=== PATIENT | male | born 1955 | race Caucasian/White ===

== ENCOUNTER 2017-06-13 12:33 | Inpatient (IN) ==
--- NOTE | 2017-06-13 14:36 | PROVIDER DOCUMENTATION ---
HPI-Rash/Wound/ReCheck - General Chief Complaint: Extremity Pain Stated Complaint: RT LEG PAIN Time Seen by Provider: 06/13/17 13:54 Source: patient Allergies/Adverse Reactions: Allergies Allergy/AdvReac Type Severity Reaction Status Date / Time No Known Allergies Allergy Verified 06/13/17 17:46 Home Medications: Home Medication List Medication Instructions Recorded Confirmed Last Taken Type Pregabalin [Lyrica] 75 mg PO DAILY 12/14/13 06/13/17 12/13/13 20:00 History RX: Atorvastatin Calcium 80 mg PO DAILY 12/14/13 06/13/17 12/13/13 20:00 History Carvedilol [Coreg] 6.25 mg PO BID 06/13/17 06/13/17 Unknown History Clindamycin [Cleocin] 300 mg PO 4XDAY 06/13/17 06/13/17 06/12/17 History Glipizide E.r. [Glucotrol Xl] 10 mg PO DAILY 06/13/17 06/13/17 Unknown History Insulin Detemir [Levemir Flextouch] 52 unit SQ QHS 06/13/17 06/13/17 06/12/17 History Insulin Lispro [Humalog Kwikpen] 17 unit SQ TID 06/13/17 06/13/17 06/13/17 History Metformin [Glucophage] 500 mg PO BID CC 06/13/17 06/13/17 Unknown History RX: Aspirin 325 mg PO DAILY 06/13/17 06/13/17 Unknown History Ropinirole [Requip] 1 mg PO DAILY 06/13/17 06/13/17 Unknown History Tiotropium [place] Inhaler 1 puff INH RTDAILY 06/13/17 06/13/17 Unknown History [Spiriva] - History of Present Illness-Dermatology Nature of Presenting Problem: 62 y.o male with PMh of CAD/stents, IDDM, PAD, COPD,current smoker who presents with complaints of right leg pain and redness. His symptoms have been presents for at least 2 days, but pt admits not checking his leg routinely. He was seen at a clinic yesterday for complains similar to today and given 2 shots + Po meds, then discharged with clindamycin. Pt was also told to go to ED if pain worsen. Pt also reports loosing toenail on left great toe a week ago. Pt denies fever, chills, Location: reports: lower extremity Quality: reports: painful Severity: reports: moderate Onset/Duration: reports: 2 days ago, 3 days ago Timing: reports: getting worse Context/Associated Symptoms: reports: other (may have been scratched by his dog. ) Locality of [place]: Home Similar Symptoms Previously?: No Recently seen or treated by another doctor?: No Review of Systems - Adult - REVIEW OF SYSTEMS - ADULT Constitutional: reports: no symptoms reported Eyes: reports: no symptoms reported Ears, Nose, Mouth & Throat: reports: no symptoms reported Cardiovascular: reports: no symptoms reported Respiratory: reports: no symptoms reported Gastrointestinal: reports: no symptoms reported Genitourinary: reports: no symptoms reported Musculoskeletal: reports: see HPI Integumentary: reports: see HPI Neurological: reports: no symptoms reported Psychiatric: reports: no symptoms reported Endocrine: reports: no symptoms reported Hematologic/Lymphatic: reports: no symptoms reported Allergic/Immunologic: reports: no symptoms reported All Other Systems: Reviewed and Negative Past History - Adult - PAST MEDICAL HISTORY-ADULT Review of Records: reports: Nursing Assessment Review, Medications Reviewed Cardiovascular: reports: cardiac disease, DE, PAD, PVD Respiratory: reports: COPD - FAMILY HISTORY Family History: diabetes, CAD over 55 yo, lung disease - SOCIAL HISTORY Smoking: less than 1 pack/day Substance Use: none/never Alcohol Use Frequency: never Physical Exam-General - PHYSICAL EXAM-ADULT Initial Vital Signs Reviewed: Yes - CONSTITUTIONAL General Appearance: appears well, other (antalgic gait) - EYES Eyes: PERRL/EOMI - HEAD, EARS, NOSE, MOUTH & THROAT HENMT: normocephalic/atraumatic - NECK Neck: non-tender, supple - RESPIRATORY Respiratory: chest non-tender, lungs clear, normal breath sounds - CARDIOVASCULAR Cardiovascular: regular rate, rhythm - GASTROINTESTINAL (ABDOMEN) Abdominal Exam: normal bowel sounds Progress - PLAN OF CARE/RESULTS Progress/Plan/Lab Results: Laboratory Results - last 24 hr 06/13/17 06/13/17 06/13/17 14:54 14:54 14:54 WBC 15.34 H RBC 5.09 Hgb 12.8 L Hct 39.0 L MCV 76.6 L MCH 25.1 L MCHC 32.8 L RDW Std Deviation 14.5 Plt Count 331 MPV 10.4 Immature Gran % (Auto) 0.3 Neut % (Auto) 79.3 H Lymph % (Auto) 10.2 L [place] % (Auto) 9.5 H Eos % (Auto) 0.4 Baso % (Auto) 0.3 Immature Gran # (Auto) 0.04 Neut # (Auto) 12.17 H Lymph # (Auto) 1.57 [place] # (Auto) 1.46 H Eos # (Auto) 0.06 Baso # (Auto) 0.04 Sodium 123 L Potassium 4.0 Chloride 86 L Carbon Dioxide 23 L Anion Gap 14 BUN 18 Creatinine 0.9 Estimated GFR/1.73 m2 > 60 BUN/Creatinine Ratio 20 Glucose 390 H Estimat Average Glucose 192 Hemoglobin A1c 8.3 H Calculated Osmolality 266 Calcium 8.3 L Total Bilirubin 0.70 AST 24 ALT 31 Alkaline Phosphatase 185 H Total Protein 7.4 Albumin 3.5 Globulin 3.9 Albumin/Globulin Ratio 0.9 Orders Category Date Time Status Admit - [facility] Routine AdmDCTranf 06/13/17 18:23 Ordered Activity - Bed Rest with BRP ORDERED Care 06/13/17 18:23 Active FSBS/Accucheck Result AC + HS Care 06/13/17 18:23 Active Neurological Check PRN Care 06/13/17 18:23 Active Vital Signs Order Q 8-HR .ASSESS Care 06/13/17 18:23 Active Z-Document. for Tele Applied ORDERED Care 06/13/17 18:23 Active Diabetic Diet Diet 06/13/17 16:31 Active A1C HGB W EST AVG GLUCOSE [CHEM] Stat Lab 06/13/17 14:54 Completed BLOOD CULTURE [BLDCUL] Stat Lab 06/13/17 18:00 Results CBC WITH ELECTRONIC DIFF [HEME] Stat Lab 06/13/17 14:54 Completed COMPREHENSIVE METABOLIC PANEL [CHEM] Stat Lab 06/13/17 14:54 Completed LACTATE, PLASMA [CHEM] Stat Lab 06/13/17 18:00 Completed Acetaminophen [Tylenol] Med 06/13/17 18:23 Active 650 mg PO Q6H PRN PRN Insulin Lispro [Humalog] Med 06/13/17 21:00 Active See Protocol SUBQ 0700,1100,1600,2100 Morphine Med 06/13/17 18:23 Active 2 mg IV Q2H PRN PRN Ondansetron [Zofran] Med 06/13/17 18:23 Active 4 mg IV Q4H PRN PRN Pharmacy Order [Vancomycin IV Per Pharmacy] Med 06/13/17 18:23 Active 1 each MISC DIRECTED Piperacillin/Tazobactam [Zosyn] 3.375 gm Med 06/13/17 15:43 Discontinued 0.9% Sodium Chloride Inj [Ns] 50 ml IV NOW Piperacillin/Tazobactam [Zosyn] 3.375 gm Med 06/13/17 18:23 Active 0.9% Sodium Chloride Inj [Ns] 50 ml IV Q6H Vancomycin 1 gm/Ns Med 06/13/17 15:44 Discontinued 1 gm in 250 ml IV NOW Telemetry [OM.EQ] Routine Oth 06/13/17 18:23 Active Venous U/S Right Leg Stat Ther 06/13/17 14:32 Completed Transfer/Admit Order [TRANSFER] Routine Transfer 06/13/17 16:29 Completed Result Diagrams: 06/13/17 14:54 06/13/17 14:54 - REASSESSMENT Reassessment #1 Status: unchanged (labs obtained, abx ordered. Spoke to OUTPATIENT CLERK, pt will be admitted to Dr Azul.) Departure - Departure Date of Disposition Decision: 06/13/17 Time of Disposition Decision: 15:54 (spoke to Brenda MALDONADO) DIAGNOSIS: Diabetic foot infection Cellulitis Qualifiers: Site of cellulitis: extremity Laterality: right Disposition: ADMITTED INPATIENT 09 Certified Medical Emergency: Emergent Condition: Stable - Critical Care Note This patient required my direct & personal management of CC.: No Attestation - Physician/ BRIAN Attestation Patient care was provided by Advanced Practice Provider:: No The physician spent face to face time with patient:: Yes Advanced Practice Provider documentation review:: Supervising physician onsite and consulted in the evaluation and care of this patient. The physician did have a face to face encounter with the patient.
[2017-06-13 15:08] LABS: MANUAL DIFF NEEDED? NO
[2017-06-13 15:12] LABS: BASO% 0.3 % (0.0-0.8); EOS# 0.06 X1000 (0.0-0.7); EOS% 0.4 % (0.0-10.0); HEMOGLOBIN 12.8 g/dL (14.0-18.0); IMM GRAN# 0.04 X1000 (0.0-0.04); IMM GRAN% 0.3 % (0.0-0.5); LYMPH# 1.57 X1000 (1.2-3.4); LYMPH% 10.2 % (20.5-51.1); MCH 25.1 PG (27-31); MCHC 32.8 g/dL (33-37); MCV 76.6 FL (81-99); MONO# 1.46 X1000 (0.11-0.59); MONO% 9.5 % (1.7-9.3); MPV 10.4 FL (7.4-10.4); NEUT% 79.3 % (42.2-75.2); PLT 331 X1000 (130-400); RBC 5.09 XMIL (4.7-6.1)
[2017-06-13 15:26] LABS: HEMOGLOBIN A1C 8.3 % (4.8-6.0)
[2017-06-13 15:33] LABS: AGAP 14; ALBUMIN 3.5 g/dL (3.5-5.0); ALKALINE PHOSPHATASE 185 U/L (32-122); BUN 18 mg/dL (8-22); CALCIUM 8.3 mg/dL (8.8-10.2); CHLORIDE 86 mmol/L (98-107); COSMO 266; GOT 24 U/L (10-34); GPT 31 U/L (10-44); SODIUM 123 mmol/L (136-145); TCO2 23 mmol/L (25-35); TOTAL PROTEIN 7.4 g/dL (6.3-8.3)
[2017-06-13] MEDS ORDERED: ZOSYN 3.375 GM in NS 50 ML IV ONE (15:43)
[2017-06-13] MEDS ORDERED: VANCOMYCIN 1 GM/NS 1 GM/250 ML IVPB IV ONE (15:44)
[2017-06-13] MEDS ORDERED: MORPHINE IV ONE (18:02)
[2017-06-13] MEDS ORDERED: VANCOMYCIN IV PER PHARMACY MISC SCH (18:23)
--- NOTE | 2017-06-13 19:02 | Diag Imaging Result Doc PS360 ---
EXAM: FOOT COMPLETE RIGHT HISTORY: diabetic foot ulcer TECHNIQUE: Right foot three views COMMENT: There is no evidence of acute fracture or dislocation. There is some plantar spurring of the calcaneus. There is some apparent soft tissue swelling around the proximal phalanx of the great toe. No definite erosion, periosteal reaction or soft tissue calcification is present. IMPRESSION: No evidence of acute bony disease. Electronically signed by Everette Dietz 06/13/2017 6:59 PM
[2017-06-13] MEDS: HUMALOG SUBQ SCH (20:33)
[2017-06-13] MEDS: COREG PO SCH (20:33)
[2017-06-13] MEDS: ZOSYN 3.375 GM in NS 50 ML IV SCH (20:35)
[2017-06-13] MEDS: LOVENOX SUBQ SCH (20:35)
[2017-06-13] MEDS ORDERED: VANCOMYCIN 1,500 MG in NS 250 ML IV ONE (21:00)
[2017-06-13] MEDS: MORPHINE IV PRN (23:00)
[2017-06-14] MEDS: ZOSYN 3.375 GM in NS 50 ML IV SCH ×5 (00:35→21:10)
--- NOTE | 2017-06-14 00:55 | HISTORY AND PHYSICAL ---
CHIEF COMPLAINT: Pain and swelling in his right leg. HISTORY OF PRESENT ILLNESS: This is a 62-year-old, insulin-dependent diabetic who came in from home with about a week's worth of swelling and pain in his right lower extremity for the last 7 days. The patient has had pain and swelling in his right toe and left toe actually. He states that it is possible a puppy dog injured his right foot and he has had pain and swelling since that time. He lost the nail on his left foot, it kind of spontaneously came off and has not been healing very well. He saw urgent care I think a couple days ago and has been started on clindamycin but obviously has not improved. There is more pain, erythema, warmth and he also has a large bolus lesion between his 1st and 2nd toe. He was evaluated in the ER, felt to have a diabetic foot wound and cellulitis and was admitted for treatment. Also consideration for failed inpatient treatment. PAST MEDICAL HISTORY: 1. Type 2 diabetes but insulin dependent. 2. History of CAD status post PCI. 3. Chronic neuropathy of his lower extremities. 4. COPD. PAST SURGICAL HISTORY: I do not think he has had major surgery although it looks like he has had surgery on his right foot previously. SOCIAL HISTORY: He is a pack-a-day smoker. He has done that for probably 40 years. No alcohol. No recreational drugs. REVIEW OF SYSTEMS: Ten systems reviewed. Otherwise negative. MEDICATION LIST: Being compiled. He is on Levemir and lispro, metformin, Lyrica, Requip, Spiriva, Atorvastatin and aspirin and he has been on clindamycin for about 2 days. FAMILY HISTORY: Positive for CAD in his mother, diabetes as well. PHYSICAL EXAMINATION: VITAL SIGNS: Blood pressure 141/75, heart rate 96, respiratory rate 18, temperature 98.3 degrees. GENERAL: Well-developed male in mild distress. HEENT: Pupils equal, round, reactive to light. Extraocular movements were intact. EAR/NOSE/THROAT: He had moist mucous membranes. NECK: Supple. GI: Soft, nontender, nondistended. Bowel sounds are positive. EXTREMITIES: No clubbing or cyanosis. LYMPHATIC EXAM: No peripheral edema. He did have trace peripheral edema. NEUROLOGICAL EXAM: Was nonfocal. CARDIAC EXAM: He was tachycardic. PULMONARY EXAM: He had occasional wheeze. SKIN EXAM: He had erythema from his dorsum of his right foot extending up to about 2/3 up his cao. It kind of was splotchy in place, definitely warm to the touch and painful. Skin had a bright sheen to it hairless and pulses were very difficult to palpate dorsalis pedis and posterior tibialis pulses. His toe on the right foot had a bolus lesion about 2 cm. This was spontaneously ruptured and fluid was collected for wound culture. He had a deeper wound underneath his 4th phalanx on the right foot at the MTP joint which was draining. On his left foot at the left 1st toe phalanx had nail had been denuded and there was just lacerated, abraded kind of flesh associated with that but it was not erythematous but it was draining. LABORATORY DATA: White count 15, hemoglobin and hematocrit 12 and 39, platelets of 331,000. Sodium 123, sugar 390, A1c is 8.3 and plain films are negative. I think an ultrasound was done in the ER venous ultrasound and I think it was negative for DVT. I do not have the final report. ASSESSMENT: This is a 62-year-old male with cellulitis of his right leg with possible diabetic foot ulcer or wound with failing outpatient therapy. 1. Cellulitis and diabetic foot ulcers. We will continue vancomycin and Zosyn. I think that is appropriate and we will get a surgical consult to evaluate if debridement is necessary. I am going to get plain films of his right foot just to ensure there is not a deeper infection or osteo. He may need further treatment. We will follow up on wound culture, blood cultures and follow. 2. Diabetes not well controlled. Continue insulin. Follow blood sugars aggressively. Continue sliding scale insulin. 3. Hyponatremia likely related to his hyperglycemia. We will continue gentle hydration and follow. 4. Coronary artery disease appears to be compensated. We will continue his regular medications. I am going to hold aspirin right now just because of his putative need for possible debridement or further surgical intervention. DISPOSITION: Pending his clinical status. cc: Jose Irby MD
[2017-06-14] MEDS: HUMALOG SUBQ SCH ×6 (06:21→21:13)
[2017-06-14] MEDS: TYLENOL PO PRN (06:27)
[2017-06-14] MEDS: PRILOSEC PO SCH (06:27)
[2017-06-14 06:39] LABS: HEMATOCRIT 38.1 % (42.0-52.0); HEMOGLOBIN 12.4 g/dL (14.0-18.0); MCH 25.4 PG (27-31); MCHC 32.5 g/dL (33-37); MCV 77.9 FL (81-99); MPV 10.4 FL (7.4-10.4); RBC 4.89 XMIL (4.7-6.1)
[2017-06-14 07:01] LABS: AGAP 15; BUN 15 mg/dL (8-22); CHLORIDE 93 mmol/L (98-107); COSMO 273; MAGNESIUM 2.1 mg/dL (1.5-2.7); POTASSIUM 4.1 mmol/L (3.5-5.1); SODIUM 133 mmol/L (136-145); TCO2 25 mmol/L (25-35)
[2017-06-14] MEDS: SPIRIVA INH SCH (08:15)
[2017-06-14] MEDS: GLUCOTROL XL PO SCH (09:00)
[2017-06-14] MEDS: LYRICA PO SCH (09:00)
[2017-06-14] MEDS: REQUIP PO SCH (09:01)
[2017-06-14] MEDS: COREG PO SCH ×2 (09:01→21:10)
[2017-06-14] MEDS: GLUCOPHAGE PO SCH ×2 (09:03→18:51)
[2017-06-14] MEDS ORDERED: NS 500 ML ONE (12:19)
[2017-06-14] MEDS: MORPHINE IV PRN ×4 (12:22→18:56)
[2017-06-14] MEDS: VANCOMYCIN 2 GM in NS 500 ML IV SCH (15:50)
--- NOTE | 2017-06-14 17:21 | CONSULTATION ---
DATE OF CONSULTATION: 06/14/2017 REASON FOR CONSULTATION: Diabetic foot infection. HISTORY OF PRESENT ILLNESS: This is a 62-year-old male with uncontrolled insulin-dependent diabetes, who presented with swelling, pain and redness of his right leg and foot for about a week. He has had a blister and some drainage on the great toe. He has really not been treated other than starting some clindamycin a day or two ago at an urgent care clinic. He does report pain in his thighs and calves with walking and what sounds like rest pain as well. The pain is sometimes lessened by dropping his foot off the side of the bed or by stopping walking. He describes some subjective fever as well as nausea and vomiting recently. PAST MEDICAL HISTORY: Insulin-dependent type 2 diabetes, history of coronary artery disease, status post stent placement, peripheral neuropathy, COPD, tobacco abuse. PAST SURGICAL HISTORY: None. HOME MEDICATIONS: Levemir, lispro, metformin, Lyrica, Requip, Spiriva, atorvastatin, aspirin. SOCIAL HISTORY: He smokes a pack of cigarettes per day. He has done that for several decades. No alcohol or illicit drug use. FAMILY HISTORY: Positive for coronary artery disease and diabetes. REVIEW OF SYSTEMS: Ten systems reviewed and negative except as noted above. PHYSICAL EXAMINATION: Vital Signs: Temperature 98.3 degrees, pulse 84, respirations 20, blood pressure 139/76, O2 saturation 94%. General: He is a well-developed male in no acute distress. He looks his stated age. HEENT: Normocephalic, atraumatic. Extraocular muscles intact. Pupils equal, round, reactive to light. Sclerae anicteric. Moist mucous membranes. Hearing grossly normal. Neck: Supple. No thyromegaly. CV: Regular rate and rhythm. GI: Soft, nontender, nondistended. No organomegaly or mass. No hernias. Skin: There is erythema of the distal right leg and foot with some skin breakdown in between the 1st and 2nd toe, and what looks like a blister on the lateral aspect of the proximal right great toe. Extremities: His upper extremities were well perfused; however, I do not palpate pedal pulses in either foot. His right foot and leg are warm, red and swollen. There is some discoloration under the skin of the proximal right great toe. There is no foul odor. The left great toe has a missing nail with some chronic skin changes, but no active infection. LABORATORY: White blood cell count 52310, hemoglobin 12, hematocrit 38, platelet count 339. Sodium 133, potassium 4.1, chloride 93, CO2 25, BUN 15, creatinine 0.9, glucose 208, hemoglobin A1c 8.3. IMAGING: A foot x-ray done last night shows no acute bony abnormality. There is soft tissue swelling around the proximal phalanx of the great toe. ASSESSMENT AND PLAN: A 62-year-old male with a diabetic foot infection now with a foot ulcer involving the great toe. There is cellulitis of his leg. He has peripheral arterial disease, which appears to be quite severe. He has had prior imaging documenting bilateral superficial femoral stenoses. He has I think seen Dr. Garcia in the past for vascular workup. We will reconsult him tomorrow as he may need revascularization in the near future. Will paint his toe wounds with Betadine for now and agree with the vancomycin and Zosyn which has been started. We will check an MRI tomorrow to look for any osteo in his foot. cc: Julio Ramsay MD
--- NOTE | 2017-06-14 17:27 | PROGRESS NOTE ---
DATE: 06/14/2017 SUBJECTIVE: Patient still feels ill. Still a lot of pain, swelling in his leg. OBJECTIVE: Vital signs: Blood pressure 134/65, heart rate of 89, respiratory rate 18, temperature 98.3 degrees, 95% on room air. Cardiovascular: Regular rate and rhythm. Pulmonary: Bilateral breath sounds. Clear to auscultation. GI: Soft, nontender, nondistended. Bowel sounds are positive. Extremities: No clubbing or cyanosis. Right foot is still erythematous with streaking lymphangitic, his right toe has some dry blood kind of crusting in between and it looks like he has got some subcutaneous free fluid with the tissue inside and there is dark patches that are concerning for possibly some necrosis deep to that. Lymphatics: No peripheral edema. Neurological: Nonfocal. LABORATORY DATA: White count was 15 still, hemoglobin and hematocrit 12 and 38, platelets 339,000. Sugars 212. His plain films are negative. ASSESSMENT: 1. This is a 62-year-old male with a right diabetic foot ulcer possibly some gangrenous changes beneath and cellulitis. He is on vancomycin and Zosyn. Surgery has evaluated the patient. I do not have the note yet but they have ordered an MRI and consult with Dr. Garcia. I think he will need arterial studies to evaluate for blood flow. Apparently he has had peripheral vascular disease issues in the past. He had extremity studies done in September with common femoral stenosis. He was supposed to have an arteriogram but I guess I do not think he ended up getting it, he had an aorta study in 2013 which showed severe superficial femoral disease occlusion bilaterally and that was 3 years ago so he may need revascularization type of procedure, I think Dr. Garcia has been consulted as well per Dr. Ramsay. 2. Diabetes poorly controlled. Will continue to adjust his medications. He is on Levemir, lispro and metformin. 3. Neuropathy. Continue regular medications and follow. DISPOSITION: Pending rest of his workup. cc: Jose Azul MD
[2017-06-14] MEDS: LEVEMIR SUBQ SCH (21:00)
[2017-06-14] MEDS: LOVENOX SUBQ SCH (21:10)
[2017-06-15] MEDS: ZOFRAN IV PRN (04:23)
[2017-06-15] MEDS: ZOSYN 3.375 GM in NS 50 ML IV SCH ×4 (04:23→21:20)
[2017-06-15 06:51] LABS: HEMATOCRIT 33.7 % (42.0-52.0); HEMOGLOBIN 10.8 g/dL (14.0-18.0); MCH 25.3 PG (27-31); MCV 78.9 FL (81-99); MPV 10.4 FL (7.4-10.4); RBC 4.27 XMIL (4.7-6.1)
[2017-06-15 06:57] LABS: AGAP 13; BUN 14 mg/dL (8-22); CALCIUM 8.8 mg/dL (8.8-10.2); CHLORIDE 95 mmol/L (98-107); COSMO 274; POTASSIUM 4.7 mmol/L (3.5-5.1); SODIUM 134 mmol/L (136-145); TCO2 26 mmol/L (25-35)
[2017-06-15] MEDS: HUMALOG SUBQ SCH ×7 (07:04→21:19)
[2017-06-15] MEDS: PRILOSEC PO SCH (07:04)
[2017-06-15] MEDS: SPIRIVA INH SCH (07:50)
[2017-06-15] MEDS: LIPITOR PO SCH (09:00)
[2017-06-15] MEDS: GLUCOTROL XL PO SCH (09:00)
[2017-06-15] MEDS: GLUCOPHAGE PO SCH ×2 (09:00→17:15)
[2017-06-15] MEDS: REQUIP PO SCH (09:00)
[2017-06-15] MEDS: COREG PO SCH ×2 (09:01→21:18)
[2017-06-15] MEDS: LYRICA PO SCH (09:02)
[2017-06-15] MEDS: MORPHINE IV PRN ×3 (10:38→21:19)
[2017-06-15] MEDS: VANCOMYCIN 2 GM in NS 500 ML IV SCH (12:03)
--- NOTE | 2017-06-15 13:27 | Diag Imaging Result Doc PS360 ---
EXAM: CT ANGIOGRAM/AORTA W/RUNOFF INDICATION: diabetic foot ulcer;PVD TECHNIQUE: In addition to standard thin section CTA images, radial MIPS were obtained. COMPARISON: 07/05/2014 FINDINGS: There is aortic atherosclerotic disease that is fairly extensive distally where there are irregular plaques and calcifications. There is moderate narrowing of the aorta distally. There is no evidence of aortic aneurysm. There is extensive iliac artery atherosclerotic disease with moderate stenosis of the common iliac arteries. There is extensive atherosclerotic disease involving the internal iliac arteries. There is milder atherosclerotic disease involving the external iliac artery on the right causing only mild narrowing. There is mild patchy atherosclerotic calcification involving the celiac trunk and SMA proximally but they both remain widely patent. There are two left renal arteries and one right renal artery. There is mild calcification at the origins of the renal arteries. They remain patent. The ARTHUR is patent. There is no evidence of acute pathology involving the abdomen and pelvis except for possibly constipation. Right lower extremity: There is atherosclerotic disease involving the common femoral artery with moderate stenosis distally. The deep femoral artery is patent. There is severe atherosclerotic disease involving the superficial femoral artery, which becomes totally occluded at the proximal thigh. There is reconstitution at the popliteal artery via collateralization. There is fairly mild atherosclerotic disease involving the proximal popliteal artery. It remains patent. The anterior tibial artery remains patent throughout its course providing runoff to the foot. There is atherosclerotic disease with at least moderate narrowing involving the tibioperoneal trunk. The posterior tibial artery appears become occluded at the mid calf. The peroneal artery remains patent and provide runoff to the foot. Left lower extremity: There is moderate atherosclerotic disease involving the common femoral artery that is less severe than on the right. The deep femoral artery is patent. The superficial femoral artery becomes completely occluded just distal to its origin. It is reconstituted distally via collateralization. There is fairly mild atherosclerotic disease involving the popliteal artery, which remains patent. The anterior tibial artery is patent throughout its course. There is focal atherosclerotic calcification involving the tibioperoneal trunk, which remains patent. The posterior tibial artery and peroneal artery appear to remain patent throughout the courses. IMPRESSION: Aortoiliac atherosclerotic disease and lower extremity atherosclerotic disease as detailed above with two-vessel runoff on the right and three-vessel runoff on the left. Electronically signed by John Tao 06/15/2017 1:25 PM
--- NOTE | 2017-06-15 13:56 | Diag Imaging Result Doc PS360 ---
EXAM: MRI LOWER EXT W/WO CON-RIGHT INDICATION: non-healing diabetic foot wound and infection TECHNIQUE: COMPARISON: None. FINDINGS: At the plantar aspect of the forefoot underlying the first and second toes and first and second MTP joints, there is soft tissue edema suggesting cellulitis. I can identify no well defined abscess in the region. The bony structures underlying this region and the remaining bony structures of the foot exhibit normal marrow signal with nothing to indicate osteomyelitis at this time. The joint spaces appear to be preserved. Ligamentous and tendinous structures of the foot are grossly intact. IMPRESSION: Edema at the plantar aspect of the forefoot medially as described suggesting cellulitis. However, there is no sign of osteomyelitis on this study. Electronically signed by John Tao 06/15/2017 1:53 PM
--- NOTE | 2017-06-15 17:36 | PROGRESS NOTE ---
DATE: 06/15/2017 SUBJECTIVE: The patient has no new complaints today. OBJECTIVE: Vital signs: He is afebrile. Vital signs are stable. General: He is somnolent, but arousable. No acute distress. He is oriented x3. Extremities: The right foot and lower leg remain warm and swollen. The right great toe shows some fluid under the skin medially and laterally. There is a small puncture wound with some cloudy drainage. It is not tender to palpation. LABORATORY: White blood cell count 13,000. IMAGING: A lower extremity MRI of the right foot did not reveal any osteomyelitis. There is edema in the soft tissues around the 1st and 2nd metatarsophalangeal joints consistent with a known infection of his foot. A CT angiogram of his lower extremities revealed bilateral superficial femoral occlusion with 2 vessel runoff on the right and 3 vessel runoff on the left. ASSESSMENT/PLAN: A 62-year-old male with a diabetic foot infection and peripheral arterial disease. He is on antibiotics. I am planning drainage and debridement of the foot wound tomorrow. Dr. Garcia is seeing for revascularization. cc: Julio Ramsay MD
[2017-06-15] MEDS: LOVENOX SUBQ SCH (18:03)
--- NOTE | 2017-06-15 18:13 | Extremity Venous Study ---
PROCEDURE NAME: Venous U/S Right Leg - 06/13/2017 RIGHT LOWER EXTREMITY VENOUS DUPLEX ULTRASOUND: REFERRING PHYSICIAN: Dr. Humphrey. READING PHYSICIAN: Julio Ramsay MD. DENTAL DETAIL REPRESENTATIVE: [place]. INDICATION: Right leg pain and redness. FINDINGS: The deep and superficial veins of the right lower extremity were imaged throughout their course. They are compressible, patent and without thrombus. INTERPRETATION: No evidence of deep or superficial venous thrombosis of the right lower extremity. cc: Julio Ramsay MD
--- NOTE | 2017-06-15 19:50 | CONSULTATION ---
DATE OF CONSULTATION: 06/15/2017 CONCLUSION: Patient is admitted to the hospital with a right foot cellulitis. Unfortunately his aortogram showed diffuse atherosclerotic disease. A culture taken from the patient's foot is pending. RECOMMENDATIONS: I agree with treating the patient with vancomycin and Zosyn pending culture results. DISCUSSION: The patient tells me that for the past week he has had erythema and swelling of the right foot associated with pain, but no fever. He has had a small amount of seropurulent drainage. His laboratory studies [place] [address], hemoglobin 10.8, and platelet count 306,000, creatinine 0.9. GFR is greater than 60. Liver function studies are normal except for an alkaline phosphatase of 185. Patient had an MRI of the right foot that showed evidence of cellulitis, but no osteomyelitis. An aortogram is as mentioned above. Blood cultures are sterile. A culture from the left foot is pending. PAST MEDICAL HISTORY AND HISTORY REVIEW: Eyes and ears: He denies difficulty hearing or seeing. Neck no stiffness. Respiratory: No cough or shortness of breath. Cardiac: No chest pain or palpitations. GI: No nausea, vomiting, or diarrhea. Genitourinary: No dysuria or frequency. Endocrine: Patient has diabetes mellitus and hyperlipidemia, but no thyroid disease. Neurologic: The patient does not have seizures. He has not had any unilateral loss of muscle strength or loss of sensation. PREVIOUS HOSPITALIZATIONS AND OPERATIONS: Has had placement of a stent in his coronary artery. He denies any other admission to the hospital or any other surgery. MEDICAL DISEASES: Infectious Disease history negative for pneumonia and UTI. Positive for diabetes mellitus, coronary artery disease, chronic neuropathy of the lower extremities, COPD and hyperlipidemia. FAMILY HISTORY: Positive for diabetes mellitus, hypertension, myocardial infarction, stroke, and cancer. SOCIAL HISTORY: Patient is . He smokes cigarettes. He does not drink alcoholic beverages or abuse drugs. He has a dog as a pet. He is disabled. ALLERGIES: He has no known drug allergies. HOME MEDICATIONS: His current home medications include atorvastatin, insulin, Lyrica, Spiriva, Glucophage, Requip, Coreg and aspirin. PHYSICAL EXAMINATION: Vital Signs: Temperature is 98.1 degrees, pulse is 72, respirations are 18, blood pressure 137/67. Patient's weight is listed as 181 pounds. General: This is an obese, middle-aged male. He is in no acute distress. Head, eyes, ears, nose, and throat: He can hear my spoken words and see near objects. He is edentulous. No drainage is noted from the nose or ears. Neck: No meningismus. Thorax: Patient has an increased AP diameter of the chest. Lungs clear to auscultation. Cardiovascular: Heart rate is regular. There was edema of the legs in the right leg more so than the left. There were diminished peripheral pulses in the legs. Abdomen was slightly protuberant, but soft and nontender. Extremities: The patient's left foot had a wound where the toenail somehow removed from the toe. There is no erythema or drainage. The patient's right foot is swollen and erythematous. There is seropurulent drainage. Neurologic: The patient is awake. He can move his extremities. There is no tremor. He has decreased sensation in his legs. The patient's memory as regarding his medical history was decreased. Thank you for the consult. cc: Franklin Toledo MD
--- NOTE | 2017-06-15 20:20 | PROGRESS NOTE ---
DATE: 06/15/2017 SUBJECTIVE: The patient is resting comfortably in bed. He has no complaints at this time. No acute events noted overnight. OBJECTIVE: Vital Signs: Temperature is 98 degrees, blood pressure 127/52, heart rate 66, respirations 18, O2 saturations 95% on room air. General: This is a chronically ill-appearing, elderly male, lying in bed, in no acute distress. Heart: S1, S2. Normal. Regular rate and rhythm. Lungs: Clear to auscultation bilaterally. No crackles. No rales. Abdomen: Positive bowel sounds. Soft, nontender, nondistended. Extremities: The patient's right lower extremity is erythematous and swollen. Also the patient's left great toe appears to be ulcerated. Neurologic: The patient is alert and oriented x3. LABORATORIES: White blood cell count 13, hemoglobin 10, hematocrit 33, platelets 306,000. Sodium 134, potassium 4.7, chloride 95, CO2 26, BUN 14, creatinine 0.9, glucose 192. IMAGING: MRI of the lower extremity reveals edema at the plantar aspect of the forefoot medially suggestive of cellulitis. ASSESSMENT AND PLAN: 1. Diabetic foot infection with right foot cellulitis. The patient is being followed by the general surgeon who is planning to do debridement. Dr. Toledo has also been consulted for assistance with IV antibiotic therapy. We will continue with the current course of treatment. 2. Uncontrolled insulin-dependent diabetes mellitus. Continue on Humalog before meals plus sliding scale insulin. 3. Hypertension, controlled. 4. Suspected peripheral vascular disease. Management as per the general surgeon. 5. Leukocytosis. Slowly improving. Continue with antibiotic therapy. 6. Hyponatremia. Improving. We will continue to monitor the patient's sodium closely. 7. Deep vein thrombosis prophylaxis. Continue on Lovenox. cc: Nisha Meyers MD
[2017-06-15] MEDS: LEVEMIR SUBQ SCH (23:39)
[2017-06-16] MEDS: ZOSYN 3.375 GM in NS 50 ML IV SCH ×4 (03:19→22:11)
[2017-06-16] MEDS: ZOFRAN IV PRN (03:24)
[2017-06-16] MEDS: VANCOMYCIN 2 GM in NS 500 ML IV SCH (05:36)
[2017-06-16] MEDS: HUMALOG SUBQ SCH ×6 (06:13→22:13)
[2017-06-16] MEDS: PRILOSEC PO SCH (06:13)
[2017-06-16 06:39] LABS: BASO% 0.5 % (0.0-0.8); EOS# 0.24 X1000 (0.0-0.7); EOS% 2.1 % (0.0-10.0); HEMATOCRIT 34.9 % (42.0-52.0); IMM GRAN# 0.07 X1000 (0.0-0.04); IMM GRAN% 0.6 % (0.0-0.5); LYMPH# 1.56 X1000 (1.2-3.4); LYMPH% 13.5 % (20.5-51.1); MANUAL DIFF NEEDED? YES; MCH 24.8 PG (27-31); MCHC 31.5 g/dL (33-37); MCV 78.8 FL (81-99); MONO# 1.22 X1000 (0.11-0.59); MONO% 10.5 % (1.7-9.3); NEUT% 72.8 % (42.2-75.2); PLT 349 X1000 (130-400); RBC 4.43 XMIL (4.7-6.1)
[2017-06-16 06:47] LABS: AGAP 13; BUN 10 mg/dL (8-22); CALCIUM 8.6 mg/dL (8.8-10.2); CHLORIDE 96 mmol/L (98-107); COSMO 273; POTASSIUM 4.7 mmol/L (3.5-5.1); SODIUM 135 mmol/L (136-145); TCO2 26 mmol/L (25-35)
[2017-06-16 07:43] LABS: BANDS 2 % (0-1); LYMPHS 10 % (21-51); MONO 6 % (1-9)
[2017-06-16] MEDS: SPIRIVA INH SCH (08:28)
[2017-06-16] MEDS ORDERED: ASPIRIN PO SCH (09:00)
[2017-06-16] MEDS ORDERED: CLEOCIN PO SCH (09:00)
[2017-06-16] MEDS: REQUIP PO SCH (11:43)
[2017-06-16] MEDS: GLUCOPHAGE PO SCH ×2 (11:43→18:48)
[2017-06-16] MEDS: LIPITOR PO SCH (11:44)
[2017-06-16] MEDS: GLUCOTROL XL PO SCH (11:44)
[2017-06-16] MEDS: LYRICA PO SCH ×2 (11:44→22:12)
[2017-06-16] MEDS: MORPHINE IV PRN ×5 (12:00→22:12)
[2017-06-16] MEDS: COREG PO SCH ×2 (12:13→22:12)
--- NOTE | 2017-06-16 12:29 | EKG Report ---
Test Performed on : 06/16/2017 11:31:28 AM Test Reason : chest pain Blood Pressure : / mmHG Vent. Rate : 072 BPM Atrial Rate : 072 BPM P-R Int : 156 ms QRS Dur : 092 ms QT Int : 416 ms P-R-T Axes : 073 059 052 degrees QTc Int : 455 ms Normal sinus rhythm. ST \T\ T wave abnormality, consider lateral ischemia Abnormal ECG When compared with ECG of 14-DEC-2013 07:32, Nonspecific T wave abnormality no longer evident in Inferior leads Confirmed by Ruddy Powell MD ([id number]) on 06/17/2017 6:43:51 PM
--- NOTE | 2017-06-16 15:15 | OPERATIVE NOTE ---
PROCEDURE DATE: 06/16/2017 PREOPERATIVE DIAGNOSES: 1. Right diabetic foot infection and nonhealing wound. 2. Peripheral arterial disease. POSTOPERATIVE DIAGNOSES: 1. Right diabetic foot infection and nonhealing wound. 2. Peripheral arterial disease. PROCEDURE: Debridement of skin and subcutaneous tissue less than 20 square cm of right foot. SURGEON: Dr. Julio Ramsay. ESTIMATED BLOOD LOSS: Scant. COMPLICATIONS: None apparent. FINDINGS: He had necrotic skin and soft tissue, full thickness of the right foot near the 1st metatarsophalangeal joint medially and on the plantar aspect as well as in between the 1st and 2nd toe. There was some cloudy serous drainage. No lynda pus. No exposed bone. TECHNIQUE: He was kept in his hospital bed. The wound was prepped with Betadine. A knife was used to sharply debride the necrotic skin and soft tissue. I debrided a fair amount down to the subcutaneous fat and nearly the joint capsule of the 1st metatarsophalangeal joint medially. Proximally, there appeared to be some healthier bleeding edges but more medially there was still ischemic nonbleeding skin. I stopped at one point because I did not want to create a huge open wound prior to revascularization by Dr. Garcia. Between the 1st and 2nd toe, I debrided this necrotic skin and subcutaneous tissue sharply in the same fashion back to healthier bleeding edges. The total wound measurements were 5 x 3 cm medially and 1 x 3 cm in between the 1st and 2nd toe for a total area of less than 20 square cm. He tolerated this well. A sterile dressing was applied. cc: Julio Ramsay MD
--- NOTE | 2017-06-16 18:16 | PROGRESS NOTE ---
DATE: 06/16/2017 PRESENT ILLNESS: The patient has an infected right foot. Today he underwent debridement of the foot performed by Dr. Ramsay. Tomorrow Dr. wells will revascularize the patient's leg. MEDICATIONS: The patient currently is on a combination of vancomycin and Zosyn. PHYSICAL EXAMINATION: Vital Signs: Temperature is 98.9 degrees, pulse 74, respirations 18, blood pressure 155/53. General: This is a fairly healthy-appearing, middle-aged male. He is in no acute distress. Lungs: Clear to auscultation. Cardiovascular: Regular heart rate. Abdomen: Soft and nontender. Extremities: The right foot has a dressing on it. The dressing is intact. LABORATORY AND X-RAY: The patient's CBC shows a white count of 11,580, hemoglobin 11, platelet count 349,000. Creatinine 0.8, GFR is greater than 60. Blood cultures are negative. Patient's foot is growing a gram-positive coccus which has not yet been identified. ASSESSMENT AND PLAN: 1. Patient has a diabetic foot infection. I plan to continue with the current antibiotics pending the culture results. 2. Comorbidities: He has diabetes mellitus, peripheral vascular disease and he smokes cigarettes. cc: Franklin Toledo MD
[2017-06-16] MEDS: LOVENOX SUBQ SCH (18:48)
--- NOTE | 2017-06-16 20:24 | PROGRESS NOTE ---
DATE: 06/16/2017 SUBJECTIVE: The patient is resting comfortably in bed. He had debridement of his right foot today. He does report intermittent chest pain. OBJECTIVE: Vital Signs: Temperature 97.9 degrees, blood pressure 142/62, heart rate 78, respirations 20, O2 saturations 96% on room air. Input 943, output 480. General: This is a chronically ill-appearing, elderly male, lying in bed, in no acute distress. Head: Normocephalic, atraumatic. Heart: S1, S2. Normal. Regular rate and rhythm. Lungs: Clear to auscultation bilaterally. No wheezing. No rales. No rhonchi. Abdomen: Positive bowel sounds. Soft, nontender, nondistended. Extremities: There is a dressing applied to the right foot. No edema noted. Neurologic: The patient is alert and oriented x4. LABORATORIES: White blood cell count 11, hemoglobin 11, hematocrit 34.9, platelets 349,000. Sodium 135, potassium 4.7, chloride 96, CO2 26, BUN 10, creatinine 0.9, glucose 167. ASSESSMENT AND PLAN: 1. Right diabetic foot infection with cellulitis status post debridement. Continue with antibiotic therapy as directed by Dr. Franklin Toledo. The cultures are currently pending. 2. Peripheral arterial disease. The patient is scheduled to undergo revascularization tomorrow 3. Uncontrolled diabetes mellitus type 2. Continue on the current insulin regimen. 4. Tobacco dependence. The patient has been counseled extensively about smoking cessation. 5. Coronary artery disease. The patient had a stress test done last month; however, the patient did not complete the stress test because he did not return for the stress portion of the study. He also reports having intermittent chest pain since the study. We will consult Cardiology for further recommendations. 6. Hypertension. Continue on the current antihypertensive regimen. 7. Dyslipidemia. Continue on Lipitor. 8. Gastroesophageal reflux disease. Continue on Prilosec. 9. Restless legs syndrome. Continue on Requip. 10. Diabetic neuropathy. Continue on Lyrica. cc: Nisha Meyers MD MTDD
[2017-06-16] MEDS ORDERED: VANCOMYCIN 1.8 GM in NS 250 ML IV SCH (21:00)
[2017-06-16] MEDS: LEVEMIR SUBQ SCH (22:12)
--- NOTE | 2017-06-16 22:48 | CONSULTATION ---
DATE OF CONSULTATION: 06/16/2017 IMPRESSION: 1. Atherosclerotic coronary disease. Patient is status post previous angioplasty/stenting of severe stenosis in mid right coronary artery with bare-metal stent in 2013. The patient continues without angina. 2. Distal right lower extremity ischemia with associated nonhealing ulcer. Patient is status post debridement. Percutaneous revascularization planned. 3. Diabetes mellitus requiring insulin for control. 4. Hypertension. 5. Hyperlipidemia. 6. Chronic ongoing cigarette use. RECOMMENDATIONS: 1. Continue medical management of patient's coronary atherosclerosis at this time. 2. Percutaneous revascularization right lower extremity reasonable to pursue in effort to permit distal right lower extremity wound healing and preserve foot. 3. The patient ultimately would benefit from reevaluation of his coronary disease. He did not tolerate Lexiscan study very well and as a result did not complete the test. Consider alternative strategies for evaluation, even possibly going ahead and pursuing coronary angiography in light of his multiple coronary risk factors. 4. Smoking cessation strongly advised. HISTORY: This 62-year-old white male with past history of atherosclerotic coronary disease, previous angioplasty/stenting of mid right coronary artery with bare-metal stent 2013, diabetes mellitus requiring insulin for control, hypertension, hyperlipidemia and chronic ongoing cigarette use was admitted for further management of nonhealing wound on his right foot. He has undergone debridement and vascular studies have demonstrated severe peripheral artery disease in the right leg. Percutaneous intervention is being considered. He recently was seen for followup of his coronary disease by Dr. Hui and a Lexiscan sestamibi study was arranged. The patient felt quite ill with Lexiscan and left the nuclear department without having nuclear images obtained. He continues without angina symptoms. However it sounds like he never really had angina even prior to his angioplasty/stent procedure and describes having little twinges of atypical chest pain. He has continued with occasional little twinges of atypical chest pain but no exertional chest discomfort. His exertion however is limited by his right foot pain. PAST MEDICAL HISTORY: 1. Atherosclerotic coronary disease as outlined above. 2. Hyperlipidemia. 3. Hypertension. 4. Diabetes mellitus requiring insulin for control. 5. Atherosclerotic carotid disease. 6. Peripheral artery disease and right leg claudication. ALLERGIES: No known drug allergies. MEDICATIONS: As listed. SOCIAL HISTORY: He smokes a pack of cigarettes per day. He does not use alcohol. FAMILY HISTORY: Positive for coronary disease. REVIEW OF SYSTEMS: Pulmonary: Negative. Gastrointestinal: Negative. Constitutional: Negative. Remainder of review of systems negative/noncontributory with 14 total systems reviewed. PHYSICAL EXAMINATION: General: This is a older middle-aged white male in no distress. Vital signs: Blood pressure 142/62, heart rate 78 and regular, oxygen saturation 96% on room air. HEENT: Extraocular muscles appear intact. Mucous membranes moist. Neck: Supple without jugular venous distention. There are no carotid bruits. Chest: Clear to auscultation. Cardiac Exam: Reveals a regular rate and rhythm without appreciable murmur or gallop. Abdomen: Soft, nontender. Bowel sounds are normal. Extremities: Without edema. Right foot has dressing in place following wound debridement performed earlier today. Pedal pulses in the left lower extremity are palpable. Neurologic Exam: Reveals him to be alert, fully oriented. Speech is fluent. Moves all 4 extremities equally well. Skin: Warm and dry. Psychiatric: Reveals mood to be appropriate. DIAGNOSTIC DATA: EKG demonstrates sinus rhythm and ST and T-wave abnormality, consider lateral ischemia. cc: Enmanuel Spears MD
[2017-06-17] MEDS: ZOSYN 3.375 GM in NS 50 ML IV SCH ×5 (04:11→23:47)
[2017-06-17] MEDS: MORPHINE IV PRN ×5 (04:11→23:56)
[2017-06-17 06:33] LABS: AGAP 17; BUN 10 mg/dL (8-22); CALCIUM 9.4 mg/dL (8.8-10.2); CHLORIDE 92 mmol/L (98-107); COSMO 275; POTASSIUM 4.4 mmol/L (3.5-5.1); SODIUM 137 mmol/L (136-145); TCO2 28 mmol/L (25-35)
[2017-06-17] MEDS: PRILOSEC PO SCH (06:49)
[2017-06-17] MEDS: HUMALOG SUBQ SCH ×5 (06:49→23:47)
[2017-06-17 06:55] LABS: BASO% 0.6 % (0.0-0.8); EOS# 0.34 X1000 (0.0-0.7); EOS% 2.6 % (0.0-10.0); HEMATOCRIT 37.8 % (42.0-52.0); HEMOGLOBIN 11.9 g/dL (14.0-18.0); IMM GRAN# 0.16 X1000 (0.0-0.04); IMM GRAN% 1.2 % (0.0-0.5); LYMPH# 2.23 X1000 (1.2-3.4); LYMPH% 17.2 % (20.5-51.1); MANUAL DIFF NEEDED? YES; MCH 24.8 PG (27-31); MCHC 31.5 g/dL (33-37); MCV 78.9 FL (81-99); MONO# 1.22 X1000 (0.11-0.59); MONO% 9.4 % (1.7-9.3); PLT 430 X1000 (130-400); RBC 4.79 XMIL (4.7-6.1)
[2017-06-17 07:17] LABS: EOS 3 % (1-10); LARGE PLATELETS 1+; LYMPHS 16 % (21-51); MONO 6 % (1-9)
[2017-06-17] MEDS: SPIRIVA INH SCH (09:30)
--- NOTE | 2017-06-17 09:33 | PROGRESS NOTE ---
DATE: 06/17/2017 SUBJECTIVE: Patient continues without chest discomfort or dyspnea. Staff indicates that he slips out to smoke cigarettes. OBJECTIVE: Vital Signs: Blood pressure 159/61, heart rate 61 and regular, oxygen saturation 95% on room air. Chest: Clear to auscultation. Cardiac: Reveals a regular rate and rhythm without appreciable murmur or gallop. There is no evidence of peripheral edema. IMPRESSION: 1. Atherosclerotic coronary disease with history of previous angioplasty/stenting of severe stenosis in mid right coronary artery with bare-metal stent in 2013. Patient continues with some atypical chest pain, but no angina. He did not tolerate recent Lexiscan sestamibi study, and did not complete the test. 2. Severe peripheral vascular disease. The patient has nonhealing wound right foot that has been debrided and has significant ischemia impeding healing. Plan of care actually is for right [id number] bypass rather than percutaneous revascularization. 3. Diabetes mellitus, which is requiring insulin for control. 4. Hypertension. 5. Hyperlipidemia. 6. Chronic ongoing cigarette use. RECOMMENDATIONS: Given that surgical management of patient's severe vascular disease is planned and significant coronary risk profile, including diabetes mellitus, recommendations: Given that surgical revascularization with [id number] bypass of right lower extremity is planned rather than percutaneous intervention, definitive evaluation with coronary angiography would appear to be most appropriate since he did not tolerate Lexiscan. He has known coronary disease and significant risk factors for progression of his coronary disease. As it stands now, his perioperative risk for cardiac complications is no better than intermediate risk and definitive evaluation of his coronary disease is a prerequisite for vascular surgery. This was discussed with the patient and his family. Arrangements have been made to have coronary angiography today. cc: Enmanuel Spears MD
--- NOTE | 2017-06-17 10:04 | Diag Imaging Result Doc PS360 ---
EXAM: CHEST-PORTABLE INDICATION: pre-op heart cath TECHNIQUE: One view COMPARISON: 12/14/2013 FINDINGS: The lungs are grossly clear. There is no discrete pleural fluid collection or pneumothorax. Cardiac silhouette is borderline to mildly prominent, probably due to magnification from AP technique. Central vasculature is unremarkable. IMPRESSION: Borderline to mildly prominent cardiac silhouette. No definite acute pathology. Electronically signed by John Tao 06/17/2017 10:02 AM
[2017-06-17 10:14] LABS: PROTIME 10.5 Seconds (9.2-11.7); PTT 33.8 Seconds (22.0-36.0)
[2017-06-17] MEDS ORDERED: HEPARIN 1000 UNITS/NS 2,000 UNIT/1,000 ML IV.SOLN ONE (10:19)
[2017-06-17] MEDS ORDERED: VERSED ONE (10:52)
[2017-06-17] MEDS ORDERED: DILAUDID ONE (10:52)
[2017-06-17] MEDS ORDERED: CLAVE TWINSITE 32 IN 11959 ONE (10:52)
--- NOTE | 2017-06-17 14:32 | PROGRESS NOTE ---
DATE: 06/17/2017 CARDIOLOGY FOLLOW-UP NOTE: Cardiac catheterization/coronary angiography reviewed with Dr. Hui. He has significant diffuse atherosclerosis in all vessels including chronically occluded left circumflex coronary artery. Moderate to severe diffuse atherosclerosis demonstrated in right coronary artery and moderate diffuse atherosclerosis evident in left anterior descending coronary artery with no significant proximal disease. Medical management appears to be most appropriate. Given coronary angiography findings, he should be acceptable risk from a cardiac standpoint for femoral to popliteal bypass procedure. Findings were discussed with the patient and his family. cc: Enmanuel Spears MD
--- NOTE | 2017-06-17 15:27 | CARDIAC CATH REPORT ---
PROCEDURE NAME: 06/17/2017 INDICATION: Patient had previously refused myocardial perfusion imaging as a preoperative evaluation for a high-risk vascular surgery. Undergoing cardiac catheterization as preoperative evaluation a patient with previous coronary disease with a previous PCI. PROCEDURES PERFORMED: 1. Left heart catheterization. 2. Selective coronary angiography. 3. Left ventriculogram. PROCEDURE IN DETAIL: Mr. Crum was brought to the cardiac catheterization laboratory in fasting state. Informed consent was obtained. Prepped in usual fashion. He was anesthetized over the right radial artery after Simone's test was proved adequate. A 5-Lebanese sheath was placed via true Seldinger technique. Radial cocktail was administered. Catheters were introduced. Hemodynamic measurements made in the ascending thoracic aorta. Coronary angiography was performed in multiple views using JL4 and JR4 diagnostic catheters. A left heart catheterization and left ventriculogram was performed using the JR4. At the conclusion of the procedure, all sheaths and catheters were removed. TR band was left inflated at 12 mL of air. Good capillary refill. Good hemostasis. CONTRAST: 80 mL of IV contrast. ESTIMATED BLOOD LOSS: 5 mL of blood loss. COMPLICATIONS: No apparent complications. FINDINGS: 1. Left main has an ostial 10% and distal 20% lesion. 2. Left anterior descending originates from the left main. It appears to have late proximal to early mid smooth calcified 40% to 50% lesion that is fairly long. The remainder of the vessel in the mid distal appears to have mild luminal irregularities. 3. Circumflex originates from the left main. The proximal vessel has a subtotal occlusion that appears stable from his previous catheterization in 2013. He has distal collateralization over to the circumflex mainly from the distal left anterior descending. There are four obtuse marginals visualized. Three of them seemed to come off very high prior to the proximal subtotal occlusion, the fourth just after. The highest obtuse marginal may actually be a ramus, and it does appear to have some severe calcified disease. It is a moderate size vessel. The remainder of the appeared to be patent with moderate disease. 4. The right coronary originates from the right coronary cusp. It is a heavily calcified vessel throughout its course with diffuse moderate disease. Prior to the mid RCA stent, there does appear to be a complex heavily calcified lesion that appears to be severe in nature with a possible associated chronic dissection. The mid right coronary stent appears to have a 50% to 60% in-stent stenosis with diffuse moderate disease elsewhere. There is a small RV branch that has a severe ostial lesion. 5. The left ventriculogram demonstrated what appeared to be an EF of 60%. There was some difficult opacification near the base. The aortic blood pressure is 176/59 with a mean of 107. The left ventricle pressure is 178/7 with an LVEDP of 26. ASSESSMENT: Mr. Crum is a 62-year-old male with diabetes and severe peripheral vascular disease, who is pending possible operative intervention to these lesions in his legs. He underwent cardiac catheterization, as a preoperative evaluation. PLAN: Patient's cardiac catheterization appears relatively stable from his previous one in 2013 with the exception of the disease in the right. I will have a discussion with his slitter scorer cut off operator in the hospital, Dr. Spears regarding further management. The patient is not having any symptoms of acute coronary syndrome, but leads a fairly sedentary lifestyle secondary to his severe peripheral arterial disease. He certainly needs continued aggressive secondary risk factor modification. He will go to the floor for usual postprocedure convalescence. cc: Ishan uHi MD
[2017-06-17] MEDS ORDERED: NS 500 ML ONE (16:31)
[2017-06-17] MEDS: COREG PO SCH ×2 (18:13→20:38)
[2017-06-17] MEDS: LYRICA PO SCH ×2 (18:13→20:38)
[2017-06-17] MEDS: GLUCOTROL XL PO SCH (18:13)
[2017-06-17] MEDS: REQUIP PO SCH (18:13)
[2017-06-17] MEDS: LIPITOR PO SCH (18:13)
[2017-06-17] MEDS: GLUCOPHAGE PO SCH (18:14)
[2017-06-17] MEDS: KEFZOL 2 GM/D5W 2 GM/50 ML IVPB IV SCH (18:38)
--- NOTE | 2017-06-17 18:45 | PROGRESS NOTE ---
DATE: 06/17/2017 SUBJECTIVE: The patient is resting comfortably in bed. No acute events noted overnight. The patient had a left heart catheterization done today. OBJECTIVE: Vital Signs: Temperature 98.7, blood pressure 140/44, heart rate 73, respirations 18, O2 saturations 95% on room air. General: This is an elderly male, lying in bed, in no acute distress. Heart: S1, S2. Normal. Regular rate and rhythm. Lungs: Equal air entry bilaterally. No crackles, no rales. Abdomen: Positive bowel sounds. Soft, nontender, nondistended. Extremities: The right foot is wrapped in a clean, dry dressing. Neurologic: The patient is alert and oriented x4. LABS: White blood cell count 12.9, hemoglobin 11.9, hematocrit 37.8, platelets 430. Sodium 137, potassium 4.4, chloride 92, CO2 of 28, BUN 10, creatinine 0.8, glucose 135, calcium 9.4. ASSESSMENT AND PLAN: 1. Severe peripheral vascular disease. The patient is scheduled to undergo a right femoral popliteal vein bypass tomorrow. 2. Right diabetic foot infection secondary to Staphylococcus. Continue with IV antibiotic therapy as directed by Dr. Franklin Toledo. 3. Uncontrolled diabetes mellitus type 2. Continue on the current insulin regimen. 4. Tobacco dependence. The patient has been counseled extensively about smoking cessation. 5. Coronary artery disease. The patient had a left heart catheterization today and it was recommended to continue with medical management at this time. 6. Diabetic neuropathy. Continue on Lyrica. 7. Restless legs syndrome. Continue on Requip. 8. Gastroesophageal reflux disease. Continue on Prilosec. 9. Hypertension. Continue on Coreg. cc: Nisha Meyers MD
--- NOTE | 2017-06-17 18:49 | PROGRESS NOTE ---
DATE: 06/17/2017 PRESENT ILLNESS: The patient is status post surgery on his infected right foot. Also the left great toe is infected. The patient yesterday had debridement of the foot and the patient is scheduled tomorrow to have revascularization performed by Dr. Garcia. MEDICATIONS: Patient is receiving vancomycin as a single agent. PHYSICAL EXAMINATION: Vital Signs: Temperature is 98, pulse 76, respirations 16, blood pressure 152/51. General: This is a fairly healthy-appearing, middle-aged male. He is in no acute distress. Lungs: Clear to auscultation. Cardiovascular: Regular heart rate. Abdomen: Soft and nontender. Extremities: There is a large dressing around the patient's right foot. There is also a dressing on the left great toe. Both dressings are intact. LAB AND X-RAY: CBC today showed a white count 12,930, hemoglobin 11.9, platelet count 430,000. Creatinine 0.8. Vancomycin random level was 26. Chest x-ray showed clear lung renteria. The culture from the patient's foot grew Staph saprophyticus. ASSESSMENT AND PLAN: Patient has foot infection. I have discontinued vancomycin and placed the patient on cefazolin. COMORBIDITIES: Include diabetes mellitus, peripheral vascular disease and cigarette smoking. cc: Franklin Toledo MD
[2017-06-17] MEDS: LOVENOX SUBQ SCH (20:52)
[2017-06-17] MEDS: LEVEMIR SUBQ SCH (20:55)
[2017-06-17] MEDS: TYLENOL PO PRN (23:55)
[2017-06-18] MEDS: KEFZOL 2 GM/D5W 2 GM/50 ML IVPB IV SCH ×4 (03:30→23:22)
[2017-06-18] MEDS: ZOSYN 3.375 GM in NS 50 ML IV SCH ×4 (04:56→21:00)
[2017-06-18] MEDS: PRILOSEC PO SCH (06:05)
[2017-06-18] MEDS: HUMALOG SUBQ SCH ×9 (06:42→20:11)
[2017-06-18 06:51] LABS: AGAP 12; BUN 9 mg/dL (8-22); CALCIUM 8.4 mg/dL (8.8-10.2); CHLORIDE 95 mmol/L (98-107); COSMO 276; POTASSIUM 3.9 mmol/L (3.5-5.1); SODIUM 135 mmol/L (136-145); TCO2 28 mmol/L (25-35)
[2017-06-18] MEDS: SPIRIVA INH SCH (07:46)
[2017-06-18] MEDS: LIPITOR PO SCH (10:24)
[2017-06-18] MEDS: LYRICA PO SCH ×2 (10:24→21:00)
[2017-06-18] MEDS: COREG PO SCH ×2 (10:25→21:00)
[2017-06-18] MEDS: GLUCOTROL XL PO SCH (10:25)
[2017-06-18] MEDS: REQUIP PO SCH (13:21)
[2017-06-18] MEDS: MORPHINE IV PRN ×4 (13:22→22:03)
--- NOTE | 2017-06-18 13:52 | PROGRESS NOTE ---
DATE: 06/18/2017 SUBJECTIVE: The patient has no new complaints. He underwent cardiac catheterization yesterday. OBJECTIVE: Vital Signs: He is afebrile. Vital signs are stable. General: He is alert and oriented x4. No acute distress. Extremities: His right foot remains somewhat red. The great toe continues to have some necrotic soft tissue. LABORATORY: Electrolytes reviewed and unremarkable. His blood sugar is in the mid 200s. ASSESSMENT/PLAN: A 62-year-old male with diabetic foot infection, peripheral arterial disease and nonhealing diabetic foot ulcer. There continues to be skin and soft tissue necrosis. There is not going to be any significant healing short of improved revascularization. Dr. Garcia is planning a femoral popliteal bypass tomorrow; hopefully this will improve some blood flow to his distal foot, although it may not. We will continue wound care with Vashe wet-to-dry gauze. cc: Julio Ramsay MD
--- NOTE | 2017-06-18 18:51 | PROGRESS NOTE ---
DATE: 06/18/2017 SUBJECTIVE: The patient is resting comfortably in bed. No acute events noted overnight. OBJECTIVE: Vital Signs: Temperature 97.9 degrees, blood pressure 138/45, heart rate 52, respirations 16, O2 saturations 96% on room air. General: This is an elderly male, lying in bed, in no acute distress. Heart: S1, S2. Normal. Regular rate and rhythm. Lungs: Equal air entry bilaterally. No crackles. No rales. Abdomen: Positive bowel sounds. Soft, nontender, nondistended. Extremities: The right lower extremity is erythematous with an ulceration on the right great toe. Neurologic: The patient is alert and oriented x4. LABS: Sodium 135, potassium 3.9, chloride 95, CO2 28, BUN 9, creatinine 1, glucose 229, calcium 8.4. ASSESSMENT AND PLAN: 1. Severe peripheral vascular disease. The patient is scheduled for revascularization on Thursday. 2. Right diabetic foot infection secondary to Staphylococcus. Continue with the IV antibiotic therapy as directed by Dr. Franklin Toledo. 3. Uncontrolled diabetes mellitus type 2. Continue on the current insulin regimen. 4. Diabetic neuropathy. Continue on Lyrica. 5. Coronary artery disease. Continue with the current cardiac medications. 6. Restless legs syndrome. Continue on Requip. 7. Gastroesophageal reflux disease. Continue on prilosec cc: Nisha Meyers MD MTDD
[2017-06-18] MEDS: LEVEMIR SUBQ SCH (21:01)
--- NOTE | 2017-06-18 21:26 | VASCULAR LAB ---
DATE: 06/16/2017 STUDY: Venous mapping study REQUESTING PHYSICIAN: Dr. Garcia BROOM MAN: [place] INDICATION: Evaluate for lower extremity bypass. FINDINGS: There was a bifid greater saphenous system noted on the right. The formal greater saphenous vein started in zone 1 and was 6.4 mm, zone 2 was 3.4 mm, zone 3 was 3.5 mm, zone 4 was 3.5 mm, zone 5 was 3.6 mm, zone 6 was 3.5 mm, zone 7 was 2.5, zone 8 was 2.9. The anterior accessory that came off of the greater saphenous starting at zone 2 was 4.3 mm, zone 3 was 3.3 mm, zone 4 was 3.5 mm, zone 5 was 3.6 mm. SUMMARY: The anterior accessory and greater saphenous vein are compressible. The main greater saphenous vein did have thickened maxwell but appeared patent. IMPRESSION: Overall marginally adequate conduit for lower extremity bypass. cc: MD Con Harden MD
[2017-06-19] MEDS: ZOSYN 3.375 GM in NS 50 ML IV SCH ×4 (01:45→20:32)
[2017-06-19 05:56] LABS: BASO% 0.4 % (0.0-0.8); EOS# 0.27 X1000 (0.0-0.7); EOS% 2.1 % (0.0-10.0); HEMATOCRIT 37.5 % (42.0-52.0); HEMOGLOBIN 12.1 g/dL (14.0-18.0); IMM GRAN# 0.29 X1000 (0.0-0.04); IMM GRAN% 2.3 % (0.0-0.5); LYMPH# 2.08 X1000 (1.2-3.4); LYMPH% 16.1 % (20.5-51.1); MANUAL DIFF NEEDED? YES; MCH 25.3 PG (27-31); MCHC 32.3 g/dL (33-37); MCV 78.3 FL (81-99); MONO# 1.23 X1000 (0.11-0.59); MONO% 9.5 % (1.7-9.3); MPV 9.9 FL (7.4-10.4); NEUT% 69.6 % (42.2-75.2); PLT 483 X1000 (130-400); RBC 4.79 XMIL (4.7-6.1)
[2017-06-19] MEDS: PRILOSEC PO SCH (06:02)
[2017-06-19 06:13] LABS: EOS 6 % (1-10); LYMPHS 20 % (21-51); MONO 4 % (1-9)
[2017-06-19] MEDS: HUMALOG SUBQ SCH ×9 (06:13→23:20)
[2017-06-19] MEDS: KEFZOL 2 GM/D5W 2 GM/50 ML IVPB IV SCH ×3 (06:19→16:32)
[2017-06-19 06:23] LABS: AGAP 11; BUN 12 mg/dL (8-22); CALCIUM 9.4 mg/dL (8.8-10.2); CHLORIDE 94 mmol/L (98-107); COSMO 275; POTASSIUM 4.8 mmol/L (3.5-5.1); SODIUM 133 mmol/L (136-145); TCO2 28 mmol/L (25-35)
[2017-06-19] MEDS ORDERED: DIPRIVAN 1% ONE (06:25)
[2017-06-19] MEDS ORDERED: XYLOCAINE-MPF 2% ONE (06:25)
[2017-06-19] MEDS ORDERED: QUELICIN (DOSE) ONE (06:27)
[2017-06-19] MEDS ORDERED: NORCURON ONE ×3 (06:28→09:22)
[2017-06-19] MEDS ORDERED: STERILE WATER INJ. ONE ×2 (06:28→09:22)
[2017-06-19] MEDS ORDERED: PAPAVERINE ONE ×3 (06:29→10:12)
[2017-06-19] MEDS ORDERED: NS 1,000 ML ONE (06:29)
[2017-06-19] MEDS ORDERED: FENTANYL ONE (06:29)
[2017-06-19] MEDS ORDERED: HEPARIN ONE (06:29)
[2017-06-19] MEDS ORDERED: KEFZOL ONE (06:29)
[2017-06-19] MEDS ORDERED: NEO-SYNEPHRINE ONE (08:30)
[2017-06-19 08:32] LABS: BILIRUBIN URINE NEGATIVE (NEGATIVE); BLOOD URINE NEGATIVE (NEGATIVE); COLOR YELLOW; GLUCOSE URINE 300 mg/dL (NEGATIVE); LEUKOCYTES URINE NEGATIVE (NEGATIVE); NITRITE URINE NEGATIVE (NEGATIVE); PROTEIN URINE 30 mg/dL (NEGATIVE); SP GRAVITY URINE 1.009; TURBIDITY URINE CLEAR (CLEAR); URINE MICRO REVIEW NEEDED? NO; URINE SOURCE CATH; UROBILINOGEN URINE NORMAL (NORMAL)
[2017-06-19 08:33] LABS: UR EPITHELIAL CELLS <10 /HPF (<10); URINE BACTERIA NEGATIVE /HPF; URINE RBC <10 /HPF (<10); URINE WBC <10 /HPF (<10)
[2017-06-19] MEDS ORDERED: EPHEDRINE ONE (10:14)
[2017-06-19] MEDS ORDERED: HEPARIN (DOSE) ONE (10:14)
[2017-06-19] MEDS ORDERED: ROBINUL ONE (10:29)
[2017-06-19] MEDS ORDERED: NEOSTIGMINE ONE (10:29)
[2017-06-19] MEDS ORDERED: LABETALOL ONE (10:34)
[2017-06-19] MEDS ORDERED: MORPHINE IV PRN (10:51)
[2017-06-19] MEDS ORDERED: PLAVIX PO ONE (10:53)
[2017-06-19] MEDS: DILAUDID ONE ×3 (12:15→12:35)
[2017-06-19] MEDS: SPIRIVA INH SCH ×2 (15:21→17:53)
[2017-06-19] MEDS: GLUCOTROL XL PO SCH (15:27)
[2017-06-19] MEDS: COREG PO SCH ×2 (15:27→22:05)
[2017-06-19] MEDS: LYRICA PO SCH ×2 (15:28→20:34)
[2017-06-19] MEDS: LIPITOR PO SCH (15:28)
[2017-06-19] MEDS: REQUIP PO SCH (15:29)
[2017-06-19] MEDS: NICODERM PATCH TD SCH (16:20)
[2017-06-19] MEDS ORDERED: INSULIN PEN NEEDLES ONE (17:14)
--- NOTE | 2017-06-19 19:44 | OPERATIVE NOTE ---
PROCEDURE DATE: 06/19/2017 PROCEDURE: Right femoral popliteal in situ vein bypass using accessory right greater saphenous vein. SURGEON: Con Garcia MD. COMMUNITY RELATIONS DIRECTOR: Flo Kwon. PREOPERATIVE DIAGNOSES: 1. Right superficial femoral artery occlusion with foot ulceration. 2. Diabetic foot infection. 3. Tobacco abuse. POSTOPERATIVE DIAGNOSES: 1. Right superficial femoral artery occlusion with foot ulceration. 2. Diabetic foot infection. 3. Tobacco abuse. DESCRIPTION OF PROCEDURE: Satisfactory general endotracheal anesthesia was achieved. A vertical incision was made in the right groin making it curve slightly over the greater saphenous vein shawanda. We carried our incision down to the common femoral, surrounded with an umbilical tape. We dissected out the branch vessels and surrounded the deep femoral and superficial femoral with vessel loops. We identified the greater saphenous vein as it came toward the femoral vein. We marked it on its anterior aspect. Branches were ligated and divided. We gave the patient 8000 units of heparin. We then turned our attention to the distal and medial thigh, made an incision on the medial aspect and dissected down into the popliteal space to identify the distal superficial femoral, proximal popliteal artery. Vessel loops were placed around it. We went back to the proximal incision and then placed a Satinsky clamp on the greater saphenous vein takeoff and amputated it there. Over sewed the femoral vein stump with a 5-0 Prolene horizontal mattress stitch followed by a running simple stitch. Hemostasis was satisfactory. We looked in the opening of the greater saphenous vein and no valves were identified. We then brought it over to the artery. We occluded flow in the artery with a DeBakey clamp proximally and vessel loops distally. Then made an incision around the bifurcation of the common femoral. We introduced a 4 punch and used it a couple of times to make a hole in the artery. We then constructed the anastomosis between the vein and the artery using a 6-0 Prolene stitch. After completing it, we then allowed flow. Flow went out both branches. We then turned our attention to the distal medial thigh again, and then first looked at the accessory saphenous vein. It was rather small and it was on the superior flap. Then we looked at the main greater saphenous vein on the inferior flap. We decided to try the greater saphenous vein main branch first. We obtained a branch, passed the Glidewire up into the common femoral, then followed it with the Phong lewisotome. The Lemaitre valvulotome actually made a hole in the proximal vessel near the anastomosis which we had to sew with a 6-0 Prolene stitch and then it simply would not go down the vein. The vein was too thick walled and sclerotic and it would not traverse down the vein. So I aborted further attempts at use of this vein because of its thick wall and sclerotic nature. We then obtained a branch of the accessory vein. Of course we marked the accessory vein to avoid twisting it and we passed the Glidewire up the accessory vein and then the valvulotome, and this time we were able to get pulsatile flow distally in the accessory saphenous vein. So, we clipped it off, mobilized it, ligated the branches and swung it over to the artery or translocated it to the artery. There was a somewhat small sclerotic part in the vein that we had to look at, but we found it to be acceptable. I did squirt papaverine up the vein 120 mg to try to maintain its patency. We then cut the vein to match the arteriotomy that we had made on the medial wall of the artery. There was good back bleeding from the popliteal. We then constructed this anastomosis using a 6-0 Prolene stitch. Just prior to finishing it we did have a good pulsatile flow through the vein graft. We finished the anastomosis. There was a spot where there were 2 branches marked off the accessory vein. We cut down on these to try to find the branches and made a small hole in the artery or in the vein graft and had to occlude flow in it to patch the hole in the vein graft there with a 6-0 Prolene stitch. Subsequent to that, we seemed to have some trouble with spasm again. I injected 60 more mg of papaverine and I passed a Yevgeniy distally and proximally and there was patency with back bleeding and fore bleeding and were repaired the hole where we made the vein graftotomy to pass the Yevgeniy and flow was present. We gave the patient an additional 1000 units of heparin, asked the nurse doctor of nurse anesthesia to keep the blood pressure 130 systolic. So, we had flow. The branches had been ligated. We closed the proximal wound with a 2-0 Polysorb running x2, the distal wound with a 2-0 Polysorb running x1 followed by 3-0 Polysorb pops. The counter incision in the mid thigh was closed with interrupted 3-0 Polysorb pops in the subcutaneous and the skin was closed at each one with sanket. Sterile dressings were applied. He tolerated it well. Estimated blood loss was 300 mL. He was sent to the recovery room in satisfactory condition. cc: Con Garcia MD
[2017-06-19] MEDS: NORCO-10 PO PRN (20:33)
--- NOTE | 2017-06-19 20:35 | PROGRESS NOTE ---
DATE: 06/19/2017 SUBJECTIVE: Patient is status post right femoral-popliteal bypass today. He is postprocedure. He denies any chest pain or dyspnea. OBJECTIVE: Vital Signs: Blood pressure 145/68, heart rate 86 and regular, oxygen saturation 96%. Neck: There is no significant jugular venous distention. Chest: Clear to auscultation. Cardiac Examination: Regular rate and rhythm without appreciable murmur or gallop. There is no evidence of peripheral edema. IMPRESSION: 1. Atherosclerotic coronary disease with history of previous angioplasty/stenting of severe stenosis in mid right coronary artery with bare-metal stent in 2013. Recent angiography demonstrates progression of coronary atherosclerosis including significant diffuse atherosclerosis in all vessels including chronically occluded left circumflex coronary artery, moderate to severe diffuse atherosclerosis demonstrated in right coronary and moderate diffuse atherosclerosis evident in left anterior descending coronary with no significant proximal stenosis. Medical management felt to be most appropriate. 2. Peripheral vascular disease with distal right lower extremity ischemia with associated nonhealing ulcer/infection. Patient is status post wound debridement. He is now status post right femoral-popliteal bypass today. 3. Diabetes mellitus requiring insulin for control. 4. Hypertension. 5. Hyperlipidemia. 6. Chronic ongoing cigarette use. RECOMMENDATIONS: 1. Continue medical management of patient's coronary atherosclerosis. 2. Smoking cessation strongly advised. We will initiate nicotine patch. cc: Enmanuel Spears MD
[2017-06-19] MEDS: LEVEMIR SUBQ SCH (21:26)
[2017-06-19] MEDS: ATIVAN IV PRN (21:32)
[2017-06-20] MEDS: KEFZOL 2 GM/D5W 2 GM/50 ML IVPB IV SCH ×4 (00:27→23:41)
[2017-06-20] MEDS: ZOSYN 3.375 GM in NS 50 ML IV SCH ×4 (02:30→19:38)
[2017-06-20 05:20] LABS: MANUAL DIFF NEEDED? NO
[2017-06-20 05:49] LABS: AGAP 4; BUN 10 mg/dL (8-22); CHLORIDE 98 mmol/L (98-107); COSMO 276; SODIUM 138 mmol/L (136-145); TCO2 36 mmol/L (25-35)
[2017-06-20 05:51] LABS: BASO% 0.2 % (0.0-0.8); EOS# 0.03 X1000 (0.0-0.7); EOS% 0.2 % (0.0-10.0); HEMATOCRIT 30.7 % (42.0-52.0); HEMOGLOBIN 9.8 g/dL (14.0-18.0); IMM GRAN# 0.12 X1000 (0.0-0.04); IMM GRAN% 0.9 % (0.0-0.5); LYMPH# 1.52 X1000 (1.2-3.4); LYMPH% 11.6 % (20.5-51.1); MCH 25.3 PG (27-31); MCHC 31.9 g/dL (33-37); MCV 79.1 FL (81-99); MONO# 1.11 X1000 (0.11-0.59); MONO% 8.4 % (1.7-9.3); MPV 9.8 FL (7.4-10.4); NEUT% 78.7 % (42.2-75.2); PLT 468 X1000 (130-400); RBC 3.88 XMIL (4.7-6.1)
[2017-06-20] MEDS: HUMALOG SUBQ SCH ×7 (06:38→20:39)
[2017-06-20] MEDS: PRILOSEC PO SCH (07:22)
[2017-06-20] MEDS: SPIRIVA INH SCH (08:04)
[2017-06-20] MEDS: LIPITOR PO SCH (08:12)
[2017-06-20] MEDS: LYRICA PO SCH ×2 (08:12→20:30)
[2017-06-20] MEDS: PLAVIX PO SCH (08:12)
[2017-06-20] MEDS: COREG PO SCH ×2 (08:12→20:41)
[2017-06-20] MEDS: REQUIP PO SCH (08:12)
[2017-06-20] MEDS: ASPIRIN PO SCH (08:14)
[2017-06-20] MEDS: NICODERM PATCH TD SCH (08:14)
--- NOTE | 2017-06-20 08:34 | PROGRESS NOTE ---
DATE: 06/19/2017 PRESENT ILLNESS: The patient is status post revascularization of his right leg. MEDICATIONS: Patient is receiving Ancef as a single agent. PHYSICAL EXAMINATION: Vital Signs: Temperature is 98.7 degrees, pulse 85, respirations 16, blood pressure 149/69. General: This is a fairly healthy-appearing, middle-aged male. He is in no acute distress. Lungs: Clear to auscultation. Cardiovascular: Heart rate is regular. Abdomen: Soft and nontender. Extremities: The patient has dressings in the right groin area and on the right leg. The dressings are intact. Both feet have dressings on them. There are intact also. LAB AND X-RAY: CBC shows a white count of 12,880, hemoglobin 12.1, and platelet count is 483,000. Creatinine is 1. GFR is greater than 60. Urinalysis showed no white cells or bacteria. ASSESSMENT AND PLAN: Patient has a staphylococcal foot infection. I plan to treat him with cefazolin. COMORBIDITIES: In this patient include diabetes mellitus, peripheral vascular disease, and cigarette smoking. cc: Franklin Toledo MD
[2017-06-20] MEDS: GLUCOTROL XL PO SCH (09:06)
[2017-06-20] MEDS: MIRALAX PO SCH ×2 (09:10→20:41)
--- NOTE | 2017-06-20 09:16 | PROGRESS NOTE ---
DATE: 06/19/2017 SUBJECTIVE: No acute events noted overnight. OBJECTIVE: Vital Signs: Temperature 98.6 degrees, blood pressure 160/45, heart rate 67, respirations 16, O2 saturations 92% on room air. General: This is an elderly male, lying in bed, in no acute distress. Heart: S1, S2 normal. Regular rate and rhythm. Lungs: Equal air entry bilaterally. No crackles, no rales. Abdomen: Positive bowel sounds. Soft, nontender, nondistended. Extremities: The patient does have erythema in the right lower extremity. LABORATORIES: White blood cell count 12, hemoglobin 12, hematocrit 37, platelets 483,000. Sodium 133, potassium 4.8, chloride 94, CO2 28, BUN 12, creatinine 1, glucose 262. ASSESSMENT AND PLAN: 1. Severe peripheral arterial disease. The patient is scheduled for revascularization to the right lower extremity today. 2. Right diabetic foot infection secondary to Staphylococcus. Continue on IV antibiotic therapy. 3. Uncontrolled diabetes mellitus type 2. Continue on Levemir and Humalog. 4. Hypertension. Continue on the current antihypertensives. 5. Coronary artery disease. Aware. Continue on the current cardiac medications. 6. Diabetic neuropathy. Continue on Lyrica. cc: Nisha Meyers MD MTDD
--- NOTE | 2017-06-20 12:51 | PROGRESS NOTE ---
DATE: 06/20/2017 SUBJECTIVE: Patient returns to the operating room after a bypass by Dr. Garcia. This seems to be doing okay. No major issues reported by the nursing staff overnight. OBJECTIVE: Vital Signs: Patient is currently afebrile. His vital signs have been stable. General: No acute distress. Resting comfortably in bed. Drinking. Cardiovascular: Regular rate and rhythm. Lungs: Grossly clear. Abdomen: Soft, nontender, nondistended. Extremities: On the right lower extremity, I can find a posterior tibial by Doppler. Suggests some degree of perfusion. ASSESSMENT AND PLAN: A 62-year-old male status post right femoral popliteal in situ vein bypass graft: 1. Postoperative state. At this time, he seems to have perfusion to his right lower extremity. We will continue supportive care. Patient could potentially be transferred out of the ICU from a surgical point of view, but we will defer that to the hospitalist service. 2. Multiple medical comorbidities. Currently being managed by the hospitalist service. cc: Stu Monsivais MD
[2017-06-20] MEDS ORDERED: NS 500 ML ONE (13:59)
[2017-06-20] MEDS: NORCO-10 PO PRN ×3 (14:16→23:41)
[2017-06-20] MEDS: COLACE PO SCH (20:19)
[2017-06-20] MEDS: LEVEMIR SUBQ SCH (21:08)
[2017-06-20] MEDS ORDERED: INSULIN PEN NEEDLES ONE (21:09)
[2017-06-21] MEDS: ZOSYN 3.375 GM in NS 50 ML IV SCH ×3 (01:04→14:42)
[2017-06-21] MEDS ORDERED: NS 1,000 ML ONE (04:00)
[2017-06-21 05:49] LABS: MANUAL DIFF NEEDED? NO
[2017-06-21 05:55] LABS: BASO% 0.4 % (0.0-0.8); EOS# 0.24 X1000 (0.0-0.7); EOS% 2.1 % (0.0-10.0); HEMATOCRIT 31.7 % (42.0-52.0); HEMOGLOBIN 9.9 g/dL (14.0-18.0); IMM GRAN# 0.16 X1000 (0.0-0.04); IMM GRAN% 1.4 % (0.0-0.5); LYMPH# 2.17 X1000 (1.2-3.4); LYMPH% 18.6 % (20.5-51.1); MCH 25.1 PG (27-31); MCHC 31.2 g/dL (33-37); MCV 80.5 FL (81-99); MONO# 0.92 X1000 (0.11-0.59); MONO% 7.9 % (1.7-9.3); MPV 9.5 FL (7.4-10.4); NEUT% 69.6 % (42.2-75.2); PLT 491 X1000 (130-400); RBC 3.94 XMIL (4.7-6.1)
[2017-06-21 06:13] LABS: AGAP 12; BUN 11 mg/dL (8-22); CALCIUM 8.9 mg/dL (8.8-10.2); CHLORIDE 98 mmol/L (98-107); COSMO 279; POTASSIUM 4.5 mmol/L (3.5-5.1); SODIUM 140 mmol/L (136-145); TCO2 30 mmol/L (25-35)
[2017-06-21] MEDS: HUMALOG SUBQ SCH ×7 (06:27→21:30)
[2017-06-21] MEDS: PRILOSEC PO SCH (06:28)
[2017-06-21] MEDS: SPIRIVA INH SCH (07:22)
[2017-06-21] MEDS: NORCO-10 PO PRN ×2 (07:37→15:52)
[2017-06-21] MEDS: LIPITOR PO SCH (08:50)
[2017-06-21] MEDS: PLAVIX PO SCH (08:50)
[2017-06-21] MEDS: COREG PO SCH ×2 (08:50→21:44)
[2017-06-21] MEDS: NICODERM PATCH TD SCH (08:50)
[2017-06-21] MEDS: COLACE PO SCH ×2 (08:50→21:43)
[2017-06-21] MEDS: REQUIP PO SCH (08:50)
[2017-06-21] MEDS: ASPIRIN PO SCH (08:50)
[2017-06-21] MEDS: GLUCOTROL XL PO SCH (08:50)
[2017-06-21] MEDS: MIRALAX PO SCH ×2 (08:51→21:44)
[2017-06-21] MEDS: LYRICA PO SCH ×2 (09:03→21:48)
[2017-06-21] MEDS: KEFZOL 2 GM/D5W 2 GM/50 ML IVPB IV SCH ×2 (09:08→15:42)
--- NOTE | 2017-06-21 12:26 | PROGRESS NOTE ---
DATE: 06/21/2017 SUBJECTIVE: The patient is doing okay. He was transferred to the floor yesterday. No major issues. OBJECTIVE: Vital Signs: Patient is currently afebrile. His vital signs are stable. General: No acute distress. Resting comfortably in bed. Cardiovascular: Regular rate and rhythm. Lungs: Clear. Abdomen: Soft, nontender, nondistended. Extremities: On the right lower extremity, I can still defined posterior tibial by Doppler. His dressing is intact. ASSESSMENT/PLAN: A 60-year-old, male status post right femoral popliteal in situ vein bypass graft normal. 1. Postoperative state. At this time, he seems to have perfusion to his right lower extremity. We will continue supportive care. Dr. Ramsay and Dr. Garcia will reassess tomorrow. 2. Multiple medical comorbidities. Currently being managed by the hospitalist service. cc: Stu Monsivais MD
--- NOTE | 2017-06-21 18:36 | PROGRESS NOTE ---
DATE: 06/21/2017 SUBJECTIVE: The patient is resting comfortably in bed. He has no complaints at this time. He feels like his foot feels a lot better since the surgery. OBJECTIVE: Vital Signs: Temperature 98.1 degrees, blood pressure 137/54, heart rate 64, respirations 18, O2 saturations 98% on room air. General: This is an elderly male sitting at the edge of the bed in no acute distress. Head: Normocephalic, atraumatic. Heart: S1, S2. Normal. Regular rate and rhythm. Lungs: Equal air entry bilaterally. No crackles. No rales. Abdomen: Positive bowel sounds. Soft, nontender, nondistended. Extremities: The right lower extremity is wrapped in a clean, dry dressing and the left great toe is also wrapped in a clean, dry dressing. Neurologic: The patient is alert and oriented x3. LABORATORIES: White blood cell count 11.6, hemoglobin 9.9, hematocrit 31, platelets 191,000. Sodium 140, potassium 4.5, chloride 98, CO2 30, BUN 11, creatinine 1.1, glucose 107. ASSESSMENT AND PLAN: 1. Status post right femoropopliteal in situ vein bypass. Management as per the general surgeon. 2. Right diabetic foot infection secondary to Staphylococcus. Continue on cefazolin as directed by Dr. Toledo. 3. Diabetes mellitus type 2. Continue on Levemir and Humalog. 4. Hypertension. Controlled. Continue on the current antihypertensives. 5. Coronary artery disease. Continue on Coreg, aspirin and Plavix. 6. Gastroesophageal reflux disease. Continue on Prilosec. 7. Restless legs syndrome. Continue on Requip. 8. Diabetic neuropathy. Continue on Lyrica. cc: Nisha Meyers MD
[2017-06-21] MEDS: LACTULOSE PO SCH (21:48)
[2017-06-21] MEDS: LEVEMIR SUBQ SCH (21:52)
[2017-06-22] MEDS: KEFZOL 2 GM/D5W 2 GM/50 ML IVPB IV SCH ×4 (00:10→21:01)
[2017-06-22] MEDS: NORCO-10 PO PRN ×2 (00:10→16:21)
--- NOTE | 2017-06-22 03:53 | PROGRESS NOTE ---
DATE: 06/20/2017 SUBJECTIVE: The patient is resting comfortably in bed. He has no complaints at this time. OBJECTIVE: Vital Signs: Temperature 98 degrees, blood pressure 145/52, heart rate 68, respirations 16, O2 saturations 97% on room air. General: This is a chronically ill-appearing elderly male lying in bed in no acute distress. Heart: S1, S2. Normal. Lungs: Clear to auscultation bilaterally. Abdomen: Positive bowel sounds. Soft, nontender, nondistended. Extremities: No edema, no cyanosis. The right lower extremity has decreased erythema. LABS: White blood cell count 13, hemoglobin 9.8, hematocrit 30, platelets 468,000. Sodium 138, potassium 4, chloride 98, CO2 36, BUN 10, creatinine 0.8, glucose 129. ASSESSMENT AND PLAN: 1. Status post right femoral popliteal in situ vein bypass. Management as per General Surgery. 2. Right diabetic foot infection secondary to Staphylococcus. Continue on IV antibiotic therapy. 3. Diabetes mellitus type 2. Continue on Levemir and Humalog. 4. Tobacco dependence. The patient has been counseled about smoking cessation. 5. Coronary artery disease. Continue on the current medications. 6. Diabetic neuropathy. Continue on Lyrica. 7. The patient is stable for transfer to the medical floor. cc: Nisha Meyers MD
[2017-06-22 05:43] LABS: MANUAL DIFF NEEDED? NO
[2017-06-22 05:47] LABS: BASO% 0.3 % (0.0-0.8); EOS# 0.25 X1000 (0.0-0.7); EOS% 2.1 % (0.0-10.0); HEMATOCRIT 32.5 % (42.0-52.0); HEMOGLOBIN 10.2 g/dL (14.0-18.0); IMM GRAN% 1.7 % (0.0-0.5); LYMPH# 1.98 X1000 (1.2-3.4); LYMPH% 16.5 % (20.5-51.1); MCH 25.3 PG (27-31); MCHC 31.4 g/dL (33-37); MCV 80.6 FL (81-99); MONO# 0.91 X1000 (0.11-0.59); MONO% 7.6 % (1.7-9.3); MPV 9.2 FL (7.4-10.4); NEUT% 71.8 % (42.2-75.2); PLT 537 X1000 (130-400); RBC 4.03 XMIL (4.7-6.1)
[2017-06-22] MEDS: PRILOSEC PO SCH (06:20)
[2017-06-22] MEDS: HUMALOG SUBQ SCH ×7 (06:20→21:01)
[2017-06-22 06:25] LABS: AGAP 9; BUN 12 mg/dL (8-22); CALCIUM 9.1 mg/dL (8.8-10.2); CHLORIDE 99 mmol/L (98-107); COSMO 277; POTASSIUM 4.5 mmol/L (3.5-5.1); SODIUM 138 mmol/L (136-145); TCO2 30 mmol/L (25-35)
[2017-06-22] MEDS: SPIRIVA INH SCH ×2 (08:07)
[2017-06-22] MEDS: ASPIRIN PO SCH (08:26)
[2017-06-22] MEDS: MIRALAX PO SCH ×2 (08:27→20:58)
[2017-06-22] MEDS: NICODERM PATCH TD SCH (08:27)
[2017-06-22] MEDS: LYRICA PO SCH ×2 (08:27→20:59)
[2017-06-22] MEDS: LACTULOSE PO SCH ×2 (08:27→20:58)
[2017-06-22] MEDS: PLAVIX PO SCH (08:27)
[2017-06-22] MEDS: REQUIP PO SCH (08:27)
[2017-06-22] MEDS: LIPITOR PO SCH (08:27)
[2017-06-22] MEDS: GLUCOTROL XL PO SCH (08:28)
[2017-06-22] MEDS: COLACE PO SCH ×2 (08:28→20:58)
[2017-06-22] MEDS: COREG PO SCH ×3 (08:36→20:59)
[2017-06-22] MEDS ORDERED: NORCURON ONE (09:16)
[2017-06-22] MEDS ORDERED: STERILE WATER INJ. ONE (09:16)
[2017-06-22] MEDS ORDERED: ZEMURON ONE (09:16)
[2017-06-22] MEDS ORDERED: QUELICIN (DOSE) ONE ×2 (09:16→12:41)
--- NOTE | 2017-06-22 11:29 | PROGRESS NOTE ---
DATE: 06/22/2017 SUBJECTIVE: The patient has severe right foot cellulitis with a large eschar. He underwent revascularization of the leg, and it is my understanding today, he will be having a stent placed in his leg. MEDICATIONS: The patient is on Ancef. I am going to count the first day of treatment with Ancef, as the first day that the patient's foot is fully revascularized. OBJECTIVE: Vital signs: Temperature is 97.8 degrees, pulse 59, respirations 14, blood pressure 143/51. General: This is a fairly healthy-appearing, middle-aged male. He is obese, but he is in no acute distress. Lungs: Clear to auscultation. Cardiovascular: Regular heart rate. Abdomen: Soft and nontender. Extremities: I removed the dressing from the patient's right foot. It is swollen and erythematous and has a large eschar on it. LAB AND X-RAY: CBC today shows a white count of 11,970, hemoglobin 10.2, and platelet count 537,000. Creatinine is 0.9. The GFR is greater than 60. ASSESSMENT AND PLAN: The patient has a staphylococcal foot cellulitis. The plan is continue cefazolin and today as mentioned above, he is scheduled to have a stent placed in his leg. COMORBIDITIES: Include diabetes mellitus, peripheral vascular disease, and cigarette smoking. cc: Franklin Toledo MD
[2017-06-22] MEDS ORDERED: PAPAVERINE ONE ×2 (12:15→12:16)
[2017-06-22] MEDS ORDERED: KEFZOL ONE (12:15)
[2017-06-22] MEDS ORDERED: HEPARIN ONE (12:15)
[2017-06-22] MEDS ORDERED: NS 0 ML ONE (12:16)
[2017-06-22] MEDS ORDERED: DIPRIVAN 1% ONE (12:39)
[2017-06-22] MEDS ORDERED: SENSORCAINE 0.5%-EPI 1:200,000 ONE (12:39)
[2017-06-22] MEDS ORDERED: XYLOCAINE-MPF 2% ONE (12:41)
[2017-06-22] MEDS ORDERED: HEPARIN (DOSE) ONE (13:44)
[2017-06-22] MEDS ORDERED: EPHEDRINE ONE (13:44)
[2017-06-22 13:50] LABS: URINE MICRO REVIEW NEEDED? NO; URINE SOURCE CATH
[2017-06-22 13:58] LABS: BILIRUBIN URINE NEGATIVE (NEGATIVE); BLOOD URINE NEGATIVE (NEGATIVE); COLOR YELLOW; GLUCOSE URINE NEGATIVE (NEGATIVE); LEUKOCYTES URINE TRACE (NEGATIVE); NITRITE URINE NEGATIVE (NEGATIVE); PROTEIN URINE TRACE mg/dL (NEGATIVE); TURBIDITY URINE CLEAR (CLEAR); UROBILINOGEN URINE NORMAL (NORMAL)
[2017-06-22] MEDS ORDERED: NS 1,000 ML ONE (13:58)
[2017-06-22 13:59] LABS: UR EPITHELIAL CELLS <10 /HPF (<10); URINE BACTERIA NEGATIVE /HPF; URINE RBC <10 /HPF (<10); URINE WBC <10 /HPF (<10)
[2017-06-22] MEDS ORDERED: ROBINUL ONE (14:21)
[2017-06-22] MEDS ORDERED: NEOSTIGMINE ONE (14:23)
[2017-06-22] MEDS ORDERED: ZOFRAN ONE (14:25)
[2017-06-22] MEDS ORDERED: FENTANYL ONE (14:43)
[2017-06-22] MEDS: MORPHINE ONE ×2 (15:37→15:42)
[2017-06-22] MEDS: NS 1,000 ML IV SCH (16:28)
[2017-06-22] MEDS ORDERED: SODIUM CHLORIDE 0.9% 10 ML ONE (16:43)
[2017-06-22] MEDS: ATIVAN IV PRN (16:45)
--- NOTE | 2017-06-22 17:08 | PROGRESS NOTE ---
DATE: 06/22/2017 SUBJECTIVE: Patient is resting comfortably in bed. No complications at this time. OBJECTIVE: Vitals: Temperature 99.1 degrees, heart rate 101, respiratory rate 20, blood pressure 143/51, O2 saturation 97% on room air. General Examination: This is a 62-year-old male lying in bed in no acute distress. HEENT: Head is normocephalic, atraumatic. Neck: Supple. No JVD noted. No carotid bruits. No lymphadenopathy. No thyromegaly. Cardiovascular Exam: S1-S2 heard. No murmurs, gallops, or rubs. Regular rate and rhythm. Respiratory: Clear bilaterally to auscultation. No work of breathing or using accessory muscles. Abdomen: Soft, nontender to palpation. Nondistended. Bowel sounds present. No organomegaly. Extremities: Right lower extremity wrapped in a clean dry dressing, left great toe is also wrapped too. Neurologic: Patient alert, oriented x3. Moves 4 extremities. LABORATORY DATA: White cell count 11.97, hemoglobin 10.2, hematocrit 32.5, platelet 537,000 with BMP that is okay except glucose 130. ASSESSMENT AND PLAN: 1. Status post right femoropopliteal . Today general surgery apparently is planning to put in stent. Will continue following their recommendations. 2. Right diabetic foot infection secondary to Staphylococcus aureus. Dr. Toledo has been following this patient. Patient is placed on Ancef. Dr. Toledo mentioned that he is counting today as the first day the treatment with Ancef because today the patient's foot is fully revascularized. Will continue following his recommendations. 3. Diabetes mellitus type 2. Currently patient is receiving Levemir and also Humalog. Will continue with the same management. 4. Hypertension controlled. Will continue with the same antihypertensives medications. 5. Coronary artery disease. He is not complaining of any chest pain currently, he is on aspirin, Plavix and Coreg. 6. Gastroesophageal reflux disease. Will continue with Prilosec. 7. Restless legs syndrome. Will continue with Requip. 8. Diabetic neuropathy. Will continue with Lyrica. cc: Joaquín Yo MD
--- NOTE | 2017-06-22 18:46 | OPERATIVE NOTE ---
PROCEDURE DATE: 06/22/2017 PROCEDURE: Revision of right femoral popliteal bypass graft to a PTFE graft (7 mm Distaflo). SURGEON: Con Garcia MD. MANAGER WEB: Dr. Aguilar who assisted in exposure and the anastomoses, also MARYJANE Galan, MARYJANE Mckoy. PREOP DIAGNOSIS: Thrombosed right femoral popliteal vein graft. POSTOP DIAGNOSIS: Thrombosed right femoral popliteal vein graft. It was felt that the vein would not be adequate to maintain patency so we decided to convert to a PTFE graft. DESCRIPTION OF PROCEDURE: Satisfactory general endotracheal anesthesia achieved , the right leg was prepped and draped in a sterile fashion. An Ioban drape was used to cover the legs. The sanket from the groin and the distal medial thigh wound were removed before we placed the Ioban on the leg. We opened the groin incision to expose the common femoral artery surrounded with an umbilical tape. The superficial femoral surrounded vessel loop. The deep femoral surrounded with a vessel loop and we actually made a hole in the artery going around it so we had to clamp the artery off. The patient was given 7000 units of heparin at the beginning of the case so by the time we got to this point the patient was fully heparinized so we clamped off the profunda with a profunda clamp. We turned our attention distally and opened that wound as well. Exposed the superficial femoral, distal superficial femoral, popliteal artery. The vein graft was noted to be thrombosed as we expected. We obtained a 7 mm Distaflo PTFE graft then made a tunnel with the Dossick tunneler and positioned the PTFE graft in the wound. We then removed the vein graft from the artery and then made the anastomosis with a CV-5 Carmi suture for the distal anastomosis. We did have backbleeding from the popliteal. We did not complete the anastomosis we left a knot tied so that we could flushed the graft satisfactorily. We then turned our attention proximally. I did place a 5-0 Prolene stitch on the medial wall the profunda. This significant improved the bleeding from the profunda. We then removed the vein graft from the femoral artery and extended the incision in the femoral artery, cut the graft to match the arteriotomy and then constructed this anastomosis with a CV-5 Carmi suture as well. We completed this proximal anastomosis and flushed the graft. Then before we had done that we did pass a 4 dilator down the profunda and it went satisfactorily. We then tied the distal anastomosis and sutured to finish the distal anastomotic closure as well. Some bleeding still from the profunda at the crotch required an additional 5-0 Prolene stitch but this provided complete hemostasis. Continued to have good flow in the PTFE graft and also we palpated a pulse in popliteal artery just distal to distal anastomosis. We irrigated both wounds with Kefzol- impregnated saline. We closed the distal incision with a 2-0 Polysorb in the subcutaneous tissue and the skin was closed with sanket. The proximal incision was closed with 2-0 Polysorb running stitches x1 and 3-0 Polysorb simple stitches in the subcutaneous tissue followed by staple closure. Sterile dressings were applied. He tolerated it well, sent to the recovery room in satisfactory condition. cc: Con Garcia MD MTDD
[2017-06-22] MEDS: LEVEMIR SUBQ SCH (21:01)
[2017-06-23] MEDS: NS 1,000 ML IV SCH ×2 (02:27→05:25)
[2017-06-23] MEDS: NORCO-10 PO PRN ×3 (05:21→20:53)
[2017-06-23] MEDS: KEFZOL 2 GM/D5W 2 GM/50 ML IVPB IV SCH ×3 (05:22→22:30)
[2017-06-23 05:54] LABS: MANUAL DIFF NEEDED? NO
[2017-06-23 06:12] LABS: BASO% 0.2 % (0.0-0.8); EOS# 0.16 X1000 (0.0-0.7); HEMATOCRIT 27.2 % (42.0-52.0); HEMOGLOBIN 8.4 g/dL (14.0-18.0); IMM GRAN# 0.21 X1000 (0.0-0.04); IMM GRAN% 1.4 % (0.0-0.5); LYMPH% 11.1 % (20.5-51.1); MCH 25.3 PG (27-31); MCHC 30.9 g/dL (33-37); MCV 81.9 FL (81-99); MONO# 0.99 X1000 (0.11-0.59); MONO% 6.5 % (1.7-9.3); MPV 9.4 FL (7.4-10.4); NEUT% 79.8 % (42.2-75.2); PLT 574 X1000 (130-400); RBC 3.32 XMIL (4.7-6.1)
[2017-06-23 06:21] LABS: AGAP 13; BUN 11 mg/dL (8-22); CALCIUM 8.8 mg/dL (8.8-10.2); CHLORIDE 94 mmol/L (98-107); COSMO 277; POTASSIUM 4.4 mmol/L (3.5-5.1); SODIUM 135 mmol/L (136-145); TCO2 28 mmol/L (25-35)
[2017-06-23] MEDS: HUMALOG SUBQ SCH ×7 (06:25→20:20)
[2017-06-23] MEDS: ATIVAN IV PRN (06:26)
[2017-06-23] MEDS: SPIRIVA INH SCH (07:44)
--- NOTE | 2017-06-23 08:44 | PROGRESS NOTE ---
DATE: 06/22/2017 SUBJECTIVE: The patient is just back from revision of a thrombosed femoral popliteal vein graft. He is not complaining of any significant pain at this time. OBJECTIVE: Vital Signs: He is afebrile, pulse 90, respiratory rate 14, blood pressure 136/51 and O2 saturation 98%. General: He is awake, in no acute distress, following commands. Extremities: The right leg dressings are intact and dry. The right foot is warm. I took down the wrap. The foot remains red. The great toe continues to show necrotic soft tissue medially and in the space between the first and second toe. LABORATORY: As of 06/22/2017, white blood cell count 11.9, hemoglobin 10.2, platelet count 537. Electrolytes reviewed and unremarkable. ASSESSMENT AND PLAN: He is a 62-year-old male with peripheral arterial disease now status post two operations to revascularize his right leg. He has a diabetic foot infection and necrotic nonhealing wound on the toe and distal foot. At this point, the healing of the toe and foot is certainly in question. We will continue Betadine or Vashe wet-to-dry dressings and observe for any improvement in granulation tissue. These may need further debridement, either at the bedside or in the operating room versus future amputation for continued nonhealing. cc: Julio Ramsay MD
[2017-06-23] MEDS: MIRALAX PO SCH ×2 (09:04→20:27)
[2017-06-23] MEDS: NICODERM PATCH TD SCH (09:04)
[2017-06-23] MEDS: COLACE PO SCH ×2 (09:04→20:17)
[2017-06-23] MEDS: LACTULOSE PO SCH ×2 (09:04→20:27)
[2017-06-23] MEDS: PLAVIX PO SCH (09:05)
[2017-06-23] MEDS: ASPIRIN PO SCH (09:05)
[2017-06-23] MEDS: LIPITOR PO SCH (09:05)
[2017-06-23] MEDS: REQUIP PO SCH (09:05)
[2017-06-23] MEDS: COREG PO SCH ×3 (09:05→20:21)
[2017-06-23] MEDS: GLUCOTROL XL PO SCH (09:05)
--- NOTE | 2017-06-23 09:05 | VASCULAR LAB ---
DATE: 06/15/2017 PROCEDURE: Lower extremity arterial study at rest. REFERRING PHYSICIAN: Jose Azul MD INTERPRETING PHYSICIAN: Con Garcia MD. INDICATION: The patient is diabetic, hypertensive, a smoker, and has an infection of his right foot. FINDINGS: Brachial pressure 139 on the right, 141 on the left. The right high thigh pressure is 103, right low thigh pressure 76, right calf pressure 74, right dorsalis pedis 72, right posterior tibial 66 for a right AB index of 0.51. The right great toe pressure is 14 for right toe-brachial index of 0.10. On the left, the high thigh pressure is 148, the left low thigh pressure 71, left calf pressure 92, left dorsalis pedis 92, left posterior tibial 89 for a left AB index of 0.65. The left great toe pressure is 99, the left toe-brachial index 0.70. The PVRs are moderately diminished bilaterally. INTERPRETATION: Bilateral superficial femoral occlusive disease, especially digital vessel disease on the right. This would be consistent with claudication, and the healing of the right foot is in jeopardy. As compared to the study of 10/18/2015, there has been significantly diminished flow in the right foot. cc: MD Jose Ayala MD
[2017-06-23] MEDS: LYRICA PO SCH ×2 (09:15→20:17)
[2017-06-23] MEDS ORDERED: NS 1,000 ML IV SCH (09:43)
--- NOTE | 2017-06-23 14:26 | PROGRESS NOTE ---
DATE: 06/23/2017 PRESENT ILLNESS: The patient has a severe right foot cellulitis, from which we have isolated Staphylococcus saprophyticus. The cellulitis has a large eschar on it. Yesterday, the patient had another revascularization surgery performed by Dr. Garcia. MEDICATIONS: The patient is on Ancef at a dose of 2 g IV every 8 hours. This will be the first day of treatment with Ancef because the patient's foot now is fully revascularized. PHYSICAL EXAMINATION: Vital Signs: Temperature is 98.9 degrees, pulse 78, respirations 14, blood pressure 122/35. General: This is an ill-appearing, middle-aged male. He is in no acute distress. He is somewhat lethargic today. He had gotten sedation earlier. Lungs: Clear to auscultation. Cardiovascular: Regular heart rate. Abdomen: Soft and nontender. Extremities: The right leg has a dressing in the groin area, where he underwent surgery yesterday. There is a little bit of a sanguinous discharge. The right foot has a large dressing on it. The dressing is intact. LABORATORY AND X-RAY: CBC shows a white count of 15,320, hemoglobin 8.4, and platelet count 574,000. Creatinine is 0.9. GFR is greater than 60. ASSESSMENT AND PLAN: The patient has a staphylococcal foot cellulitis. The plan is to continue cefazolin here and, when the patient is discharged, he will go home on p.o. Keflex. I am going to electronically print the prescription today, and I will be seeing the patient back in my office in 3 weeks. The patient's comorbidities include: 1. Diabetes mellitus. 2. Peripheral vascular disease. 3. Cigarette smoking. cc: Franklin Toledo MD [facility]
--- NOTE | 2017-06-23 14:27 | PROGRESS NOTE ---
DATE: 06/23/2017 SUBJECTIVE: Patient is resting comfortable in bed, but sleepy. Family who is at bedside said that the Ativan he was getting for anxiety makes him very sleepy, so they requested to stop the medication. OBJECTIVE: Vital Signs: Temperature. 98.9, heart rate 78, respiratory 14, blood pressure 122/75, O2 saturation 95% on 2 L nasal cannula. General examination: This is a 62-year-old male, lying in bed in no acute distress, sleepy. HEENT: Head is normocephalic, atraumatic. Neck: Supple. No JVD noted. No carotid bruits. Cardiovascular exam: S1, S2 heard. No murmurs, gallops, or rubs. Regular rate and rhythm. Respiratory exam: Clear bilaterally to auscultation. No work of breathing or using accessory muscles. Abdomen: Soft, nontender to palpation. Nondistended. Bowel sounds present. No organomegaly. Extremities: Right lower extremity wrapped and clean dry dressing. Left great toe is also wrapped. Neurological exam: Patient is sleepy, but answers to verbal stimuli. LABORATORY DATA: White cell count 15.32, hemoglobin 8.4, hematocrit 37.2, platelets 574 with BMP that shows blood sugar is 231. ASSESSMENT AND PLAN: 1. Status post right femoral popliteal graft. Actually, this patient underwent two operations to revascularize the right leg. As we mentioned before, he had a right diabetic foot infection and a wound that is not healing in the toe on the distal foot. Vascular surgery has evaluated this patient. There is a high risk of amputation if this wound does not heal. Apparently as per family Dr. Garcia reports that he is good to go tomorrow. 2. Right diabetic foot infection secondary to Staphylococcus. Dr. Toledo has been following this patient, and currently he is on Ancef. We are going to check with him for how long he will need to be on intravenous antibiotics or if those can be changed to oral. 3. Diabetes mellitus type 2. The patient is on Levemir and Humalog. Will continue with same management. The blood sugars are still high, but I guess it is because of the surgery, also because of the active infection. 4. Hypertension, well-controlled. 5. Coronary artery disease. Not complaining of any chest pain. We are going to continue with aspirin, Plavix and Coreg. 6. Gastroesophageal reflux disease. We will continue with Prilosec. 7. Restless leg syndrome. We will continue with Requip. 8. Diabetic neuropathy. We will continue Lyrica, although the family reports some reactions, so we are going to decrease it to 50 mg b.i.d. cc: Joaquín Yo MD
--- NOTE | 2017-06-23 18:37 | PROGRESS NOTE ---
DATE: 06/23/2017 SUBJECTIVE: The patient denies any new complaints. He says he wants to go home. OBJECTIVE: Vital signs: He is afebrile. Vital signs are stable. General: He is awake and alert. No acute distress. Extremities: His right leg bandages are clean and dry. His right foot is warm and wrapped with an Allen wrap. LABORATORY: White blood cell count 15,000, hemoglobin 8.4, hematocrit 27. Electrolytes reviewed and unremarkable. ASSESSMENT/PLAN: A 62-year-old male with nonhealing right diabetic foot ulcer and infection and peripheral arterial disease. He is status post right femoral popliteal bypass graft with revision. We are planning an operative debridement of the foot tomorrow to try to get his wound in a better position for eventual healing. I discussed the risks and benefits with him. He agrees to proceed. cc: Julio Ramsay MD
[2017-06-23] MEDS: LEVEMIR SUBQ SCH (20:20)
--- NOTE | 2017-06-23 21:23 | PROGRESS NOTE ---
DATE: 06/23/2017 SUBJECTIVE: The patient is status post right femoral to popliteal bypass graft with revision yesterday afternoon. He continues without chest discomfort or dyspnea on room air. OBJECTIVE: Vital signs: Blood pressure 134/48, heart rate 77 and regular, oxygen saturation 97% on room air. Neck: There is no significant jugular venous distention. Chest: Clear to auscultation. Cardiovascular: Cardiac exam reveals a regular rate and rhythm without appreciable murmur or gallop. Extremities: Warm without edema. IMPRESSION: 1. Atherosclerotic coronary disease. Recent cardiac catheterization/coronary angiography dictates continued medical management. The patient continues without angina. 2. Severe peripheral vascular disease with recent nonhealing wound, distal right lower extremity, with associated staph infection, requiring debridement. The patient is status post right femoral to popliteal bypass and subsequent revision. 3. Diabetes mellitus requiring insulin for control. 4. Hypertension. 5. Hyperlipidemia. 6. Chronic ongoing cigarette use. RECOMMENDATIONS: Continue current medical management of patient's atherosclerosis. cc: Enmanuel Spears MD
[2017-06-24] MEDS: KEFZOL 2 GM/D5W 2 GM/50 ML IVPB IV SCH (05:20)
[2017-06-24 06:03] LABS: MANUAL DIFF NEEDED? NO
[2017-06-24 06:21] LABS: BASO% 0.3 % (0.0-0.8); EOS# 0.15 X1000 (0.0-0.7); EOS% 1.3 % (0.0-10.0); HEMATOCRIT 24.1 % (42.0-52.0); HEMOGLOBIN 7.4 g/dL (14.0-18.0); IMM GRAN# 0.17 X1000 (0.0-0.04); IMM GRAN% 1.4 % (0.0-0.5); LYMPH# 1.75 X1000 (1.2-3.4); LYMPH% 14.8 % (20.5-51.1); MCH 25.1 PG (27-31); MCHC 30.7 g/dL (33-37); MCV 81.7 FL (81-99); MONO# 0.96 X1000 (0.11-0.59); MONO% 8.1 % (1.7-9.3); MPV 9.3 FL (7.4-10.4); NEUT% 74.1 % (42.2-75.2); PLT 554 X1000 (130-400); RBC 2.95 XMIL (4.7-6.1)
[2017-06-24] MEDS: PRILOSEC PO SCH ×2 (06:30→11:22)
[2017-06-24] MEDS: HUMALOG SUBQ SCH ×4 (06:31→11:29)
[2017-06-24] MEDS ORDERED: XYLOCAINE-MPF 2% ONE (07:12)
[2017-06-24] MEDS ORDERED: DIPRIVAN 1% ONE (07:12)
[2017-06-24] MEDS ORDERED: GLUCOPHAGE PO SCH (08:00)
[2017-06-24] MEDS ORDERED: ZOFRAN ONE (08:21)
[2017-06-24] MEDS ORDERED: DECADRON ONE (08:21)
[2017-06-24] MEDS ORDERED: MORPHINE ONE (09:19)
--- NOTE | 2017-06-24 09:40 | OPERATIVE NOTE ---
PROCEDURE DATE: 06/24/2017 PREOPERATIVE DIAGNOSES: 1. Nonhealing diabetic foot ulcer. 2. Diabetic foot infection. 3. Peripheral arterial disease. POSTOPERATIVE DIAGNOSES: 1. Nonhealing diabetic foot ulcer. 2. Diabetic foot infection. 3. Peripheral arterial disease. PROCEDURE: Debridement of skin, subcutaneous tissue, and fascia greater than 20 square centimeters of right foot and first toe. SURGEON: Julio Ramsay MD. ANESTHESIA: General. ESTIMATED BLOOD LOSS: 20 mL. COMPLICATIONS: None apparent. SPECIMENS: None. FINDINGS: He had extensive soft tissue loss of all layers of soft tissue down to the bone in a 75% circumferential pattern medially, posteriorly, and laterally of his 1st proximal phalanx on the right. This extended down into the deep interspace between the 1st and 2nd digits. The measurements of the wound measured 5 cm transversely, 5 cm dorsal to plantar, and probably 2 cm deep, carried down to the bone. TECHNIQUE: He was brought to the operating room and placed supine on the table. General anesthesia was induced. He was prepped and draped in the usual sterile fashion. A 15 blade was used to make an incision around the outer edges of the obviously necrotic skin back to healthier bleeding edges of skin. The intervening necrotic soft tissue was debrided sharply with a knife and find tissues scissors including necrotic tendon, fascia, and fat, carried all the way down to the periosteal tissues of the proximal phalanx. It was near circumferential in the amount of soft tissue loss. The wound was irrigated thoroughly with saline and then Vashe and packed with Vashe moistened gauze. There were no apparent complications. cc: Julio Ramsay MD
[2017-06-24] MEDS: SPIRIVA INH SCH (09:49)
[2017-06-24] MEDS: GLUCOTROL XL PO SCH (10:25)
[2017-06-24] MEDS: LIPITOR PO SCH (10:25)
[2017-06-24] MEDS: PLAVIX PO SCH (10:25)
[2017-06-24] MEDS: MIRALAX PO SCH (10:26)
[2017-06-24] MEDS: REQUIP PO SCH (10:26)
[2017-06-24] MEDS: NICODERM PATCH TD SCH (10:26)
[2017-06-24] MEDS: LACTULOSE PO SCH (10:26)
[2017-06-24] MEDS: ASPIRIN PO SCH (10:26)
[2017-06-24] MEDS: COLACE PO SCH (10:27)
[2017-06-24] MEDS: COREG PO SCH (10:35)
[2017-06-24] MEDS: LYRICA PO SCH (10:35)
[2017-06-24 12:30] VITALS: BP 128/58
--- NOTE | 2017-06-25 13:31 | DISCHARGE SUMMARY ---
ADMISSION DATE: 06/13/2017 DISCHARGE DATE: 06/24/2017 CONSULTATIONS: 1. Dr. Julio Ramsay with General Surgery. 2. Dr. Franklin Toledo with Infectious Disease. 3. Dr. Enmanuel Spears with Cardiology. PERTINENT PROCEDURES: 1. Right leg venous ultrasound showed no evidence of deep or superficial venous thrombosis of the right lower extremity. 2. Right foot x-ray showed no evidence of acute bony disease. 3. Right lower extremity MRI showed edema in the plantar aspect of the forefoot medially as described suggested cellulitis. However, there were no signs of osteomyelitis on the study. 4. Lower extremity arterial study showed bilateral superficial femoral occlusive disease especially digital vessel disease on the right to be consistent with claudication and healing of the right foot is in jeopardy, as compared with the study on 10/18/2015. There has been significantly diminished flow on the right foot. 5. Aorta with runoff CTA showed aortoiliac atherosclerotic disease and lower extremity atherosclerotic disease. A 2-vessel runoff on the right and 3 vessel runoff on the left. Saphenous vein mapping showed overall marginally adequate conduit for lower extremity bypass. 6. Debridement of skin, subcutaneous tissues less than 20 sq cm of the right foot performed by Dr. Ramsay on 06/16. 7. Left heart catheterization performed by Dr. Hui was relatively stable from previous in 2013 with the exception of disease in the right. 8. Right femoral-popliteal bypass performed by Dr. Garcia on 06/19. 9. Revision of right femoral-popliteal bypass for thrombosed right femoral popliteal vein graft, assisted by Dr. Aguilar, performed by Dr. Garcia on 06/22/2017. 10. Debridement of skin, subcutaneous tissue, and fascia greater than 20 sq cm of the right foot and first toe by Dr. Ramsay on 06/24. DISCHARGE DIAGNOSES: 1. Status post right femoral-popliteal bypass and revision of right femoral- popliteal bypass secondary to thrombosed right femoral vein graft secondary to right superficial femoral artery occlusion, left foot ulceration. 2. Nonhealing diabetic foot ulcer. 3. Diabetic foot infection. 4. Peripheral artery disease status post second debridement of skin, subcutaneous tissue, and fascia greater than 20 sq cm of the right foot and right first toe by Dr. Ramsay. 5. Atherosclerotic coronary artery disease, recent left heart catheterization dictates continue medical management. The patient continues without chest pain. 6. Uncontrolled diabetes mellitus type 2. Continue with subcutaneous insulin. 7. Hypertension, controlled. 8. Gastroesophageal reflux disease. Continue proton-pump inhibitors. 9. Restless legs syndrome. Continue Requip. 10. Diabetic neuropathy. Continue Lyrica. 11. Chronic obstructive pulmonary disease, stable. 12. Hyponatremia secondary to hyperglycemia, resolved. 13. Hyperglycemia controlled. HOSPITAL COURSE: Briefly, Mr. Crum is a 62-year-old insulin-dependent diabetic, CAD, status post PCI, chronic neuropathy of his lower extremity, COPD, chronic tobacco abuse came in from home with about a week's worth of swelling and pain in his right lower extremity for 7 days, and pain and swelling in his right toe and left toe. He reported that possibly a puppy dog injured his foot, and he has had pain and swelling since that time, and he lost the nail on his left foot and spontaneously came off and has not been healing well. He was seen in urgent care and had been started on clindamycin without any improvement. He was having more pain, erythema, and warmth with a large bullous lesion between his 1st and 2nd toes. He was evaluated in the ED, felt to have a diabetic foot wound and cellulitis, and was admitted for treatment and also consideration of failed outpatient treatment. He was initiated on vancomycin and Zosyn with a surgical consult to evaluate for debridement and wound cultures as well as blood cultures. Followed his blood sugars aggressively and treated with sliding scale. He was gently hydrated. In the interim, they painted his wounds with Betadine until further testing could be done. As lower extremity MRI of the right foot did not reveal any osteomyelitis, there is edema in the soft tissues around with 1st and 2nd metatarsals and phalangeal joint consistent with known infection. CT angiogram of his lower extremities revealed bilateral superficial femoral occlusions with two-vessel runoff on the right and 3 vessel runoff on the left. He underwent a debridement of skin and subcutaneous tissue, less than 20 sq cm on the right foot with Dr. Ramsay. Dr. Garcia worked him up for revascularization. He underwent a right femoral- popliteal bypass using his greater saphenous vein. His cultures grew out staphylococcal. His antibiotics were adjusted to Ancef. However, on 06/22, it was felt that he had thrombosed his right femoral- popliteal vein graft, and he underwent a revision of his right femoral-pop bypass graft with the PTFE graft, again with Dr. Garcia and Dr. Aguilar assisting. They continued with wound care to his right foot. However, Dr. Ramsay felt that he needed more debridement of his subcutaneous tissue and fascia. Again, greater than 20 sq cm of the right foot and first toe. Dr. Toledo is discharging the patient home on p.o. Keflex. We will see the patient back in his office in 3 weeks. He will continue wound care as per Dr. Ramsay's instructions as well as Dr. Nielsen's instructions. Also while he was here, he had a left heart catheterization by Dr. Hui. He was relatively stable from previous one in 2013 with the exception of disease on the right. He discussed with his regular production support supervisor, Dr. Spears, and they are going to continue his current medical management of his atherosclerosis. Dr. Marques has discharged Mr. Crum home today with [facility] and DME with [facility] out of [place]. He is to follow up with Dr. Con Garcia on 07/01/2017. VITAL SIGNS AT TIME OF DISCHARGE: Temperature is 98.1 degrees, heart rate 69, respirations 16, blood pressure 132/44, O2 is 100%. DISCHARGE DIET: Diabetic. DISCHARGE MEDICATIONS: 1. Aspirin 325 mg p.o. daily. 2. Atorvastatin 80 mg p.o. daily. 3. Coreg 6.25 mg p.o. b.i.d. 4. Keflex 500 mg p.o. q.8 hours. 5. Plavix 75 mg p.o. daily. 6. Glucotrol XL 10 mg p.o. daily. 7. [place] 10 one each p.o. q.6 hours p.r.n. 8. Levemir FlexTouch 52 units subcutaneous at bedtime. 9. Humalog KwikPen 17 units subcutaneously t.i.d. 10. Glucophage 500 mg p.o. b.i.d. 11. Lyrica 75 mg p.o. b.i.d. 12. Requip 1 mg p.o. daily. 13. Spiriva 1 puff inhaled RT daily. FOLLOWUP: Mr. Crum is being discharged home with [facility] and DME. He will continue wound care as instructed. He will follow up with Dr. Garcia, Dr. Ramsay, and Dr. Franklin Toledo. DISCHARGE INSTRUCTIONS: He will complete all antibiotics as instructed. He will continue a diabetic diet. He will need to keep a tight control on his blood sugars as well as educated on smoking cessation and the means to quit. He can return to the ED for any worsening of symptoms. DISCHARGE TIME: 35 minutes. Dictated by SANTOSH Recinos for Joaquín Yo MD Addendum: Patient seen and examined by myself. Agree with [facility] note. It reflects my assessment and plan. Patient admitted for peripheral vascular disease and infected right foot. He underwent 2 procedures and from surgical standpoint patient was good to go. PT has been consulted who recommend home health. Tre Aguilera from ID prescribed Keflex for this patient and he will see ID and surgery in the office for follow up. cc: MD Jose Beverly MD MTDD
== END 2017-06-24 14:01 | disposition home health service (06) ==
LOC: ED 12:33 → SUATTDRO 17:40 → 4N 17:40 → ICU 06-19 14:25 → 4N 06-20 10:31
PROVIDERS: ATTEND Internal Medicine

== ENCOUNTER 2017-06-28 12:17 | Inpatient (IN) ==
--- NOTE | 2017-06-28 13:18 | PROVIDER DOCUMENTATION ---
HPI-General Adult - General Chief Complaint: Extremity Pain Stated Complaint: LEG PAIN Time Seen by Provider: 06/28/17 12:38 Source: patient, family Allergies/Adverse Reactions: Patient Allergies Allergy/AdvReac Type Severity Reaction Status Date / Time No Known Allergies Allergy Verified 06/28/17 13:21 Home Medications: Home Medication List Medication Instructions Recorded Confirmed Last Taken Type Atorvastatin Calcium 80 mg PO DAILY 12/14/13 06/28/17 06/28/17 History Aspirin 325 mg PO DAILY 06/13/17 06/28/17 06/28/17 History Carvedilol [Coreg] 6.25 mg PO BID 06/13/17 06/28/17 06/28/17 History Glipizide E.r. [Glucotrol Xl] 10 mg PO DAILY 06/13/17 06/28/17 06/28/17 History Insulin Detemir [Levemir Flextouch] 52 unit SQ QHS 06/13/17 06/28/17 06/27/17 History Insulin Lispro [Humalog Kwikpen 17 unit SQ TID 06/13/17 06/28/17 06/28/17 History U-100] Metformin [Glucophage] 500 mg PO BID CC 06/13/17 06/28/17 06/28/17 History Ropinirole [Requip] 1 mg PO DAILY 06/13/17 06/13/17 Unknown History Tiotropium [place] Inhaler 1 puff INH RTDAILY 06/13/17 06/28/17 06/28/17 History [Spiriva] Cephalexin [Keflex] 500 mg PO Q8H #60 capsule 06/23/17 06/28/17 06/28/17 Rx Clopidogrel [Plavix] 75 mg PO DAILY #30 tablet 06/24/17 06/28/17 06/28/17 Rx Hydrocodone/APAP 10 mg/325 mg 1 each PO Q6H PRN PRN #25 tablet 06/24/17 Unknown Rx [[place]-10] Pregabalin [Lyrica] 75 mg PO BID #60 capsule 06/24/17 06/28/17 06/28/17 Rx Famotidine [Pepcid] 20 mg PO AC 06/28/17 06/28/17 06/28/17 History Tiotropium [place] Inhaler 1 puff INH RTDAILY 06/28/17 06/28/17 Unknown History [Spiriva] - History of Present Illness -Gen Adult Nature of Presenting Problems: PT STS WAS ADMITTED TO THE HOSPITAL FOR FOOT INFECTION LAST WEEK. ALSO HAD DECREASED CIRCULATION TO FOOT CAUSING DELAYED HEALING. HAD SURGERY WITH DRS. BOWDEN AND PACO WHILE ADMITTED AND WAS ON IV ABX. STS YESTERDAY HAD ONSET OF N/ V, SWELLING, REDNESS, AND PAIN TO RT FOOT AND LEG. DENIES FEVER. STS HOME HEALTH NURSES TOLD HIM TO COME TO ER YESTERDAY BUT HE "DIDN'T WANT TO HAVE TO COME BACK IN". Location of Pain/Injury: reports: lower extremity Quality of Pain: reports: dull Severity: reports: moderate Onset/Duration: reports: 24 hours ago Timing: reports: still present Similar Symptoms Previously?: Yes Recently seen or treated by another doctor?: Yes Review of Systems - Adult - REVIEW OF SYSTEMS - ADULT Constitutional: reports: no symptoms reported. denies: chills, fever Eyes: reports: no symptoms reported Ears, Nose, Mouth & Throat: reports: no symptoms reported Cardiovascular: reports: no symptoms reported. denies: chest pain Respiratory: reports: no symptoms reported. denies: shortness of breath Gastrointestinal: reports: see HPI, frequent heartburn, nausea, poor appetite, vomiting. denies: abdominal pain, constipation, diarrhea Genitourinary: reports: no symptoms reported. denies: dysuria Musculoskeletal: reports: see HPI, other (RLE SWELLING/REDNESS) Integumentary: reports: no symptoms reported Neurological: reports: no symptoms reported. denies: dizziness/vertigo, headache/migraines Psychiatric: reports: no symptoms reported Endocrine: reports: no symptoms reported Hematologic/Lymphatic: reports: no symptoms reported Allergic/Immunologic: reports: no symptoms reported All Other Systems: Reviewed and Negative Past History - Adult - PAST MEDICAL HISTORY-ADULT Review of Records: reports: Old Records Reviewed, Nursing Assessment Review, Medications Reviewed, Social history reviewed & non-contributory. Major Childhood Illnesses: reports: denies history Cardiovascular: reports: cardiac disease, DC, PAD, PVD Respiratory: reports: COPD Gastrointestinal: reports: GERD Genitourinary: reports: denies history Musculoskeletal: reports: denies history Neurological: reports: denies history Psychiatric: reports: denies history Endocrine/Immune: reports: Diabetes Diabetes Type: Type 2 Diabetes controlled by:: PO Meds - PRIOR SURGERIES/PROCEDURES Surgical/Procedure History: reports: recent surgery, cardiac stent, other (RLE ARTERIAL GRAFT) - FAMILY HISTORY Family History: diabetes, CAD over 55 yo, lung disease Physical Exam-General - PHYSICAL EXAM-ADULT Initial Vital Signs Reviewed: Yes - CONSTITUTIONAL General Appearance: appears well, alert, no apparent distress - EYES Eyes: PERRL/EOMI, pink conjunctivae - HEAD, EARS, NOSE, MOUTH & THROAT HENMT: moist mucous membranes - RESPIRATORY Respiratory: chest non-tender, lungs clear, normal breath sounds, no pleuratic chest pain, no respiratory distress, no accessory muscle use - CARDIOVASCULAR Cardiovascular: regular rate, rhythm - GASTROINTESTINAL (ABDOMEN) Abdominal Exam: non tender, soft - MUSCULOSKELETAL Extremity: normal range of motion, erythema (FROM RT GREAT TOE STREAKING ANTERIOR LOWER LEG), swelling, tenderness - SKIN Integumentary: normal color, normal turgor, warm/dry - NEUROLOGIC Neurologic: grossly normal, no motor/sensory deficits - PSYCHIATRIC Psych/Mental Status: normal mood/affect, oriented x 3 Progress - PLAN OF CARE/RESULTS Progress/Plan/Lab Results: Vital Signs - 8 hr 06/28/17 12:20 Temperature 98 F Pulse Rate 72 Respiratory Rate 16 Blood Pressure 150/48 O2 Sat by Pulse Oximetry 100 Orders Category Date Time Status Saline Loc NOW Care 06/28/17 13:00 Active FOOT COMPLETE RIGHT [RAD] Stat Exams 06/28/17 13:00 Ordered CBC WITH ELECTRONIC DIFF [HEME] Stat Lab 06/28/17 13:00 Uncollected CK PROFILE [SP CHEM] Stat Lab 06/28/17 13:12 Uncollected COMPREHENSIVE METABOLIC PANEL [CHEM] Stat Lab 06/28/17 13:00 Uncollected TROPONIN T Stat Lab 06/28/17 13:12 Uncollected Result Diagrams: 06/28/17 13:29 06/28/17 13:29 - CONSULTS/PCP/HOSPITALIST Notification #1 *Consult/PCP/Hospitalist*: DR. Brittny HELLER Time Discussed: 14:30 (ADMIT TO HOSPITALIST, START IV ABX.) Consult Disposition: Admit #2 Consult: JOEL RABAGO FOR DR. REYES Time Discussed: 14:40 Consult Disposition: Admit Departure - Departure Date of Disposition Decision: 06/28/17 Time of Disposition Decision: 14:40 DIAGNOSIS: Diabetic foot infection Cellulitis Qualifiers: Site of cellulitis: extremity Site of cellulitis of extremity: lower extremity Laterality: right Qualified Code(s): L03.115 - Cellulitis of right lower limb Disposition: ADMITTED INPATIENT 09 Certified Medical Emergency: Emergent Condition: Stable Referrals and Follow-Ups: Jose Irby MD [Primary Care Provider] - - Critical Care Note This patient required my direct & personal management of CC.: No Attestation - Physician/ BRIAN Attestation Patient care was provided by Advanced Practice Provider:: Yes Advanced Practice Provider:: Isadora Santos Advanced Practice Provider documentation review:: The Mid-level provider documentation, treatment plan and medical decision making was reviewed by the physician who agrees with all treatment and medical decision making by the MLP. The physician spent face to face time with patient:: No Advanced Practice Provider documentation review:: Supervising physician onsite and consulted in the evaluation and care of this patient. The physician did not have a face to face encounter with the patient.
[2017-06-28 13:56] LABS: BASO% 0.8 % (0.0-0.8); EOS# 0.16 X1000 (0.0-0.7); EOS% 1.3 % (0.0-10.0); HEMATOCRIT 26.2 % (42.0-52.0); HEMOGLOBIN 7.8 g/dL (14.0-18.0); IMM GRAN# 0.05 X1000 (0.0-0.04); IMM GRAN% 0.4 % (0.0-0.5); LYMPH# 2.12 X1000 (1.2-3.4); LYMPH% 17.9 % (20.5-51.1); MANUAL DIFF NEEDED? NO; MCH 24.8 PG (27-31); MCHC 29.8 g/dL (33-37); MCV 83.2 FL (81-99); MONO# 0.74 X1000 (0.11-0.59); MONO% 6.2 % (1.7-9.3); MPV 9.4 FL (7.4-10.4); NEUT% 73.4 % (42.2-75.2); PLT 632 X1000 (130-400); RBC 3.15 XMIL (4.7-6.1)
[2017-06-28 14:06] LABS: AGAP 13; ALBUMIN 3.5 g/dL (3.5-5.0); ALKALINE PHOSPHATASE 124 U/L (32-122); BUN 18 mg/dL (8-22); CALCIUM 9.2 mg/dL (8.8-10.2); CHLORIDE 98 mmol/L (98-107); CK PROFILE 29 U/L (24-204); COSMO 278; GOT 13 U/L (10-34); GPT 7 U/L (10-44); POTASSIUM 4.4 mmol/L (3.5-5.1); SODIUM 138 mmol/L (136-145); TCO2 27 mmol/L (25-35); TOTAL BILIRUBIN 0.42 mg/dL (0.20-1.00); TOTAL PROTEIN 7.5 g/dL (6.3-8.3)
--- NOTE | 2017-06-28 14:07 | Diag Imaging Result Doc PS360 ---
EXAM: FOOT COMPLETE RIGHT INDICATION: POST OP REDNESS AND SWELLING, POSS OSTEO TECHNIQUE: 3 views COMPARISON: 06/13/2017 FINDINGS: There is a stable osteophyte at the dorsal aspect of the distal talus and stable chronic appearing irregularity at the medial aspect of the navicular. There is no discrete fracture, dislocation, or significant intrinsic osseous lesion, otherwise. No definite acute bony erosions are identified. There is soft tissue edema at the dorsum of the foot. IMPRESSION: Soft tissue edema and chronic bony changes but no definite acute osseous abnormality. Electronically signed by John Tao 06/28/2017 2:05 PM
[2017-06-28] MEDS ORDERED: ZOSYN 3.375 GM in NS 50 ML IV ONE (14:24)
[2017-06-28] MEDS ORDERED: VANCOMYCIN 1 GM/NS 1 GM/250 ML IVPB IV ONE ×3 (14:24→19:00)
[2017-06-28] MEDS ORDERED: ZOFRAN ONE (16:40)
[2017-06-28] MEDS ORDERED: D50W SYRINGE ONE (16:45)
[2017-06-28] MEDS ORDERED: ZOFRAN IV ONE (16:51)
[2017-06-28] MEDS ORDERED: D50W SYRINGE IV ONE (16:51)
--- NOTE | 2017-06-28 17:50 | HISTORY AND PHYSICAL ---
HISTORY OF PRESENT ILLNESS: This is a 62-year-old who came in complaining of swelling in his leg and his foot. He has had recent surgery for revascularization of the right leg, and surgical debridement for an ischemic ulcer, diabetic ulcer on the right foot. He reported that he had fever last night, subjective fever and sweats. This is a 62-year-old who was recently in the hospital. I think he was discharged on 06/24/2017. On old records, he is followed by Dr. Julio Ramsay, Dr. Ronda Toledo, and Dr. Enmanuel Spears, Cardiology. He had a right venous ultrasound. It showed no evidence of deep venous thrombosis in the right lower extremity. He had a right foot x-ray. It showed no evidence of bony disease. Right lower extremity MRI showed edema at the plantar aspect of the forefoot medially to suggest cellulitis. Lower extremity arterial study showed bilateral superficial femoral occlusive disease, especially digital vessel disease on the right, consistent with claudication. Significantly diminished flow in the right foot. Aorta with runoff CTA showed aortoiliac atherosclerotic disease in the lower extremity. Two-vessel runoff on the right. Three-vessel runoff on the left. Debridement of skin and subcutaneous tissue, less than 20 square cm, right foot, performed per Dr. Ramsay, on 06/16. Left heart catheterization performed per Dr. Hui. Relatively stable from 2013, with the exception of disease on the right. Right femoral popliteal bypass performed by Dr. Garcia, 06/19. Revision of right femoral popliteal bypass for thrombosis of right femoral popliteal vein graft, assisted by Dr. Aguilar. That was done on 06/22/2017. Debridement of skin, subcutaneous tissue, and fascia, greater than 20 square cm on right foot, 1st toe, by Dr. Ramsay on 06/24. He was discharged home. He said he did fairly well. Then, he noticed the last 3 or 4 days he has had swelling in the leg and the foot, and he can tell he has had some fever. Came into the emergency room. Dr. Rios saw the foot, and recommended he come back in the hospital. PAST MEDICAL HISTORY: 1. Diabetes mellitus type 2. 2. He has had cataract surgery, both eyes. 3. He has coronary artery disease, one stent has been placed. 4. Chronic peripheral neuropathy from diabetes. 5. COPD. PAST SURGICAL HISTORY: He has had no major surgeries, other than cataract surgery, and the debridement and vascular surgery on his right leg. SOCIAL HISTORY: One pack a day tobacco for 40 years. No alcohol. No recreational drugs. REVIEW OF SYSTEMS: HEENT: No change in hearing or auditory acuity reported. He has had fever, subjective yesterday, and sweats. Respiratory: No increased work of breathing or dyspnea. Cardiovascular: He has had some chest pain. He thinks it is heartburn. Denies squeezing or pressure pain. Gastrointestinal and Genitourinary: No change reported in his bowels or voiding. Endocrinologic and Hematologic: Other than diabetes, no significant history. Neurologic: Peripheral neuropathy. PHYSICAL EXAMINATION: GENERAL: In the emergency room, awake and alert. Oriented x3. VITAL SIGNS: Temperature 98 degrees, pulse 72, respirations 16, blood pressure 150/48. HEENT: Pupils are equal and round. Oral nasal mucosa unremarkable. LUNGS: Clear in all lung renteria. NECK: CVP less than 6 cm. No distended neck veins. Neck without thyromegaly. No adenopathy along the jugular chain or supraclavicular. LUNGS: Clear in all lung renteria. CARDIOVASCULAR: Regular rhythm and rate, without murmur or S3. ABDOMEN: Soft. SKIN: Warm and dry. Right foot is wrapped up. There is mild lymphedema, especially the anterior cao, up 2/[address] leg, with some erythema. LABORATORY STUDIES: White count 11,870, hematocrit 26, platelet count 632,000. Sodium 138, potassium 4.4, chloride 98, bicarb 27, BUN 18, creatinine 0.7, blood sugar 112. X-ray of the foot today: Soft tissue edema, chronic bony changes, but no definite acute osseous abnormality. REVIEW OF HOME MEDICATIONS: He is on aspirin 325 mg a day, Atorvastatin 80 mg a day, Coreg 6.25 mg b.i.d. He was taking Keflex 500 mg p.o. q.8 hours, Plavix 75 mg a day, Pepcid 20 mg q.a.c., glipizide ER 10 mg daily, hydrocodone 10 mg q.6 hours p.r.n., taking insulin detemir 52 units at night, and insulin lispro 17 units t.i.d. subcu, metformin 500 mg b.i.d., Lyrica 70 mg p.o. b.i.d., Requip 1 mg daily, and Spiriva 1 puff daily. ASSESSMENT AND PLAN: 1. Right ischemic and diabetic foot ulcer, with increased swelling and some fever. Looking back at his micro on 06/13/2017, wound culture grew Staphylococcus saprophyticus. It was sensitive to oxacillin. Blood cultures from 06/13 x2 were with no growth. We will put him on Zosyn and vancomycin for now. Have Surgery evaluate, suspect he may need some more debridement. The medial incision for his arterial surgery: The sanket in the incision look good. He has some lymphedema going up the cao, with some cellulitis. 2. Diabetes mellitus type 2. Check pattern sugars. Continue his present insulin. Put him on a diabetic diet. 3. History of coronary artery disease. He has had a fairly recent catheterization, per Dr. Hui. That was on 06/17/2017. Heart catheterization was reported to be relatively stable from previous one in 2013, with the exception of disease in the right RCA. We will go ahead and check cardiac enzymes, troponin and CPK. We will check his T4 and TSH, B12 and folate. We will check a hemoglobin A1c in the morning, and we will give him normal saline, run it at 85 mL an hour. Note: Echocardiogram done on 11/28/2013 showed a good ejection fraction. His heart catheterization on 06/17, left ventricular function, the ejection fraction was 60%. There was some difficult opacification near the base. LVEDP was 26 mmHg. cc: Simone Daniels MD
[2017-06-28] MEDS ORDERED: ZOFRAN IV PRN ×2 (17:59→18:55)
[2017-06-28] MEDS ORDERED: NS 1,000 ML IV SCH (17:59)
[2017-06-28] MEDS ORDERED: VANCOMYCIN IV PER PHARMACY MISC SCH ×2 (17:59→19:00)
[2017-06-28] MEDS ORDERED: TYLENOL PO PRN ×2 (17:59→18:54)
[2017-06-28] MEDS ORDERED: HUMALOG SUBQ SCH (17:59)
[2017-06-28] MEDS ORDERED: NORCO-10 PO PRN (17:59)
--- NOTE | 2017-06-28 18:24 | CONSULTATION ---
DATE OF CONSULTATION: 06/28/2017 HISTORY OF PRESENT ILLNESS: This is a 62-year-old male with peripheral vascular disease and nonhealing wound of the right foot. He underwent a femoral to above knee popliteal bypass with PTFE by Dr. Garcia on 06/22. This was after a failed vein bypass in the same location. He then subsequently underwent debridement of a right foot wound on the . He was discharged home at that time and he presents back now with increased pain, swelling, and erythema of his foot to the level of the calf. Family is concerned. They have been doing dressing changes at home with gauze. Denied any drainage from his wounds. In the emergency department he has been hemodynamically stable. PHYSICAL EXAMINATION: Vital signs: Temp is 98 degrees, pulse 72, blood pressure 150/48, oxygen saturation 100% on room air. General: He is alert, somewhat uncomfortable appearing but in no acute distress. Cardiovascular: Normal rate. Regular rhythm. Pulmonary: No increased work of breathing. Abdomen: Soft, nontender. Peripheral vascular: His right groin incision is healing well with no evidence of hematoma or cellulitis, as his is more distal incision. I do not see any cellulitis or evidence of wound purulence here. His foot is well perfused. There is edema, more so on the right than on the left at the level of midcalf with some cellulitis around his ankle, but the wound is clean. I do not see any necrosis here or purulence. LABS: White count 11, hematocrit 26, creatinine 0.7, glucose 111. Troponins are normal at less than 0.01. His foot x-ray does not show any obvious osteomyelitis. ASSESSMENT AND PLAN: This is a 62-year-old male with peripheral vascular disease and nonhealing wound to the right foot. Wound is clean. He does have some increasing erythema and swelling of his distal calf. Family is concerned. He has been nauseated. They are worried about his heart, although troponin is normal here. His bypass incisions look okay. I recommend admission for pain control, IV antibiotics, and wound observation. I have asked the hospitalist to see him given the myriad of health problems and diabetes to make sure that this is all well controlled while he is here. We will continue follow along. Will ask physical therapy to see him and will check ABIs to ensure that he has got improved flow to his foot since his bypass. Otherwise, we will continue supportive care and further medical workup. I will discuss patient with Dr. Ramsay and Dr. Garcia when they come back tomorrow. cc: Germania Rios MD
[2017-06-28] MEDS: PEPCID PO SCH (18:52)
[2017-06-28] MEDS: NS 1,000 ML IV SCH (19:43)
[2017-06-28] MEDS ORDERED: PRILOSEC PO SCH (21:00)
[2017-06-28] MEDS ORDERED: LYRICA PO SCH (21:00)
[2017-06-28] MEDS ORDERED: ZOSYN 3.375 GM in NS 50 ML IV SCH (21:00)
[2017-06-28] MEDS ORDERED: COREG PO SCH (21:00)
[2017-06-28] MEDS ORDERED: LEVEMIR SUBQ SCH (21:00)
[2017-06-28] MEDS: LEVEMIR SUBQ SCH (21:51)
[2017-06-28] MEDS: PRILOSEC PO SCH (21:51)
[2017-06-28] MEDS: LYRICA PO SCH (21:51)
[2017-06-28] MEDS: COREG PO SCH (21:51)
[2017-06-28] MEDS: ZOSYN 3.375 GM in NS 50 ML IV SCH (22:01)
[2017-06-29] MEDS: ZOSYN 3.375 GM in NS 50 ML IV SCH (03:29)
[2017-06-29] MEDS: NORCO-10 PO PRN ×2 (03:31→16:04)
[2017-06-29 05:42] LABS: MANUAL DIFF NEEDED? NO
[2017-06-29 05:50] LABS: INR 1.02; PROTIME 10.7 Seconds (9.2-11.7); PTT 28.3 Seconds (22.0-36.0)
[2017-06-29 05:56] LABS: BASO% 0.7 % (0.0-0.8); EOS# 0.13 X1000 (0.0-0.7); EOS% 1.4 % (0.0-10.0); HEMATOCRIT 24.6 % (42.0-52.0); HEMOGLOBIN 7.3 g/dL (14.0-18.0); IMM GRAN# 0.03 X1000 (0.0-0.04); IMM GRAN% 0.3 % (0.0-0.5); LYMPH# 1.61 X1000 (1.2-3.4); LYMPH% 17.5 % (20.5-51.1); MCH 24.8 PG (27-31); MCHC 29.7 g/dL (33-37); MCV 83.7 FL (81-99); MONO# 0.75 X1000 (0.11-0.59); MONO% 8.2 % (1.7-9.3); MPV 9.4 FL (7.4-10.4); NEUT% 71.9 % (42.2-75.2); PLT 566 X1000 (130-400); RBC 2.94 XMIL (4.7-6.1)
[2017-06-29 06:02] LABS: AGAP 11; ALBUMIN 3.1 g/dL (3.5-5.0); ALKALINE PHOSPHATASE 108 U/L (32-122); BUN 14 mg/dL (8-22); CALCIUM 9.1 mg/dL (8.8-10.2); CHLORIDE 102 mmol/L (98-107); COSMO 280; GOT 11 U/L (10-34); GPT 7 U/L (10-44); IRON SATURATION 13 %; MAGNESIUM 1.8 mg/dL (1.5-2.7); POTASSIUM 4.1 mmol/L (3.5-5.1); SODIUM 140 mmol/L (136-145); TCO2 27 mmol/L (25-35); TIBC 255 ug/dL; TOTAL IRON 32 ug/dL (53-167); TOTAL PROTEIN 7.1 g/dL (6.3-8.3); UNBOUND IRON 223 ug/dL (112-346)
[2017-06-29 06:05] LABS: HEMOGLOBIN A1C 7.1 % (4.8-6.0)
[2017-06-29] MEDS: PEPCID PO SCH ×3 (06:36→16:04)
[2017-06-29 06:57] LABS: FREE T4 1.27 ng/dL (0.93-1.70)
[2017-06-29] MEDS ORDERED: SPIRIVA INH SCH ×2 (07:30)
--- NOTE | 2017-06-29 07:35 | EKG Report ---
Test Performed on : 06/29/2017 06:41:46 AM Test Reason : chest pain Blood Pressure : / mmHG Vent. Rate : 058 BPM Atrial Rate : 058 BPM P-R Int : 156 ms QRS Dur : 082 ms QT Int : 442 ms P-R-T Axes : 050 042 186 degrees QTc Int : [address] \T\ T wave abnormality, consider inferolateral ischemia Abnormal ECG When compared with ECG of 16-JUN-2017 11:31, T wave inversion now evident in Inferior leads T wave inversion more evident in Anterolateral leads Confirmed by Frances GAMBINO, Simone Danielson ([id number]) on 06/29/2017 5:00:29 PM
--- NOTE | 2017-06-29 07:37 | PROGRESS NOTE ---
DATE: 06/29/2017 PRESENT ILLNESS: The patient was sent home on PO Keflex. He had a foot infection and had debridement of the foot and also had revascularization of the right leg. He was readmitted to the hospital because of swelling in his foot. MEDICATIONS: The patient was sent home on Keflex. In the hospital now, he is on a combination of vancomycin and Zosyn. PHYSICAL EXAMINATION: Vital Signs: Temperature is 98 degrees, pulse 61, respirations 22, blood pressure 109/47. General: This is an ill-appearing, middle-aged male who is in no acute distress. Lungs: Clear to auscultation. Cardiovascular: Regular heart rate with a systolic murmur. Abdomen: Soft and nontender. Extremities: The right leg had a large dressing in the thigh area and a large dressing involving the right ankle and foot. The dressings are intact. There was no erythema surrounding the dressings. LAB AND X-RAY: The patient's CBC shows a white count of 9200, hemoglobin 7.3, and platelet count 566,000. Creatinine is 0.8. GFR is greater than 60. Liver function studies are normal. Cultures from the patient's blood and from his right foot infection are pending. A Gram stain of the patient's right foot shows no bacteria. ASSESSMENT AND PLAN: The patient has an infection of his right foot. I have discontinued Zosyn and placed the patient on cefepime. I agree with treating with vancomycin. The results of culture are still pending. COMORBIDITIES: Include diabetes mellitus, peripheral vascular disease, and cigarette smoking. cc: Franklin Toledo MD
[2017-06-29] MEDS: SPIRIVA INH SCH (08:39)
[2017-06-29] MEDS ORDERED: PLAVIX PO SCH (09:00)
[2017-06-29] MEDS ORDERED: ASPIRIN PO SCH (09:00)
[2017-06-29] MEDS ORDERED: LIPITOR PO SCH (09:00)
[2017-06-29 09:47] LABS: URINE MICRO REVIEW NEEDED? NO; URINE SOURCE CLEAN CATCH
[2017-06-29 09:50] LABS: BILIRUBIN URINE NEGATIVE (NEGATIVE); BLOOD URINE TRACE (NEGATIVE); COLOR YELLOW; GLUCOSE URINE NEGATIVE (NEGATIVE); LEUKOCYTES URINE SMALL (NEGATIVE); NITRITE URINE NEGATIVE (NEGATIVE); PH URINE 5.5; PROTEIN URINE TRACE mg/dL (NEGATIVE); SP GRAVITY URINE 1.017; TURBIDITY URINE CLEAR (CLEAR); UROBILINOGEN URINE NORMAL (NORMAL)
[2017-06-29 09:51] LABS: UR EPITHELIAL CELLS <10 /HPF (<10); URINE BACTERIA NEGATIVE /HPF; URINE CULTURE NEEDED? YES; URINE RBC <10 /HPF (<10)
[2017-06-29] MEDS: MAXIPIME IV SCH ×2 (10:04→20:57)
[2017-06-29] MEDS: D5W IV SCH ×2 (10:04→20:57)
[2017-06-29] MEDS: LIPITOR PO SCH (10:07)
[2017-06-29] MEDS: PRILOSEC PO SCH ×2 (10:07→20:56)
[2017-06-29] MEDS: ASPIRIN PO SCH (10:07)
[2017-06-29] MEDS: PLAVIX PO SCH (10:08)
[2017-06-29] MEDS: LYRICA PO SCH ×2 (10:08→20:56)
[2017-06-29] MEDS: COREG PO SCH ×2 (10:08→20:58)
[2017-06-29] MEDS: HUMALOG SUBQ SCH ×3 (10:12→13:38)
[2017-06-29] MEDS: NS 1,000 ML IV SCH (13:38)
--- NOTE | 2017-06-29 15:06 | PROGRESS NOTE ---
DATE: 06/29/2017 SUBJECTIVE: Mr. Crum admitted yesterday with a foot ulcer. He is not sure if they are planning any surgery. He stated Surgery had looked at it this morning. So he may not need any further debridement. The swelling looks a little better in the leg, a little less irritation. To recall, this is a 62-year-old who came in complaining of swelling in his leg and foot, recently had surgery for revascularization of the right leg and surgical debridement for ischemic ulcer and diabetic foot ulcer on the right side. He had presented because he had more fever and more swelling, and he was on Keflex at home. We re-cultured him and put him in the hospital. He was sitting up over the air conditioner vent and was asking when he can go home. His daughter and were at the bedside. OBJECTIVE: Vital signs: Temperature 98.4 degrees, pulse 112, respirations 20, blood pressure 128/53. Lungs: Clear in all lung renteria. Cardiovascular: Regular rhythm and rate without murmur or S3. Abdomen: Soft. Skin: Warm and dry. DIAGNOSTIC DATA: Urine output over 1800 mL. White count this morning a little down from 11,000 to 9200, hematocrit 24, platelet count 566,000. Blood sugars 100, 189, 236. I appreciate Dr. Toledo' help. ASSESSMENT AND PLAN: 1. He had sent home on p.o. Keflex, the foot ulcer, debridement of the foot. Also had revascularization of that right leg. I think they did a venous graft and then had to go back in and put in a prosthetic graft. At any rate, the incision for the proximal medial thigh looks good. Lower leg with more redness and swelling. So I put him back on vancomycin and Zosyn. Waiting for cultures. Dr. Toledo has discontinued the Zosyn and placed him on cefepime and continue vancomycin until we have cultures back. I did get a culture of the wound. 2. Diabetes mellitus type 2. Following sugars. 3. History of coronary artery disease. Stent has been placed. I think he has had a fairly recent cath with noted changes other than the right coronary artery. 4. Chronic peripheral neuropathy secondary to diabetes. 5. Chronic obstructive pulmonary disease. Review of his orders: Zosyn has been stopped. Cefepime 2 g IV q.12 hours. We will watch. The sugars are bouncing around right now. cc: Simone Daniels MD
--- NOTE | 2017-06-29 17:52 | PROGRESS NOTE ---
DATE: 06/29/2017 SUBJECTIVE: The patient was readmitted over the weekend with increasing redness and swelling of his right leg and foot. OBJECTIVE: Vital signs: He is afebrile. Vital signs are stable. General: He is awake and alert. He is eating a hamburger, in no acute distress. Extremities: His right foot is warm with good color. There is some mild erythema to the distal leg and some 2+ pitting edema to the distal right leg. The great toe wound was examined. There is a moderate amount of slough, minimal granulation. No gross pus is seen. Overall, it looks better than it did last week when there was extensive necrotic tissue. Of note, there were multiple bits of strands of gauze due to the prior dressing change by the daughter, with small pieces of gauze strands left in the wound. I cleaned all these out as best I could tell. LABORATORY: White cell count 9.2, hemoglobin 7.3. Electrolytes reviewed and unremarkable. ASSESSMENT/PLAN: A 62-year-old male with nonhealing right diabetic foot ulcer and peripheral vascular disease. He appears to have cellulitis in his leg and foot as well. He is on cefepime and vancomycin, per Dr. Toledo. For wound care, we will start Santyl to the wound once daily and cover with Vashe-moistened gauze once daily. I will see if we can arrange home health to come out and assist the family with dressing changes when it is time for him to go home. cc: Julio aRmsay MD
[2017-06-29] MEDS ORDERED: VANCOMYCIN 1,800 MG in NS 250 ML IV SCH ×4 (18:00)
[2017-06-29] MEDS: LEVEMIR SUBQ SCH (20:57)
[2017-06-30] MEDS: NORCO-10 PO PRN (00:34)
[2017-06-30] MEDS: PEPCID PO SCH ×2 (06:44→11:31)
[2017-06-30] MEDS: SPIRIVA INH SCH (08:11)
[2017-06-30 08:25] LABS: INR 1.03; PROTIME 10.8 Seconds (9.2-11.7)
--- NOTE | 2017-06-30 08:26 | PROGRESS NOTE ---
DATE: 06/30/2017 PRESENT ILLNESS: The patient has a severe right foot infection. He previously had been sent home on Keflex and the infection got worse; therefore, I think he needs to have IV antibiotics. MEDICATIONS: As mentioned above, the patient seemed to failed treatment on p.o. Keflex. Therefore, I think we should send the patient home on his current antibiotics namely vancomycin 1800 mg IV every 24 hours and cefepime 2 g IV every 12 hours. PHYSICAL EXAMINATION: Vital Signs: Temperature is 98 degrees, pulse 63, respirations 20, blood pressure 116/86. General: This is a somewhat ill-appearing, middle-aged male. He is in no acute distress. Lungs: Clear to auscultation. Cardiovascular: Regular heart rate. Abdomen: Soft and nontender. Extremities: I removed the dressing from the patient's right foot. There is a large wound. There is no purulence and no erythema. The tissue is beefy red in color. LAB AND X-RAY: A culture taken from the patient's foot is growing gram positive cocci and gram negative rods. ASSESSMENT AND PLAN: I have put in a consult for a PICC and for [facility] to supply the patient with home IV antibiotics. From my point of view, if we can get the home antibiotics worked out, then I think the patient could go today and I will follow him back in my office in approximately 3 weeks. The patient's culture from his foot is pending and his current antibiotics may need to be amended. COMORBIDITIES: 1. Diabetes mellitus. 2. Peripheral vascular disease. 3. Cigarette smoking. cc: Franklin Toledo MD
[2017-06-30] MEDS ORDERED: NS 250 ML ONE (08:45)
--- NOTE | 2017-06-30 08:59 | PROGRESS NOTE ---
DATE: 06/30/2017 SUBJECTIVE: The patient says he is doing okay. His right leg remains swollen but is less than when he was admitted. He wants to go home. OBJECTIVE: Vital signs: He is afebrile. Vital signs are stable. General: He is alert and oriented x4. No acute distress. Extremities: Right leg does have some pitting edema 1 to 2+. The right great toe wound is the same as yesterday with moderate amount of slough. No gross purulence or necrotic tissue. LABORATORY: None today. ASSESSMENT/PLAN: A 62-year-old male with nonhealing diabetic foot ulcer as well as infection of the foot and peripheral vascular disease. His foot is warm with good color. I think I have felt a posterior tibial pulse although it is somewhat faint. He will continue on intravenous antibiotics per Dr. Toledo. Dressing changes include Santyl and Vashe moistened gauze once daily. I am also going to check a venous ultrasound to rule out a DVT for his new unilateral leg swelling. cc: Julio Ramsay MD
[2017-06-30] MEDS ORDERED: HUMALOG SUBQ SCH (09:00)
[2017-06-30] MEDS ORDERED: SANTYL OINT TOP SCH (09:00)
[2017-06-30] MEDS: MAXIPIME IV SCH (11:24)
[2017-06-30] MEDS: D5W IV SCH (11:24)
[2017-06-30] MEDS: COREG PO SCH (11:27)
[2017-06-30] MEDS: PLAVIX PO SCH (11:27)
[2017-06-30] MEDS: PRILOSEC PO SCH (11:27)
[2017-06-30] MEDS: ASPIRIN PO SCH (11:28)
[2017-06-30] MEDS: LIPITOR PO SCH (11:28)
[2017-06-30] MEDS: LYRICA PO SCH (11:43)
[2017-06-30 12:05] VITALS: BP 151/65
--- NOTE | 2017-06-30 15:20 | PROGRESS NOTE ---
DATE: 06/30/2017 The patient's wound culture grew oxacillin sensitive Staph aureus and Enterobacter. My plan of treatment is that I will continue to give the patient cefepime but he will not require vancomycin. cc: Franklin Toledo MD
--- NOTE | 2017-07-01 06:23 | DISCHARGE SUMMARY ---
ADMISSION DATE: 06/28/2017 DISCHARGE DATE: 06/30/2017 ADDENDUM: The patient seen and examined by me [id number], all of the lab work, vital signs and images were reviewed. Today, he had a right lower extremity venous ultrasound to rule out deep vein thrombosis. This was negative. Surgery Department evaluated this patient as well as Infectious Disease Department. He can go home today with home health. He will receive treatment with IV antibiotics through [facility]. Dr. Toledo from Infectious Disease Department will monitor this patient as an outpatient as well as the surgery department. On my physical exam, I did not find anything new. His right lower extremity is a little bit swollen compared with the left lower extremity. Like I said before, the ultrasound ruled out a DVT. He is okay to be discharged. Initially, he was going home with IV cefepime and vancomycin but we have a culture result that showed Enterobacter cloacae complex and Staphylococcus aureus, MSSA. In light of these results, this patient will be only on cefepime and not vancomycin. He will continue with the rest of the medications at home. Follow up with his primary care doctor and Surgery Department as well as the Infectious Disease Department. cc: Thanh Conway MD
--- NOTE | 2017-07-02 15:28 | Extremity Venous Study ---
PROCEDURE NAME: Venous U/S Right Leg - 06/30/2017 RIGHT LOWER EXTREMITY VENOUS IMAGES REFERRING PHYSICIAN: Julio Ramsay MD. ATTENDING PHYSICIAN: Con Garcia MD. TECH: Portia. RESULTS: The patient has edema in the right leg post femoral-popliteal bypass. The right lower extremity is imaged. The common femoral, superficial femoral, deep femoral, popliteal, posterior tibial, peroneal, and greater saphenous veins are imaged. The left common femoral vein is imaged for comparison purposes. Doppler is used to evaluate the veins for spontaneity, phasicity, respiratory excursion, and distal augmentation. The deep veins are compressible. The greater saphenous vein was used initially as a bypass conduit. The PTFE bypass is patent. INTERPRETATION: No evidence of deep venous thrombosis. The femoral-popliteal bypasses is patent. cc: MD Julio Ayala MD
== END 2017-06-30 16:51 | disposition home health service (06) ==
LOC: ED 12:17 → 4N 16:39 → SUATTDRO 16:39
PROVIDERS: ATTEND Internal Medicine

== ENCOUNTER 2019-04-25 16:02 | Inpatient (IN) ==
[2019-04-25] MEDS ORDERED: DUONEB (A & A) INH ONE (18:57)
[2019-04-25] MEDS ORDERED: SOLU-MEDROL IV ONE (18:57)
[2019-04-25 19:38] LABS: BASO# 0.04 X1000 (0.0-0.2); BASO% 0.4 % (0.0-0.8); EOS# 0.17 X1000 (0.0-0.7); EOS% 1.7 % (0.0-10.0); HEMATOCRIT 37.6 % (42.0-52.0); HEMOGLOBIN 11.4 g/dL (14.0-18.0); IMM GRAN# 0.02 X1000 (0.0-0.04); IMM GRAN% 0.2 % (0.0-0.5); LYMPH# 1.28 X1000 (1.2-3.4); MCH 23.7 PG (27-31); MCHC 30.3 g/dL (33-37); MCV 78.2 FL (81-99); MONO# 0.88 X1000 (0.11-0.59); MONO% 8.9 % (1.7-9.3); MPV 11.5 FL (7.4-10.4); NEUT# 7.49 X1000 (1.4-6.5); NEUT% 75.8 % (42.2-75.2); PLT 279 X1000 (130-400); RBC 4.81 XMIL (4.7-6.1); RDW 15.3 % (11.5-14.5); WBC 9.88 X1000 (4.8-10.8)
--- NOTE | 2019-04-25 19:43 | Diag Imaging Result Doc PS360 ---
EXAM: CHEST-2 VIEWS HISTORY: cough wheezing TECHNIQUE: Chest two views COMPARISON: 04/21/2019 FINDINGS: The lungs are well expanded. The heart is borderline mildly prominent. The vessels are not distended. There are no infiltrates. IMPRESSION: No pneumonia Electronically signed by Matt Padilla 04/25/2019 7:40 PM
[2019-04-25] MEDS ORDERED: CLINDAMYCIN 600 MG/D5W 600 MG/50 ML IVPB IV SCH (20:00)
[2019-04-25 20:04] LABS: ALB/GLOB RATIO 1.2; ALBUMIN 4.3 g/dL (3.5-5.0); CREATININE 1.3 mg/dL (0.7-1.2); POTASSIUM 5.3 mmol/L (3.5-5.1); TOTAL BILIRUBIN 0.58 mg/dL (0.20-1.00)
[2019-04-25] MEDS ORDERED: NS 1,000 ML IV ONE (20:06)
--- NOTE | 2019-04-25 20:08 | EKG Report ---
Test Performed on : 04/25/2019 6:32:11 PM Test Reason : CP Blood Pressure : / mmHG Vent. Rate : 074 BPM Atrial Rate : 074 BPM P-R Int : 184 ms QRS Dur : 108 ms QT Int : 396 ms P-R-T Axes : 071 047 169 degrees QTc Int : 439 ms Normal sinus rhythm. Septal infarct (cited on or before 07-SEP-2018) ST & T wave abnormality, consider lateral ischemia Abnormal ECG When compared with ECG of 07-SEP-2018 12:35, No significant change was found Unconfirmed Result
[2019-04-25] MEDS ORDERED: MORPHINE IV ONE (20:09)
--- NOTE | 2019-04-25 21:24 | PROVIDER DOCUMENTATION ---
This chart was entered by Sheron London Scribe, acting as scribe for Benny Alas MD. HPI-General Adult - General Chief Complaint: Extremity Pain Stated Complaint: FOOT PAIN Time Seen by Provider: 04/25/19 18:17 Source: patient Allergies/Adverse Reactions: Patient Allergies Allergy/AdvReac Type Severity Reaction Status Date / Time gabapentin AdvReac Unknown Verified 04/25/19 18:31 Home Medications: Home Medication List Medication Instructions Recorded Confirmed Last Taken Type Atorvastatin Calcium 80 mg PO DAILY 12/14/13 04/25/19 04/24/19 History Glipizide E.r. [Glucotrol Xl] 20 mg PO DAILY 06/13/17 04/25/19 04/25/19 History Insulin Lispro [Humalog Kwikpen 15 unit SQ TID 06/13/17 04/25/19 04/25/19 History U-100] Albuterol Sulfate [Proair Hfa] 8.5 gm INH DAILY PRN PRN 02/25/19 04/25/19 04/25/19 History Amlodipine [Norvasc] 5 mg PO BID 02/25/19 04/25/19 04/25/19 History Furosemide [Lasix] 40 mg PO BID 02/25/19 04/25/19 Unknown History Isosorbide Mononitrate [Isosorbide 60 mg PO DAILY 02/25/19 04/25/19 04/25/19 History Mononitrate ER] Trazodone [Desyrel] 50 mg PO DAILY 02/25/19 04/25/19 04/24/19 History Umeclidinium [place] [Incruse 62.5 mcg INH DAILY PRN PRN 02/25/19 04/25/19 04/25/19 History Ellipta] Apixaban [Eliquis] 5 mg PO BID #60 tab 02/27/19 04/25/19 04/25/19 Rx Aspirin [Adult Aspirin] 81 mg PO DAILY #30 tablet. 04/21/19 04/25/19 04/25/19 Rx Budesonide/Formoterol Fumarate 2 inhaler INH BID 04/21/19 04/25/19 04/25/19 History [Symbicort 80-4.5 Mcg Inhaler] Hydrocodone/APAP 5 mg/325 mg 1 ea PO Q6H PRN PRN #12 tab 04/21/19 04/25/19 Unknown Rx [[place]-5] Pantoprazole [Protonix] 40 mg PO DAILY@0700 04/21/19 04/25/19 04/25/19 History Pregabalin [Lyrica] 150 mg PO BID 04/21/19 04/25/19 Unknown History Metformin E.r. [Glucophage Xr] 2 tab PO BID 04/25/19 04/25/19 04/25/19 History Ropinirole [Requip] 1 tab PO QHS 04/25/19 04/25/19 04/25/19 History - History of Present Illness -Gen Adult Nature of Presenting Problems: pt is a 64 yr old male presenting with increased pain, erythema and swelling to right foot, right lower leg, pt reports hx of diabetic ulcer to plantar surface of right foot x 1 yr, pt is followed by Dr Garcia for same. pt reports increased pain and redness x 2 days. pt denies any new injury. pt also admits increased cough and shortness of breath. Location of Pain/Injury: reports: feet (right foot) Pain Radiation: reports: legs (lower) (right) Quality of Pain: reports: aching, burning, throbbing, tightness Severity: reports: severe Onset/Duration: reports: gradual, 2 days ago (increased x 2 days) Timing: reports: still present Context/Activities at Onset: reports: light activity Modifying Factors: improves with: nothing Associated Symptoms: reports: cough, shortness of breath, trouble walking, other (skin ulceration). denies: fever/chills Similar Symptoms Previously?: Yes Recently seen or treated by another doctor?: Yes (seen multiple times in last 2 weeks for similar) Review of Systems - Adult - REVIEW OF SYSTEMS - ADULT Constitutional: denies: chills, fever Eyes: reports: no symptoms reported Ears, Nose, Mouth & Throat: reports: no symptoms reported Cardiovascular: denies: chest pain, palpitations, syncope Respiratory: reports: chronic cough, cough, dyspnea on exertion, shortness of breath Gastrointestinal: reports: no symptoms reported Genitourinary: reports: no symptoms reported Musculoskeletal: reports: no symptoms reported Integumentary: reports: skin sores/ulcer Neurological: denies: dizziness/vertigo, headache/migraines Psychiatric: reports: no symptoms reported Endocrine: reports: no symptoms reported Hematologic/Lymphatic: reports: no symptoms reported Allergic/Immunologic: reports: no symptoms reported All Other Systems: Reviewed and Negative Past History - Adult - PAST MEDICAL HISTORY-ADULT Review of Records: reports: Old Records Reviewed, Nursing Assessment Review, Medications Reviewed, Social history reviewed & non-contributory. Major Childhood Illnesses: reports: denies history Cardiovascular: reports: cardiac disease, HTN, PR, PAD, PVD Respiratory: reports: asthma, COPD Gastrointestinal: reports: GERD Obstetrical/Gynecological: reports: denies history Genitourinary: reports: denies history Musculoskeletal: reports: denies history Neurological: reports: denies history Psychiatric: reports: denies history Endocrine/Immune: reports: Diabetes Other Conditions: reports: denies history - PRIOR SURGERIES/PROCEDURES Surgical/Procedure History: reports: recent surgery, cardiac stent, other (RLE ARTERIAL GRAFT) - IMMUNIZATION STATUS Childhood Immunizations: See Nurse Assessment Flu Vaccine: See Nurse Assessment - FAMILY HISTORY Family History: diabetes, CAD over 55 yo, lung disease - SOCIAL HISTORY Smoking: cigarettes Provider spent 3-5 mins advising pt. on dangers of tobacco.: Discussed manners to quit use, and f/u contacts for add'l counseling. Living Situation: family Physical Exam-General - PHYSICAL EXAM-ADULT Initial Vital Signs Reviewed: Yes - CONSTITUTIONAL General Appearance: alert, no apparent distress - EYES Eyes: PERRL/EOMI - HEAD, EARS, NOSE, MOUTH & THROAT HENMT: normocephalic/atraumatic, moist mucous membranes, normal ENT inspection - NECK Neck: non-tender, full range of motion, supple, normal inspection - RESPIRATORY Respiratory: chest non-tender, no respiratory distress, no accessory muscle use, decreased breath sounds, crackles, rales, other (Spo2 92% on 4L) - CARDIOVASCULAR Cardiovascular: normal peripheral pulses, regular rate, rhythm - GASTROINTESTINAL (ABDOMEN) Abdominal Exam: normal bowel sounds, non tender, soft - LYMPHATIC Lymphatic: no adenopathy - MUSCULOSKELETAL Back Exam: normal inspection Extremity: calf tenderness, erythema, pulse deficit, pedal edema, slow capillary refill, swelling, tenderness, other (erythema up to tibial tuberosity, palpable leg veinsm right calf tenderness, decubitus ulcer right medial foot, stage 1, decubitus ulcer stage 1 right 2nd toe at mcp and pip, decubitus ulcer stage 2 plantar surface at base of right great toe. decreased pulses right foot) Peripheral Pulses: dorsalis-pedis (L): 1+ - PSYCHIATRIC Psych/Mental Status: normal mood/affect Progress - PLAN OF CARE/RESULTS Progress/Plan/Lab Results: Vital Signs - 8 hr 04/25/19 16:07 04/25/19 18:26 04/25/19 18:30 Temperature 98.8 F Pulse Rate 77 75 Respiratory Rate 18 22 Blood Pressure 108/48 O2 Sat by Pulse Oximetry 93 L 94 L 96 04/25/19 18:36 04/25/19 18:40 Temperature Pulse Rate 74 75 Respiratory Rate 20 23 Blood Pressure 129/65 O2 Sat by Pulse Oximetry 96 98 A/P: Diabetic foot ulcer and cellulitis of right lower leg and foot. elevated D dimer, PE study revealed .... Result Diagrams: 04/25/19 19:07 04/25/19 19:07 - EKG 1 Time of EKG reading by physician:: 18:33 EKG Read and Signed by:: Dheeraj Sharma EKG Interpretation (*Must complete 3 of following elements*): Abnormal (spetal infarct-age undetermined st and t wave abnormality, consider lateral ischemia) Rate: 74 Rhythm: nsr Rydal: normal QRS: normal [place] Interval: normal ST Wave: non-specific ST changes - XRAY 1 XRAY Study: Chest Impression: Normal ([facility] - [address] [facility], [address] [address] [place] [id number] [facility] - [address] [place] [address] Department of Imaging Patient: SANCHEZ SCHULER Date: 04/25/19#: [id number] : 1955DM Status: REG ERAt#: [id number] Age/Sex: 64/MRoom/Bed: Loc: ED Ordering Physician: Benny Alas MD Family Physician: Jose Irby MD Reason for Procedure: cough wheezing Signed EXAM: CHEST-2 VIEWS HISTORY: cough wheezing TECHNIQUE: Chest two views COMPARISON: 04/21/2019 FINDINGS: The lungs are well expanded. The heart is borderline mildly prominent. The vessels are not distended. There are no infiltrates. IMPRESSION: No pneumonia Electronically signed by Matt Padilla 04/25/2019 7:40 PM 04/25/191939 Interpreting Physician: Matt Padilla MD Dictated Date/Time: 04/25/191938 cc: Benny Alas MD; Jose Irby MD) - CONSULTS/PCP/HOSPITALIST Notification #1 *Consult/PCP/Hospitalist*: Dr morrow Time Discussed: 21:22 Consult Disposition: Admit Departure - Departure Date of Disposition Decision: 04/25/19 Time of Disposition Decision: 21:23 DIAGNOSIS: Diabetic ulcer of foot associated with diabetes mellitus due to underlying condition, limited to breakdown of skin Disposition: ADMITTED INPATIENT 09 Certified Medical Emergency: Emergent Condition: Stable Additional Freetext Instructions: We have examined and treated you today on an emergency basis only. This was not a substitute for, or an effort to provide, complete medical care. In most cases, you must let your doctor check you again. Tell your doctor about any new or lasting problems. We cannot recognize and treat all injuries or illnesses in one Emergency Department visit. If you had special tests, such as X-rays or CT scans, will be reviewed by radiologist and will call you if there are any new suggestions Follow up with primary care provider in 1 to 2 days if no improvement. If you do not have a primary care provider, you need to choose one as soon as possible. Take medicines as prescribed. Monitor for any side effects or adverse events from medications. If any side effect, adverse event or rash develops, or if you suspect any other adverse reaction to the medication, then discontinue the medication immediately and contact clinic /PCP or go to the nearest ER. Narcotic meds / sedative meds instruction - patent advised not to drive, operate any machinery or go into water after taking meds as it may impair mental ability to react to the situation in an appropriate manner . Continue other current medicines. Follow up with PCP within 24-48 hours, or sooner if symptoms worsen or fail to improve. Patient / guardian verbalizes understanding of treatment plan, medication, and side effects and agrees with treatment plan. Patient leaves ER in stable condition and ambulatory state. Return to ER as needed. Discharge instructions reviewed verbally and given to patient in written form. Follow up with primary care provider. Referrals and Follow-Ups: Jose Irby MD [Primary Care Provider] - - Critical Care Note This patient required my direct & personal management of CC.: No Attestation - Physician/ BRIAN Attestation Patient care was provided by Advanced Practice Provider:: No The physician spent face to face time with patient:: Yes Advanced Practice Provider documentation review:: Supervising physician onsite and consulted in the evaluation and care of this patient. The physician did have a face to face encounter with the patient. This chart was documented by the indicated scribe, (Sheron London, Danny) and accurately reflects the services I performed and decisions made by me, Benny Alas MD, as attested by the provider's signature.
--- NOTE | 2019-04-25 21:59 | Diag Imaging Result Doc PS360 ---
EXAM: CT ANGIOGRM PULMONARY ARTERIES HISTORY: cough, sob elevated D dimer TECHNIQUE: CT chest with intravenous contrast. Pulmonary two protocol with MIP images. COMPARISON: None. FINDINGS: Tiny right effusion. No left effusion. The heart is not enlarged. No aortic aneurysm or dissection. The vasculature is distended. Normal opacification of the pulmonary arteries. No consolidation. Prominent coronary artery calcifications. IMPRESSION: 1.No pulmonary emboli 2.Pulmonary edema with a tiny right effusion This exam was performed using automated exposure control, adjustment of mA or kV according to patient size, and/or use of iterative reconstruction technique. Electronically signed by Matt Padilla 04/25/2019 9:57 PM
--- NOTE | 2019-04-25 23:05 | HISTORY AND PHYSICAL ---
PRIMARY CARE PHYSICIAN: Dr. Irby. CHIEF COMPLAINT: Right lower extremity pain and erythema. HISTORY OF PRESENTING ILLNESS: A 64-year-old male with a history of diabetes mellitus type 2, coronary artery disease, COPD on home oxygen, hypertension, peripheral vascular disease, who presented to emergency department with several days history of having pain in his right foot. Apparently has diabetic foot ulcers that seem to be infected and he was having moderate amount of tenderness and erythema going up his right leg. He was evaluated in the emergency department and his wounds look infected and there was suspicion of cellulitis. Subsequently he will require admission for further management. At the time of my examination, patient had denied any headache, fever, chills, chest pain, hemoptysis, melena, but complained of right foot pain. PAST MEDICAL HISTORY: Include diabetes mellitus type 2, coronary disease, COPD on home oxygen, hypertension, GERD. PAST SURGICAL HISTORY: Coronary stent, cataract surgery, right femoral-popliteal bypass. ALLERGIES: Gabapentin. CURRENT MEDICATIONS: Albuterol inhaler t.i.d., Norvasc 5 mg p.o. b.i.d., Eliquis 5 mg p.o. b.i.d., aspirin 81 mg p.o. daily, atorvastatin 80 mg p.o. daily, Lasix 40 mg p.o. b.i.d., glipizide 20 mg p.o. daily, [place] 5 one p.o. q.6 hours, Humalog 15 units subcu t.i.d., isosorbide mononitrate 60 mg p.o. daily, metformin 500 mg 2 tabs p.o. b.i.d., pantoprazole 40 mg p.o. daily, Lyrica 150 mg p.o. b.i.d., Requip 1 mg p.o. at bedtime, trazodone 50 mg p.o. daily. SOCIAL HISTORY: 50+ pack years history of smoking. Denies any history of alcohol or illicit drug use. FAMILY HISTORY: Positive for coronary disease in mother. REVIEW OF SYSTEMS: Fourteen point review of systems is as in HPI. Other systems negative. PHYSICAL EXAMINATION: GENERAL: Cooperative, friendly male. He is resting more comfortably now. VITAL SIGNS: Temperature 98.8 degrees, pulse 77, respiration 18, blood pressure 108/48. He is saturating 93% on 4 L. HEENT: Atraumatic, normocephalic. Extraocular movements intact. PERRLA. NECK: No masses. CHEST: Bibasilar rales. CARDIOVASCULAR: Regular rate and rhythm. ABDOMEN: Soft. Positive bowel sounds. EXTREMITIES: Right lower extremity moderate erythema and edema. NEUROLOGIC: He is awake, alert, oriented x3. : No bladder disease. SKIN: Warm. LABORATORIES AND STUDIES: WBC 9.88, hemoglobin 11.4, hematocrit 37.6, platelets 279,000. Sodium 135, potassium 5.3, chloride 89, CO2 is 31, BUN is 31, creatinine is 1.3, glucose is 127, troponin 0.010. CT angiogram is no pulmonary emboli. ASSESSMENT: A 64-year-old male with a history of chronic obstructive pulmonary disease on home oxygen, coronary disease, peripheral vascular disease, diabetes mellitus type 2 had presented to emergency department with several days history of worsening right lower extremity pain. He has diabetic foot also seemed to be infected and he has moderate erythema in his right lower extremity consistent with cellulitis. Subsequently he will need admission for further management. 1. Right lower extremity diabetic foot ulcers and cellulitis. 2. Chronic obstructive pulmonary disease on home oxygen. 3. Diabetes mellitus type 2. 4. Hypertension. PLAN: 1. We will admit patient to medical floor with telemetry. 2. We will start patient on IV antibiotics. 3. We will continue with DuoNeb and supplemental oxygen. 4. Monitor blood glucose and put patient on sliding scale insulin regimen. 5. Monitor blood pressure. Continue with his antihypertensive agent. 6. The patient is currently on Eliquis and this will suffice for DVT prophylaxis. 7. We will continue to follow and reassess. Make further recommendation based on patient's clinical course. cc: Clemente Murphy MD
[2019-04-25] MEDS ORDERED: VANCOMYCIN IV PER PHARMACY MISC SCH (23:56)
[2019-04-26] MEDS: DUONEB (A & A) INH SCH ×6 (00:10→23:47)
[2019-04-26] MEDS: NORCO-5 PO PRN ×3 (00:46→18:52)
[2019-04-26] MEDS: ROCEPHIN 1 GM in NS 50 ML IV SCH ×2 (00:46→23:53)
[2019-04-26] MEDS: HUMULIN R SUBQ SCH ×5 (00:46→22:10)
[2019-04-26] MEDS ORDERED: VANCOMYCIN 2,250 MG in NS 500 ML IV ONE (01:00)
[2019-04-26] MEDS: PROTONIX PO SCH (06:35)
[2019-04-26 06:40] LABS: BASO# 0.01 X1000 (0.0-0.2); BASO% 0.1 % (0.0-0.8); HEMATOCRIT 37.4 % (42.0-52.0); LYMPH# 0.33 X1000 (1.2-3.4); LYMPH% 4.1 % (20.5-51.1); MCH 23.2 PG (27-31); MCHC 29.4 g/dL (33-37); MCV 78.9 FL (81-99); MONO# 0.16 X1000 (0.11-0.59); MPV 11.4 FL (7.4-10.4); NEUT# 7.52 X1000 (1.4-6.5); NEUT% 93.8 % (42.2-75.2); PLT 255 X1000 (130-400); RBC 4.74 XMIL (4.7-6.1); RDW 15.1 % (11.5-14.5); WBC 8.02 X1000 (4.8-10.8)
[2019-04-26 07:11] LABS: AGAP 11; BUN 24 mg/dL (8-22); CALCIUM 8.9 mg/dL (8.8-10.2); CHLORIDE 93 mmol/L (98-107); COSMO 287; CREATININE 1.2 mg/dL (0.7-1.2); ESTIMATED GFR > 60; GLUCOSE 334 mg/dL (70-104); POTASSIUM 5.5 mmol/L (3.5-5.1); SODIUM 135 mmol/L (136-145); TCO2 31 mmol/L (25-35)
[2019-04-26 07:17] LABS: LYMPHS 2 % (21-51); SEGS 92 % (42-75)
[2019-04-26] MEDS ORDERED: ELIQUIS PO SCH (09:00)
[2019-04-26] MEDS: IMDUR PO SCH (09:11)
[2019-04-26] MEDS: LIPITOR PO SCH (09:11)
[2019-04-26] MEDS: LYRICA PO SCH ×2 (09:11→23:59)
[2019-04-26] MEDS: DESYREL PO SCH (09:11)
[2019-04-26] MEDS: ASPIRIN EC PO SCH (09:12)
--- NOTE | 2019-04-26 11:30 | Extremity Venous Study ---
PROCEDURE NAME: Venous U/S Right Leg - 04/25/2019 REQUESTING PHYSICIAN: Dr. Alas. SKIVING MACHINE OPERATOR: Francisca. INDICATIONS: Pain, swelling and redness in the right lower extremity with history of peripheral arterial disease with occlusion. EQUIPMENT: [email or web address] Vivid E9 ultrasound system with a 9 L-D transducer. TECHNIQUE: Images of the right lower extremity venous system with a comparison shot to the left common femoral vein were obtained in both sagittal and transverse planes. Doppler was used to evaluate veins for spontaneity, phasicity, respiratory excursion, and digital augmentation. RESULTS: Lymphadenopathy noted in the groin. There also appears to be a graft in the leg. Flow was not assessed on this study. There is no obvious superficial or deep venous thrombosis noted in the right lower extremity. INTERPRETATION: Lymphadenopathy noted to the right groin which I would recommend handling clinically, but no acute venous disease noted on this study. cc: Stu Monsivais MD
--- NOTE | 2019-04-26 14:16 | PROGRESS NOTE ---
DATE: 04/26/2019 Mr. Crum was admitted last night. He is a patient of Dr. Irby. He is a 64-year-old male complaining of right lower extremity pain and redness. He has a history of diabetes mellitus type 2, coronary artery disease, COPD on home oxygen, hypertension, peripheral vascular disease. Presented to the emergency department with a several day history of having pain in the right foot. He has had diabetic foot ulcers and peripheral vascular disease, and apparently he has had a right femoral-popliteal bypass. He has coronary stents and cataract surgery. PAST MEDICAL HISTORY: 1. Diabetes mellitus type 2. 2. Coronary artery disease. 3. COPD, on home oxygen. 4. Hypertension. 5. Gastroesophageal reflux disease. He was complaining that he wanted to go, I think he wanted to go out and smoke, and was upset. I explained that I would give him a nicotine patch. We will get Dr. Garcia, his vascular surgeon, to look him over. PHYSICAL EXAMINATION: Temperature 98.0, pulse 80, respirations 16, blood pressure 130/47. Pupils are equal and round. Lungs are clear in all lung renteria. Cardiovascular Examination: Regular rhythm and rate without murmur or S3. Weight 184, height 5 feet 10 inches. LABORATORY DATA: Pulmonary arteriogram, no pulmonary emboli and pulmonary edema with a tiny right effusion. ASSESSMENT AND PLAN: 1. The patient has had an aortogram with runoff. That was on 04/21/2019. Extensive aortoiliac and lower extremity atherosclerosis. He has two-vessel runoff in the right foot, three-vessel runoff in the left foot. His left superficial femoral artery is completely occluded. Reconstitution of flow in the popliteal artery via branches of the deep femoral artery. There is occlusion of superficial femoral artery and femoral popliteal bypass graft on the right. Reconstitution of flow in the popliteal artery via collateralization from the deep femoral artery. There is stable two-vessel runoff from the anterior tibial artery, peroneal artery on the right, suspect he is clotted off his right graft. Dr. Garcia will see if we can improve his blood flow. 2. Right lower extremity erythema. We will continue antibiotics. 3. Tobacco use. We will give him a nicotine patch. 4. Chronic obstructive pulmonary disease. He is on home oxygen at home. Chronic hypoxemia. 5. Diabetes mellitus type 2. Continue to follow pattern of sugars. 6. Hypertension. REVIEW OF ORDERS: He is on Requip 1 mg at bedtime, Norvasc 5 mg b.i.d., Eliquis 5 mg b.i.d., aspirin 81 mg a day, Lipitor 80 mg a day, Lyrica 150 mg b.i.d., ceftriaxone 1 g q.24 hours, trazodone 50 mg a day, and he is getting vancomycin 1850 mg IV q.24 hours. cc: Simone Daniels MD
[2019-04-26] MEDS: SYMBICORT 80/4.5 MICROGM INHALER INH SCH ×2 (16:37→23:03)
[2019-04-26] MEDS: NICODERM PATCH TD SCH (16:37)
[2019-04-26] MEDS: LASIX PO SCH ×2 (16:38→22:10)
[2019-04-26] MEDS: NORVASC PO SCH ×2 (16:38→22:10)
--- NOTE | 2019-04-26 19:40 | GENERAL SURGERY CONSULTATION ---
DATE: 04/26/2019 HISTORY OF PRESENT ILLNESS: Ru Crum is a patient known to me from a bypass 2 years ago in his right leg. He has had a thrombosis recently and underwent thrombectomy in early February. He has thrombosed his graft once again in his right femoral popliteal position. He has had ulcers on his right foot chronically. He now presents with right lower extremity discomfort related to his graft thrombosis and ischemia. PAST HISTORY: Pertinent for type 2 diabetes, coronary disease, COPD, hypertension, gastroesophageal reflux and tobacco abuse. His previous surgery includes a coronary stent, cataract surgery and a right femoropopliteal bypass as well as a right femoropopliteal bypass thrombectomy. MEDICATIONS: Listed. Do include Eliquis. ALLERGIES: He is allergic gabapentin. SOCIAL HISTORY: Unfortunately continues to smoke. Denies alcohol or drug use. FAMILY HISTORY: Pertinent for coronary disease. REVIEW OF SYSTEMS: As noted above. PHYSICAL EXAMINATION: Vital Signs: He is afebrile. Heart rate 80, respiratory rate 20, blood pressure 106/46. Respiratory: He has adventitious sounds bilaterally. Heart: Regular rate and rhythm. Abdomen: Soft. Extremities: Femoral pulses present. No pedal pulses present. He has some ulceration on the dorsum of the right second toe and a medial malleolus ulcer as well. CTA shows a thrombosed right femoral-popliteal graft. PLAN: The plan will be a thrombectomy of his graft to try to re-perfuse his lower leg. He will have to be maintained on anticoagulation postoperatively to give this graft a chance to stay open. I have discussed the plan with him. No guarantee for success. If his clinical status allows, we will plan to proceed on the in the afternoon. cc: Con Garcia MD
[2019-04-26] MEDS: REQUIP PO SCH (22:10)
[2019-04-27] MEDS: VANCOMYCIN 1,850 MG in NS 500 ML IV SCH (01:29)
[2019-04-27] MEDS: NORCO-5 PO PRN ×2 (03:11→21:19)
[2019-04-27] MEDS: DUONEB (A & A) INH SCH ×4 (03:45→15:40)
[2019-04-27] MEDS: PROTONIX PO SCH (05:27)
[2019-04-27] MEDS: HUMULIN R SUBQ SCH ×4 (06:07→21:51)
[2019-04-27] MEDS: SYMBICORT 80/4.5 MICROGM INHALER INH SCH ×2 (08:15→19:33)
[2019-04-27] MEDS: LYRICA PO SCH ×2 (09:37→21:18)
[2019-04-27] MEDS: NICODERM PATCH TD SCH (09:37)
[2019-04-27] MEDS: DESYREL PO SCH (09:38)
[2019-04-27] MEDS: NORVASC PO SCH ×3 (09:38→21:13)
[2019-04-27] MEDS: LIPITOR PO SCH (09:38)
[2019-04-27] MEDS: IMDUR PO SCH (09:38)
[2019-04-27] MEDS: ASPIRIN EC PO SCH (09:39)
[2019-04-27] MEDS: LASIX PO SCH ×2 (09:39→21:19)
--- NOTE | 2019-04-27 10:28 | PROGRESS NOTE ---
DATE: 04/27/2019 SUBJECTIVE: Mr. Crum is sitting up in the chair. He is supposed to have surgery at 2:00 today. OBJECTIVE: Vital Signs: Temp 98.3 degrees, pulse 95, respirations 20, blood pressure 129/49. HEENT: Pupils are equal and round. Lungs: Clear in all lung renteria. Cardiovascular: Regular rhythm and rate without murmur or S3. Abdomen: Soft. Skin: Warm and dry. Blood sugar is 335, 201, 197. ASSESSMENT AND PLAN: 1. Plan is for thrombectomy of his graft to try and re-perfuse his lower leg. He had a bypass 2 years ago on the right leg. He has had thrombosis recently. Underwent thrombectomy in February. Has thrombosed the graft once again in his right femoral popliteal position. He has ulcers on his right foot, which are chronic. Right lower extremity discomfort related to graft thrombosis and ischemia, so is supposed to have surgery today. 2. Tobacco use. He got a nicotine patch. 3. Chronic obstructive pulmonary disease. He is on home oxygen. His gas and air exchange look good. 4. Diabetes mellitus type 2. Blood sugars continue pattern, use sliding scale. 5. Hypertension. Blood pressure well controlled. cc: Simone Daniels MD
[2019-04-27] MEDS ORDERED: QUELICIN (DOSE) ONE (12:41)
[2019-04-27] MEDS ORDERED: XYLOCAINE-MPF 2% ONE (12:41)
[2019-04-27] MEDS ORDERED: HEPARIN ONE ×2 (13:47)
[2019-04-27] MEDS ORDERED: NS 2,000 ML ONE (13:47)
[2019-04-27] MEDS ORDERED: KEFZOL ONE (14:34)
[2019-04-27] MEDS ORDERED: MARCAINE 0.25% PF/EPI 1:200,000 ONE (14:34)
[2019-04-27] MEDS ORDERED: AMIDATE ONE (15:01)
[2019-04-27] MEDS ORDERED: HEPARIN (DOSE) ONE (15:02)
[2019-04-27] MEDS ORDERED: NEO-SYNEPHRINE ONE (15:45)
[2019-04-27] MEDS ORDERED: THROMBIN-JMI ONE (15:47)
[2019-04-27] MEDS ORDERED: MORPHINE IV PRN (16:45)
--- NOTE | 2019-04-27 20:18 | OPERATIVE NOTE ---
PROCEDURE DATE: 04/27/2019 PROCEDURE PERFORMED: 1. Open thrombectomy right femoral popliteal graft. 2. Open balloon angioplasty of the right popliteal artery. SURGEON: Con Garcia MD. POLICY CHANGE CLERKS SUPERVISOR: Gisele. PREOPERATIVE DIAGNOSIS: Right femoral popliteal thrombosis. POSTOPERATIVE DIAGNOSIS: Right femoral popliteal thrombosis with some mild stenosis in the popliteal at the anastomosis. DESCRIPTION OF PROCEDURE: Satisfactory general endotracheal anesthesia was achieved. The right leg was prepped and draped in a sterile fashion. The foot was excluded. We anesthetized the skin in the distal end of the old scar near the groin. We incised the skin and carried our incision down to the graft. One lymph node was excised. We exposed the graft, and 7000 units of heparin were given. After it had circulated for 3 minutes, we then did a transverse graftotomy. We then passed a 4 Yevgeniy distally and extracted clot. We then passed a 5 Yevgeniy distally and extracted clot. We then used adherent clot catheter and extracted clot until we could get no further clot back. We were getting arterial back bleeding. We then shot an arteriogram, and this showed some residual clot at the anastomosis and slight stenosis of the popliteal so we put our 7-Wallisian sheath and a Glidewire followed by a 6 x 4 Powerflex balloon, and we ballooned it to 15 atmospheres to dilate the stenosis and really squash whatever residual clot was present. Post dilatation arteriogram showed complete resolution of the narrowing and satisfactory flow through the anastomosis. So then we clamped off the distal graft and then turned our attention proximally and passed a 4 Yevgeniy up and extracted some clot, a 5 Yevgeniy and then finally the adherent clot catheter. After passing those 3, we had vigorous antegrade flow. So, we clamped the graft off proximally and then sewed up the graftotomy with 5-0 Liberty suture. Gelfoam and topical thrombin was used to stop the bleeding from the needle holes. A pulse was noted within the graft. We then closed the wound in 2 layers with interrupted 3-0 Polysorb stitches in the subcutaneous tissue, and the skin was closed with a 4-0 Polysorb subcuticular stitch. Sterile dressing was applied. He tolerated it well. 550 mL of blood loss was present. He was sent to the recovery room in satisfactory condition. cc: Con Garcia MD
[2019-04-27] MEDS ORDERED: DESYREL PO SCH (21:00)
[2019-04-27] MEDS: PERIDEX MT SCH (21:18)
[2019-04-27] MEDS: REQUIP PO SCH (21:18)
[2019-04-27] MEDS: ELIQUIS PO SCH (21:19)
[2019-04-28] MEDS: ROCEPHIN 1 GM in NS 50 ML IV SCH (00:06)
[2019-04-28] MEDS: VANCOMYCIN 1,850 MG in NS 500 ML IV SCH (01:14)
[2019-04-28] MEDS: DUONEB (A & A) INH SCH ×5 (01:50→16:00)
[2019-04-28] MEDS: NORCO-5 PO PRN (02:38)
[2019-04-28] MEDS: HUMULIN R SUBQ SCH ×2 (06:19→11:56)
[2019-04-28] MEDS: PROTONIX PO SCH (06:21)
[2019-04-28] MEDS: SYMBICORT 80/4.5 MICROGM INHALER INH SCH (07:52)
[2019-04-28] MEDS: PERIDEX MT SCH (08:06)
[2019-04-28] MEDS: NICODERM PATCH TD SCH (08:07)
[2019-04-28] MEDS: ELIQUIS PO SCH (08:08)
[2019-04-28] MEDS: IMDUR PO SCH (08:08)
[2019-04-28] MEDS: LASIX PO SCH (08:08)
[2019-04-28] MEDS: LIPITOR PO SCH (08:08)
[2019-04-28] MEDS: LYRICA PO SCH (08:08)
[2019-04-28] MEDS: ASPIRIN EC PO SCH (08:08)
--- NOTE | 2019-04-28 10:06 | PROGRESS NOTE ---
DATE: 04/28/2019 SUBJECTIVE: Mr. Crum wants to go home. His foot does feel better. OBJECTIVE: Vital Signs: Temp 97.6 degrees, remains afebrile, pulse 72, respirations 18, blood pressure 122/50. HEENT: Pupils are equal and round. Lungs: Clear in all lung renteria. Cardiovascular: Regular rhythm and rate without murmur or S3. Abdomen. Soft. Skin: Warm and dry. Blood sugar 197, 196, 142. ASSESSMENT AND PLAN: 1. Underwent open balloon angioplasty of the right popliteal artery, open thrombectomy of the right femoropopliteal graft. Blood flow seems improved. He wants to go home. Will discuss with Dr. Garcia. He can go home when Dr. Garcia says it is okay. 2. Tobacco use. Continue nicotine patch. 3. Chronic obstructive pulmonary disease, on home oxygen. 4. Diabetes mellitus type 2. 5. Hypertension. Blood pressure has been under good control. REVIEW OF ORDERS: I do not see any change. Getting ceftriaxone 1 gram every 24 hours. Blood cultures from 04/25/2019 with no growth. cc: Simone Daniels MD
[2019-04-28] MEDS: NORVASC PO SCH (10:58)
[2019-04-28 16:51] VITALS: BP 120/58
--- NOTE | 2019-04-28 17:15 | DISCHARGE SUMMARY ---
ADMISSION DATE: 04/25/2019 DISCHARGE DATE: 04/28/2019 This is a patient of Dr. Jose Irby. HISTORY: This 64-year-old presented with complaint of right lower extremity pain and erythema. He has a history of diabetes mellitus type 2, coronary artery disease, COPD on home oxygen, hypertension, peripheral vascular disease, presented to the emergency room after several day history of having pain in his right foot. He has been nursing the right foot and some diabetic foot ulcers with infection and having more pain, discomfort, and erythema and was admitted to the hospital. PAST MEDICAL HISTORY: Once again, diabetes mellitus type 2, coronary artery disease, COPD with home oxygen, hypertension, gastroesophageal reflux disease. PAST SURGICAL HISTORY: He has had a coronary stent placed, cataract surgery, right femoral- popliteal bypass. HOSPITAL COURSE: He has been evaluated by Dr. Garcia. He had a pulmonary arteriogram when he came in. No pulmonary emboli. Pulmonary edema with tiny right effusion. Underlying COPD. Dr. Garcia was consulted who has been following him. CTA was done and showed thrombosed right femoral- popliteal graft and so he performed a thrombectomy of the graft to re-perfuse that lower leg. Surgery was done on 04/19/2019. He found right femoral-popliteal thrombosis and some mild stenosis in the popliteal at the anastomosis and performed a right femoral popliteal thrombectomy. He did well. His foot looked better and felt he could go home on 04/28/2019. DISCHARGE MEDICATIONS: Norvasc 5 mg b.i.d., Eliquis 5 mg b.i.d., aspirin 81 mg a day, Lipitor 80 mg a day, Symbicort 80/4.5 one puff twice a day. We did give him some ceftriaxone 1 g q.24 hours, Lasix 40 mg p.o. b.i.d., [place] 5 mg q.6 hours p.r.n., Imdur 60 mg daily. He got a dose of vancomycin, Protonix 40 mg a day, Lyrica 150 mg b.i.d., Requip 1 mg at bedtime, Desyrel 50 mg at bedtime. I did give him a nicotine patch and I will give him a prescription for that. I will given 14 of them, 21 mg and refills x3. Glipizide ER 20 mg he takes daily, insulin lispro 15 units t.i.d., metformin 500 mg 2 tablets b.i.d., and Incruse Ellipta inhaler. We will stop his antibiotics. Plan to discharge him home. Follow up with Dr. Irby. I recommend he follow up at the wound clinic. I think he seeing wound clinic in [place]. cc: Simone Daniels MD
--- NOTE | 2019-04-28 21:30 | GENERAL SURGERY PROGRESS NOTE ---
DATE: 04/28/2019 SUBJECTIVE: He is postoperative day 1 after thrombectomy of his graft. He does have evidence of Doppler flow in his foot, especially at the dorsalis pedis position. He is doing generally well. Today, there is evidence of flow. PLAN: I have instructed that he must stay on Eliquis at home. He should not smoke. He will return to see me in the office next Thursday, if he goes home today. It is fine from my point of view for him to go home whenever the medical doctors are satisfied. cc: Con Garcia MD
== END 2019-04-28 17:34 | disposition home health service (06) | DRG 253 ==
LOC: ED 16:02 → 4N 23:22 → SUATTDRO 23:22
PROVIDERS: ATTEND Emergency Medicine

== ENCOUNTER 2019-05-16 16:19 | Inpatient (IN) ==
[2019-05-16 17:06] LABS: ALLEN TEST YES; BE 8.4 mmoll (-3.0-3.0); BLOOD TYPE ARTERIAL; HCO3-(ACT) 31.4 mmoll (20.0-26.0); METHB 0.5 % (0.0-1.5); PO2(98.6) 65 mmHg (60-100); SAMPLE BLOOD; SAO2 94.8 % (95.0-100.0); THB 9.4 g/dL (11.5-17.4); pH(98.6) 7.33 (7.35-7.45)
[2019-05-16 17:07] LABS: MODALITY NRB
[2019-05-16 17:09] LABS: O2HB 89.9 % (95.0-99.0); PCO2(98.6) 68 mmHg (35-45)
--- NOTE | 2019-05-16 17:20 | PROVIDER DOCUMENTATION ---
HPI-Respiratory General - General Chief Complaint: SEPSIS ALERT - D Stated Complaint: SOB Time Seen by Provider: 05/16/19 16:46 Source: patient, family Allergies/Adverse Reactions: Patient Allergies Allergy/AdvReac Type Severity Reaction Status Date / Time gabapentin AdvReac Unknown Verified 04/25/19 18:31 Home Medications: Home Medication List Medication Instructions Recorded Confirmed Last Taken Type Atorvastatin Calcium 80 mg PO DAILY 12/14/13 04/25/19 04/24/19 History Glipizide E.r. [Glucotrol Xl] 20 mg PO DAILY 06/13/17 04/25/19 04/25/19 History Insulin Lispro [Humalog Kwikpen 15 unit SQ TID 06/13/17 04/25/19 04/25/19 History U-100] Albuterol Sulfate [Proair Hfa] 8.5 gm INH DAILY PRN PRN 02/25/19 04/25/19 04/25/19 History Amlodipine [Norvasc] 5 mg PO BID 02/25/19 04/25/19 04/25/19 History Furosemide [Lasix] 40 mg PO BID 02/25/19 04/25/19 Unknown History Isosorbide Mononitrate [Isosorbide 60 mg PO DAILY 02/25/19 04/25/19 04/25/19 History Mononitrate ER] Trazodone [Desyrel] 50 mg PO DAILY 02/25/19 04/25/19 04/24/19 History Umeclidinium [place] [Incruse 62.5 mcg INH DAILY PRN PRN 02/25/19 04/25/19 04/25/19 History Ellipta] Apixaban [Eliquis] 5 mg PO BID #60 tab 02/27/19 04/25/19 04/25/19 Rx Aspirin [Adult Aspirin] 81 mg PO DAILY #30 tablet. 04/21/19 04/25/19 04/25/19 Rx Budesonide/Formoterol Fumarate 2 inhaler INH BID 04/21/19 04/25/19 04/25/19 History [Symbicort 80-4.5 Mcg Inhaler] Hydrocodone/APAP 5 mg/325 mg 1 ea PO Q6H PRN PRN #12 tab 04/21/19 04/25/19 Unknown Rx [[place]-5] Pantoprazole [Protonix] 40 mg PO DAILY@0700 04/21/19 04/25/19 04/25/19 History Pregabalin [Lyrica] 150 mg PO BID 04/21/19 04/25/19 Unknown History Metformin E.r. [Glucophage Xr] 2 tab PO BID 04/25/19 04/25/19 04/25/19 History Ropinirole [Requip] 1 tab PO QHS 04/25/19 04/25/19 04/25/19 History Nicotine Patch [Nicoderm Patch] 21 mg TD DAILY 14 Days #14 04/28/19 Unknown Rx patch.[id number] - History of Present Illness-Resp Nature of Presenting Problem: This is a 64yo male with PMH of COPD, CHF, and DM who presents with shortness of breath and increased swelling over the last 4 days. The patients reports that the patient usually wears 2L of O2 at home but has become progressivly more short of breath over the last few days. The patient denies chest pain but does report some tightness. The patient reports that he has been taking his lasix. The patient did have recent LE surgery thrombectomy, and has been taking his eliquis. Quality of Pain: reports: tightness Onset/Duration: reports: 4 days ago Timing: reports: still present, getting worse Exposure: reports: unknown cause Cough Quality/Degree: reports: productive cough, sputum Current Respiratory Medication Therapy: Initiated other (inhalers and home O2) Modifying Factors: improves with: nothing Associated Symptoms: reports: fever/chills, shortness of breath, short of breath Review of Systems - Adult - REVIEW OF SYSTEMS - ADULT Constitutional: reports: chills Eyes: denies: eye pain Ears, Nose, Mouth & Throat: reports: other (cough) Cardiovascular: reports: other (chest tightness) Respiratory: reports: excessive sputum production, shortness of breath Gastrointestinal: denies: abdominal pain Genitourinary: reports: no symptoms reported Musculoskeletal: reports: other (Right leg pain) Integumentary: reports: skin sores/ulcer Past History - Adult - PAST MEDICAL HISTORY-ADULT Review of Records: reports: Old Records Reviewed, Nursing Assessment Review Major Childhood Illnesses: reports: denies history Cardiovascular: reports: cardiac disease, HTN, NV, PAD, PVD Respiratory: reports: asthma, COPD Gastrointestinal: reports: GERD Obstetrical/Gynecological: reports: denies history Genitourinary: reports: denies history Musculoskeletal: reports: denies history Neurological: reports: denies history Psychiatric: reports: denies history Endocrine/Immune: reports: Diabetes Diabetes Type: Type 2 Diabetes controlled by:: Insulin Dependent Other Conditions: reports: denies history - PRIOR SURGERIES/PROCEDURES Surgical/Procedure History: reports: recent surgery, cardiac stent, other (RLE ARTERIAL GRAFT) - IMMUNIZATION STATUS Childhood Immunizations: See Nurse Assessment Flu Vaccine: See Nurse Assessment - FAMILY HISTORY Family History: diabetes, CAD over 55 yo, lung disease Physical Exam-General - CONSTITUTIONAL General Appearance: moderate distress - EYES Eyes: negative: conjuctival exudate - RESPIRATORY Respiratory: decreased breath sounds, crackles, rales, wheezing - CARDIOVASCULAR Cardiovascular: regular rate, rhythm, other (bilateral LE edema R>L) - GASTROINTESTINAL (ABDOMEN) Abdominal Exam: non tender, soft, distended - MUSCULOSKELETAL Extremity: swelling - SKIN Integumentary: other (3 LE ulcerations noted on the right foot, with some concern for purulence of the middle toe ulcer) - NEUROLOGIC Neurologic: grossly normal - PSYCHIATRIC Psych/Mental Status: other ( fatigued, normal mood) - HEART Score HEART Score: History: Moderately Suspicious HEART Score: ECG: Non-Specific Repolarization Disturbance/LBBB/PM HEART Score: Age: 45-65 Years HEART Score: Risk Factors for Atherosclerotic Disease: > or = 3 Risk Factors or History of Atherosclerotic Disease HEART Score: Troponin: < or = Normal Limit Total HEART Score:: 5 Progress - PLAN OF CARE/RESULTS Progress/Plan/Lab Results: Vital Signs - 8 hr 05/16/19 16:27 05/16/19 16:53 05/16/19 18:09 Temperature 97.9 F Pulse Rate 96 H 88 88 Respiratory Rate 28 H 29 H 29 H Blood Pressure 106/56 114/61 O2 Sat by Pulse Oximetry 68 L 100 100 Laboratory Results - last 24 hr 05/16/19 05/16/19 05/16/19 16:31 16:37 16:37 WBC 10.41 RBC 4.39 L Hgb 9.4 L Hct 33.3 L MCV 75.9 L MCH 21.4 L MCHC 28.2 L RDW Std Deviation 16.6 H Plt Count 336 MPV 11.9 H Immature Gran % (Auto) 0.0 Neut % (Auto) 78.3 H Lymph % (Auto) 10.1 L [place] % (Auto) 10.3 H Eos % (Auto) 1.0 Baso % (Auto) 0.3 Immature Gran # (Auto) 0.00 Neut # (Auto) 8.16 H Lymph # (Auto) 1.05 L [place] # (Auto) 1.07 H Eos # (Auto) 0.10 Baso # (Auto) 0.03 Segmented Neutrophils 77 H Lymphocytes 8 L Monocytes 11 H Eosinophils 3 Myelocytes 1.0 Nucleated RBCs 2 H Hypochromia 1+ Large Platelets OCCASIONAL Anisocytosis OCCASIONAL Target Cells OCCASIONAL PT INR PTT (Actin FS) Specimen Type ARTERIAL Sample Site R RADIAL pH 7.33 L pCO2 68 H* pO2 65 HCO3 31.4 H Base Excess 8.4 H Oxyhemoglobin 89.9 L* ABG O2 Sat (Calculated) 12.0 L ABG O2 Saturation 94.8 L ABG Carboxyhemoglobin 4.70 H ABG Methemoglobin 0.5 Simone Test YES A-a O2 Difference 563.0 Total Hemoglobin 9.4 L Lactate 3.50 H Liter Flow 15.0 Blood Gas Modality NRB FiO2 % 100.0 Sodium 132 L Potassium 5.3 H Chloride 86 L Carbon Dioxide 30 Anion Gap 16 BUN 47 H Creatinine 1.7 H Estimated GFR/1.73 m2 41 BUN/Creatinine Ratio 28 Glucose 118 H Calculated Osmolality 278 Calcium 9.0 Total Bilirubin 0.91 AST 16 ALT 9 L Alkaline Phosphatase 160 H Creatine Kinase 58 Troponin T Bpa-L-Kymweqmnwlg Pept Total Protein 7.9 Albumin 4.1 Globulin 3.8 Albumin/Globulin Ratio 1.1 Plasma Lactate 05/16/19 05/16/19 05/16/19 16:37 16:37 16:37 WBC RBC Hgb Hct MCV MCH MCHC RDW Std Deviation Plt Count MPV Immature Gran % (Auto) Neut % (Auto) Lymph % (Auto) [place] % (Auto) Eos % (Auto) Baso % (Auto) Immature Gran # (Auto) Neut # (Auto) Lymph # (Auto) [place] # (Auto) Eos # (Auto) Baso # (Auto) Segmented Neutrophils Lymphocytes Monocytes Eosinophils Myelocytes Nucleated RBCs Hypochromia Large Platelets Anisocytosis Target Cells PT 19.1 H INR 1.57 PTT (Actin FS) 44.9 H Specimen Type Sample Site pH pCO2 pO2 HCO3 Base Excess Oxyhemoglobin ABG O2 Sat (Calculated) ABG O2 Saturation ABG Carboxyhemoglobin ABG Methemoglobin Simone Test A-a O2 Difference Total Hemoglobin Lactate Liter Flow Blood Gas Modality FiO2 % Sodium Potassium Chloride Carbon Dioxide Anion Gap BUN Creatinine Estimated GFR/1.73 m2 BUN/Creatinine Ratio Glucose Calculated Osmolality Calcium Total Bilirubin AST ALT Alkaline Phosphatase Creatine Kinase Troponin T 0.089 Ris-H-Fjhzdcaxuql Pept Total Protein Albumin Globulin Albumin/Globulin Ratio Plasma Lactate 4.3 H* 05/16/19 16:37 WBC RBC Hgb Hct MCV MCH MCHC RDW Std Deviation Plt Count MPV Immature Gran % (Auto) Neut % (Auto) Lymph % (Auto) [place] % (Auto) Eos % (Auto) Baso % (Auto) Immature Gran # (Auto) Neut # (Auto) Lymph # (Auto) [place] # (Auto) Eos # (Auto) Baso # (Auto) Segmented Neutrophils Lymphocytes Monocytes Eosinophils Myelocytes Nucleated RBCs Hypochromia Large Platelets Anisocytosis Target Cells PT INR PTT (Actin FS) Specimen Type Sample Site pH pCO2 pO2 HCO3 Base Excess Oxyhemoglobin ABG O2 Sat (Calculated) ABG O2 Saturation ABG Carboxyhemoglobin ABG Methemoglobin Simone Test A-a O2 Difference Total Hemoglobin Lactate Liter Flow Blood Gas Modality FiO2 % Sodium Potassium Chloride Carbon Dioxide Anion Gap BUN Creatinine Estimated GFR/1.73 m2 BUN/Creatinine Ratio Glucose Calculated Osmolality Calcium Total Bilirubin AST ALT Alkaline Phosphatase Creatine Kinase Troponin T Xcr-P-Aydjyghjikh Pept 5709 H Total Protein Albumin Globulin Albumin/Globulin Ratio Plasma Lactate Orders Category Date Time Status Cardiac Monitoring DIRECTED Care 05/16/19 16:31 Active IV Insertion ORDERED Care 05/16/19 16:31 Completed Notify MD of + Sepsis Screen NOW Care 05/16/19 16:31 Active Notify Physician As Ordered Care 05/16/19 16:31 Active CHEST-1 VIEW [RAD] Stat Exams 05/16/19 16:31 Completed ABG [RESP] Routine Lab 05/16/19 16:31 Completed ABG [RESP] Stat Lab 05/16/19 19:56 Ordered BLOOD CULTURE [BLDCUL] Stat Lab 05/16/19 16:45 Results BNP [PRO B-NATRIURETIC PEPTIDE] Stat Lab 05/16/19 16:37 Completed CBC WITH DIFF [HEME] Stat Lab 05/16/19 16:37 Completed CK PROFILE [SP CHEM] Stat Lab 05/16/19 16:37 Completed COMPREHENSIVE METABOLIC PANEL [CHEM] Stat Lab 05/16/19 16:37 Completed LACTATE, PLASMA [CHEM] Lab 05/16/19 16:37 Completed LACTATE, PLASMA [CHEM] Lab 05/16/19 19:45 Uncollected LACTATE, PLASMA [CHEM] Lab 05/16/19 22:45 Uncollected PROTIME WITH INR [COAG] Stat Lab 05/16/19 16:37 Completed PTT [COAG] Stat Lab 05/16/19 16:37 Completed TROPONIN T Stat Lab 05/16/19 16:37 Completed URINALYSIS W/POSS RFLX CULT [URINALYSIS] Stat Lab 05/16/19 16:31 Uncollected 0.9% Sodium Chloride Inj [Ns] 1,000 ml Med 05/16/19 17:56 Discontinued IV 999 mls/hr Piperacillin/Tazobactam [Zosyn] 3.375 gm Med 05/16/19 18:30 Active 0.9% Sodium Chloride Inj [Ns] 50 ml IV Q6H Vancomycin 1 gm/Ns Med 05/16/19 18:27 Discontinued 1 gm in 250 ml IV NOW BIPAP Stat Oth 05/16/19 16:54 Active Oxygen Device Stat Oth 05/16/19 16:31 Active EKG [EKG] Stat Ther 05/16/19 17:20 Draft Transfer/Admit Order [TRANSFER] Routine Transfer 05/16/19 19:45 Ordered Result Diagrams: 05/16/19 16:37 05/16/19 16:37 - REASSESSMENT Reassessment #1 Time Reassessed: 18:30 Status: improving (Patient saturationg 100% on bipap, and resting comfortably. Will trial off bipap, back to non -rebreather. Discussed addmission with family. Will continue to monitor off bipap and plan to admit. Labs and images reiviewed, concerning for volume overload from CHF.) Reassessment #2 Time Reassessed: 19:45 Status: unchanged (Sating well on on non- rebreathing. Discussed admission with hospitalist team who will accept the patient. Will place the patient back on Bipap and repeat ABG.) - EKG 1 EKG Interpretation (*Must complete 3 of following elements*): Abnormal Rate: 97 Rhythm: sinus [place]: normal QRS: normal, poor R wave progression ST Wave: non-specific ST changes Prior EKG Comparison: changes noted (some ST inferior ST depressions noted on previous and present, slightly worsened elevation in the anterior leads as comparted to previous.) - XRAY 1 XRAY Study: Chest Impression: Abnormal XRAY Interpretation: Bilateral Pleural effusions Departure - Departure Date of Disposition Decision: 05/16/19 Time of Disposition Decision: 20:04 DIAGNOSIS: COPD (chronic obstructive pulmonary disease), Diabetic ulcer of foot associated with diabetes mellitus due to underlying condition, limited to breakdown of skin, Congestive heart failure (CHF) Disposition: ADMITTED INPATIENT 09 Certified Medical Emergency: Emergent Condition: Serious Referrals and Follow-Ups: Jose Irby MD [Primary Care Provider] - - Critical Care Note This patient required my direct & personal management of CC.: Yes Attestation - Physician/ BRIAN Attestation Patient care was provided by Advanced Practice Provider:: No The physician spent face to face time with patient:: Yes Advanced Practice Provider documentation review:: Supervising physician onsite and consulted in the evaluation and care of this patient. The physician did have a face to face encounter with the patient.
--- NOTE | 2019-05-16 17:28 | Diag Imaging Result Doc PS360 ---
EXAM: CHEST-1 VIEW HISTORY: SOB TECHNIQUE: Chest single view COMPARISON: 04/25/2019 FINDINGS: Poor inspiratory effort. The heart is mildly prominent. There is pulmonary edema. Tiny pleural effusions. No consolidation. IMPRESSION: Cardiomegaly with pulmonary edema and tiny pleural effusions Electronically signed by Matt Padilla 05/16/2019 5:26 PM
[2019-05-16 17:31] LABS: ALB/GLOB RATIO 1.1; ALBUMIN 4.1 g/dL (3.5-5.0); CREATININE 1.7 mg/dL (0.7-1.2); POTASSIUM 5.3 mmol/L (3.5-5.1); TOTAL BILIRUBIN 0.91 mg/dL (0.20-1.00); TOTAL PROTEIN 7.9 g/dL (6.3-8.3)
[2019-05-16 17:32] LABS: BASO# 0.03 X1000 (0.0-0.2); BASO% 0.3 % (0.0-0.8); HEMATOCRIT 33.3 % (42.0-52.0); HEMOGLOBIN 9.4 g/dL (14.0-18.0); INR 1.57; LYMPH# 1.05 X1000 (1.2-3.4); LYMPH% 10.1 % (20.5-51.1); MCH 21.4 PG (27-31); MCHC 28.2 g/dL (33-37); MCV 75.9 FL (81-99); MONO# 1.07 X1000 (0.11-0.59); MONO% 10.3 % (1.7-9.3); MPV 11.9 FL (7.4-10.4); NEUT# 8.16 X1000 (1.4-6.5); NEUT% 78.3 % (42.2-75.2); PLT 336 X1000 (130-400); PROTIME 19.1 Seconds (11.0-16.0); RBC 4.39 XMIL (4.7-6.1); RDW 16.6 % (11.5-14.5); WBC 10.41 X1000 (4.8-10.8)
[2019-05-16 17:33] LABS: PTT 44.9 Seconds (22.3-41.8)
[2019-05-16] MEDS ORDERED: NS 1,000 ML IV ONE (17:56)
--- NOTE | 2019-05-16 17:56 | EKG Report ---
Test Performed on : 05/16/2019 5:30:44 PM Test Reason : CP Blood Pressure : / mmHG Vent. Rate : 097 BPM Atrial Rate : 097 BPM P-R Int : 182 ms QRS Dur : 102 ms QT Int : 328 ms P-R-T Axes : 071 067 243 degrees QTc Int : 416 ms Normal sinus rhythm. Anteroseptal infarct (cited on or before 07-SEP-2018) ST & T wave abnormality, consider inferolateral ischemia Abnormal ECG When compared with ECG of 25-APR-2019 18:32, (Unconfirmed) Questionable change in initial forces of Anterior leads T wave inversion now evident in Inferior leads Unconfirmed Result
[2019-05-16 18:14] LABS: ANISOCYTOSIS OCCASIONAL; EOS 3 % (1-10); LARGE PLATELETS OCCASIONAL; LYMPHS 8 % (21-51); MONO 11 % (1-9); NRBC 2 % (0-0); SEGS 77 % (42-75); TARGET CELLS OCCASIONAL
[2019-05-16 18:15] LABS: HYPOCHROM 1+
[2019-05-16] MEDS ORDERED: VANCOMYCIN 1 GM/NS 1 GM/250 ML IVPB IV ONE (18:27)
[2019-05-16] MEDS ORDERED: ZOSYN 3.375 GM in NS 50 ML IV SCH (18:30)
[2019-05-16] MEDS ORDERED: LASIX IV ONE (20:18)
[2019-05-16 20:22] LABS: ALLEN TEST YES; BLOOD TYPE ARTERIAL; HCO3-(ACT) 29.5 mmoll (20.0-26.0); METHB 1.6 % (0.0-1.5); O2(CT) 12.7 mL/dL (15.0-23.0); O2HB 92.2 % (95.0-99.0); PO2(98.6) 77 mmHg (60-100); SAMPLE BLOOD; SAO2 96.5 % (95.0-100.0); THB 9.7 g/dL (11.5-17.4); pH(98.6) 7.33 (7.35-7.45)
[2019-05-16 20:23] LABS: MODALITY BI PAP; PCO2(98.6) 63 mmHg (35-45)
[2019-05-16] MEDS ORDERED: ZOFRAN IV PRN (21:04)
[2019-05-16] MEDS ORDERED: LOVENOX SUBQ ONE (21:04)
--- NOTE | 2019-05-16 21:30 | HISTORY AND PHYSICAL ---
REASON FOR ADMISSION: Two day history of dyspnea. PRIMARY CARE PHYSICIAN: Dr. Irby. HISTORY OF PRESENT ILLNESS: Mr. Ru Crum is a 60-year-old male past medical history of type 2 diabetes, coronary artery disease status post stent placement, diabetic neuropathy, peripheral vascular disease, status post open thrombectomy of the right femoral popliteal graft. Most recent surgery was on 04/27/2019. The patient does have COPD on home O2. The patient was brought in today because of 3 to 4 day history of progressive shortness of breath, 2-day history of orthopnea and PND according to the . The patient has been very lethargic today and had to be placed on a BiPAP. He will respond to his name and is oriented to person, place, and time with prompting. He denies any chest pain or pain anywhere. However, most of the history is obtained from his who says his leg and abdomen have been swelling progressively. No fever no chills. She is not aware of any GI or complaints. Rest of the exam was very limited due to the fact that the patient was profoundly lethargic and very somnolent. ALLERGIES: Gabapentin. HOME MEDICATION: List has not been reconciled at this time, but per his old records, he was on the Requip, atorvastatin, trazodone, metformin, glipizide, lispro, insulin, Imdur, Lasix, Lyrica, Norvasc, albuterol, Protonix, Symbicort, aspirin, Eliquis, NicoDerm, and Etoile. SURGICAL HISTORY: In addition to the aforementioned thrombectomy, the patient also had cataract surgery, right fem-pop bypass, coronary artery stent placement. FAMILY HISTORY: Positive for heart disease and lung cancer. SOCIAL HISTORY: He is currently still smoking. Smokes about a pack and half a day. Has no immediate plans to quit smoking per the . LAB WORK: White count 10,000. H H 9 and 33, MCV 76, platelet count 336,000 with normal differential, 78% neutrophils. Sodium 132, potassium 3.2, BUN 47, creatinine 1.7, proBNP is 5700, CK normal. Troponin 0.089, alkaline phosphatase 160, lactate 4.3, BPH is 19, INR 1.57. Blood gas 7.33, pCO2 63, PO2 77, 93% O2 saturation. Bicarb 25. This was done on 40% FiO2 on BiPAP. Chest film showed cardiomegaly with pulmonary edema and tiny pleural effusions. EKG showed normal sinus rhythm with poor R-wave progression. Nonspecific ST changes. Especially in the inferior leads. PHYSICAL EXAMINATION: VITAL SIGNS: Blood pressure 114/61, heart rate 88, respiratory rate is 29 on BiPAP, temperature is 97.9. His O2 saturation is 94% on FiO2 of 40%. GENERAL: He is a middle-aged man who is very lethargic and somnolent, but he responds to his name. Oriented to person, place, and time as per year only. HEENT: Head is normocephalic, atraumatic. Eyes, PERRLA, EOMI. He is anicteric and mildly pale. ENT exam: He has a BiPAP mask over his face but I did not do an ENT examination because of this. But, visually he has no signs of cyanosis on his lips. NECK: Noticeable JVD and positive hepatojugular reflux. No bruit. No thyromegaly. CHEST: Bibasilar crepitations heard. CARDIOVASCULAR: First and second heart sounds heard. No gallops, rubs. Rhythm is regular. ABDOMEN: Protuberant, soft, nontender. There is tenderness noted in the right upper quadrant area. No rebound or guarding. No peritoneal signs. RECTAL: Deferred. EXTREMITIES: Patient has right lower extremity 1 to 2+ edema and trace edema in the left lower extremity. Distal pulse volumes are significantly diminished in the lower extremity compared to the upper extremity. Pulsations are symmetrical and regular. The patient has mild chronic erythema of the right lower extremity. He has 3 right foot ulcers; one on the dorsum of his 2nd digit and a 2nd on the plantar surface of the MTP joint area of his hallux and 3rd on the medial aspect of his right foot near the heel. These ulcers are superficial and healing. No clubbing or peripheral cyanosis. The patient has noticeable myoclonus. NEUROLOGIC: No gross focal deficits appreciated. SKIN: Intact. No breakdown, lesion, erythema. MUSCULOSKELETAL: Exam is grossly normal. ASSESSMENT: 1. Acute respiratory failure secondary to chronic obstructive pulmonary disease and congestive heart failure. 2. Congestive heart failure exacerbation 3. Chronic obstructive pulmonary disease exacerbation. 4. Coronary artery disease. 5. Peripheral vascular disease. 6. Metabolic encephalopathy secondary to CO2 retention. 7. Type 2 diabetes. 8. Acute kidney injury. PLAN: The patient is not septic. The patient's clinical picture is more consistent with congestive heart failure. We will start the patient on aggressive diuresis. We will order echo to determine LV function which will affect choice of treatment going forward. Nebulizer treatments will also be ordered. We will check labs to monitor patient's renal function and electrolytes as we aggressively diurese him. Consult cardiology for further input. Do serial cardiac enzymes and EKG to monitor patient for an acute coronary event. I will give the patient a 1-time dose of Lovenox pending reconciliation of medications. I am fully aware that aggressive diuresis may impact the patient's renal function, but I do think in light of the patient's clinical presentation, it would be prudent to prevent the patient becoming profoundly and severely dyspneic and then requiring ventilation. I do think the patient's renal dysfunction is much easier to manage than the patient's severe respiratory embarrassment. Other measures will include schedule bronchodilation type. I will monitor his diabetes with sliding scale. CRITICAL CARE TIME FOR THIS PATIENT: Is estimated to be 40 minutes. cc: MD Dulce Fenton MD MTDD
--- NOTE | 2019-05-16 21:33 | Diag Imaging Result Doc PS360 ---
EXAM: CHEST-PORTABLE HISTORY: CHF TECHNIQUE: Chest single view COMPARISON: 5:17 PM FINDINGS: Interval worsening in the pulmonary edema. No other interval change. Electronically signed by Matt Padilla 05/16/2019 9:31 PM
[2019-05-16 21:49] LABS: RETIC% 2.23 % (0.8-2.1); RETIC-HE 17.1 PG (28.2-36.6)
[2019-05-16 21:59] LABS: HEMATOCRIT 34.4 % (42.0-52.0); HEMOGLOBIN 9.7 g/dL (14.0-18.0); LYMPH% 10.3 % (20.5-51.1); MCH 21.3 PG (27-31); MCHC 28.2 g/dL (33-37); MCV 75.6 FL (81-99); MONO% 9.8 % (1.7-9.3); MPV 11.4 FL (7.4-10.4); NEUT% 77.9 % (42.2-75.2); PLT 311 X1000 (130-400); RBC 4.55 XMIL (4.7-6.1); WBC 10.18 X1000 (4.8-10.8)
[2019-05-16 22:00] LABS: BASO# 0.04 X1000 (0.0-0.2); BASO% 0.4 % (0.0-0.8); EOS# 0.14 X1000 (0.0-0.7); EOS% 1.4 % (0.0-10.0); IMM GRAN# 0.02 X1000 (0.0-0.04); IMM GRAN% 0.2 % (0.0-0.5); LYMPH# 1.05 X1000 (1.2-3.4); NEUT# 7.93 X1000 (1.4-6.5)
[2019-05-16] MEDS ORDERED: MORPHINE IV ONE (22:20)
[2019-05-16 22:24] LABS: URINE SOURCE CATH
[2019-05-16] MEDS: HUMALOG SUBQ SCH (22:25)
[2019-05-16 22:29] LABS: BILIRUBIN URINE NEGATIVE (NEGATIVE); BLOOD URINE NEGATIVE (NEGATIVE); COLOR YELLOW; GLUCOSE URINE NEGATIVE (NEGATIVE); KETONE URINE NEGATIVE (NEGATIVE); LEUKOCYTES URINE NEGATIVE (NEGATIVE); NITRITE URINE NEGATIVE (NEGATIVE); PROTEIN URINE NEGATIVE (NEGATIVE); SP GRAVITY URINE 1.012; TURBIDITY URINE CLEAR (CLEAR); UROBILINOGEN URINE NORMAL (NORMAL)
[2019-05-16] MEDS: LASIX 100 MG in NS 90 ML IV SCH (22:29)
[2019-05-16 22:30] LABS: UR EPITHELIAL CELLS <10 /HPF (<10); URINE BACTERIA NEGATIVE /HPF; URINE RBC <10 /HPF (<10); URINE WBC <10 /HPF (<10)
[2019-05-16] MEDS: DUONEB (A & A) INH SCH (23:29)
[2019-05-17] MEDS: TYLENOL PO PRN (01:35)
[2019-05-17 04:46] LABS: ALLEN TEST YES; BE 7.9 mmoll (-3.0-3.0); BLOOD TYPE ARTERIAL; METHB 0.1 % (0.0-1.5); O2(CT) 12.2 mL/dL (15.0-23.0); O2HB 92.8 % (95.0-99.0); PO2(98.6) 63 mmHg (60-100); SAMPLE BLOOD; SAO2 96.1 % (95.0-100.0); THB 9.3 g/dL (11.5-17.4); pH(98.6) 7.34 (7.35-7.45)
[2019-05-17 04:48] LABS: MODALITY BI PAP; PCO2(98.6) 65 mmHg (35-45)
--- NOTE | 2019-05-17 05:32 | EKG Report ---
Test Performed on : 05/17/2019 04:08:59 AM Test Reason : cad Blood Pressure : / mmHG Vent. Rate : 081 BPM Atrial Rate : 081 BPM P-R Int : 176 ms QRS Dur : 100 ms QT Int : 364 ms P-R-T Axes : 071 057 205 degrees QTc Int : 422 ms Sinus rhythm. with occasional and consecutive premature ventricular complexes. Low voltage QRS Cannot rule out Anteroseptal infarct (cited on or before 07-SEP-2018) ST & T wave abnormality, consider lateral ischemia Abnormal ECG When compared with ECG of 17-MAY-2019 04:08, (Unconfirmed) fusion complexes are no longer present premature ventricular complexes. are now present Confirmed by Timbo Cleary MD ([id number]) on 05/17/2019 12:07:18 PM
[2019-05-17] MEDS: HUMALOG SUBQ SCH ×4 (06:26→20:08)
[2019-05-17] MEDS: LASIX 100 MG in NS 90 ML IV SCH ×2 (06:26→17:58)
[2019-05-17 06:45] LABS: TSH 2.48 uIUmL (0.27-4.20)
[2019-05-17 07:09] LABS: CALCIUM 8.5 mg/dL (8.8-10.2); CREATININE 1.4 mg/dL (0.7-1.2); MAGNESIUM 1.4 mg/dL (1.5-2.7); POTASSIUM 5.2 mmol/L (3.5-5.1)
[2019-05-17 07:43] LABS: HEMOGLOBIN A1C 8.2 % (4.8-6.0)
[2019-05-17] MEDS ORDERED: D50W SYRINGE IV PRN (07:45)
[2019-05-17 07:47] LABS: BASO# 0.03 X1000 (0.0-0.2); BASO% 0.3 % (0.0-0.8); EOS# 0.13 X1000 (0.0-0.7); EOS% 1.5 % (0.0-10.0); HEMATOCRIT 30.1 % (42.0-52.0); HEMOGLOBIN 8.8 g/dL (14.0-18.0); IMM GRAN# 0.02 X1000 (0.0-0.04); IMM GRAN% 0.2 % (0.0-0.5); LYMPH# 1.23 X1000 (1.2-3.4); LYMPH% 14.3 % (20.5-51.1); MCH 21.8 PG (27-31); MCHC 29.2 g/dL (33-37); MCV 74.5 FL (81-99); MONO# 1.14 X1000 (0.11-0.59); MONO% 13.2 % (1.7-9.3); MPV 12.1 FL (7.4-10.4); NEUT# 6.08 X1000 (1.4-6.5); NEUT% 70.5 % (42.2-75.2); PLT 269 X1000 (130-400); RBC 4.04 XMIL (4.7-6.1); RDW 16.9 % (11.5-14.5); WBC 8.63 X1000 (4.8-10.8)
[2019-05-17] MEDS: DUONEB (A & A) INH SCH ×5 (08:01→23:34)
[2019-05-17 08:23] LABS: ANISOCYTOSIS 1+; HYPOCHROM 2+; LYMPHS 18 % (21-51); MONO 4 % (1-9); SEGS 78 % (42-75); TARGET CELLS 1+
--- NOTE | 2019-05-17 09:21 | Diag Imaging Result Doc PS360 ---
EXAM: CT THORAX W/O CONTRAST 05/17/2019 HISTORY: pna TECHNIQUE: This exam was performed using automated exposure control, adjustment of mA or kV according to patient size, and/or use of iterative reconstruction technique. COMMENT: The current study is compared with the previous examination of 04/25/2019. There are apical emphysematous changes in the right upper lobe. There are bilateral pleural effusions. There is opacification of portions of both lower lobes particularly the right lower lobe. This is likely largely related to compressive atelectasis. These findings were not present at the time the previous study. There are nodules in the right middle lobe and within the minor fissure which were present at the time the previous study. The latter are probably lymph nodes. The largest measures 8 mm in diameter. There is some opacity in the posterior left upper lobe which was not present previously and may be due to pneumonia. There is also a pleural-based fairly well-circumscribed opacity posteriorly in the superior segment of the left lower lobe which was not present previously measuring 2.1 cm in diameter. There is a subadjacent similar opacity which is less well-defined measuring 2.1 cm in transverse dimension. This was also not previously present. Given the shape of these abnormalities and the fact that they were not present on the previous study, the possibility of pulmonary infarct should be considered. There is a right paratracheal, precarinal, and aorticopulmonary window nodes which were apparently present at the time the previous study. One of the precarinal nodes measures is much as 18 mm. There is extensive coronary calcification. There are spondylotic changes present in the thoracic spine. The regional skeleton is stable in appearance. IMPRESSION: Marked increase in the volume of pleural fluid bilaterally particularly on the right. The possibility of pneumonia cannot be excluded particularly in the right lower lobe. Pleural-based opacities on the left may be indicative of pulmonary infarcts or septic emboli. Electronically signed by Everette Dietz 05/17/2019 9:18 AM
--- NOTE | 2019-05-17 09:29 | PROGRESS NOTE ---
DATE: 05/17/2019 SUBJECTIVE: The patient is lying in bed using BiPAP, a little bit confused. Denies any shortness of breath. Denies any chest pain. Denies any fever or chills. OBJECTIVE: Vital Signs: Temperature 98.3, heart rate 85, respiratory rate 19, blood pressure 115/69, and O2 saturation 95% on BiPAP machine. General Examination: This is a chronically ill- appearing 64-year-old male, lying in bed, in no acute distress. HEENT: Head is normocephalic, atraumatic. Mucous membranes dry. Neck: JVD is present. No lymphadenopathy or thyromegaly noted. Cardiovascular: S1, S2 heard. No murmurs, gallops, or rubs. Regular rate and rhythm. Respiratory: Crackles noted in both pulmonary bases, but patient is not using any accessory muscles or having work of breathing. Abdomen: Soft. A little bit distended, but nontender to palpation. Bowel sounds present. No organomegaly. Extremities: No clubbing or cyanosis. The patient has mild chronic edema in the right lower extremity that is now covered by dressing. He has 3 right foot ulcers, 1 in the dorsum of the 2nd digit and the second in the plantar surface of the MTP joint. No clubbing. No cyanosis noted. Neurological: Patient is alert and oriented x3. Moves 4 extremities. LABORATORY DATA: White cell count 8.63, hemoglobin 8.8, hematocrit 30.1, platelets 269,000. ABG shows pH 7.34, with pCO2 of 65, PO2 of 63. BMP that reveals sodium 133, potassium 5.2, creatinine. 1.4, glucose 27. ASSESSMENT AND PLAN: 1. Acute respiratory failure secondary to chronic obstructive pulmonary disease exacerbation and congestive heart failure. Patient requiring BiPAP mask. Patient is still retaining CO2, and I am not quite sure that is the probable baseline CO2 for this patient. In any case the patient has been started on Lasix drip and Cardiology has been consulted. An echocardiogram has been ordered. We will follow recommendations from Cardiology. 2. Chronic obstructive pulmonary disease exacerbation. We will continue with breathing treatments DuoNeb. 3. Hypoglycemia. Patient is on glipizide and unfortunately that is causing this problem. Patient has not been able to eat for last at least 24 hours. At this point, we will keep checking blood sugars every hour for the next 12 hours, and then we can check it every 4 hours as well. 4. Coronary artery disease. Patient is not complaining of any chest pain. At this point, we will continue with the same management. 5. Diabetes mellitus type 2. We will continue with sliding scale insulin and Accu-Chek before meals and also at bedtime. 6. Acute kidney injury. Creatinine is recovering. We will continue to monitor this patient closely. 7. Right lower extremity infection. We will start this patient on antibiotics, and we will go from there. 8. Disposition. We will continue to monitor this patient in the intensive care unit. cc: Joaquín Yo MD MTDD
[2019-05-17] MEDS: ZOSYN 3.375 GM in NS 50 ML IV SCH ×3 (09:30→19:59)
[2019-05-17] MEDS: TEFLARO 600 MG in NS 250 ML IV SCH ×2 (09:30→19:58)
[2019-05-17] MEDS ORDERED: MAGNESIUM SULFATE 4 GM/S.W.I. 4 GM/100 ML IVPB IV ONE (09:40)
--- NOTE | 2019-05-17 13:06 | CARDIOLOGY CONSULTATION ---
DATE: 05/17/2019 CONSULTATION REQUESTED BY: Hospitalist Service. REASON FOR CONSULTATION: Congestive heart failure. CHIEF COMPLAINT: Shortness of breath. HISTORY: Mr. Marley is an unfortunate 60-year-old male, who presented for admission yesterday May 16 through the emergency department with complaints of several days of progressive dyspnea with poor appetite and pain in the legs. The patient had been recently admitted to the hospital and discharged following a thrombectomy of occluded femoral popliteal graft. He was sent home on April 28. According to the , since his discharge he has not been doing well. He just sits on a couch. He cannot walk very far. He has not been really eating well. The blood work on initial presentation showed that his arterial blood gases were very poor with a pH of 7.33, pCO2 of 63, PO2 77 on a BiPAP mask. His sodium was 132, potassium 5.3, BUN 47, creatinine 1.7. His troponins were borderline elevated at 0.9, 0.83 and then 0.100. EKG showed sinus rhythm with diffuse repolarization abnormality, PVCs, possible septal scar. His proBNP level was 5709 g/mL. His blood sugar dropped to 27 mg/dL. His chest x-ray showed evidence of cardiomegaly with pulmonary edema and pleural effusions. A chest CT done today shows marked increase in volume of pleural fluid bilaterally, particularly on the right. Possibility of pneumonia cannot be excluded. The right lower lobe pleural-based opacities on the left may be indicative of pulmonary infarct or septic emboli. The patient basically has been admitted for management with a BiPAP mask and diuretics. The patient at this time is minimally responsive. He is on a BiPAP System. It really does not help to get any history out of him. He is moaning. PAST HISTORY: Positive for coronary heart disease and previous coronary stents. He has had a heart catheterization 2 years ago that showed relatively patent vessels. He has diabetes mellitus type 2. He has diabetic neuropathy. He has peripheral occlusive vascular disease. He has COPD on home oxygen 2 liters/minute. He has hypertension, dyslipidemia. SURGICAL HISTORY: He had a right femoral popliteal bypass in the past. The revision was done in May 2017 and recently he has had a thrombectomy. He has had cataract extraction. He had several stents. SOCIAL HISTORY: He lives with . He is disabled since 2010. He smokes half a pack a day until recently when he has cut down to just a few cigarettes a day. Not a drinker. FAMILY HISTORY: Mother had coronary heart disease. ALLERGIES: To gabapentin. HOME MEDICATIONS: At this time, he is on amlodipine 5 twice a day, apixaban 5 mg twice a day, aspirin 81 mg daily, atorvastatin 80 mg daily, furosemide 40 mg twice a day, glipizide 20 mg daily, insulin lispro 15 units 3 times a day, isosorbide mononitrate 60 mg daily, metformin 2 tablets twice a day, nicotine patch 20 mg daily, Protonix 40 mg daily, Pregabalin 150 twice a day, Requip 1 tablet at bedtime, trazodone 50 mg daily. REVIEW OF SYSTEMS: It is not obtainable right at this time. He is just basically getting progressively worse. His leg hurts. He has very poor vascular supply to the legs and the right one is being treated by the vascular surgeons. He has an open wound there that is taken care of by the family. There is home health service that is going to his house. PHYSICAL EXAMINATION: Vital signs: Blood pressure 101/75, pulse 82, temperature 93 degrees, respirations 18. He is not very arousable. He groans and moans. HEENT: Unremarkable. Chest: Diminished breath sounds diffusely, especially in the right lung. Heart: Sounds are regular, rhythmic. Abdomen: Slightly distended. Nontender. Extremities: Showed markedly diminished pulses. The right leg is wrapped up with a dressing. Left leg shows markedly diminished pulses with dusky appearance of the skin of the left foot. Neurological: He is not very responsive at this time. IMPRESSION: 1. Patient presenting with increasing dyspnea, pleural effusions. This sounds like congestive heart failure, more than likely diastolic given the historic presence of normal ejection fraction and recent imaging cardiac studies. 2. Worsening chronic obstructive pulmonary disease with Hypercarbic respiratory failure. 3. Severe peripheral occlusive disease of the right lower extremity, status post right femoral popliteal bypass with thrombosis. 4. Anemia. Hemoglobin is down to 8. 5. History of previous coronary stents. 6. Electrolyte disturbance. 7. Acute renal dysfunction. Creatinine on admission was 1.7. Subsequent creatinine is 1.4. BUN is up to 51. RECOMMENDATION: At this time, we will continue IV Lasix as it has been ordered by the hospitalist service. I think we need to involve the vascular surgeons to review and revisit the right lower extremity vascular supply. Pulmonary is going to assist. The prognosis of this patient is very guarded given his multiple system involvement. We will be following him. cc: Jose Arias MD MTDD
--- NOTE | 2019-05-17 14:17 | ECHO REPORT ---
ORDER DATE: 05/16/2019 ECHOCARDIOGRAPHIC MEASUREMENTS: 1. Interventricular septum 1.0. 2. Left ventricular posterior wall 1.0. 3. Diastolic diameter 5.4 4. Left atrium 4. 5. Aorta 3.8 cm. SUMMARY: 1. Left atrium was enlarged. 2. Technically suboptimal study. 3. Optison was used to delineate endocardial border. 4. Normal left ventricular cavity size with severely reduced systolic function. 5. Estimated ejection fraction off 25 to 30%. 6. There is global hypokinesis associated with diastolic dysfunction. 7. There is mild mitral regurgitation. 8. Mild tricuspid regurgitation. 9. Peak velocity across the tricuspid valve was 3.1 m/sec. 10. Pulmonary artery systolic pressure of 50 mmHg. 11. Peak velocity across the aortic valve less than 2 m/sec. 12. By Doppler studies there is no aortic stenosis or regurgitation. 13. There is left atrial enlargement. 14. There is no pericardial effusion or obvious intracardiac mass or thrombus seen. cc: MD Dulce Redding MD
[2019-05-17] MEDS: HALDOL IV PRN (14:37)
[2019-05-17] MEDS ORDERED: ELIQUIS PO ONE (15:31)
[2019-05-17] MEDS: SANTYL OINT TOP SCH (16:30)
--- NOTE | 2019-05-17 18:10 | GENERAL SURGERY CONSULTATION ---
DATE: 05/17/2019 HISTORY OF PRESENT ILLNESS: Mr. Crum is known to me from previous vascular surgery on the right. He has had a history of a femoral-popliteal bypass and then thrombectomy x2, the most recent being on 04/27, so he is now 3 weeks after thrombectomy. He was discharged home on Eliquis to help maintain patency. He is now admitted with respiratory failure. His medications are listed and do include Eliquis. He has also had a coronary artery stent placement. FAMILY HISTORY: Pertinent for heart disease. SOCIAL HISTORY: He is smoking a pack and half a day. I do not think he lives with his , I think he lives alone. REVIEW OF SYSTEMS: Primarily pertinent for his shortness of breath. PHYSICAL EXAMINATION: General: Currently he is asleep. Vital signs: Heart rate 81, blood pressure is 109/57. Lungs: Bilateral breath sounds. Heart: Regular rate and rhythm. Abdomen: Soft. Extremities: I cannot palpate any pedal pulses but this is not unusual. He has some wrinkling consistent with recent diuresis. Multiple ulcerations are noted on his foot which are not new. PLAN: The plan will be to use Santyl on his wounds. I will have the vascular lab to check his flow and his graft to be certain they remain patent. cc: Con Garcia MD
--- NOTE | 2019-05-17 19:54 | CONSULTATION ---
DATE OF CONSULTATION: 05/17/2019 REQUESTING PROVIDER: Dr. Joaquín Marques. REASON FOR CONSULTATION: Acute respiratory failure. HISTORY OF PRESENT ILLNESS: This is a 64-year-old male with a medical history of COPD with ongoing tobacco abuse, diabetes mellitus type 2, coronary artery disease, diabetic neuropathy, peripheral vascular disease, recent thrombosis, hypertension, gastroesophageal reflux disease and chronic ongoing right lower extremity diabetic foot ulcer. He apparently had a followup appointment yesterday to our office for COPD. He showed severe shortness of breath in the office, and then was recommended to go to the ER for further evaluation. Initial workup in the ER revealed acute on chronic hypoxic hypercapnic respiratory failure, COPD exacerbation, congestive heart failure exacerbation, acute metabolic encephalopathy and acute kidney injury. He has been admitted to the ICU. The patient currently is lying in bed with no acute distress noted. He is on BiPAP mask with pressure 20/8 and FiO2 60%. He is able to follow simple commands, but he does not open his eyes or answer any of my questions. He is on lasix drip currently. The patient's , son and [id number] are at the bedside. The patient's reports that the patient has been sick for several days, but he refused to go to see the doctor. The patient's reports the patient had progressively shortness of breathe, orthopnea, paroxysmal nocturnal dyspnea, several episodes of nausea with vomiting, constipation, bilateral lower extremity swelling, swelling abdomen and fever. The patient's also reported that patient was put on oxygen at 2 L at the beginning of this year, but the oxygen flow rate has been increased recently because of worsening shortness of breath. PAST MEDICAL AND SURGICAL HISTORY: 1. COPD with ongoing tobacco abuse. On home oxygen since this year. On Symbicort and albuterol. 2. Coronary artery disease status post stenting. 3. Diabetic neuropathy. 4. Peripheral vascular disease. 5. Recent thrombosis. Right femoral popliteal thrombosis, status post open thrombectomy right femoral popliteal graft and open balloon angioplasty of the right popliteal artery by Dr. Garcia on 04/27/2019. 6. Hypertension. 7. Gastroesophageal reflux disease. 8. Chronic ongoing right lower extremity diabetic foot ulcer for 2 years. 9. Cataract surgery. 10. Coronary artery stent placement. SOCIAL HISTORY: The patient lives at home with his . He is a daily smoker. He smokes about one and a half packs per day. He has no history of alcohol or illicit drug use. FAMILY HISTORY: Positive for heart disease and lung cancer. ALLERGIES: Gabapentin. REVIEW OF SYSTEMS: Unable to be obtained. PHYSICAL EXAMINATION: Vital Signs: Temperature 98.3, blood pressure 110/75, pulse 62, respiratory rate 20, oxygen saturation 98% on FiO2 60% and pressure 20 over 80. General: Well developed, lying in bed with no acute distress. HEENT: Normocephalic, atraumatic. Trachea midline. Mucosa pink and slightly dry. Respiratory: Even and unlabored; symmetrical excursion. Auscultation reveals diminished breathing sounds bibasilarly with early inspiratory crackles bibasilarly. Cardiovascular: Regular rate and rhythm. Gastrointestinal: Soft, distended, nontender. Bowel sounds normoactive in all 4 quadrants. Extremities: RLE trace edema with some mild chronic erythema around the cao area. The right foot is wrapped with dry and clean dressing. Neurologic: Lethargic but able to follow simple commands. LAB DATA: White blood cell 8.63, hemoglobin 8.8, hematocrit 30.1, platelets 269. Sodium 133, potassium 5.2, chloride 92, carbon dioxide 26, BUN 51, creatinine 1.4, glucose 27. ABG: pH of 7.34, pCO2 of 65, pO2 of 63. HC03 is 31.0, base excess 7.9, and oxyhemoglobin 92.8. IMAGING DATA: Chest CT without contrast showed markedly increased pleural effusions particularly on the right, possible pneumonia, particularly in the right lower lobe. Pleural dense opacities on the left may be indicative of pulmonary infarct or septic emboli. ASSESSMENT: This is a 64-year-old male with a medical history of chronic obstructive pulmonary disease with ongoing tobacco abuse and home oxygen, diabetes mellitus type 2, coronary artery disease, diabetes, neuropathy, peripheral vascular disease, hypertension, gastroesophageal reflux disease, and chronic ongoing right lower extremity diabetic foot ulcer. He has been admitted to the ICU since yesterday with acute hypoxic hypercapnic respiratory failure, chronic obstructive pulmonary disease exacerbation, congestive heart failure exacerbation, metabolic encephalopathy, and acute kidney injury. 1. Acute on chronic hypoxic respiratory failure. 2. Chronic acute hypercapnic respiratory failure. 3. Chronic obstructive pulmonary disease exacerbation. 4. Congestive heart failure exacerbation, diastolic. 5. Chronic ongoing right lower extremity diabetic foot ulcer. 6. Acute kidney injury. PLAN: 1. Continue supplemental oxygen. Continue BiPAP at bedtime as needed. 2. Continue antibiotic, bronchodilators, and diuretic as indicated. 3. Follow up with ABG, CBC, BMP and chest x-ray. Follow up with sputum culture and blood culture. 4. The silverware etcher, Dr. Arias, is on board. 5. Further recommendations pending hospital course . Thank you for the courtesy of this consult. Dictated by SANTOSH Stern for Avelina Curran MD cc: SANTOSH Stern MD [facility]
[2019-05-17] MEDS ORDERED: LOVENOX SUBQ SCH (21:00)
[2019-05-18] MEDS: ZOSYN 3.375 GM in NS 50 ML IV SCH ×4 (01:30→19:32)
[2019-05-18] MEDS: HALDOL IV PRN ×3 (01:46→13:29)
[2019-05-18] MEDS: LASIX 100 MG in NS 90 ML IV SCH ×3 (04:14→23:39)
[2019-05-18 04:21] LABS: ALLEN TEST YES; BE 14.9 mmoll (-3.0-3.0); BLOOD TYPE ARTERIAL; HCO3-(ACT) 36.6 mmoll (20.0-26.0); O2(CT) 12.6 mL/dL (15.0-23.0); O2HB 96.6 % (95.0-99.0); PO2(98.6) 113 mmHg (60-100); SAMPLE BLOOD; SAO2 99.3 % (95.0-100.0); THB 9.1 g/dL (11.5-17.4); pH(98.6) 7.43 (7.35-7.45)
[2019-05-18 04:23] LABS: MODALITY BI PAP
[2019-05-18 04:24] LABS: PCO2(98.6) 62 mmHg (35-45)
[2019-05-18 05:20] LABS: BASO% 0.2 % (0.0-0.8); EOS% 1.8 % (0.0-10.0); HEMATOCRIT 30.2 % (42.0-52.0); HEMOGLOBIN 8.7 g/dL (14.0-18.0); LYMPH# 0.74 X1000 (1.2-3.4); LYMPH% 9.1 % (20.5-51.1); MCH 21.3 PG (27-31); MCHC 28.8 g/dL (33-37); MCV 73.8 FL (81-99); MONO% 13.3 % (1.7-9.3); MPV 11.8 FL (7.4-10.4); NEUT# 6.15 X1000 (1.4-6.5); NEUT% 75.6 % (42.2-75.2); PLT 245 X1000 (130-400); RBC 4.09 XMIL (4.7-6.1); RDW 17.1 % (11.5-14.5); WBC 8.14 X1000 (4.8-10.8)
[2019-05-18 05:21] LABS: BASO# 0.02 X1000 (0.0-0.2); EOS# 0.15 X1000 (0.0-0.7); MONO# 1.08 X1000 (0.11-0.59)
[2019-05-18 06:07] LABS: AGAP 11; BUN 39 mg/dL (8-22); CALCIUM 8.7 mg/dL (8.8-10.2); CHLORIDE 89 mmol/L (98-107); COSMO 285; CREATININE 1.2 mg/dL (0.7-1.2); ESTIMATED GFR > 60; GLUCOSE 199 mg/dL (70-104); SODIUM 135 mmol/L (136-145); TCO2 35 mmol/L (25-35)
[2019-05-18] MEDS: TYLENOL PO PRN (06:16)
[2019-05-18] MEDS: HUMALOG SUBQ SCH ×4 (06:16→20:38)
--- NOTE | 2019-05-18 06:46 | Diag Imaging Result Doc PS360 ---
CHEST-1 VIEW - 05/18/2019 INDICATION: SOB COMPARISON: 05/16/2019 FINDINGS: There is decrease in the background interstitial infiltrate compatible with edema. Stable cardiomegaly. Stable dense infiltrate in the right lung base. No large pleural effusion. IMPRESSION: Improvement from prior. Electronically signed by Harsh Estrada 05/18/2019 6:44 AM
--- NOTE | 2019-05-18 07:24 | EKG Report ---
Test Performed on : 05/18/2019 07:04:16 AM Test Reason : dyspnea Blood Pressure : / mmHG Vent. Rate : 088 BPM Atrial Rate : 088 BPM P-R Int : 156 ms QRS Dur : 110 ms QT Int : 370 ms P-R-T Axes : 000 080 267 degrees QTc Int : 447 ms Sinus rhythm. with occasional premature ventricular complexes. Anterior infarct (cited on or before 07-SEP-2018) ST & T wave abnormality, consider lateral ischemia Abnormal ECG When compared with ECG of 17-MAY-2019 04:08, Questionable change in initial forces of Septal leads Confirmed by Evin GAMBINO, Timbo Spain ([id number]) on 05/18/2019 12:25:52 PM
[2019-05-18] MEDS: TEFLARO 600 MG in NS 250 ML IV SCH ×2 (07:53→19:32)
[2019-05-18] MEDS: SANTYL OINT TOP SCH (08:00)
[2019-05-18] MEDS: DUONEB (A & A) INH SCH ×5 (08:32→23:28)
--- NOTE | 2019-05-18 10:42 | PROGRESS NOTE ---
DATE: 05/18/2019 SUBJECTIVE: The patient is lying in bed, using a Venturi mask. A little bit confused. No shortness of breath or chest pain noted. No other issues noted as per nursing staff overnight. OBJECTIVE: Vital Signs: Temperature 98.4 degrees, heart rate 84, respiratory rate 24, blood pressure 123/62, O2 saturation 97% on nonrebreather mask. General: This is a chronically ill- appearing, 64-year-old male, lying in bed, in no acute distress. HEENT: Head is normocephalic, atraumatic. Mucous membranes dry. Neck: No JVD noted. No carotid bruits. No lymphadenopathy. No thyromegaly. Cardiovascular: S1, S2 heard. No murmurs, gallops, or rubs. Regular rate and rhythm. Respiratory: Crackles noted in both pulmonary bases. Patient is not using any accessory muscles or having work of breathing. Abdomen: Soft, a little bit distended. It looks like he has ascitis. Bowel sounds present but distant. No organomegaly noted. Extremities: No clubbing or cyanosis. The patient has mild chronic edema in the right lower extremity, now is covered with dressing. He has 3 right foot ulcers there. Neurological: Patient is a little bit sleepy but responds to verbal stimuli. Moves 4 extremities spontaneously. LABORATORY DATA: White cell count 8.14, hemoglobin 8.7, hematocrit 30.2, and platelets 245,000 with ABG that shows pH 7.43, with pCO2 62, PO2 113 on BiPAP at FiO2 of 80%. The BMP shows sodium 135 with glucose 199, potassium 4.0, creatinine 1.2. Troponin 0.093 and proBNP of 4746. ASSESSMENT AND PLAN: 1. Acute hypercapnic respiratory failure secondary to chronic obstructive pulmonary disease exacerbation and congestive heart failure. The patient is requiring a high amount of oxygen given by BiPAP or Venturi mask. The patient continues to retain CO2. I am not quite sure that is probably baseline CO2 for him. Respiratory is following this patient for recommendations. 2. Acute diastolic congestive heart failure. The patient is on Lasix drip. He is making good urine according to nursing staff, so at this point, we will continue with the same management. 3. Hypoglycemia. Patient is on glipizide at home. His blood sugars are getting a little bit better today. We will continue to monitor. 4. Anemia of chronic disease. Hemoglobin is stable. We will continue to monitor. 5. Peripheral vascular disease with recent graft placement. Dr. Garcia from Vascular Surgery has been following this patient. They will do an ultrasound of the graft. We will go from there. 6. Coronary artery disease. Patient is not complaining of any chest pain. We will continue to monitor. 7. Diabetes mellitus type 2. 8. Acute kidney injury, resolved. 9. Right lower extremity infection. We will continue with the current antibiotics. 10. Disposition. We will continue to monitor this patient closely. cc: Joaquín Yo MD MTDD
[2019-05-18] MEDS: NICODERM PATCH TD SCH (11:40)
[2019-05-18] MEDS ORDERED: MORPHINE IV ONE (16:13)
--- NOTE | 2019-05-18 19:50 | GENERAL SURGERY PROGRESS NOTE ---
DATE: 05/18/2019 SUBJECTIVE: Mr. Crum had imaging of his right leg graft today, it is patent. There is flow in his femoral popliteal bypass. I would like to keep him on Eliquis to help maintain patency. cc: Con Garcia MD
[2019-05-18] MEDS: ELIQUIS PO SCH (20:38)
[2019-05-19] MEDS ORDERED: MORPHINE IV ONE (00:30)
[2019-05-19] MEDS: ZOSYN 3.375 GM in NS 50 ML IV SCH ×4 (01:41→20:29)
[2019-05-19 04:35] LABS: BLOOD TYPE ARTERIAL; SAMPLE BLOOD
[2019-05-19 04:36] LABS: ALLEN TEST YES; METHB 0.9 % (0.0-1.5); MODALITY BI PAP; O2(CT) 12.1 mL/dL (15.0-23.0); O2HB 96.8 % (95.0-99.0); PCO2(98.6) 62 mmHg (35-45); PO2(98.6) 137 mmHg (60-100); SAO2 99.9 % (95.0-100.0); THB 8.7 g/dL (11.5-17.4); pH(98.6) 7.46 (7.35-7.45)
[2019-05-19 05:46] LABS: BASO# 0.05 X1000 (0.0-0.2); BASO% 0.7 % (0.0-0.8); EOS# 0.16 X1000 (0.0-0.7); EOS% 2.3 % (0.0-10.0); HEMATOCRIT 31.5 % (42.0-52.0); HEMOGLOBIN 9.2 g/dL (14.0-18.0); IMM GRAN# 0.03 X1000 (0.0-0.04); IMM GRAN% 0.4 % (0.0-0.5); LYMPH# 0.81 X1000 (1.2-3.4); LYMPH% 11.6 % (20.5-51.1); MCH 21.6 PG (27-31); MCHC 29.2 g/dL (33-37); MCV 73.9 FL (81-99); MONO# 0.99 X1000 (0.11-0.59); MONO% 14.1 % (1.7-9.3); MPV 11.9 FL (7.4-10.4); NEUT# 4.96 X1000 (1.4-6.5); NEUT% 70.9 % (42.2-75.2); PLT 225 X1000 (130-400); RBC 4.26 XMIL (4.7-6.1)
[2019-05-19 05:47] LABS: AGAP 15; BUN 25 mg/dL (8-22); CALCIUM 8.1 mg/dL (8.8-10.2); CHLORIDE 92 mmol/L (98-107); COSMO 291; CREATININE 0.9 mg/dL (0.7-1.2); ESTIMATED GFR > 60; GLUCOSE 165 mg/dL (70-104); SODIUM 142 mmol/L (136-145); TCO2 35 mmol/L (25-35)
[2019-05-19] MEDS: HUMALOG SUBQ SCH ×4 (06:08→20:29)
[2019-05-19 06:14] LABS: ANISOCYTOSIS OCCASIONAL; BASO 1 % (0-1); EOS 1 % (1-10); LYMPHS 14 % (21-51); MONO 15 % (1-9); NRBC 1 % (0-0); SEGS 69 % (42-75)
--- NOTE | 2019-05-19 07:02 | EKG Report ---
Test Performed on : 05/19/2019 06:41:53 AM Test Reason : dyspnea Blood Pressure : / mmHG Vent. Rate : 083 BPM Atrial Rate : 083 BPM P-R Int : 176 ms QRS Dur : 118 ms QT Int : 404 ms P-R-T Axes : 075 039 -73 degrees QTc Int : 474 ms Normal sinus rhythm. Low voltage QRS Septal infarct (cited on or before 07-SEP-2018) ST & T wave abnormality, consider lateral ischemia Abnormal ECG When compared with ECG of 18-MAY-2019 07:04, premature ventricular complexes. are no longer present Questionable change in initial forces of Anteroseptal leads Confirmed by Evin GAMBINO, Timbo Spain ([id number]) on 05/23/2019 8:31:19 AM
--- NOTE | 2019-05-19 07:11 | Diag Imaging Result Doc PS360 ---
EXAM: CHEST-1 VIEW 05/19/2019 HISTORY: SOB TECHNIQUE: AP portable at 0532 COMMENT: The heart size is smaller than on 05/18/2019. There continues to be diffuse interstitial and alveolar opacity bilaterally particularly in the right lower lobe. The latter is worse than on the previous study as the hemidiaphragm is now completely obscured. There may be some pleural fluid on the right as well. IMPRESSION: Improved cardiomegaly. Slightly worsened pulmonary edema versus pneumonia in the right lower lobe. Diffuse pulmonary edema and/or ARDS. Electronically signed by Everette Dietz 05/19/2019 7:08 AM
[2019-05-19] MEDS: DUONEB (A & A) INH SCH ×5 (07:44→23:22)
--- NOTE | 2019-05-19 08:15 | PROGRESS NOTE ---
DATE: 05/19/2019 SUBJECTIVE: Patient is still somewhat confused. According to the nursing staff, he had been a little bit combative yesterday and he received 1 dose of morphine. Since then, he was fine. He is supposed to receive Haldol 5 mg IV q.4 hours p.r.n. to agitation. No other issues noted as per nursing staff overnight. OBJECTIVE: Vital Signs: Temperature 98.6 degrees, heart rate 92, respiratory rate 21, blood pressure 125/81, O2 saturation 97% on BiPAP. General Examination: This is a chronically ill- appearing, 64-year-old, male, lying in bed, in no acute distress. HEENT: Head is normocephalic and atraumatic. Mucous membranes are dry. Neck: No JVD noted. No carotid bruits. No lymphadenopathy. No thyromegaly. Cardiovascular Examination: S1, S2. Tachycardic but no murmurs, gallops, or rubs noted. Respiratory Examination: Crackles still noted in both pulmonary bases. The patient is not using any accessory muscles or having work of breathing. Abdomen: Soft. A little bit distended. It looks like he has some ascites. Bowel sounds are present but distant. No organomegaly noted. Extremities: No clubbing or cyanosis. The patient has mild chronic edema in the right lower extremity that is now covered by a dressing, dry and clean. Peripheral pulses present. The left foot is normal, not cold to touch. Neurological Examination: The patient is still confused and a little bit sleepy but responds to verbal stimuli. His speech is noncoherent. Moves 4 extremities spontaneously. Laboratory Data: White cell count 7.0, hemoglobin 9.2, hematocrit 31.5, platelets 225,000. ABG shows pH 7.46, pCO2 of 62, PO2 of 137. That was on BiPAP at FiO2 of 50%. BMP shows normal creatinine, chloride 92, glucose 165. ASSESSMENT AND PLAN: 1. Acute hypercapnic respiratory failure secondary to congestive heart failure. The patient continues to be on a Lasix drip and so far, he has made 4.5 L of urine during the last 24 hours. I think we will need to continue with that medication and we will continue with breathing treatments 2. Chronic obstructive pulmonary disease exacerbation. The patient continues to be on BiPAP. Yesterday, he was pretty much all day long with that machine. His CO2, unfortunately, remains the same, in the range of 60 I think before, which I think that is a number he lives with. At this point, we will continue with the same management. Pulmonary is following this patient. We will follow recommendations. 3. Hypoglycemia, resolved. 4. Anemia of chronic disease. Hemoglobin is stable. We will continue to monitor. 5. Peripheral vascular disease with recent graft placement. Dr. Garcia from general surgery has ordered an ultrasound to check the patency of this graft, that appears to be normal. 6. Diabetes mellitus type 2. We will continue with Accu-Cheks before meals and also at bedtime, and insulin sliding scale. 7. Acute kidney injury, resolved. 8. Right lower extremity infection. We will continue with current medications. 9. Disposition. At this point, we will continue with the same management. cc: Joaquín Yo MD
[2019-05-19] MEDS: NICODERM PATCH TD SCH (08:21)
[2019-05-19] MEDS: TEFLARO 600 MG in NS 250 ML IV SCH ×2 (08:21→20:28)
[2019-05-19] MEDS: LANOXIN IV SCH ×3 (08:21→20:28)
[2019-05-19] MEDS: LASIX 100 MG in NS 90 ML IV SCH ×2 (08:21→18:32)
[2019-05-19] MEDS: ISORDIL PO SCH ×3 (08:22→16:43)
[2019-05-19] MEDS: APRESOLINE PO SCH ×3 (08:22→16:43)
[2019-05-19] MEDS: ELIQUIS PO SCH ×2 (08:22→20:31)
[2019-05-19] MEDS: SANTYL OINT TOP SCH (08:22)
[2019-05-19] MEDS: MORPHINE IV PRN ×3 (09:07→17:22)
--- NOTE | 2019-05-19 09:29 | CARDIOLOGY PROGRESS NOTE ---
DATE: 05/19/2019 CHIEF COMPLAINT: Shortness of breath. SUBJECTIVE: The patient is more awake today. He is agitated. He seems to be in pain. OBJECTIVE: Vital signs: Blood pressure is 111/59, temperature 98.6, pulse 95, respirations 20. He has a BiPAP mask on. Communication is difficult because of that. HEENT: Unremarkable. Chest: Diffusely diminished breath sounds. Heart: Sounds are regular with extrasystoles. Abdomen: Nontender. Extremities: Showed poor pulses distally. His skin on the left appears to be less dusky than on admission. There is less swelling also. Neurologic exam: He is not cooperative today. BLOOD WORK: White cell count is 7000, hemoglobin 9.2 g, hematocrit 31.5%. Blood gases on a BiPAP mask: FiO2 is 0.5, pH is 7.46, pO2 is 137, CO2 is 62. Sodium 142, potassium 4.0, BUN 25, creatinine 0.9. IMPRESSION: 1. Patient who presented with hypercarbic and hypoxemic respiratory failure. He has underlying advanced chronic obstructive pulmonary disease on home oxygen. 2. Decompensated congestive heart failure systolic chronic. 3. History of severe coronary heart disease, borderline elevation of troponin. Possibly subendocardial ischemia. History of previous stents. 4. History of severe peripheral occlusive disease. 5. Anemia with low iron indices or microcytic indices. RECOMMENDATIONS: At this time, we will add isosorbide dinitrate and hydralazine to his regimen along with digoxin. Hopefully, this will help his underlying heart failure. His overall prognosis remains very guarded. Will continue to follow. cc: Jose Arias MD
[2019-05-19] MEDS ORDERED: BLISTEX MEDICATED BERRY LIP BALM TOP PRN (10:44)
[2019-05-19] MEDS: MIRALAX PO PRN (11:31)
--- NOTE | 2019-05-19 15:08 | VASCULAR LAB ---
PROCEDURE NAME: Arterial U/S Unilateral Leg - 05/18/2019 PROCEDURE: Right lower extremity arterial ultrasound evaluation. REFERRING PHYSICIAN: Con Garcia MD READING PHYSICIAN: Julio Ramsay MD SALES ASSOCIATE FISHING: Kamini Real RVT INDICATION: Evaluate for patency of femoral-popliteal bypass graft. Patient is status post thrombectomy 3 weeks ago. FINDINGS: The right common femoral artery inflow was measured at 158 cm/sec. At the proximal anastomosis, the velocity is 189 cm/sec. In the proximal thigh graft, there is flow at 61.7 cm/sec. In the mid thigh graft, 62 cm/sec. In the distal thigh graft, 71 cm/sec. At the distal anastomosis, the velocity is 98 cm/sec. The runoff into the popliteal artery is 123 cm/sec and in the posterior tibial artery 25.8 cm/sec. The graft appeared to be patent and without thrombus. INTERPRETATION: Patent right femoral-popliteal bypass graft. cc: MD Con Purdy MD
[2019-05-19] MEDS: HALDOL IV PRN (23:10)
[2019-05-20] MEDS: ZOSYN 3.375 GM in NS 50 ML IV SCH ×4 (02:50→20:31)
[2019-05-20] MEDS: MORPHINE IV PRN ×4 (02:50→17:06)
[2019-05-20] MEDS ORDERED: DULCOLAX PR ONE (02:55)
[2019-05-20] MEDS: HALDOL IV PRN (04:49)
[2019-05-20 04:52] LABS: ALLEN TEST YES; BE 18.1 mmoll (-3.0-3.0); BLOOD TYPE ARTERIAL; METHB 1.2 % (0.0-1.5); O2HB 95.9 % (95.0-99.0); PO2(98.6) 110 mmHg (60-100); SAMPLE BLOOD; SAO2 99.4 % (95.0-100.0); THB 9.5 g/dL (11.5-17.4); pH(98.6) 7.44 (7.35-7.45)
[2019-05-20 04:53] LABS: MODALITY BI PAP; PCO2(98.6) 66 mmHg (35-45)
[2019-05-20] MEDS: LASIX 100 MG in NS 90 ML IV SCH ×2 (05:23→15:54)
[2019-05-20 05:49] LABS: BASO# 0.04 X1000 (0.0-0.2); BASO% 0.5 % (0.0-0.8); EOS# 0.13 X1000 (0.0-0.7); EOS% 1.8 % (0.0-10.0); HEMATOCRIT 31.6 % (42.0-52.0); HEMOGLOBIN 8.9 g/dL (14.0-18.0); LYMPH# 0.56 X1000 (1.2-3.4); LYMPH% 7.7 % (20.5-51.1); MCH 21.1 PG (27-31); MCHC 28.2 g/dL (33-37); MCV 75.1 FL (81-99); MONO# 0.86 X1000 (0.11-0.59); MONO% 11.8 % (1.7-9.3); MPV 10.9 FL (7.4-10.4); NEUT% 78.2 % (42.2-75.2); PLT 217 X1000 (130-400); RBC 4.21 XMIL (4.7-6.1); RDW 17.1 % (11.5-14.5); WBC 7.29 X1000 (4.8-10.8)
[2019-05-20 06:11] LABS: ESTIMATED GFR > 60
[2019-05-20 06:16] LABS: AGAP 18; BUN 18 mg/dL (8-22); CALCIUM 9.1 mg/dL (8.8-10.2); CHLORIDE 87 mmol/L (98-107); COSMO 288; GLUCOSE 154 mg/dL (70-104); POTASSIUM 3.5 mmol/L (3.5-5.1); SODIUM 142 mmol/L (136-145); TCO2 37 mmol/L (25-35)
[2019-05-20] MEDS: HUMALOG SUBQ SCH ×4 (06:20→20:31)
--- NOTE | 2019-05-20 06:44 | Diag Imaging Result Doc PS360 ---
CHEST-1 VIEW - 05/20/2019 INDICATION: SOB COMPARISON: 05/19/2019 FINDINGS: Stable cardiomegaly and pulmonary vascular congestion. No change in the diffuse bilateral reticulonodular interstitial infiltrates. Bibasilar opacifications are grossly stable from prior. IMPRESSION: No significant change from prior. Electronically signed by Harsh Estrada 05/20/2019 6:41 AM
[2019-05-20] MEDS: ELIQUIS PO SCH ×3 (07:03→20:31)
[2019-05-20] MEDS: DUONEB (A & A) INH SCH ×5 (08:04→22:53)
[2019-05-20] MEDS: NICODERM PATCH TD SCH (08:21)
[2019-05-20] MEDS: SANTYL OINT TOP SCH (08:55)
[2019-05-20] MEDS: TEFLARO 600 MG in NS 250 ML IV SCH ×2 (09:04→20:31)
--- NOTE | 2019-05-20 09:08 | PROGRESS NOTE ---
DATE: 05/20/2019 SUBJECTIVE: The patient continues to be confused; it has been 3 days [address] he is that way. The day before yesterday, he was combative and apparently in pain because, after he received morphine, he was more calmed down. He is also supposed to receive Haldol 5 mg IV p.r.n. q. 4 hours. No other issues noted as per nursing staff overnight. OBJECTIVE: Vital Signs: Temperature 98.1 degrees, heart rate 80, respiratory rate 21, blood pressure 119/65, O2 saturation 95% on BiPAP at FiO2 40%. General examination: This is a chronically ill-appearing, 64-year-old male, lying in bed confused, but in no acute distress. HEENT: Head is normocephalic, atraumatic with mucous membranes dry. Neck: No JVD noted. No carotid bruits. No lymphadenopathy. No thyromegaly. Cardiovascular exam: S1, S2 heard. Tachycardic. No murmurs, gallops, or rubs noted. Respiratory exam: Crackles and rhonchi is noted still in both pulmonary bases. Patient is not using any accessory muscles or having work of breathing. Abdomen: Soft, a little bit distended. Looks like he has some ascites. Bowel sounds present, distant, but no organomegaly noted. Extremities: No clubbing, cyanosis. Patient does not have any edema today. Right lower extremity covered by dressing, dry and clean. Left foot is normal, not cold to touch. Peripheral pulses present. Neurological exam: Patient continues to be confused. Today, he does not answer any question. Responds to verbal stimuli, but he does not speak coherently. Moves 4 extremities spontaneously. LABORATORY DATA: White cell count 7.29, hemoglobin 8.9, hematocrit 31.6, platelets 217. ABG that shows pH 7.44 with pCO2 66, PO2 110 that was on BiPAP that fell to 40%. The BMP is normal. ASSESSMENT AND PLAN: 1. Acute hypercarbic hypoxemic respiratory failure. Multifactorial secondary to chronic obstructive pulmonary disease and congestive heart failure. The patient continues to use BiPAP at night, and in the day he is requiring Venturi mask. We had done a CT of the chest 3 days ago which basically showed marked increase in the volume of the pleural fluid bilaterally, particularly on the right, and the possibility of pneumonia cannot be excluded in the right lower lobe. At this point, we will continue with same management. 2. Decompensated systolic congestive heart failure. Patient continues to be on Lasix drip. So far, yesterday he has made 3.6 liters of urine and the bowel was 2.3 negative. I think we will continue with the same management. 3. Coronary artery disease with borderline elevation of troponins. Patient had those troponins checked on admission; those are mildly elevated. Cardiology is aware and following this patient. 4. Anemia of chronic disease. Hemoglobin is stable. We will continue to monitor. 5. Peripheral vascular disease with recent femoral graft placement. At presentation and as per Cardiology recommendations, we consulted Dr. Garcia for the patency of this graft. After ambulation, patient is okay. Dr. Garcia recommends to continue with Eliquis, what this patient is taking. 6. Diabetes mellitus type 2. We will continue with Accu-Chek before meals and also at bedtime, and his sliding scale insulin as well. 7. Chronic obstructive pulmonary disease exacerbation. We will continue with DuoNebs every 4 hours, antibiotics. 8. Acute kidney injury, resolved. 9. Right lower extremity infection. We will continue with current antibiotics that we are using for peripheral vascular disease, in this case Teflaro and Zosyn. 10. History of sinus cancer. Will order MRI of the brain because he is getting more encephalopathic. 11. Disposition: Patient continues to be confused. We will continue to monitor this patient in the intensive care unit. cc: Joaquín Yo MD MTDD
[2019-05-20] MEDS: APRESOLINE PO SCH ×3 (10:39→17:07)
[2019-05-20] MEDS: ISORDIL PO SCH ×3 (10:40→17:07)
[2019-05-20] MEDS: LANOXIN PO SCH (10:40)
--- NOTE | 2019-05-20 12:01 | CARDIOLOGY PROGRESS NOTE ---
DATE: 05/20/2019 CHIEF COMPLAINT: Shortness of breath. SUBJECTIVE: Mr. Crum is in a state of some sort of a stupor. He is just moaning. He is really does not verbalize his answers. He remains tachycardic. When I asked him about whether or not he is having pain he just keeps on moaning. A chest x-ray was done this morning and it is reported as indicating no significant change from prior. Inflammatory markers have been requested. His C-reactive protein is elevated at 95.66 mg/L. Sedimentation rate is up to 60 mm/hour. His blood gases on BiPAP this morning with FiO2 of 0.4 showed pO2 of 110, CO2 of 66, pH 7.44. He has been switched over to a Ventimask. Hemoglobin is 8.9. MCV is 75.1. His vital signs, pulse is fluctuating between 89-109. His blood pressure is 120/87, respiratory rate is 18 now. His temperature is 98.1. The patient is again not quite following commands. H and P no obvious abnormality. Chest: Diminished breath sounds at bases. Heart sounds are regular, distant. Abdomen is nontender. Extremities showed no obvious edema. His right foot is wrapped in dressing. He does not really follow commands. The nurses tell me that he has not been able to swallow his morning medicines and the Hospitalist service has requested a swallow study or evaluation. IMPRESSION: 1. Patient who presents with a combination of systolic and diastolic heart failure, which is acute- on-chronic. 2. The patient has hypercarbic and hypoxemic respiratory failure. He has underlying severe chronic obstructive pulmonary disease on home oxygen. 3. The patient has history of severe coronary heart disease with borderline troponin elevation. He may have had some subendocardial ischemia. He has history of previous stenting. 4. Severe peripheral arterial occlusive disease. 5. Possible infection of right foot or cellulitis of the right lower extremity. 6. Dysphagia? RECOMMENDATIONS: At this time, the patient's cardiac status does not seem to have changed much. He still remains in a hypercarbic respiratory failure state. His dysphagia is going to limit our ability to treat him. We will have to switch over to parenteral routes for some of his medications. The patient may require a percutaneous gastrostomy tube to allow for feeding and administration of medications. He may also need tracheostomy and oysterman ventilation to keep him going. His overall prognosis is really very poor. I believe Pulmonary product development consultant and the hospital doctor need to meet with family and decide on whether or not a more aggressive course of therapy is warranted or perhaps comfort measures should be offered. At this time, I think his prognosis is very guarded. cc: Jose Arias MD MTDD
--- NOTE | 2019-05-20 13:46 | PULMONOLOGY PROGRESS NOTE ---
DATE: 05/20/2019 SUBJECTIVE: The patient is awake and alert. He is softly grunting with exhalation. He does not appear to be in respiratory distress. OBJECTIVE: Vital Signs: The patient has been afebrile for the last 24 hours. Blood pressure 120/66, heart rate 95, respiratory rate 17, oxygen saturation 95% on 50% FiO2. HEENT: Pupils are equal and reactive. Oropharynx appears clear. Neck: Supple. Chest: Reveals prolonged expiratory phase with scattered rhonchi. Cardiac: S1-S2. Abdomen: Soft. Extremities: Reveal surgical dressings on right lower extremity with evidence of vascular insufficiency on the left. LABORATORIES: Chest x-ray reveals bilateral infiltrates with bilateral effusions and cardiomegaly. White blood count 7.29, hemoglobin 8.9, platelet count 217,000. Sodium 142, potassium 3.5, chloride 87, bicarbonate 37, BUN 18, creatinine 1.0, glucose 154. ProBNP 9456. Arterial blood gas reveals a pH 7.44, pCO2 of 66, PO2 of 110. IMPRESSION: A 64-year-old with 1. Acute hypoxemic respiratory failure. 2. Chronic hypercapnic respiratory failure. 3. Systolic heart failure. 4. Pleural effusions. 5. Diabetes mellitus. 6. Peripheral vascular disease. 7. Chronic obstructive pulmonary disease. 8. Encephalopathy. 9. Ongoing tobacco use per family's report. RECOMMENDATIONS: 1. Continue to cycle BiPAP at bedtime and p.r.n. 2. Continue diuretic drip as you are doing. 3. Continue current antibiotic regimen. 4. Continue bronchial hygiene. 5. Smoking cessation was discussed with the family. The patient cannot currently engage in smoking cessation discussion. cc: Jeffrey Spence MD
--- NOTE | 2019-05-20 15:06 | Diag Imaging Result Doc PS360 ---
EXAM: MRI BRAIN W/WO CONTRAST 05/20/2019 HISTORY: history of sinus tumor, ams TECHNIQUE: T1 sagittal, axial, and post gadolinium-enhanced axial with coronal reformation, T2, FLAIR, DWI axial and coronal gradient echo. COMMENT: There are no previous studies available for comparison. There is no evidence of mass effect, bleed, or abnormal extra-axial fluid collection. There is a small focus of apparent restricted diffusion in the subcortical white matter of the medial left frontal lobe. There is no evidence of associated abnormal gadolinium enhancement. There are no abnormal fluid collections present in the visualized paranasal sinuses. Some mucosal thickening is present in the left frontal sinus. This enhances with gadolinium to some extent. IMPRESSION: Questionable lacunar infarction in the left frontal white matter. Mucosal thickening and enhancement in the left frontal sinus which may be due to sinusitis or possible neoplasm as suggested in the history. Electronically signed by Everette Dietz 05/20/2019 3:03 PM
[2019-05-20 15:33] LABS: URINE SOURCE CATH
[2019-05-20 15:40] LABS: BILIRUBIN URINE NEGATIVE (NEGATIVE); BLOOD URINE MODERATE (NEGATIVE); COLOR YELLOW; GLUCOSE URINE NEGATIVE (NEGATIVE); KETONE URINE TRACE mg/dL (NEGATIVE); LEUKOCYTES URINE MODERATE (NEGATIVE); NITRITE URINE NEGATIVE (NEGATIVE); PROTEIN URINE TRACE mg/dL (NEGATIVE); SP GRAVITY URINE 1.017; TURBIDITY URINE CLEAR (CLEAR); UR EPITHELIAL CELLS <10 /HPF (<10); URINE BACTERIA NEGATIVE /HPF; URINE RBC TNTC /HPF (<10); URINE WBC <10 /HPF (<10); UROBILINOGEN URINE NORMAL (NORMAL)
[2019-05-20] MEDS: MIRALAX PO PRN (17:07)
[2019-05-21] MEDS: LASIX 100 MG in NS 90 ML IV SCH ×3 (01:59→20:52)
[2019-05-21] MEDS: ZOSYN 3.375 GM in NS 50 ML IV SCH ×2 (03:04→08:56)
[2019-05-21 04:30] LABS: ALLEN TEST YES; BE 23.7 mmoll (-3.0-3.0); BLOOD TYPE ARTERIAL; HCO3-(ACT) 43.4 mmoll (20.0-26.0); METHB 0.8 % (0.0-1.5); O2(CT) 12.9 mL/dL (15.0-23.0); O2HB 96.9 % (95.0-99.0); PO2(98.6) 165 mmHg (60-100); SAMPLE BLOOD; SAO2 99.8 % (95.0-100.0); THB 9.2 g/dL (11.5-17.4); pH(98.6) 7.53 (7.35-7.45)
[2019-05-21 04:32] LABS: MODALITY BI PAP; PCO2(98.6) 59 mmHg (35-45)
[2019-05-21] MEDS: HUMALOG SUBQ SCH ×4 (06:23→20:53)
[2019-05-21 06:45] LABS: BASO# 0.04 X1000 (0.0-0.2); BASO% 0.5 % (0.0-0.8); EOS# 0.12 X1000 (0.0-0.7); EOS% 1.6 % (0.0-10.0); HEMATOCRIT 32.1 % (42.0-52.0); LYMPH% 8.1 % (20.5-51.1); MONO# 0.88 X1000 (0.11-0.59); MONO% 11.8 % (1.7-9.3); MPV 11.3 FL (7.4-10.4); NEUT# 5.79 X1000 (1.4-6.5); PLT 227 X1000 (130-400); RBC 4.28 XMIL (4.7-6.1); RDW 17.4 % (11.5-14.5); WBC 7.43 X1000 (4.8-10.8)
[2019-05-21 07:07] LABS: ESTIMATED GFR > 60
[2019-05-21 07:26] LABS: AGAP 10; BUN 19 mg/dL (8-22); CALCIUM 9.5 mg/dL (8.8-10.2); CHLORIDE 92 mmol/L (98-107); COSMO 298; GLUCOSE 200 mg/dL (70-104); POTASSIUM 3.4 mmol/L (3.5-5.1); SODIUM 146 mmol/L (136-145); TCO2 44 mmol/L (25-35)
[2019-05-21] MEDS: DUONEB (A & A) INH SCH ×5 (07:42→22:55)
--- NOTE | 2019-05-21 07:51 | Diag Imaging Result Doc PS360 ---
CHEST-1 VIEW - 05/21/2019 INDICATION: SOB COMPARISON: 05/20/2019 FINDINGS: Stable cardiomegaly and pulmonary vascular congestion. There is improvement in aeration of the left lower lobe with better visualization of the left hemidiaphragm. Otherwise stable hazy interstitial infiltrate/edema in the lung bases. No large pleural effusion. IMPRESSION: Improved aeration of the left lower lobe. Electronically signed by Harsh Estrada 05/21/2019 7:49 AM
[2019-05-21] MEDS: TEFLARO 600 MG in NS 250 ML IV SCH ×2 (08:02→20:52)
[2019-05-21] MEDS: ISORDIL PO SCH ×3 (08:56→16:10)
[2019-05-21] MEDS: APRESOLINE PO SCH ×3 (08:56→16:10)
[2019-05-21] MEDS: TYLENOL PO PRN (08:56)
[2019-05-21] MEDS: LANOXIN PO SCH (08:57)
[2019-05-21] MEDS: ELIQUIS PO SCH (08:57)
[2019-05-21] MEDS: NICODERM PATCH TD SCH (08:58)
[2019-05-21] MEDS: SANTYL OINT TOP SCH (08:58)
[2019-05-21] MEDS: MIRALAX PO PRN (10:25)
--- NOTE | 2019-05-21 14:07 | PROGRESS NOTE ---
DATE: 05/21/2019 SUBJECTIVE: The patient has no major complaints but he is very sedated for lack of a better word. He is just not moving around much. OBJECTIVE: 104/49, heart rate 82, respiratory rate 18, temperature 97.7 degrees, 99% on 5 L.Cardiovascular: Regular rate and rhythm. Pulmonary: Bilateral breath sounds clear to auscultation. GI: Soft, nontender, nondistended. Bowel sounds are positive. LABORATORY DATA: White count 7, hemoglobin and hematocrit 9 and 32, platelets 227,000. PH 7.53, pCO2 59, PaO2 is 165. Sodium 146, potassium 3.4, glucose 200. PROBLEM LIST: 1. Acute hypercapnic respiratory failure due to acute heart failure. He is on a Lasix drip putting out good urine output. Defer to Cardiology when they transition him to q. 12. He has had about 15 L out total with an overall -9 L balance, so much improved. 2. Chronic obstructive pulmonary disease exacerbation. He is on BiPAP which has been weaned off. He is down to nasal cannula and seems to be doing better. 3. Acute systolic heart failure exacerbation. Again, he is on Lasix, hydralazine, digoxin, Imdur. The only thing I am a little concerned about is just that I think it is likely he may have had a small frontal stroke, so reports he had a change in neurological status, mostly confusion about a week ago. I am not sure if that would time appropriately, but we will work that up. He is on Eliquis. We will continue that for the time being, although I think we have to be careful and continue aspirin and follow. 4. Acute kidney injury is stable. 5. Right lower extremity. He is on antibiotics. He is on 2 different beta-lactam type antibiotics, cephalosporin and Zosyn. I am just going to leave him on the Teflaro and follow. DISPOSITION: I think he is stabilizing. Yesterday I think his mental status was much worse and we will continue to monitor closely. We will get a Neurology opinion about stroke and I think we may need to repeat his head CT in a day or 2, especially if he is not recovering. We will also initiate a bowel regimen. cc: Jose Azul MD
--- NOTE | 2019-05-21 14:58 | PULMONOLOGY PROGRESS NOTE ---
DATE: 05/21/2019 SUBJECTIVE: The patient is awake and alert and sitting in a bedside chair. He remains confused. He does not have increased work of breathing. OBJECTIVE: Vital Signs: The patient has been afebrile for the last 24 hours. Blood pressure 103/44, heart rate 78, respiratory rate 20, oxygen saturation 99% on 5 L per nasal cannula. HEENT: Pupils are equal and reactive. Oropharynx appears clear. Neck: Supple. Chest: Reveals crackles in both lung bases with a prolonged expiratory phase. Cardiac: S1, S2. Abdomen: Soft. Extremities: Reveal chronic vascular disease with dressings on the right foot. LABORATORY DATA AND DIAGNOSTICS: Chest x-ray reveals cardiomegaly with better visualization in the lung bases with continued small effusions present. White blood count 7.43, hemoglobin 9.0, platelet count 227,000. Sodium 146, potassium 3.7, chloride 92, bicarbonate 44, BUN 19, creatinine 1.0. Arterial blood gas reveals pH 7.53, pCO2 of 59, PO2 of 165. IMPRESSION: A 64-year-old with: 1. Acute hypoxemic respiratory failure. 2. Chronic hypercapnic respiratory failure. 3. Systolic heart failure. 4. Bilateral pleural effusions with some radiographic improvement. 5. Diabetes mellitus. 6. Peripheral vascular disease. 7. Encephalopathy. 8. Chronic obstructive pulmonary disease with ongoing tobacco use. RECOMMENDATION: 1. Continue to cycle BiPAP at bedtime and p.r.n. 2. Continue diuresis as tolerated. 3. Continue antibiotic regimen pending radiographic improvement. 4. Continue to mobilize patient as tolerated. If he survives this hospitalization, he may require a rehab stay. cc: Jeffrey Spence MD
[2019-05-21] MEDS: ASPIRIN EC PO SCH (16:10)
[2019-05-21] MEDS: LACTULOSE PO SCH (20:53)
[2019-05-21] MEDS: MORPHINE IV PRN (23:16)
[2019-05-22 04:56] LABS: ALLEN TEST YES; BE 22.2 mmoll (-3.0-3.0); BLOOD TYPE ARTERIAL; HCO3-(ACT) 42.2 mmoll (20.0-26.0); METHB 1.2 % (0.0-1.5); O2(CT) 12.5 mL/dL (15.0-23.0); O2HB 93.6 % (95.0-99.0); PO2(98.6) 75 mmHg (60-100); SAMPLE BLOOD; THB 9.4 g/dL (11.5-17.4); pH(98.6) 7.41 (7.35-7.45)
[2019-05-22 04:57] LABS: MODALITY CANNULA; PCO2(98.6) 79 mmHg (35-45)
[2019-05-22] MEDS: LASIX 100 MG in NS 90 ML IV SCH ×2 (05:02→06:23)
[2019-05-22] MEDS: LOVENOX SUBQ SCH (05:02)
[2019-05-22] MEDS: HUMALOG SUBQ SCH ×4 (06:05→21:01)
[2019-05-22 06:28] LABS: BASO# 0.05 X1000 (0.0-0.2); BASO% 0.6 % (0.0-0.8); EOS# 0.33 X1000 (0.0-0.7); HEMATOCRIT 32.8 % (42.0-52.0); HEMOGLOBIN 9.1 g/dL (14.0-18.0); IMM GRAN# 0.02 X1000 (0.0-0.04); IMM GRAN% 0.2 % (0.0-0.5); LYMPH# 1.12 X1000 (1.2-3.4); LYMPH% 13.6 % (20.5-51.1); MCH 20.9 PG (27-31); MCHC 27.7 g/dL (33-37); MCV 75.2 FL (81-99); NEUT# 5.79 X1000 (1.4-6.5); NEUT% 70.6 % (42.2-75.2); PLT 213 X1000 (130-400); RBC 4.36 XMIL (4.7-6.1); RDW 17.4 % (11.5-14.5); WBC 8.21 X1000 (4.8-10.8)
[2019-05-22 06:58] LABS: AGAP 13; BUN 27 mg/dL (8-22); CALCIUM 9.1 mg/dL (8.8-10.2); CHLORIDE 92 mmol/L (98-107); COSMO 298; GLUCOSE 133 mg/dL (70-104); MAGNESIUM 1.9 mg/dL (1.5-2.7); POTASSIUM 3.4 mmol/L (3.5-5.1); SODIUM 146 mmol/L (136-145); TCO2 41 mmol/L (25-35)
[2019-05-22 07:16] LABS: ESTIMATED GFR > 60
[2019-05-22] MEDS: TEFLARO 600 MG in NS 250 ML IV SCH ×2 (07:39→21:01)
--- NOTE | 2019-05-22 07:54 | Diag Imaging Result Doc PS360 ---
EXAM: CHEST-1 VIEW - 05/22/2019 HISTORY: SOB TECHNIQUE: Portable chest COMPARISON: 05/21/2019 FINDINGS: There is been mild increase in bilateral infiltrates compared to prior. These may relate to pulmonary edema and/or pneumonia. There is a small right pleural effusion. There is no pneumothorax identified. Heart size is stable. IMPRESSION: Mild increase in bilateral infiltrates. These may relate to pulmonary edema and/or pneumonia. Electronically signed by Rudolph Goldberg 05/22/2019 7:52 AM
[2019-05-22] MEDS: DUONEB (A & A) INH SCH ×5 (08:11→23:19)
[2019-05-22] MEDS: NICODERM PATCH TD SCH (09:10)
[2019-05-22] MEDS: MIRALAX PO SCH (09:10)
[2019-05-22] MEDS: ASPIRIN EC PO SCH (09:10)
[2019-05-22] MEDS: LANOXIN PO SCH (09:11)
[2019-05-22] MEDS: LACTULOSE PO SCH (09:11)
[2019-05-22] MEDS: ISORDIL PO SCH ×3 (09:11→16:34)
[2019-05-22] MEDS: APRESOLINE PO SCH ×3 (09:11→16:34)
[2019-05-22] MEDS: SANTYL OINT TOP SCH (09:12)
[2019-05-22 09:15] LABS: DIGOXIN 0.8 ng/mL (0.9-2.0)
[2019-05-22] MEDS ORDERED: CORDARONE 360 MG/D5W 360 MG/200 ML IV.SOLN IV ONE (10:04)
[2019-05-22] MEDS ORDERED: CORDARONE 150 MG/D5W 150 MG/100 ML IV.SOLN IV ONE (10:11)
[2019-05-22] MEDS: POTASSIUM CHLORIDE 20 MEQ/SWI 20 MEQ/100 ML IVPB IV SCH ×2 (14:26→16:34)
[2019-05-22] MEDS ORDERED: MAGNESIUM SULFATE 2 GM/S.W.I. 2 GM/50 ML IVPB IV ONE (14:30)
--- NOTE | 2019-05-22 14:31 | PROGRESS NOTE ---
DATE: 05/22/2019 SUBJECTIVE: Patient has no major complaints. OBJECTIVE: Blood pressure is 118/54, heart rate 74, respiratory rate 24, temperature 97.3 degrees, 94% on 6 L.Cardiovascular: Regular rate and rhythm. Pulmonary: Bilateral breath sounds. Clear to auscultation. GI: Soft, nontender, nondistended. Bowel sounds are positive. LABORATORY DATA: White count 8, hemoglobin and hematocrit 9 and 32, platelets 213,000, pH 7.41, pCO2 79, paO2 75. Sodium 146, potassium 3.4, BUN is up to 27, digitalis level was normal. Laboratory data as described. PROBLEM LIST: 1. Acute hypercapnic respiratory failure due to acute systolic heart failure. He is doing okay. He had been on Lasix drip and now we have changed him to bolus dosing. 2. Ventricular tachycardia. He is now on amiodarone. Dr. Oscar has evaluated. So far this has stabilized his rhythm. Will try to keep his potassium above 4, magnesium above 2 and follow closely. I have held his Eliquis just because of he has had a recent stroke and just risk of hemorrhagic conversion but we will get Neurology to evaluate tomorrow and decide if do feel like he has a true stroke. 3. Chronic obstructive pulmonary disease exacerbation. He off BiPAP trying to wean oxygen. 4. Acute congestive heart failure exacerbation systolic. He is on Lasix, hydralazine, digoxin, Imdur and now amiodarone. 5. Right lower extremity foot ulcer. He is on Teflaro which should cover methicillin-resistant Staphylococcus aureus and other diabetic foot ulcer gram-negative rods. 6. Disposition. He is still altered obviously with the ventricular tachycardia episode. We are going to follow in the ICU until things stabilize a bit more and follow closely. cc: Jose Azul MD [facility]
[2019-05-22] MEDS ORDERED: NS 250 ML ONE (15:03)
[2019-05-22] MEDS ORDERED: CORDARONE 540 MG in D5W 289.2 ML IV ONE (16:05)
[2019-05-22] MEDS: LASIX IV SCH (16:34)
--- NOTE | 2019-05-22 17:25 | EKG Report ---
Test Performed on : 05/22/2019 4:19:34 PM Test Reason : NEW ONSET VTACH Blood Pressure : / mmHG Vent. Rate : 070 BPM Atrial Rate : 070 BPM P-R Int : 168 ms QRS Dur : 102 ms QT Int : 394 ms P-R-T Axes : 014 048 169 degrees QTc Int : 425 ms Sinus rhythm. with occasional premature ventricular complexes. Septal infarct (cited on or before 07-SEP-2018) ST & T wave abnormality, consider lateral ischemia Abnormal ECG When compared with ECG of 19-MAY-2019 06:41, (Unconfirmed) premature ventricular complexes. are now present QRS duration has decreased T wave inversion now evident in Anterior leads QT has shortened Confirmed by Timbo Cleary MD ([id number]) on 05/24/2019 8:29:41 AM
--- NOTE | 2019-05-22 20:47 | PULMONOLOGY PROGRESS NOTE ---
DATE: 05/22/2019 INTERIM HISTORY: Patient was doing well and was getting up in a chair when he developed ventricular tachycardia. The patient spontaneously converted back into sinus rhythm. OBJECTIVE: Vital signs: The patient has been afebrile for the last 24 hours. Blood pressure 118/54, heart rate 76, respiratory rate 17, oxygen saturation 98% on 6 L per nasal cannula. HEENT: Pupils are equal and reactive. Oropharynx appears clear. Neck: Supple. Chest: Reveals occasional rhonchi bilaterally with crackles in both lung bases. Cardiac: S1-S2. Abdomen: Soft. Extremities: Reveal chronic vascular insufficiency. He has an ischemic ulcer on the right foot which is currently being dressed by the nursing staff. LABORATORIES: Chest x-ray reveals mild increased infiltrates. White blood count 8.21, hemoglobin 9.1, platelet count 213,000. Arterial blood gas on nasal cannula reveals pH 7.41, pCO2 of 79, PO2 of 75. Sodium 146, potassium 3.4, chloride 92, bicarbonate 41, BUN 27, creatinine 1.0. IMPRESSION: A 64-year-old with 1. Acute hypoxemic respiratory failure. 2. Chronic hypercapnic respiratory failure. 3. Systolic heart failure. 4. Bilateral pleural effusions. 5. Diabetes mellitus. 6. Peripheral vascular disease. 7. Encephalopathy. 8. Chronic obstructive pulmonary disease. 9. Nicotine addiction with ongoing tobacco use. 10. Ventricular tachycardia. PLAN: 1. Agree with cardiology evaluation as you have planned. 2. Continue to cycle BiPAP at bedtime and p.r.n. 3. Diuresis as tolerated. 4. Continue antibiotics. 5. Overall prognosis is guarded. cc: Jeffrey Spence MD
[2019-05-23] MEDS: LASIX IV SCH ×3 (01:00→18:13)
[2019-05-23 04:37] LABS: ALLEN TEST YES; BE 17.6 mmoll (-3.0-3.0); BLOOD TYPE ARTERIAL; HCO3-(ACT) 38.6 mmoll (20.0-26.0); METHB 1.5 % (0.0-1.5); O2(CT) 10.4 mL/dL (15.0-23.0); O2HB 94.1 % (95.0-99.0); PO2(98.6) 73 mmHg (60-100); SAMPLE BLOOD; SAO2 98.5 % (95.0-100.0); THB 7.8 g/dL (11.5-17.4); pH(98.6) 7.46 (7.35-7.45)
[2019-05-23 04:39] LABS: MODALITY BI PAP; PCO2(98.6) 61 mmHg (35-45)
[2019-05-23] MEDS: LOVENOX SUBQ SCH (05:37)
[2019-05-23] MEDS: HUMALOG SUBQ SCH ×5 (05:38→20:09)
[2019-05-23] MEDS: TYLENOL PO PRN (06:13)
[2019-05-23] MEDS: MORPHINE IV PRN (06:26)
--- NOTE | 2019-05-23 06:41 | Diag Imaging Result Doc PS360 ---
EXAM: CHEST-1 VIEW HISTORY: SOB TECHNIQUE: Portable chest single view COMPARISON: 05/22/2019 FINDINGS: The lungs are well expanded. Mild cardiomegaly. There is a small right pleural effusion. The bilateral infiltrates with pulmonary edema. These are slightly less pronounced. IMPRESSION: Mild interval improvement. Electronically signed by Matt Padilla 05/23/2019 6:38 AM
[2019-05-23 06:48] LABS: BASO# 0.03 X1000 (0.0-0.2); BASO% 0.4 % (0.0-0.8); EOS# 0.38 X1000 (0.0-0.7); EOS% 4.5 % (0.0-10.0); HEMOGLOBIN 8.7 g/dL (14.0-18.0); IMM GRAN# 0.02 X1000 (0.0-0.04); IMM GRAN% 0.2 % (0.0-0.5); LYMPH# 0.86 X1000 (1.2-3.4); LYMPH% 10.3 % (20.5-51.1); MCH 20.8 PG (27-31); MCHC 28.1 g/dL (33-37); MCV 74.2 FL (81-99); MONO# 0.73 X1000 (0.11-0.59); MONO% 8.7 % (1.7-9.3); MPV 11.7 FL (7.4-10.4); NEUT# 6.35 X1000 (1.4-6.5); NEUT% 75.9 % (42.2-75.2); PLT 224 X1000 (130-400); RBC 4.18 XMIL (4.7-6.1); RDW 17.6 % (11.5-14.5); WBC 8.37 X1000 (4.8-10.8)
[2019-05-23 07:00] LABS: ESTIMATED GFR > 60
[2019-05-23 07:13] LABS: AGAP 16; BUN 31 mg/dL (8-22); CALCIUM 9.2 mg/dL (8.8-10.2); CHLORIDE 87 mmol/L (98-107); COSMO 285; CREATININE 1.2 mg/dL (0.7-1.2); GLUCOSE 187 mg/dL (70-104); POTASSIUM 3.8 mmol/L (3.5-5.1); SODIUM 137 mmol/L (136-145); TCO2 34 mmol/L (25-35)
[2019-05-23 08:14] LABS: ALLEN TEST NO; BE 12.6 mmoll (-3.0-3.0); BLOOD TYPE ARTERIAL; HCO3-(ACT) 34.6 mmoll (20.0-26.0); METHB 1.1 % (0.0-1.5); O2(CT) 12.3 mL/dL (15.0-23.0); PO2(98.6) 62 mmHg (60-100); SAMPLE BLOOD; SAO2 92.4 % (95.0-100.0); THB 9.8 g/dL (11.5-17.4); pH(98.6) 7.29 (7.35-7.45)
[2019-05-23 08:16] LABS: MODALITY BI PAP; O2HB 88.9 % (95.0-99.0); PCO2(98.6) 87 mmHg (35-45)
[2019-05-23] MEDS: DUONEB (A & A) INH SCH ×5 (08:21→22:48)
[2019-05-23] MEDS ORDERED: MORPHINE IV PRN (08:24)
--- NOTE | 2019-05-23 08:28 | CARDIOLOGY PROGRESS NOTE ---
DATE: 05/23/2019 CHIEF COMPLAINT: Shortness of breath, irregular heartbeat. SUBJECTIVE: Mr. Crum this morning is really struggling to breathe. He apparently got some morphine yesterday. His blood gases this morning on a BiPAP indicate a pH of 7.46, pCO2 of 61, pO2 of 73. He was switched over to a high flow nonrebreather mask. He is moaning, and he has great difficulty verbalizing. OBJECTIVE: Blood pressure is 160/74, temperature 97.9, respirations 25 to 30, pulse 88. He is awake; however, he is having difficulty speaking. He is coughing and sort of choking. He appears to have secretions in the upper airways. Neck veins are slightly prominent. Chest shows diffusely diminished breath sounds. I do not hear wheezes. There are some rales in the left base. Heart sounds are regular at this time. I do not hear any gallop or murmur. Abdomen is nontender. Extremities showed no significant edema. They are wrapped. Neurologic: He is just generally weak. He appears to be in some mildly obtunded state. DIAGNOSTIC DATA: Blood work includes a sodium of 137, potassium 3.8, BUN is 31, creatinine 1.2, chloride 87, carbon dioxide 34. White cell count is 8370, hemoglobin 8.7. Chest x-ray done today shows "mild interval improvement." EKG from yesterday shows sinus rhythm with a diffuse repolarization abnormality, septal scar, and question of inferior scar. The patient yesterday developed 2 runs of ventricular tachycardia. One appears to contain 22 beats, the other one 27 beats. This is nonsustained ventricular tachycardia. He has been started on amiodarone. IMPRESSION: 1. The patient has chronic systolic heart failure plus acute component. He may also have diastolic heart failure. 2. Nonsustained ventricular tachycardia. 3. Chronic hypercarbic respiratory failure with hypoxemic respiratory failure. 4. Suspected pneumonia. 5. Severe peripheral occlusive vascular disease. 6. Question of subendocardial ischemia. RECOMMENDATIONS: At this time, because the patient appears to have some difficulty breathing, more than usual, and more obtundation, I am suggesting to get a STAT set of arterial blood gases. We may have to change his respiratory support scheme if they are worse than early this morning. We will discuss this with the Pulmonary Service. From cardiology, I would continue amiodarone as we are doing for the time being until he is really able to take medications by mouth. cc: Jose Arias MD
[2019-05-23] MEDS: TEFLARO 600 MG in NS 250 ML IV SCH ×2 (09:00→20:08)
[2019-05-23] MEDS: NICODERM PATCH TD SCH (10:30)
[2019-05-23] MEDS: ISORDIL PO SCH ×3 (11:17→18:13)
[2019-05-23] MEDS: MIRALAX PO SCH (11:17)
[2019-05-23] MEDS: ASPIRIN EC PO SCH (11:17)
[2019-05-23] MEDS: APRESOLINE PO SCH ×3 (11:17→18:13)
[2019-05-23] MEDS: SANTYL OINT TOP SCH (11:20)
[2019-05-23] MEDS: MUCOMYST 20% INH SCH ×2 (11:38→19:20)
[2019-05-23 11:46] LABS: ALLEN TEST YES; BLOOD TYPE ARTERIAL; HCO3-(ACT) 37.3 mmoll (20.0-26.0); METHB 0.4 % (0.0-1.5); O2(CT) 11.6 mL/dL (15.0-23.0); O2HB 91.6 % (95.0-99.0); PO2(98.6) 58 mmHg (60-100); SAMPLE BLOOD; SAO2 94.4 % (95.0-100.0); pH(98.6) 7.43 (7.35-7.45)
[2019-05-23 11:47] LABS: MODALITY BI PAP; PCO2(98.6) 64 mmHg (35-45)
--- NOTE | 2019-05-23 12:06 | PROGRESS NOTE ---
DATE: 05/23/2019 SUBJECTIVE: The patient has no major complaints. OBJECTIVE: Vital Signs: Blood pressure 160/74, saturation 89% on BiPAP, temp is 97.8 degrees. Cardiovascular: Regular rate and rhythm. Pulmonary: Bilateral breath sounds. Clear to auscultation. GI: Soft, nontender, nondistended. Bowel sounds are positive. Neurologic: He is following commands though, so I am a little bit more hopeful here. LABORATORY DATA: White count is 8, hemoglobin and hematocrit 8.7 and 31, platelets 224,000. PH 7.29, pCO2 of 87, PaO2 of 62. PROBLEM LIST: 1. Acute hypercapnic respiratory failure. We will continue bilevel positive airway pressure. Hopefully, we do not have to progress to mechanical ventilation. 2. Ventricular tachycardia. He has finished the loading dose on amiodarone. We will continue to follow that. Cardiology is following. Appreciate their assistance. Trying to keep his potassium and his magnesium stable. 3. Chronic obstructive pulmonary disease exacerbation with hypercapnic respiratory failure. We will continue treatment and follow. 4. Right lower extremity foot ulcer. He is on Teflaro, and today will be day 7. 5. Acute ischemic cerebrovascular accident possibility. I am waiting on Neurology to re-evaluate the patient and see how he does there. cc: Jose Azul MD
--- NOTE | 2019-05-23 12:48 | PROGRESS NOTE ---
DATE: 05/23/2019 Mr. Crum is 64 years old and he had recent noncontrast/contrast brain MRI (05/20/2019) showing possible left frontal subcortical lacunar infarction. There is also evidence of a left frontal sinus lesion. reports being aware as long as 20 years ago of sinus disease and "possible tumor" with management recommended, and patient decided to follow this conservatively. She is not certain this has been symptomatic except that he "has trouble with his sinuses." He has also had some soreness in the neck. He has been forgetful in recent months. There is not history of clinical stroke. A week or so ago, he seemed to not feel well without specific complaint or focal neurologic feature. At one point, he might have had some trouble with communication but that was not persistent or consistent. Otherwise, there has not been a diagnosed clinical stroke. He has a past history of heart failure, some runs of ventricular tachycardia this admission, diabetes mellitus, peripheral vascular disease, COPD. His cardiac and pulmonary problems have been managed here. He has been afebrile. Heart rate has been recorded 50s-110s in the last 24 hours. Systolic blood pressures have been recorded 80s-160s. Lab shows anemia, macrocytic indices, blood sugars mid 100s-300s. Home medicine list includes p.r.n. hydrocodone. We do not have urine drug screen this admission. His hospital medication list includes morphine 4 mg one or two doses most days, no doses on 05/22/2019 and one dose earlier this morning. Haloperidol 5 mg was given once on 05/19/2019 and once on 05/20/2019. I do not see anything else on the medication list that likely would be sedating or otherwise associated with encephalopathy. On exam, Mr. Crum is awake, alert, breathing spontaneously. He nodded appropriately. He followed simple commands consistently. He followed commands requiring right/left distinction. He has full lateral eye movement. He counted fingers correctly in the left and right visual renteria. Facial motility is symmetric. He seems to have equal power on brief testing in the limbs. Reflexes are 1+ at the wrists and absent at the ankles bilaterally. He reports diminished pinprick and light touch appreciation in a typical stocking pattern bilaterally. He has good pinprick appreciation over the palms bilaterally. There is no meningismus. IMPRESSION: 1. Clinically, I do not find a focal feature and specifically, I do not find anything that would likely be associated with a left hemisphere lesion. There is no evidence of dysphasia, right hemiparesis, right hemianopia. The location of the left hemisphere lesion on brain MRI would likely not cause a focal neurologic syndrome. He has risk factors for cerebrovascular ischemic problems as reviewed with family at the bedside. I would continue current management. We can try to treat blood sugar aggressively. I do not think the imaging findings indicate evidence of large vessel ischemic cerebrovascular disease and we can treat blood pressure as aggressively as needed. 2. History of forgetfulness. We might consider a cholinesterase inhibitor trial later. 3. Clinical evidence of peripheral neuropathy, presumed diabetic neuropathy. I do not think that problem needs attention now. 4. Imaging evidence of possible sinus disease. This may be chronic and benign. Thanks for asking neurology to see Mr. Crum. cc: Tyler Rodriguez III, MD MTDD
[2019-05-24] MEDS: LASIX IV SCH ×3 (00:48→16:13)
[2019-05-24] MEDS: TYLENOL PO PRN (00:55)
[2019-05-24 04:26] LABS: ALLEN TEST YES; BE 16.5 mmoll (-3.0-3.0); BLOOD TYPE ARTERIAL; HCO3-(ACT) 37.7 mmoll (20.0-26.0); METHB 1.2 % (0.0-1.5); O2(CT) 11.9 mL/dL (15.0-23.0); O2HB 93.1 % (95.0-99.0); PO2(98.6) 65 mmHg (60-100); SAMPLE BLOOD; SAO2 96.2 % (95.0-100.0); pH(98.6) 7.47 (7.35-7.45)
[2019-05-24 04:27] LABS: MODALITY VENTIMASK
[2019-05-24 04:28] LABS: PCO2(98.6) 58 mmHg (35-45)
[2019-05-24 05:05] LABS: BASO% 0.4 % (0.0-0.8); EOS% 3.9 % (0.0-10.0); HEMOGLOBIN 8.4 g/dL (14.0-18.0); LYMPH% 12.9 % (20.5-51.1); MCH 20.8 PG (27-31); MCV 74.3 FL (81-99); MONO% 8.5 % (1.7-9.3); MPV 10.9 FL (7.4-10.4); NEUT% 74.3 % (42.2-75.2); PLT 219 X1000 (130-400); RBC 4.04 XMIL (4.7-6.1); RDW 17.2 % (11.5-14.5); WBC 6.95 X1000 (4.8-10.8)
[2019-05-24 05:06] LABS: BASO# 0.03 X1000 (0.0-0.2); EOS# 0.27 X1000 (0.0-0.7); MONO# 0.59 X1000 (0.11-0.59); NEUT# 5.16 X1000 (1.4-6.5)
[2019-05-24] MEDS: LOVENOX SUBQ SCH (05:06)
[2019-05-24 05:30] LABS: AGAP 16; BUN 27 mg/dL (8-22); CALCIUM 9.1 mg/dL (8.8-10.2); CHLORIDE 91 mmol/L (98-107); COSMO 291; ESTIMATED GFR > 60; GLUCOSE 141 mg/dL (70-104); POTASSIUM 3.5 mmol/L (3.5-5.1); SODIUM 142 mmol/L (136-145); TCO2 35 mmol/L (25-35)
[2019-05-24] MEDS: HUMALOG SUBQ SCH ×4 (06:10→21:29)
--- NOTE | 2019-05-24 07:12 | Diag Imaging Result Doc PS360 ---
EXAM: CHEST-1 VIEW 05/24/2019 HISTORY: SOB TECHNIQUE: AP portable at 0545 COMMENT: There is interstitial and alveolar opacity bilaterally particularly in the lower lung renteria. This is slightly worse with obscuration of both hemidiaphragms. The heart size remains enlarged. IMPRESSION: Slightly worsened pulmonary edema. Electronically signed by Everette Dietz 05/24/2019 7:09 AM
[2019-05-24] MEDS: DUONEB (A & A) INH SCH ×5 (07:54→23:05)
[2019-05-24] MEDS: MUCOMYST 20% INH SCH ×2 (07:56→19:23)
[2019-05-24] MEDS: ASPIRIN EC PO SCH (08:19)
[2019-05-24] MEDS: ISORDIL PO SCH ×3 (08:19→16:13)
[2019-05-24] MEDS: TEFLARO 600 MG in NS 250 ML IV SCH ×2 (08:19→21:17)
[2019-05-24] MEDS: APRESOLINE PO SCH ×3 (08:19→16:13)
[2019-05-24] MEDS: MIRALAX PO SCH (08:20)
[2019-05-24] MEDS: NICODERM PATCH TD SCH (08:20)
[2019-05-24] MEDS: SANTYL OINT TOP SCH (08:21)
--- NOTE | 2019-05-24 09:44 | CARDIOLOGY PROGRESS NOTE ---
DATE: 05/24/2019 CHIEF COMPLAINT: Shortness of breath, confusion. SUBJECTIVE: Mr. Crum is much more lucid today. He is coherent. He follows commands. He is answering properly. He is not agitated. OBJECTIVE: Vital signs: Blood pressure is 127/59, pulse 80, respirations 22, temperature 97 degrees. General: He is awake. HEENT: Unremarkable. Chest: Sounds much clearer to auscultation and percussion. Heart: Sounds are regular and rhythmic. There is a systolic murmur over the aortic area. Abdomen: Soft. Extremities: Showed no significant edema. Neurologic exam: Follows commands, moves all 4 extremities. BLOOD WORK: Hemoglobin 8.4, hematocrit 30%, MCV is 74.3, RDW 17.2. Blood gases: pH 7.47, pCO2 58, pO2 65. He is on a Ventimask. Sodium 142, potassium 3.5, BUN 27, creatinine 1.0. Chest x- ray shows worsening pulmonary edema. Telemetry shows sinus rhythm. IMPRESSION: 1. Patient who presented with hypercarbic and hypoxemic respiratory failure. 2. Congestive heart failure systolic plus diastolic decompensated. 3. Severe coronary heart disease, previous coronary stent. 4. History of peripheral occlusive vascular disease with ischemic limb. 5. Question of non-ST myocardial infarction. 6. Suspected pneumonia. RECOMMENDATIONS: At this time, the patient seems to be improving. I would suggest to continue present course of therapy. We will make adjustments along the way. I believe he can probably be transferred to a step-down unit to continue his convalescence. At this point, I would probably not make any dramatic changes yet to his medications. He had been n.p.o. really for a few days. We will switch him over to oral schedule for all of his medications by tomorrow assuming that his overall condition continues to improve. cc: Jose Arias MD
--- NOTE | 2019-05-24 10:38 | PROGRESS NOTE ---
DATE: 05/24/2019 LOCATION: ICU bed 10. Mr. Crum is awake, alert, bright, attentive. He had some appropriate conversation with me. Voice is strong and speech not significantly dysarthric. Language function is intact on brief bedside testing. He was oriented. I do not have any new thoughts or new suggestions from Neurology standpoint. Later, we might consider further evaluation of cognitive function. The brain imaging findings are noted, but I do not think he is symptomatic with acute prefrontal left hemisphere infarction. Thanks for asking Neurology to see Mr. Crum. I discussed my thoughts with family at the bedside today . cc: Tyler Rodriguez III, MD MTDD
--- NOTE | 2019-05-24 12:40 | PROGRESS NOTE ---
DATE: 05/24/2019 SUBJECTIVE: Patient has no major complaints. OBJECTIVE: Vital Signs: Blood pressure is 127/59, heart rate is 75, respiratory rate 25, temperature 97 degrees. He is 94% on a Venturi, but I do not think he is on 100%, maybe 60%. Anyway, he looks better. He is mentating a lot better. He is on 50%. Cardiovascular: Regular. Pulmonary: Rales at the bases. GI: Soft, nontender, nondistended. Bowel sounds are positive. LABS AND X-RAYS: White count 6.9, hemoglobin and hematocrit 8 and 30, platelets 219. A pH 7.47, pCO2 58, PaO2 65. Basic was normal. Creatinine of 1. Chest x-ray shows slightly worsened pulmonary edema. IV is fine if it is ready to go. PROBLEM LIST: 1. Acute hypercapnic respiratory failure. We will continue BiPAP as needed. He takes it at night as needed. Overall, though, he has improved. His hypercapnia improved. 2. Ventricular tachycardia. He is on amiodarone or had been. I do not know if he is on a maintenance dose now or not. I guess we will continue to follow. I may keep him on a little bit of Lopressor. 3. Pneumonia. He is on empiric antibiotics. We will continue to follow. 4. Right diabetic foot ulcer. He is on Teflaro. Continue wound care. 5. Acute systolic congestive heart failure exacerbation. We will continue diuretics and monitor closely. DISPOSITION: Pending clinical status, but I agree with Dr. Arias that he should be able to go to the floor. I am going to just start a little bit of beta fritz since he did have the ventricular tachycardia. cc: Jose Azul MD
[2019-05-24] MEDS: LOPRESSOR PO SCH ×2 (14:40→21:17)
[2019-05-25] MEDS: LASIX IV SCH ×3 (00:46→21:11)
[2019-05-25 04:05] LABS: ALLEN TEST YES; BE 16.6 mmoll (-3.0-3.0); BLOOD TYPE ARTERIAL; HCO3-(ACT) 37.8 mmoll (20.0-26.0); METHB 0.9 % (0.0-1.5); O2(CT) 11.1 mL/dL (15.0-23.0); O2HB 93.1 % (95.0-99.0); PO2(98.6) 65 mmHg (60-100); SAMPLE BLOOD; SAO2 96.2 % (95.0-100.0); THB 8.4 g/dL (11.5-17.4); pH(98.6) 7.47 (7.35-7.45)
[2019-05-25 04:12] LABS: MODALITY CANNULA; PCO2(98.6) 58 mmHg (35-45)
[2019-05-25] MEDS: TYLENOL PO PRN ×2 (04:27→21:33)
[2019-05-25] MEDS: LOVENOX SUBQ SCH (06:01)
[2019-05-25] MEDS: HUMALOG SUBQ SCH ×4 (06:01→21:12)
[2019-05-25 07:07] LABS: HEMATOCRIT 31.9 % (42.0-52.0); HEMOGLOBIN 8.9 g/dL (14.0-18.0); MCH 21.2 PG (27-31); MCHC 27.9 g/dL (33-37); MPV 10.8 FL (7.4-10.4); RBC 4.2 XMIL (4.7-6.1); RDW 17.4 % (11.5-14.5); WBC 7.21 X1000 (4.8-10.8)
--- NOTE | 2019-05-25 07:12 | Diag Imaging Result Doc PS360 ---
EXAM: CHEST-1 VIEW 05/25/2019 HISTORY: SOB TECHNIQUE: AP portable at 0544 COMMENT: There is interstitial and alveolar opacity bilaterally. There has been some improvement particularly in the left mid lung field since 05/24/2019. There are bilateral pleural effusions. There is cardiomegaly. IMPRESSION: Slightly improved pulmonary edema versus pneumonia. Electronically signed by Everette Dietz 05/25/2019 7:10 AM
[2019-05-25 07:21] LABS: AGAP 13; BUN 27 mg/dL (8-22); CALCIUM 9.5 mg/dL (8.8-10.2); CHLORIDE 94 mmol/L (98-107); COSMO 293; CREATININE 1.2 mg/dL (0.7-1.2); ESTIMATED GFR > 60; GLUCOSE 191 mg/dL (70-104); MAGNESIUM 2.2 mg/dL (1.5-2.7); POTASSIUM 3.3 mmol/L (3.5-5.1); SODIUM 142 mmol/L (136-145); TCO2 35 mmol/L (25-35)
[2019-05-25] MEDS ORDERED: POTASSIUM CHLORIDE 20% LIQUID PO ONE (07:25)
[2019-05-25] MEDS: MUCOMYST 20% INH SCH ×2 (07:28→19:55)
[2019-05-25] MEDS: DUONEB (A & A) INH SCH ×5 (07:28→23:51)
--- NOTE | 2019-05-25 08:11 | Carotid Study ---
DATE: 05/21/2019 REFERRING PHYSICIAN: Dr. Azul. READING PHYSICIAN: Dr. Ramsay. ANIMAL ANATOMIST: Sonali. INDICATION: Stroke. FINDINGS: A scattered soft plaque is noted in the right internal carotid artery, with corresponding increased velocity in turbulent flow. Similar-appearing lesions are noted in the left internal carotid artery. The percent stenosis is 40% to 59% bilaterally. INTERPRETATION: Moderate stenosis and carotid plaque in the bilateral internal carotid arteries. There is antegrade vertebral flow bilaterally. This does not appear to be hemodynamically significant at this time. cc: MD Jose Purdy MD
--- NOTE | 2019-05-25 08:39 | CARDIOLOGY PROGRESS NOTE ---
DATE: 05/25/2019 CHIEF COMPLAINT: Patient with shortness of breath. SUBJECTIVE: Mr. Crum has been moved to the stepdown unit. He is sitting up in a chair now. Here, he sounds more coherent and follows commands without difficulty. His chest x-ray today shows slightly improved pulmonary edema versus pneumonia. He wonders when he can go home and when the catheter of the bladder can be removed. OBJECTIVE: VITAL SIGNS: Blood pressure 124/48, temperature 98 degrees, pulse 70, respirations 15. GENERAL: He is awake, alert and oriented, in no distress. He was sluggish to answer ,however he is much more alert than the preceding days. HEENT: Unremarkable. CHEST: Diffusely diminished breath sounds. HEART: Sounds are slightly irregular at times. Questionable gallop. ABDOMEN: Nontender. EXTREMITIES: Showed no edema. NEUROLOGICAL: Follows commands. BLOOD WORK: Today, hemoglobin is 8.9, hematocrit 39.9. PH 7.47, PCO2 58, PO2 is 65. Sodium 142, potassium 3.3, BUN 27, creatinine 1.2. IMPRESSION: 1. Patient who has chronic systolic heart failure. This appears to be improving with intravenous Lasix. 2. Hypokalemia secondary to the Lasix. 3. Severe coronary heart disease with coronary stent. 4. Hypercarbic respiratory failure. This appears to be somewhat more stable. 5. Severe peripheral occlusive arterial disease. 6. Question of non-ST myocardial infarction. 7. Suspected pneumonia. RECOMMENDATIONS: At this time, we will continue with supportive measures. He is on third generation cephalosporin and we will replace his potassium. We will see how he does over the course of the next few days. I think the patient is gradually improving. He may get to be discharged probably by the weekend. cc: Jose Arias MD [facility]
[2019-05-25] MEDS: APRESOLINE PO SCH ×3 (09:32→16:51)
[2019-05-25] MEDS: ISORDIL PO SCH ×3 (09:32→16:52)
[2019-05-25] MEDS: LOPRESSOR PO SCH (09:32)
[2019-05-25] MEDS: TEFLARO 600 MG in NS 250 ML IV SCH ×2 (09:32→21:11)
[2019-05-25] MEDS: ASPIRIN EC PO SCH (09:32)
[2019-05-25] MEDS: NICODERM PATCH TD SCH (09:33)
[2019-05-25] MEDS: MIRALAX PO SCH (09:33)
[2019-05-25] MEDS ORDERED: POTASSIUM CHLORIDE 20 MEQ/SWI 20 MEQ/100 ML IVPB IV SCH (10:00)
[2019-05-25] MEDS ORDERED: TEARISOL OPH SOLUTION OPH PRN (10:31)
[2019-05-25] MEDS ORDERED: NORCO-7.5 PO PRN (13:50)
--- NOTE | 2019-05-25 14:11 | PROGRESS NOTE ---
DATE: 05/25/2019 SUBJECTIVE: Patient is sitting up in bed. He seems like he is doing better. No major complaints. OBJECTIVE: Blood pressure 96/32, heart rate of 67, respiratory rate of 33, temperature 98.1 degrees. Cardiovascular: Regular rate and rhythm. Pulmonary: Improved breath sounds at the right base. GI: Soft, nontender, nondistended. Bowel sounds were positive. Extremity Examination: No clubbing or cyanosis. Lymphatic Examination: No peripheral edema. Neurological: Examination was nonfocal. Laboratory Data: White count 7, hemoglobin and hematocrit 8 and 31, platelets 251,000. PH 7.47, pCO2 of 58, PaO2 of 65. Potassium 3.2, creatinine 1.2. PROBLEM LIST: 1. Acute systolic congestive heart failure exacerbation. We will continue diuretics. I am going to tone them back a little bit, just because he is on the hypotensive side, and follow. 2. Acute hypercapnic respiratory failure. He is on BiPAP intermittently. 3. Ventricular tachycardia. He has received amiodarone but he is not on it now. I have just kept him on a little bit of Lopressor. 4. Pneumonia. He is on Teflaro, day 7, day 8. We will continue to monitor. 5. Diabetic foot ulcer. He is also on Teflaro. Continue wound care. 6. Disposition. He seems to be stable. Probably watch him 1 more day. Continue physical therapy and occupational therapy. We discussed the possibility of rehab but he seems very much against it, so we will continue physical therapy and see how he does. cc: Jose Azul MD
[2019-05-26] MEDS ORDERED: HALDOL IM ONE (00:48)
[2019-05-26 01:14] LABS: ALLEN TEST YES; BE 12.3 mmoll (-3.0-3.0); BLOOD TYPE ARTERIAL; HCO3-(ACT) 34.5 mmoll (20.0-26.0); METHB 0.7 % (0.0-1.5); O2(CT) 11.8 mL/dL (15.0-23.0); O2HB 92.1 % (95.0-99.0); PCO2(98.6) 50 mmHg (35-45); PO2(98.6) 59 mmHg (60-100); SAMPLE BLOOD; SAO2 95.3 % (95.0-100.0); THB 9.1 g/dL (11.5-17.4); pH(98.6) 7.48 (7.35-7.45)
[2019-05-26 01:15] LABS: MODALITY CANNULA
[2019-05-26 05:06] LABS: ALLEN TEST YES; BE 9.6 mmoll (-3.0-3.0); BLOOD TYPE ARTERIAL; HCO3-(ACT) 32.4 mmoll (20.0-26.0); METHB 0.5 % (0.0-1.5); O2HB 93.2 % (95.0-99.0); PCO2(98.6) 50 mmHg (35-45); PO2(98.6) 65 mmHg (60-100); SAMPLE BLOOD; SAO2 96.3 % (95.0-100.0); THB 9.1 g/dL (11.5-17.4); pH(98.6) 7.45 (7.35-7.45)
[2019-05-26 05:07] LABS: MODALITY CANNULA
[2019-05-26] MEDS: LOVENOX SUBQ SCH (05:45)
[2019-05-26] MEDS: SANTYL OINT TOP SCH ×2 (05:45→08:43)
[2019-05-26] MEDS: HUMALOG SUBQ SCH ×4 (06:27→22:26)
--- NOTE | 2019-05-26 07:06 | Diag Imaging Result Doc PS360 ---
EXAM: CHEST-1 VIEW 05/26/2019 HISTORY: SOB TECHNIQUE: AP portable at 0524 COMMENT: The alveolar opacity in the lower lung renteria which previously obscured both hemidiaphragms has improved. There continues to be diffuse interstitial and alveolar opacity however. IMPRESSION: Slightly improved pulmonary edema/ARDS. Electronically signed by Everette Dietz 05/26/2019 7:03 AM
[2019-05-26] MEDS: DUONEB (A & A) INH SCH ×5 (07:32→23:37)
[2019-05-26] MEDS: MUCOMYST 20% INH SCH ×2 (07:32→19:48)
[2019-05-26 08:06] LABS: HEMATOCRIT 32.6 % (42.0-52.0); HEMOGLOBIN 9.1 g/dL (14.0-18.0); MCH 21.3 PG (27-31); MCHC 27.9 g/dL (33-37); MCV 76.2 FL (81-99); RBC 4.28 XMIL (4.7-6.1); RDW 17.3 % (11.5-14.5); WBC 8.78 X1000 (4.8-10.8)
[2019-05-26 08:38] LABS: AGAP 19; BUN 30 mg/dL (8-22); CALCIUM 9.2 mg/dL (8.8-10.2); CHLORIDE 99 mmol/L (98-107); COSMO 303; CREATININE 1.2 mg/dL (0.7-1.2); ESTIMATED GFR > 60; GLUCOSE 206 mg/dL (70-104); POTASSIUM 3.8 mmol/L (3.5-5.1); SODIUM 146 mmol/L (136-145); TCO2 28 mmol/L (25-35)
[2019-05-26] MEDS: ASPIRIN EC PO SCH (08:39)
[2019-05-26] MEDS: MIRALAX PO SCH (08:39)
[2019-05-26] MEDS: TEFLARO 600 MG in NS 250 ML IV SCH ×2 (08:39→20:19)
[2019-05-26] MEDS: NICODERM PATCH TD SCH (08:39)
[2019-05-26] MEDS: LASIX IV SCH (08:39)
[2019-05-26] MEDS: APRESOLINE PO SCH ×3 (08:40→16:36)
[2019-05-26] MEDS: ISORDIL PO SCH ×3 (08:40→16:36)
[2019-05-26] MEDS: LOPRESSOR PO SCH (10:33)
[2019-05-26] MEDS: TYLENOL PO PRN (10:33)
--- NOTE | 2019-05-26 14:34 | PROGRESS NOTE ---
DATE: 05/26/2019 Mr. Crum has continued to improve. He is sitting up today, bright and alert, attentive and spontaneous with conversation. There is a sister at the bedside now. I briefly discussed the possibility that we might consider further neurologic workup later for his forgetfulness and the imaging evidence of possible tiny infarction. No urgent suggestions. Thanks for asking Neurology to see Mr. Crum. cc: Tyler Rodriguez III, MD MTDD
--- NOTE | 2019-05-26 15:00 | EKG Report ---
Test Performed on : 05/26/2019 2:54:23 PM Test Reason : telemetry changes Blood Pressure : / mmHG Vent. Rate : 050 BPM Atrial Rate : 050 BPM P-R Int : 180 ms QRS Dur : 114 ms QT Int : 510 ms P-R-T Axes : 074 085 175 degrees QTc Int : [address] & T wave abnormality, consider inferior ischemia ST & T wave abnormality, consider anterolateral ischemia Prolonged QT Abnormal ECG When compared with ECG of 22-MAY-2019 16:19, premature ventricular complexes. are no longer present Criteria for Septal infarct are no longer present T wave inversion less evident in Inferior leads Confirmed by Timbo Cleary MD ([id number]) on 05/27/2019 6:19:44 AM
[2019-05-26] MEDS ORDERED: LASIX IV SCH (16:23)
[2019-05-26] MEDS: CORDARONE PO SCH ×2 (16:35→20:19)
--- NOTE | 2019-05-26 17:52 | PROGRESS NOTE ---
DATE: 05/26/2019 SUBJECTIVE: The patient has no major complaints. He looks better, little stronger, mentating a little bit better every day. OBJECTIVE: Vital signs: Blood pressure 113/44, heart rate of 53, respiratory rate of 15, temperature 97.9 degrees, 99% on 3 L. Cardiovascular: Regular rate and rhythm. Pulmonary: Bilateral breath sounds. Clear to auscultation. GI: Soft, nontender, nondistended. Bowel sounds are positive. LABORATORY DATA: White count 8, hemoglobin and hematocrit 9 and 32, platelets 296,000. PH 7.48, pCO2 50, PaO2 59. BUN and creatinine of 30 and 1.2. PROBLEM LIST: 1. Acute congestive heart failure exacerbation. We will continue diuretics. He seems to be slowly improving. May titrate down a little bit on his diuretics. His I's and O's, he has put out a total of 21 L since the beginning of admission, about 1850 since yesterday. Still has peripheral edema. 2. Acute hypercapnic respiratory failure. He is on BiPAP. Continue to monitor. 3. Ventricular tachycardia. He has not had any more issues with that. We have reinstituted amiodarone after discussion with Cardiology. 4. Electrocardiogram changes. He has some ST changes. He is asymptomatic. I did not see any big changes there. I am not sure what that is coming from. 5. Pneumonia. He is on Teflaro, day 8. We will continue to follow. 6. Diabetic foot ulcer. He is also on Teflaro and wound care. DISPOSITION: He is not wanting rehab, so we will set up home health, home PT which I think he has had that previously. Anticipate discharge tomorrow versus the next day, pending other providers. cc: Jose Azul MD
--- NOTE | 2019-05-26 19:22 | PROGRESS NOTE ---
DATE: 05/26/2019 SUBJECTIVE: The patient denies shortness of breath or chest discomfort. OBJECTIVE: Blood pressure 113/60, heart rate 53 to 57, oxygen saturation 99% on nasal cannula oxygen. Jugular venous distention cannot be appreciated. Auscultation of the chest reveals diminished breath sounds diffusely. Cardiac exam reveals a regular rate and rhythm without appreciable murmur or gallop. Extremities demonstrate trace edema. LABORATORY DATA: Includes a white blood cell count of 8.78, hematocrit 32.6, hemoglobin 9.1, platelet count 296,000. Sodium 146, potassium 3.8, chloride 99, carbon dioxide 28, BUN 30, creatinine 1.2, glucose 206. Magnesium 2.2. IMPRESSION: 1. [id number] systolic heart failure, improving with diuresis. The patient appears to be approaching euvolemia. 2. Hypercapnic respiratory failure, likely related to significant chronic obstructive pulmonary disease. 3. Severe peripheral artery disease. 4. Atherosclerotic coronary disease with history of previous coronary angioplasty/stenting in the past. The patient continues without angina. 5. Suspected pneumonia. RECOMMENDATIONS: 1. Continue antibiotic coverage for possible pneumonia and treatment of COPD. 2. Favor transitioning to oral Lasix tomorrow morning and monitoring clinical response. cc: Enmanuel Spears MD
[2019-05-27] MEDS: LOVENOX SUBQ SCH (06:03)
[2019-05-27] MEDS: HUMALOG SUBQ SCH ×2 (06:33→11:44)
[2019-05-27 07:23] VITALS: BP 107/37
[2019-05-27 08:09] LABS: HEMATOCRIT 29.8 % (42.0-52.0); HEMOGLOBIN 8.4 g/dL (14.0-18.0); RBC 4.02 XMIL (4.7-6.1); WBC 5.74 X1000 (4.8-10.8)
[2019-05-27 08:10] LABS: MCH 20.9 PG (27-31); MCHC 28.2 g/dL (33-37); MCV 74.1 FL (81-99); MPV 11.5 FL (7.4-10.4); RDW 17.4 % (11.5-14.5)
[2019-05-27] MEDS: DUONEB (A & A) INH SCH ×2 (08:10→11:00)
[2019-05-27] MEDS: MUCOMYST 20% INH SCH (08:11)
[2019-05-27 08:16] LABS: AGAP 14; BUN 32 mg/dL (8-22); CALCIUM 9.2 mg/dL (8.8-10.2); CHLORIDE 96 mmol/L (98-107); COSMO 299; CREATININE 1.2 mg/dL (0.7-1.2); ESTIMATED GFR > 60; GLUCOSE 295 mg/dL (70-104); POTASSIUM 3.9 mmol/L (3.5-5.1); SODIUM 141 mmol/L (136-145); TCO2 31 mmol/L (25-35)
[2019-05-27] MEDS: LASIX PO SCH ×2 (08:41→08:42)
[2019-05-27] MEDS: ISORDIL PO SCH (08:41)
[2019-05-27] MEDS: MIRALAX PO SCH (08:41)
[2019-05-27] MEDS: APRESOLINE PO SCH (08:41)
[2019-05-27] MEDS: SANTYL OINT TOP SCH (08:41)
[2019-05-27] MEDS: CORDARONE PO SCH (08:41)
[2019-05-27] MEDS: NICODERM PATCH TD SCH (08:41)
[2019-05-27] MEDS: ASPIRIN EC PO SCH (08:41)
[2019-05-27] MEDS: TYLENOL PO PRN (08:41)
[2019-05-27] MEDS: TEFLARO 600 MG in NS 250 ML IV SCH (08:42)
--- NOTE | 2019-05-27 11:23 | DISCHARGE SUMMARY ---
ADMISSION DATE: 05/16/2019 DISCHARGE DATE: 05/27/2019 PRIMARY CARE PHYSICIAN: Dr. Irby. ADMISSION DIAGNOSES: 1. Acute respiratory failure secondary to chronic, chronic obstructive pulmonary disease and congestive heart failure. 2. Congestive heart failure exacerbation. 3. Coronary artery disease. 4. Peripheral vascular disease. 5. Metabolic encephalopathy secondary to CO2 retention. 6. Diabetes type 2. 7. Acute kidney injury. DISCHARGE DIAGNOSES: 1. An acute congestive heart failure exacerbation. 2. Acute hypercapnic respiratory failure. Continues on BiPAP. 3. Ventricular tachycardia, resolved. 4. Pneumonia. 5. Diabetic foot ulcer. SUMMARY OF FINDINGS: This is a 64-year-old male, who presented with a 3 to 4 day history of progressively worsening shortness of breath, 2-day history of orthopnea and PND, had become more lethargic on the day of arrival and had to be placed on BiPAP. He was admitted as his clinical picture was more consistent with congestive heart failure. They started aggressive diuresis. We consulted Cardiology. We did an echocardiogram on 05/16/2019 that showed severely reduced systolic function with an estimated ejection fraction of 25 to 30 percent. We did a chest CT on 05/17/2019 that showed marked increase in the volume of pleural fluid bilaterally, particularly on the right. The possibility of pneumonia could not be excluded in the right lower lobe and pleural- based opacities on the left may be indicative of pulmonary infarcts or septic emboli. General Surgery was consulted for his diabetic wound, and has been being treated throughout his hospitalization. We repeated a chest x-ray on 05/18/2019 that showed an impression of improvement from prior. Repeated a chest x-ray on 05/19/2019 that showed improved cardiomegaly, but slightly worsened pulmonary edema versus pneumonia in the right lower lobe. He was started on antibiotics. We had a Pulmonology consult. We did a brain MRI on 05/20/2019 that showed a questionable lacunar infarct in the left frontal white matter, mucosal thickening and enhancement in the left frontal sinus which may be due to sinusitis or possible neoplasm as suggested in the history. Carotid Dopplers showed moderate stenosis and carotid plaque in the bilateral internal carotid arteries with antegrade vertebral flow bilaterally. This does not appear to be hemodynamically significant at this time. His white count has remained normal. He has been afebrile. His chest x-ray on 05/26/2019 showed slightly improved pulmonary edema/ARDS, so it is now felt that he can safely be discharged home with Home Health Services. DISCHARGE MEDICATIONS: Amiodarone 400 mg p.o. daily, hydralazine 10 mg p.o. t.i.d., Isordil 10 mg p.o. t.i.d., Norvasc 5 mg p.o. b.i.d., Eliquis 5 mg p.o. b.i.d., atorvastatin 80 mg p.o. daily, Symbicort 80/4.5 two puffs inhalation b.i.d., Omnicef 300 mg p.o. b.i.d., Lasix 40 mg p.o. b.i.d., Glucotrol 20 mg p.o. daily, metformin 500 mg two tablets p.o. b.i.d., pantoprazole 40 mg p.o. at bedtime, Lyrica 50 mg p.o. b.i.d., Requip 1 mg p.o. at bedtime, trazodone 50 mg p.o. at bedtime, and Incruse Ellipta 1 puff inhalation daily p.r.n. FOLLOWUP: He will follow up with Dr. Arias, Cardiology, on 06/29/2019 at 1:30 p.m., with his general repair mechanic, Dr. Curran, on 06/02/2019 at 1:15 p.m. He will need to call and schedule an appointment with his primary care physician and with Dr. Garcia for follow-up for his wound care, and he will also have home health. He will follow up also with Dr. [facility]. TIME SPENT: This is a 35 minute discharge. Dictated by SANTOSH Reyes for Jose Azul MD cc: MD Jose Fenton MD Mamoun I. Najjar, MD Kami Whorton, CRNP Alexis R. Penot, MD Robert C. Walker, MD
[2019-05-29] MEDS ORDERED: CORDARONE PO SCH (09:00)
--- NOTE | 2019-05-30 09:47 | DISCHARGE SUMMARY ---
ADMISSION DATE: 05/16/2019 DISCHARGE DATE: 05/27/2019 ADDENDUM: The patient was here for CHF exacerbation. On day of discharge he is doing well. No major complaints. Plan is to discharge today. He is breathing at 3 L. There is no rales or rhonchi. His temperature has been stable. He has home oxygen already. Overall, he seems to be doing okay. Cardiology has transitioned him to oral diuretics. His breathing is stabilized. In any case we, will discharge him. New medications will be antibiotics for his pneumonia. We will decrease his Lyrica to prevent oversedation. Lasix will be maintained, Isordil, amiodarone. We will continue to monitor. Please follow [facility], and Dr. Curran. cc: Jose Azul MD
== END 2019-05-27 13:04 | disposition home health service (06) | DRG 291 ==
LOC: ED 16:19 → ICU 20:35 → SUATTDRO 20:35 → 2N 05-24 18:16
PROVIDERS: ATTEND Internal Medicine

== ENCOUNTER 2019-06-09 10:36 | Inpatient (IN) ==
--- NOTE | 2019-06-09 11:43 | EKG Report ---
Test Performed on : 06/09/2019 10:53:40 AM Test Reason : SOB Blood Pressure : / mmHG Vent. Rate : 069 BPM Atrial Rate : 069 BPM P-R Int : 196 ms QRS Dur : 106 ms QT Int : 414 ms P-R-T Axes : 067 050 126 degrees QTc Int : 443 ms Normal sinus rhythm. Anteroseptal infarct , age undetermined T wave abnormality, consider lateral ischemia Abnormal ECG When compared with ECG of 26-MAY-2019 14:54, Anteroseptal infarct is now present ST no longer depressed in Inferior leads ST no longer depressed in Lateral leads T wave inversion less evident in Anterolateral leads Unconfirmed Result
--- NOTE | 2019-06-09 12:11 | Diag Imaging Result Doc PS360 ---
CHEST-2 VIEWS - 06/09/2019 INDICATION: SOB COMPARISON: 05/26/2019 FINDINGS: Stable cardiomegaly and pulmonary vascular congestion. Has been significant improvement in the dense background interstitial infiltrates bilaterally. No large pleural effusion. There are probably trace pleural effusions. IMPRESSION: Significant improvement in the dense bilateral infiltrates/pulmonary edema. Electronically signed by Harsh Estrada 06/09/2019 12:07 PM
[2019-06-09 12:32] LABS: INR 1.84; PROTIME 21.6 Seconds (11.0-16.0)
[2019-06-09 12:33] LABS: PTT 44.1 Seconds (22.3-41.8)
[2019-06-09 12:35] LABS: BASO# 0.03 X1000 (0.0-0.2); BASO% 0.5 % (0.0-0.8); EOS# 0.03 X1000 (0.0-0.7); EOS% 0.5 % (0.0-10.0); HEMATOCRIT 28.1 % (42.0-52.0); HEMOGLOBIN 7.9 g/dL (14.0-18.0); IMM GRAN# 0.02 X1000 (0.0-0.04); IMM GRAN% 0.4 % (0.0-0.5); LYMPH# 0.68 X1000 (1.2-3.4); LYMPH% 11.9 % (20.5-51.1); MCH 20.8 PG (27-31); MCHC 28.1 g/dL (33-37); MCV 73.9 FL (81-99); MONO# 0.55 X1000 (0.11-0.59); MONO% 9.6 % (1.7-9.3); NEUT# 4.39 X1000 (1.4-6.5); NEUT% 77.1 % (42.2-75.2); PLT 311 X1000 (130-400); RDW 17.8 % (11.5-14.5)
[2019-06-09 12:56] LABS: ALB/GLOB RATIO 1.3; ALBUMIN 3.9 g/dL (3.5-5.0); CALCIUM 8.3 mg/dL (8.8-10.2); POTASSIUM 4.8 mmol/L (3.5-5.1); TOTAL BILIRUBIN 0.59 mg/dL (0.20-1.00)
[2019-06-09] MEDS ORDERED: D50W SYRINGE IV ONE (15:37)
[2019-06-09] MEDS ORDERED: LEVOPHED 8 MG in D5 1/2 NS 250 ML IV SCH (15:45)
[2019-06-09] MEDS ORDERED: TYLENOL PO PRN (16:04)
[2019-06-09] MEDS ORDERED: ZOFRAN IV PRN (16:04)
[2019-06-09] MEDS ORDERED: DUONEB (A & A) INH SCH (16:04)
[2019-06-09] MEDS ORDERED: DOPAMINE 400 MG/D5W 400 MG/500 ML IV.SOLN IV SCH ×2 (16:15→19:15)
[2019-06-09] MEDS ORDERED: DOBUTAMINE 250 MG/D5W 250 MG/250 ML IV.SOLN IV SCH (16:15)
[2019-06-09] MEDS ORDERED: MAGNESIUM SULFATE 2 GM/S.W.I. 2 GM/50 ML IVPB IV ONE ×2 (17:45→21:00)
[2019-06-09] MEDS ORDERED: MORPHINE IV ONE ×2 (17:47→19:22)
[2019-06-09] MEDS ORDERED: DOPAMINE 800 MG/D5W 800 MG/500 ML IV.SOLN IV SCH ×2 (18:15→18:26)
[2019-06-09] MEDS ORDERED: LR 1,000 ML IV SCH (18:15)
--- NOTE | 2019-06-09 18:32 | Diag Imaging Result Doc PS360 ---
ABDOMEN FLAT/UPRIGHT - 06/09/2019 INDICATION: pain COMPARISON: None FINDINGS: There is a nonobstructive bowel gas pattern. No free air or abdominal calcifications. IMPRESSION: No acute disease. Electronically signed by Harsh Estrada 06/09/2019 6:30 PM
[2019-06-09] MEDS ORDERED: ASPIRIN PO STA (18:35)
[2019-06-09 18:45] LABS: ALLEN TEST YES; BE -8.8 mmoll (-3.0-3.0); BLOOD TYPE ARTERIAL; METHB 1.1 % (0.0-1.5); O2(CT) 10.7 mL/dL (15.0-23.0); O2HB 90.7 % (95.0-99.0); PCO2(98.6) 45 mmHg (35-45); PO2(98.6) 65 mmHg (60-100); SAMPLE BLOOD; SAO2 94.3 % (95.0-100.0); THB 8.3 g/dL (11.5-17.4); pH(98.6) 7.22 (7.35-7.45)
[2019-06-09 18:46] LABS: MODALITY CANNULA
[2019-06-09] MEDS: LOVENOX SUBQ SCH (19:03)
--- NOTE | 2019-06-09 19:15 | PROVIDER DOCUMENTATION ---
This chart was entered by Brittni Nielsen Scribe, acting as scribe for Con Chavez MD. HPI-Respiratory General - General Chief Complaint: Shortness of Breath Stated Complaint: FLUID BUILD UP Time Seen by Provider: 06/09/19 14:04 Source: patient, family Allergies/Adverse Reactions: Patient Allergies Allergy/AdvReac Type Severity Reaction Status Date / Time gabapentin AdvReac Unknown Verified 06/09/19 11:28 Home Medications: Home Medication List Medication Instructions Recorded Confirmed Last Taken Type Atorvastatin Calcium 80 mg PO QHS 12/14/13 06/09/19 06/09/19 History Glipizide E.r. [Glucotrol Xl] 10 mg PO DAILY 06/13/17 06/09/19 06/09/19 History Albuterol Sulfate [Proair Hfa] 2 puff INH Q4-6H PRN PRN 02/25/19 06/09/19 History Trazodone [Desyrel] 50 mg PO HS 02/25/19 06/09/19 06/09/19 History Apixaban [Eliquis] 5 mg PO BID #60 tab 02/27/19 06/09/19 06/09/19 Rx Budesonide/Formoterol Fumarate 2 inhaler INH BID 04/21/19 06/09/19 06/09/19 History [Symbicort 80-4.5 Mcg Inhaler] Pantoprazole [Protonix] 40 mg PO HS 04/21/19 06/09/19 06/09/19 History Metformin E.r. [Glucophage Xr] 2 tab PO BID 04/25/19 06/09/19 06/09/19 History Ropinirole [Requip] 1 tab PO QHS 04/25/19 06/09/19 06/09/19 History Furosemide [Lasix] 40 mg PO BID #60 tab 05/27/19 06/09/19 06/09/19 Rx Hydralazine [Apresoline] 10 mg PO TID #90 tab 05/27/19 06/09/19 06/09/19 Rx Isosorbide Dinitrate [Isordil] 10 mg PO TID #90 tab 05/27/19 06/09/19 06/09/19 Rx Pregabalin [Lyrica] 50 mg PO BID #60 cap 05/27/19 06/09/19 06/09/19 Rx Amiodarone [Cordarone] 200 mg PO DAILY 06/09/19 06/09/19 06/09/19 History Ondansetron HCl [Zofran] 4 mg PO Q8H PRN PRN 06/09/19 06/09/19 Unknown History Roflumilast [Daliresp] 500 mcg PO DAILY 06/09/19 06/09/19 Unknown History - History of Present Illness-Resp Nature of Presenting Problem: 64 yowm presents to the ed with c/o sob, decreased appetite, decreased urination, n/v/d, productive cough and wheezing. pt we sts for same complaint and was dc on 05/27/19. pt is toxic in appearance Quality of Pain: reports: fullness Severity in ED: reports: moderate Onset/Duration: reports: other (getting worse for "a few days") Timing: reports: still present, constant, getting worse Cough Quality/Degree: reports: moderate, productive cough, sputum Episode Frequency: chronic episodes Current Respiratory Medication Therapy: Initiated see nurses note Modifying Factors: improves with: oxygen, sitting upright. worse with: exertion, coughing, lying down Associated Symptoms: reports: cough, shortness of breath, wheezing. denies: chest pain/soreness, dizziness, fever/chills Similar Symptoms Previously?: Yes Recently seen or treated by another doctor?: Yes (was admitted to hospitalist 2 weeks prior) Review of Systems - Adult - REVIEW OF SYSTEMS - ADULT ROS:: ROS per family ( helps due to pt being sob with cough) Constitutional: reports: fatique. denies: chills, fever Eyes: reports: no symptoms reported Ears, Nose, Mouth & Throat: reports: no symptoms reported Cardiovascular: reports: edema. denies: chest pain, palpitations Respiratory: reports: see HPI, chronic cough, dyspnea on exertion, excessive sputum production, shortness of breath, wheezing Gastrointestinal: reports: see HPI, diarrhea, nausea, poor appetite, vomiting Genitourinary: reports: see HPI, urinary retention Musculoskeletal: denies: back pain, neck pain Integumentary: reports: no symptoms reported Neurological: denies: dizziness/vertigo, headache/migraines Psychiatric: reports: no symptoms reported Endocrine: reports: no symptoms reported Hematologic/Lymphatic: reports: see HPI, easy bruising, low blood count, transfusions Allergic/Immunologic: reports: no symptoms reported All Other Systems: Reviewed and Negative Past History - Adult - PAST MEDICAL HISTORY-ADULT Review of Records: reports: Old Records Reviewed, Nursing Assessment Review, Medications Reviewed, Social history reviewed & non-contributory. Major Childhood Illnesses: reports: denies history Cardiovascular: reports: cardiac disease, HTN, DE, PAD, PVD Respiratory: reports: asthma, COPD, pneumonia, sleep apnea Gastrointestinal: reports: GERD Genitourinary: reports: kidney disease Musculoskeletal: reports: denies history Neurological: reports: denies history Psychiatric: reports: denies history Endocrine/Immune: reports: Diabetes Other Conditions: reports: cataract/glaucoma - PRIOR SURGERIES/PROCEDURES Surgical/Procedure History: reports: recent surgery, cardiac stent, other (RLE ARTERIAL GRAFT) - IMMUNIZATION STATUS Childhood Immunizations: See Nurse Assessment Flu Vaccine: See Nurse Assessment - FAMILY HISTORY Family History: diabetes, CAD over 55 yo, lung disease - SOCIAL HISTORY Smoking: cigarettes, less than 1 pack/day Provider spent 3-5 mins advising pt. on dangers of tobacco.: Discussed manners to quit use, and f/u contacts for add'l counseling. Physical Exam-General - PHYSICAL EXAM-ADULT Initial Vital Signs Reviewed: Yes (BP-86/40 O2-84% RR-26) - CONSTITUTIONAL General Appearance: alert, moderate distress, obese. negative: appears well (ill appearing) - EYES Eyes: PERRL/EOMI, pale conjunctivae - HEAD, EARS, NOSE, MOUTH & THROAT HENMT: moist mucous membranes, dental decay, other (swelling noted around eyes in soft tissue) - NECK Neck: non-tender, full range of motion, normal inspection - RESPIRATORY Respiratory: respiratory distress, wheezing, increased rate (28), other (87% on 2LPM via nc and stays on contionous home O2) - CARDIOVASCULAR Cardiovascular: normal peripheral pulses, regular rate, rhythm - CHEST (BREASTS) Chest/Breast: deferred - GASTROINTESTINAL (ABDOMEN) Abdominal Exam: soft, distended. negative: guarding, rigid, rebound - GENITOURINARY Male Genitalia: deferred Rectal Exam: deferred Hemoccult Exam: deferred - LYMPHATIC Lymphatic: no adenopathy - MUSCULOSKELETAL Back Exam: no CVA tenderness, no vertebral tenderness Extremity: normal capillary refill, pelvis stable, pedal edema, swelling (BLE), tenderness (rt heel x3 diabetic ulcers) - SKIN Integumentary: warm/dry, pallor - NEUROLOGIC Neurologic: grossly normal - PSYCHIATRIC Psych/Mental Status: normal mood/affect, normal thought content, normal thought process, oriented x 3 Progress - PLAN OF CARE/RESULTS Progress/Plan/Lab Results: Vital Signs - 8 hr 06/09/19 11:30 06/09/19 11:31 06/09/19 12:08 Pulse Rate 72 72 82 Respiratory Rate 24 27 H 40 H Blood Pressure 114/51 O2 Sat by Pulse Oximetry 93 L 93 L 96 06/09/19 12:30 06/09/19 12:31 06/09/19 13:00 Pulse Rate 73 72 73 Respiratory Rate 28 H 20 23 Blood Pressure 116/72 O2 Sat by Pulse Oximetry 91 L 91 L 90 L 06/09/19 13:01 06/09/19 13:30 06/09/19 13:31 Pulse Rate 73 75 74 Respiratory Rate 27 H 26 H 33 H Blood Pressure 136/65 118/55 O2 Sat by Pulse Oximetry 90 L 92 L 93 L 06/09/19 14:03 06/09/19 14:31 06/09/19 15:01 Pulse Rate 72 69 69 Respiratory Rate 19 16 32 H Blood Pressure 122/60 109/56 114/53 O2 Sat by Pulse Oximetry 97 96 93 L 06/09/19 15:15 06/09/19 15:33 06/09/19 15:42 Pulse Rate 69 70 71 Respiratory Rate 23 18 32 H Blood Pressure 120/66 114/54 O2 Sat by Pulse Oximetry 96 93 L 93 L 06/09/19 16:02 Pulse Rate Respiratory Rate Blood Pressure 93/57 O2 Sat by Pulse Oximetry 95 Laboratory Results - last 24 hr 06/09/19 06/09/19 06/09/19 11:45 11:55 11:55 WBC 5.70 RBC 3.80 L Hgb 7.9 L Hct 28.1 L MCV 73.9 L MCH 20.8 L MCHC 28.1 L RDW Std Deviation 17.8 H Plt Count 311 MPV 11.0 H Immature Gran % (Auto) 0.4 Neut % (Auto) 77.1 H Lymph % (Auto) 11.9 L Door % (Auto) 9.6 H Eos % (Auto) 0.5 Baso % (Auto) 0.5 Immature Gran # (Auto) 0.02 Neut # (Auto) 4.39 Lymph # (Auto) 0.68 L Door # (Auto) 0.55 Eos # (Auto) 0.03 Baso # (Auto) 0.03 Segmented Neutrophils Not Reportable PT INR PTT (Actin FS) Sodium 139 Potassium 4.8 Chloride 98 Carbon Dioxide 23 L Anion Gap 18 BUN 49 H Creatinine 5.0 H Estimated GFR/1.73 m2 12 BUN/Creatinine Ratio 10 Glucose 62 L Calculated Osmolality 288 Calcium 8.3 L Total Bilirubin 0.59 AST 14 ALT 10 Alkaline Phosphatase 142 H Creatine Kinase 55 Troponin T Utp-C-Oealifujckx Pept Total Protein 7.0 Albumin 3.9 Globulin 3.1 Albumin/Globulin Ratio 1.3 Plasma Lactate 2.7 H 06/09/19 06/09/19 06/09/19 11:55 11:55 11:55 WBC RBC Hgb Hct MCV MCH MCHC RDW Std Deviation Plt Count MPV Immature Gran % (Auto) Neut % (Auto) Lymph % (Auto) Door % (Auto) Eos % (Auto) Baso % (Auto) Immature Gran # (Auto) Neut # (Auto) Lymph # (Auto) Door # (Auto) Eos # (Auto) Baso # (Auto) Segmented Neutrophils PT 21.6 H INR 1.84 PTT (Actin FS) 44.1 H Sodium Potassium Chloride Carbon Dioxide Anion Gap BUN Creatinine Estimated GFR/1.73 m2 BUN/Creatinine Ratio Glucose Calculated Osmolality Calcium Total Bilirubin AST ALT Alkaline Phosphatase Creatine Kinase Troponin T 0.090 [address] Pept [address] H Total Protein Albumin Globulin Albumin/Globulin Ratio Plasma Lactate Orders Category Date Time Status Admit - [facility] Routine AdmDCTranf 06/09/19 16:04 Active Activity - Up with Assistance ORDERED Care 06/09/19 17:15 Active Apply Mechanical Device [QM] ORDERED Care 06/09/19 17:15 Active Cardiac Monitoring DIRECTED Care 06/09/19 11:40 Active FSBS/Accucheck Result AC + HS Care 06/09/19 16:04 Active Intake and Output-Strict ORDERED Care 06/09/19 17:15 Active Nursing- Assist w/ IS as order ORDERED Care 06/09/19 17:15 Active Nursing- MD Consult Request ROUTINE Care 06/09/19 15:40 Active Nursing- MD Consult Request ROUTINE Care 06/09/19 15:40 Active Oxygen Therapy- ED Nursing DIRECTED Care 06/09/19 11:40 Active Saline Loc NOW Care 06/09/19 11:40 Active Vital Signs Order Q1H Care 06/09/19 16:04 Active Z-Document. for Tele Applied ORDERED Care 06/09/19 17:15 Active MD [Physician/Provider Consults] Routine Cons 06/09/19 15:39 Ordered MD [Physician/Provider Consults] Routine Cons 06/09/19 15:40 Ordered Social Service Consult Routine Cons 06/09/19 17:15 Active Heart Healthy Diet Diet 06/09/19 16:05 Active CHEST-2 VIEWS [RAD] Stat Exams 06/09/19 11:40 Completed CHEST-PORTABLE [RAD] Routine Exams 06/10/19 06:00 Ordered CBC WITH DIFF [HEME] Routine Lab 06/10/19 06:00 Ordered CBC WITH ELECTRONIC DIFF [HEME] Stat Lab 06/09/19 11:55 Completed CK PROFILE [SP CHEM] Stat Lab 06/09/19 11:55 Completed CK TOTAL [CHEM] Routine Lab 06/10/19 06:00 Ordered CK TOTAL [CHEM] Stat Lab 06/09/19 16:48 Completed COMPREHENSIVE METABOLIC PANEL [CHEM] Routine Lab 06/10/19 06:00 Ordered COMPREHENSIVE METABOLIC PANEL [CHEM] Stat Lab 06/09/19 11:55 Completed MAGNESIUM [CHEM] Routine Lab 06/10/19 06:00 Ordered PRO B-NATRIURETIC PEPTIDE Stat Lab 06/09/19 11:55 Completed PROTIME WITH INR [COAG] Routine Lab 06/10/19 06:00 Ordered PROTIME WITH INR [COAG] Stat Lab 06/09/19 11:55 Completed PTT [COAG] Routine Lab 06/10/19 06:00 Ordered PTT [COAG] Stat Lab 06/09/19 11:55 Completed TROPONIN T Routine Lab 06/10/19 06:00 Ordered TROPONIN T Stat Lab 06/09/19 11:55 Completed TROPONIN T Stat Lab 06/09/19 16:48 Completed TSH Routine Lab 06/10/19 06:00 Ordered ATORVAstatin [Lipitor] Med 06/09/19 21:00 Active 80 mg PO QHS Acetaminophen [Tylenol] Med 06/09/19 16:04 Active 650 mg PO Q6H PRN PRN Albuterol 2.5MG/Ipratrop 0.5MG [Duoneb (A & A)] Med 06/09/19 16:04 Disco ntinued 3 ml INH RTQ6H Amiodarone [Cordarone] Med 06/10/19 09:00 Active 200 mg PO DAILY Apixaban [Eliquis] Med 06/09/19 21:00 Discontinued 5 mg PO BID Budesonide [Pulmicort] Med 06/09/19 19:30 Active 0.5 mg INH RTBID Dextrose 5%-0.45% NaCl Inj [D5 1/2 Ns] 250 ml Med 06/09/19 15:45 Discontinued Norepinephrine [Levophed] 8 mg IV As Directed mls/hr Dextrose 50% Syringe [D50w Syringe] Med 06/09/19 15:37 Discontinued 50 ml IV NOW ONE Dobutamine 250 mg/D5w Med 06/09/19 16:15 Discontinued 250 mg in 250 ml IV 5 microgm/kg/min Dopamine 400 mg/D5w Med 06/09/19 16:15 Discontinued 400 mg in 500 ml IV 3 microgm/kg/min Insulin Human Regular [Humulin R] Med 06/09/19 21:00 Active See Protocol SUBQ 0700,1100,1600,2100 Ondansetron [Zofran] Med 06/09/19 16:04 Active 4 mg IV Q4H PRN PRN Pantoprazole [Protonix] Med 06/09/19 21:00 Discontinued 40 mg PO HS Ropinirole [Requip] Med 06/09/19 21:00 Active 1 mg PO QHS Trazodone [Desyrel] Med 06/09/19 21:00 Discontinued 50 mg PO HS Aerosol Treatments Routine Oth 06/09/19 16:04 Completed Incentive Spirometer Routine Oth 06/09/19 17:15 Completed Oxygen Device Routine Oth 06/09/19 17:15 Completed Pulse Oximetry Routine Oth 06/09/19 17:15 Completed Telemetry [OM.EQ] Routine Oth 06/09/19 17:15 Active EKG [EKG] Routine Ther 06/10/19 08:00 Ordered EKG [EKG] Stat Ther 06/09/19 11:40 Draft Transfer/Admit Order [TRANSFER] Routine Transfer 06/09/19 15:59 Completed Result Diagrams: 06/09/19 11:55 06/09/19 11:55 - REASSESSMENT Reassessment #1 Time Reassessed: 14:19 Status: unchanged Reassessment #2 Time Reassessed: 15:55 Status: unchanged (BP 114/ when supine but lower when attempts to sit up. Dr Woodall recommended ICU admit with low does dopamine and dolbutamine for Acute Cardio-renal syndrome. Calling transfer center [facility] as no ICU bed here now. starting low dose pressors.) Reassessment #3 Time Reassessed: 17:01 Status: improving (DOBAMINE AND DOBUTAMINE BOTH INFUSING, JSUT TALKED WITH TRANSFER CENTER TRYING FOR ICU BED.) Reassessment #4 Time Reassessed: 17:35 (dr duran is at bedside with dr chavez ) Reassessment #5 Time Reassessed: 17:52 Status: worsening (5 min ago made aware pt haveing moderate substernal chest pain. hr is 105, ordered hold on dobutamine and ordered morphine 4mg ivp.-RWS) - EKG 1 Time of EKG reading by physician:: 10:53 EKG Read and Signed by:: Con Chavez EKG Interpretation (*Must complete 3 of following elements*): Abnormal Rate: 69 Rhythm: nsr [place]: normal QRS: normal [place] Interval: normal ST Wave: normal Comments: anteroseptal infarct, age undetermined - XRAY 1 XRAY: Bilateral XRAY Study: Chest Impression: See EMR Report (CHEST-2 VIEWS - 06/09/2019 INDICATION: SOB COMPARISON: 05/26/2019 FINDINGS: Stable cardiomegaly and pulmonary vascular congestion. Has been significant improvement in the dense background interstitial infiltrates bilaterally. No large pleural effusion. There are probably trace pleural effusions. IMPRESSION: Significant improvement in the dense bilateral infiltrates/pulmonary edema. Electronically signed by Harsh Estrada 06/09/2019 12:07 PM 06/09/19 1207 Interpreting Physician: Harsh Estrada MD Dictated Date/Time: 06/09/19 1207 cc: Con Chavez MD; Jose Irby MD) - CONSULTS/PCP/HOSPITALIST Notification #1 *Consult/PCP/Hospitalist*: hospitalist Time Discussed: 14:23 Consult Disposition: Admit (CARE OF PT ACCEPTED BY [facility] BY 1800. STILL PURSUING TRANSFER TO [facility] IF POSSIBLE FOR ICU CARE.) #2 Consult: dr paz Time Discussed: 14:30 Reason/Comments: phone consult Consult Disposition: other (will consult/see. suggest inotrop, improve bp then perhaps can diurese) #3 Consult: dr woodall cardio Time Discussed: 15:31 Reason/Comments: phone consult - CHANGE OF SHIFT REPORT (ED Provider) 1 Report Given and Care Transferred to:: DR CYNDY LANDA Time of Transfer: 19:20 Items Pending: Physician Consult/Arrival (CHEST PAIN INCREASED AGAIN: ORDERING MORPHINE) Departure - Departure Date of Disposition Decision: 06/09/19 Time of Disposition Decision: 14:24 DIAGNOSIS: Tobacco use disorder Congestive heart failure (CHF) Qualifiers: Heart failure type: unspecified Heart failure chronicity: chronic Qualified Code(s): I50.9 - Heart failure, unspecified COPD (chronic obstructive pulmonary disease) Qualifiers: COPD type: COPD with acute exacerbation Qualified Code(s): J44.1 - Chronic obstructive pulmonary disease with (acute) exacerbation Diabetic ulcer of foot associated with diabetes mellitus due to underlying condition, limited to breakdown of skin Qualifiers: Diabetic foot ulcer location: heel Laterality: right Qualified Code(s): E08.621 - Diabetes mellitus due to underlying condition with foot ulcer; L97.411 - Non- pressure chronic ulcer of right heel and midfoot limited to breakdown of skin Anemia Qualifiers: Anemia type: unspecified type Qualified Code(s): D64.9 - Anemia, unspecified Acute renal failure (ARF) Qualifiers: Acute renal failure type: unspecified Qualified Code(s): N17.9 - Acute kidney failure, unspecified Disposition: ADMITTED INPATIENT 09 Certified Medical Emergency: Emergent Condition: Fair - Critical Care Note This patient required my direct & personal management of CC.: Yes Total Time (mins): 38 Critical Care Statement: This patient required my direct personal management to treat or rule out processes, the absence of which, could potentiallly result in sudden, clinically significant life or limb threatening deterioration. Attestation - Physician/ BRIAN Attestation Patient care was provided by Advanced Practice Provider:: No The physician spent face to face time with patient:: Yes Advanced Practice Provider documentation review:: Supervising physician onsite and consulted in the evaluation and care of this patient. The physician did have a face to face encounter with the patient. This chart was documented by the indicated scribe, (Brittni Nielesn Scribe) and accurately reflects the services I performed and decisions made by me, Con Chavez MD, as attested by the provider's signature.
[2019-06-09] MEDS ORDERED: LASIX IV ONE (19:24)
[2019-06-09] MEDS ORDERED: SODIUM CHLORIDE 0.9% INJ SCH (19:30)
[2019-06-09] MEDS: DUONEB (A & A) INH SCH ×2 (19:51→23:46)
[2019-06-09] MEDS: PULMICORT INH SCH (19:51)
--- NOTE | 2019-06-09 20:52 | PROGRESS NOTE ---
DATE: 06/09/2019 ADDENDUM: I evaluated Mr. Crum at bedside multiple times. He intermittently has episodes of vomiting. I think this is likely due to metabolic derangement and profound lactic acidosis combined with respiratory acidosis. Considering his shortness of breath and vomiting, I would not be able to start him on BiPAP. His acute kidney injury is likely in the setting of cardiorenal syndrome. Use of Lasix could have contributed to it; however, he has significantly elevated proBNP so intravenous fluid may not be option at the moment. I had a discussion with the team assembly line machine operator team on phone, and accordingly I discontinued dobutamine drip and kept the patient on dopamine drip. Also replete magnesium for his wide complex tachycardia. The patient's condition is critical. I again explained to the patient's family at bedside about his critical condition. I have provided my contact information to the emergency room physician to see if the [facility] calls. They can provide my contact information, and I can initiate the transfer process since we do not have ICU bed at the moment. cc: Sam Rehman MD
[2019-06-09] MEDS ORDERED: PROTONIX PO SCH (21:00)
[2019-06-09] MEDS ORDERED: DESYREL PO SCH (21:00)
[2019-06-09] MEDS: HUMULIN R SUBQ SCH (21:00)
[2019-06-09] MEDS ORDERED: ELIQUIS PO SCH (21:00)
[2019-06-09] MEDS: ZOSYN 2.25 GM in NS 50 ML IV SCH (21:12)
[2019-06-09] MEDS: PROTONIX IV SCH (21:19)
--- NOTE | 2019-06-09 21:34 | Diag Imaging Result Doc PS360 ---
CT THORAX/ABD/PELVIS W/O CON - 06/09/2019 INDICATION: Abdominal distension COMPARISON: 05/17/2019 FINDINGS: CHEST: There is cardiomegaly. There is significant coronary artery disease. There is a small right pleural effusion which has decreased since prior. The left pleural effusion has resolved. There is COPD. There is mild diffuse interstitial pulmonary edema. No dense consolidations. Abdomen pelvis: There is a small amount of ascites. There is mild body wall edema. Dorsey catheter in the urinary bladder. No renal stones or obstruction. No bowel obstruction or inflammation. No acute bony lesions. IMPRESSION: Improvement in the chest. Small amount of ascites. Otherwise no acute process in the abdomen. This exam was performed using automated exposure control, adjustment of mA or kV according to patient size, and/or use of iterative reconstruction technique Electronically signed by Harsh Estrada 06/09/2019 9:32 PM
--- NOTE | 2019-06-09 21:35 | HISTORY AND PHYSICAL ---
CHIEF COMPLAINT: Weakness, cough, falls, since last 2 weeks with increasing shortness of breath. HISTORY OF PRESENT ILLNESS: Mr. Crum is a 64-year-old man with past medical history of coronary artery disease, requiring stent in the past, who had a coronary angiography in 2017 which had late proximal to early mid 40% to 50% stenosis of the left anterior descending, 50% to 60% of RCA stent stenosis; systolic congestive heart failure with ejection fraction of 25% to 30% in 04/2019; COPD and chronic hypoxic respiratory failure, on home oxygen; recent right femoral to popliteal graft thrombosis in 2019. He was recently admitted in 04/2019 for acute COPD exacerbation, acute CHF exacerbation and pneumonia and was discharged on 05/27/2019 to home. After going home, initially he was doing okay; however, since the last 1 week he started feeling worse again. According to his at bedside, he has had at least 2 or 3 falls over the last 2 to 3 days. He has had episodes of vomiting and he had increased shortness of breath. With these complaints he came to the emergency room. In the emergency room he was found to have elevated proBNP and acute kidney injury, so the hospitalist team was consulted for further management. He was also noticed to be hypotensive. SUBJECTIVE: He is complaining of shortness of breath. Occasionally intermittently he is complaining of chest pain. He is also complaining of gastric acidity, and he is in moderate distress. Family is at bedside. PHYSICAL EXAMINATION: VITAL SIGNS: Currently temperature of 97.4 degrees, pulse 72, respiratory rate 30, blood pressure 111/53. He is saturating 96% on 2 L nasal cannula. HEENT: His oral cavity is moist. LUNGS: He has inspiratory crackles in the right infrascapular region. HEART: S1, S2 normal. No murmur, rub or gallop. ABDOMEN: Distended, soft, nontender. EXTREMITIES: He has bilateral lower extremity edema extending up to thigh level. NEUROLOGIC: He is alert. He is oriented to himself. He answers most questions, but is short of breath and is not able to complete his sentences. He is sitting in tripod position at the edge of the bed. LABORATORY DATA: Labs suggestive of microcytic anemia, normal platelet count. INR of 1.8. Acute kidney injury. Noticeably, his kidney function was normal. Elevated troponin of 0.1 which is still questionable, in the setting of his acute kidney injury. His proBNP is elevated to 18,000. He also is found to have lactic acidosis with a plasma lactate of 2.7. ASSESSMENT AND PLAN: 1. Shock. His etiology of shock is unclear at the moment. Differential includes septic shock from right lower lobe pneumonia based on clinical exam, cardiogenic shock because of worsening congestive heart failure, versus others. On presentation, he did have blood pressure of 80/40. Hypovolemia is also a possibility considering he was discharged on Lasix. I will start him on intravenous fluid resuscitation, considering his poor cardiac function. I will keep a close eye over his respiratory status. Cardiology team had initially recommended low- dose dopamine and dobutamine; however, he started developing episodes of ventricular tachycardia so dobutamine has been stopped. He will only be on dopamine without titration. I will keep the Dorsey catheter for close input and output monitoring. Follow up blood culture results. A urine culture has been ordered, and we will start him on broad- spectrum intravenous Zosyn. 2. Suspected acute congestive heart failure exacerbation with cardiorenal syndrome. Cardiology team has recommended intravenous dopamine, which I will continue. I will also follow up with urine electrolytes to evaluate for possible cardiorenal syndrome. I will keep him on high- dose statin and enoxaparin, and give him a stat dose of aspirin. 3. History of coronary artery disease, status post stent in the past. 4. History of chronic systolic congestive heart failure. He does certainly have elevated proBNP. His chest x-ray does not have significant infiltrate, though he does have significant bilateral lower extremity edema. I will continue to monitor closely cardiorespiratory status. 6. Right lower extremity Femoral-popliteal graft thrombosis 03/2019: Change Eliquis to Enoxaparin. 5. He does have history of chronic obstructive pulmonary disease and chronic hypoxic respiratory failure. I will continue him on albuterol/ipratropium nebulization and oxygenation. I will also keep him on enoxaparin, dose-adjust renally, follow up Cardiology and Nephrology recommendation. More than 30 minutes of critical care time was spent taking care of this patient. His condition is really critical, considering his chronic obstructive pulmonary disease, heart failure and acute kidney injury. His prognosis is poor. I have discussed his critical condition with family members. Their questions have been satisfactorily answered. Emergency room team physician had initiated transfer to [facility]; however, he has not received a call back yet. Currently we do not have any intensive care unit bed, and that is why the transfer has been requested. cc: MD LYNDSAY Barlow
[2019-06-09 21:40] LABS: URINE SOURCE CATH
[2019-06-09 21:48] LABS: UR EPITHELIAL CELLS <10 /HPF (<10); URINE BACTERIA NEGATIVE /HPF; URINE RBC <10 /HPF (<10); URINE WBC <10 /HPF (<10)
[2019-06-09 21:49] LABS: BILIRUBIN URINE SMALL (NEGATIVE); BLOOD URINE NEGATIVE (NEGATIVE); COLOR YELLOW; GLUCOSE URINE TRACE mg/dL (NEGATIVE); KETONE URINE NEGATIVE (NEGATIVE); LEUKOCYTES URINE NEGATIVE (NEGATIVE); NITRITE URINE NEGATIVE (NEGATIVE); PH URINE 5.5; PROTEIN URINE 70 mg/dL (NEGATIVE); SP GRAVITY URINE 1.022; TURBIDITY URINE CLEAR (CLEAR); UROBILINOGEN URINE NORMAL (NORMAL)
[2019-06-09 21:51] LABS: CALCIUM 8.5 mg/dL (8.8-10.2); CREATININE 4.8 mg/dL (0.7-1.2); POTASSIUM 4.8 mmol/L (3.5-5.1)
[2019-06-09] MEDS: LIPITOR PO SCH (22:54)
[2019-06-09] MEDS: REQUIP PO SCH (22:54)
[2019-06-10] MEDS: ZOSYN 2.25 GM in NS 50 ML IV SCH ×3 (02:25→17:36)
[2019-06-10] MEDS: DUONEB (A & A) INH SCH ×6 (03:10→23:30)
[2019-06-10 05:20] LABS: BASO# 0.02 X1000 (0.0-0.2); BASO% 0.3 % (0.0-0.8); EOS# 0.01 X1000 (0.0-0.7); EOS% 0.1 % (0.0-10.0); HEMATOCRIT 28.8 % (42.0-52.0); HEMOGLOBIN 7.9 g/dL (14.0-18.0); IMM GRAN# 0.02 X1000 (0.0-0.04); IMM GRAN% 0.3 % (0.0-0.5); LYMPH# 0.41 X1000 (1.2-3.4); LYMPH% 5.5 % (20.5-51.1); MCH 20.5 PG (27-31); MCHC 27.4 g/dL (33-37); MCV 74.6 FL (81-99); MONO% 5.4 % (1.7-9.3); MPV 11.5 FL (7.4-10.4); NEUT# 6.53 X1000 (1.4-6.5); NEUT% 88.4 % (42.2-75.2); PLT 307 X1000 (130-400); RBC 3.86 XMIL (4.7-6.1); WBC 7.39 X1000 (4.8-10.8)
[2019-06-10 05:24] LABS: INR 2.02; PROTIME 23.3 Seconds (11.0-16.0)
[2019-06-10 05:25] LABS: PTT 47.1 Seconds (22.3-41.8)
[2019-06-10 05:57] LABS: ALBUMIN 3.6 g/dL (3.5-5.0); CALCIUM 8.1 mg/dL (8.8-10.2); CREATININE 5.5 mg/dL (0.7-1.2); MAGNESIUM 2.3 mg/dL (1.5-2.7); POTASSIUM 4.9 mmol/L (3.5-5.1); TOTAL BILIRUBIN 0.67 mg/dL (0.20-1.00); TOTAL PROTEIN 7.2 g/dL (6.3-8.3)
[2019-06-10] MEDS: HUMULIN R SUBQ SCH ×4 (06:33→21:07)
--- NOTE | 2019-06-10 07:07 | Diag Imaging Result Doc PS360 ---
EXAM: CHEST-PORTABLE 06/10/2019 HISTORY: sob TECHNIQUE: AP portable at 0529 COMMENT: There is interstitial pulmonary edema with some alveolar opacity in the right lower lobe and upper lobe. This may be slightly worse than on 06/09/2019 despite the relative increase in inspiration. IMPRESSION: Worsened pulmonary edema plus minus pneumonia. Electronically signed by Everette Dietz 06/10/2019 7:05 AM
--- NOTE | 2019-06-10 07:08 | EKG Report ---
Test Performed on : 06/09/2019 5:59:08 PM Test Reason : ED. NO EKG ORDER FOR MUSE Blood Pressure : / mmHG Vent. Rate : 109 BPM Atrial Rate : 109 BPM P-R Int : 232 ms QRS Dur : 118 ms QT Int : 338 ms P-R-T Axes : 052 091 053 degrees QTc Int : 455 ms Sinus tachycardia. with 1st degree AV block. Rightward axis Anteroseptal infarct (cited on or before 07-SEP-2018) Abnormal ECG When compared with ECG of 09-JUN-2019 10:53, (Unconfirmed) [place] interval has increased Vent. rate has increased BY [address] now depressed in Lateral leads T wave inversion now evident in Inferior leads T wave inversion no longer evident in Lateral leads Unconfirmed Result
[2019-06-10] MEDS ORDERED: SOLU-MEDROL IV SCH (07:15)
[2019-06-10] MEDS ORDERED: SOLU-MEDROL IV ONE (07:16)
[2019-06-10 07:26] LABS: ANISOCYTOSIS OCCASIONAL; BANDS 2 % (0-1); BASO 1 % (0-1); LYMPHS 4 % (21-51); MONO 6 % (1-9); SEGS 86 % (42-75)
[2019-06-10 07:27] LABS: HYPOCHROM 3+; LARGE PLATELETS 1+; POLYCHROM OCCASIONAL
--- NOTE | 2019-06-10 08:13 | EKG Report ---
Test Performed on : 06/10/2019 06:53:20 AM Test Reason : chest pain Blood Pressure : / mmHG Vent. Rate : 086 BPM Atrial Rate : 086 BPM P-R Int : 198 ms QRS Dur : 114 ms QT Int : 380 ms P-R-T Axes : 083 089 128 degrees QTc Int : 454 ms Normal sinus rhythm. Anteroseptal infarct (cited on or before 07-SEP-2018) Abnormal ECG When compared with ECG of 09-JUN-2019 17:59, (Unconfirmed) [place] interval has decreased Non-specific change in ST segment in Inferior leads Inverted T waves have replaced nonspecific T wave abnormality in Lateral leads Confirmed by Efraín GAMBINO, Zhang Gray ([id number]) on 06/10/2019 1:51:45 PM
[2019-06-10] MEDS: PULMICORT INH SCH ×2 (08:28→19:30)
[2019-06-10] MEDS: LYRICA PO SCH (10:09)
[2019-06-10] MEDS: ASPIRIN PO SCH (10:10)
[2019-06-10] MEDS: CORDARONE PO SCH (10:11)
[2019-06-10] MEDS: DALIRESP PO SCH (10:11)
[2019-06-10] MEDS ORDERED: LASIX IV ONE (10:23)
[2019-06-10] MEDS: MORPHINE IV PRN (10:34)
--- NOTE | 2019-06-10 10:48 | PROGRESS NOTE ---
DATE: 06/10/2019 INTERVAL HISTORY: Overnight, he was transferred to ICU and transfer to [facility] was canceled since we were able to find an ICU bed for him. He refused a breathing treatment overnight. He refused insertion of Dorsey catheter overnight despite understanding the risks associated with it. SUBJECTIVE: He is feeling awful. Complains of shortness of breath and hurting all over. I counseled him about his poor kidney function, poor heart function and lung function. I also counseled him about the need for breathing treatment. VITALS: Temperature of 97.9 degrees, pulse 88, respiratory rate 23, blood pressure 115/47. He is saturating 95% on 6 L nasal cannula. PHYSICAL EXAMINATION: Mild distress because of shortness of breath. Oral cavity is dry. He has diffuse wheezes bilaterally and inspiratory crackles. S1, S2 normal. No murmur, rub, or gallop. Abdomen is distended, obese, soft, nontender. Bilateral lower extremity edema extending up to knee level. He also has a wound on the 2nd right toe. His dorsalis pedis pulses are intact. LABS: Suggestive of microcytic anemia, normal platelet count. Yesterday he had significant acidosis. He has acute kidney injury and lactic acidosis. He also had fractional excretion of sodium less than 1%. Blood cultures are in lab. IMAGING: Chest x-ray suggests worsening pulmonary edema. ASSESSMENT AND PLAN: 1. Acute hypoxic hypercapnic respiratory failure due to acute pulmonary edema and acute chronic obstructive pulmonary disease exacerbation. Start patient on BiPAP. Once his kidney function allows, I will consider giving additional Lasix. Continue albuterol/ipratropium nebulization and intravenous steroids. 2. Shock and likely cardiorenal syndrome. Continue intravenous dopamine as per Cardiology recommendation. In 2017, he did have significant left anterior descending and right coronary artery stenosis, which is contributing to his acute congestive heart failure. Looking at the vessel pathology briefly, I had a discussion with Cardiology, who recommended that he may not be a candidate for intervention. I will continue him on atorvastatin, amiodarone, therapeutic enoxaparin. He is not listed to be taking aspirin, which I will add to his daily regimen. 3. Lactic acidosis and respiratory acidosis. This is likely because of poor organ perfusion due to his cardiogenic shock. However, sepsis could not be totally ruled out. I will keep him on intravenous Zosyn and follow up with final blood culture results. His urinalysis was unremarkable. 4. Others. He does have history of coronary artery disease requiring stent in the past; chronic systolic congestive heart failure with ejection fraction of 25% in April 2019; chronic hypoxic respiratory failure on home oxygen. DISPOSITION: More than 30 minutes of critical care time spent in taking care of this patient. His prognosis is poor considering multiorgan failure. I will involve palliative services. cc: Sam Rehman MD
[2019-06-10] MEDS ORDERED: LASIX 200 MG in NS 25 ML IV ONE (11:00)
[2019-06-10 12:59] LABS: URINE SOURCE CATH
[2019-06-10 13:00] LABS: BILIRUBIN URINE NEGATIVE (NEGATIVE); BLOOD URINE MODERATE (NEGATIVE); COLOR YELLOW; GLUCOSE URINE TRACE mg/dL (NEGATIVE); KETONE URINE NEGATIVE (NEGATIVE); LEUKOCYTES URINE NEGATIVE (NEGATIVE); NITRITE URINE NEGATIVE (NEGATIVE); PH URINE 5.5; PROTEIN URINE 100 mg/dL (NEGATIVE); SP GRAVITY URINE 1.026; TURBIDITY URINE HAZY (CLEAR); UROBILINOGEN URINE NORMAL (NORMAL)
[2019-06-10 13:05] LABS: UR EPITHELIAL CELLS <10 /HPF (<10); URINE BACTERIA NEGATIVE /HPF; URINE RBC TNTC /HPF (<10); URINE WBC <10 /HPF (<10)
[2019-06-10 13:15] LABS: URINE CASTS NONE SEEN; URINE YEAST NONE SEEN
--- NOTE | 2019-06-10 14:39 | CARDIOLOGY CONSULTATION ---
DATE: 06/10/2019 CHIEF COMPLAINT: Shortness of breath, weakness. HISTORY: Mr. Crum is an unfortunate 64-year-old male, who was recently admitted to the hospital on May 16 with decompensation of congestive heart failure. At this time, the patient had been home since his discharge on May 27, and the first few days he did alright, but then he gradually became weaker and weaker with nausea, vomiting, poor oral intake, falling frequently, getting weaker and yesterday he was brought to the emergency room by his because he was extremely weak and short of breath. His chest x-ray shows "improvement in the dense bilateral infiltrates, pulmonary edema." His proBNP level was 18,502 pg/ml, even though his creatinine was significantly higher than on prior admission. When he was discharged on May 27, his creatinine was 1.2 and yesterday when he presented to the ER, his creatinine was 4.8. The patient's proBNP level also compared to the level of prior admission is much higher, perhaps coinciding with worsening renal failure. At any rate, the patient was found to be hypotensive. He has been given a couple of boluses of saline, and he has been put on dobutamine and dopamine. With the dobutamine, initially he developed some runs of ventricular tachycardia, so we just kept him on dopamine IV as per discussion with the ER and with Dr. Sole Rehman. This morning, the patient is being examined in the ICU. He is more awake and he appears to be generally very weak. Of note, his plasma lactate yesterday was 2.7, this morning is 6.0 millimoles per liter. He is not having any pain in the chest. He has some blistering of his 2nd toe of the right foot. He says that he bumped his foot there. There is some redness, possible cellulitis. PAST MEDICAL HISTORY: The patient's past medical history is really very extensive. We saw him in consultation just recently on May 17 essentially when he presented with exacerbation of congestive heart failure. Initially, he responded to management. He had to get a BiPAP system for a few days to stabilize. His past history is positive for very severe coronary heart disease, previous coronary stents. The last heart catheterization was done in 2017 and it showed severe three-vessel disease with basically a ghost vessel at the level of the circumflex, diffuse disease of the LAD, and diffuse disease of the right coronary artery without appropriate areas for intervention. He has significant LV systolic dysfunction. The patient has diabetes mellitus type 2 and he has chronic kidney disease. The patient has occlusive vascular disease of the legs. He has a history of hypertension, history of hyperlipidemia. SURGICAL HISTORY: He underwent revision of a right femoral popliteal bypass that had become thrombosed in May 2017. The patient has had prior cataract extraction. SOCIAL HISTORY: He has been on disability. He has been a smoker. He lives with . FAMILY HISTORY: Mother had heart disease. ALLERGIES: Allergy reported to gabapentin. HOME MEDICATIONS: Included albuterol inhaler 2 puffs every 4 hours, amiodarone 200 daily, apixaban 5 mg twice a day, atorvastatin 80 mg at bedtime, budesonide inhaler twice a day, glipizide 10 mg daily, hydralazine 10 mg 2 times a day, isosorbide dinitrate 10 mg 3 times a day, metformin 2 tablets twice a day, Protonix 40 mg at bedtime, Daliresp 500 mg daily, ropinirole or Requip 1 tablet at bedtime, trazodone 50 mg at bedtime. REVIEW OF SYSTEMS: General: The patient has been very weak. He has been very anorexic. He has been nauseous. Very unsteady on his feet and a tendency to fall. He has not had any chest pains recently. He gets intermittent short of breath. Exercise capacity is markedly impaired. PHYSICAL EXAM: General: The patient appears to be chronically ill, laying in bed. Vital Signs: Temperature 97.9 degrees, pulse 88, respirations 23, blood pressure 115/47. Awake, alert, in no distress. Somewhat tachypneic. When he tries to sit up, he becomes very tachypneic. Neck: Neck veins appear to be slightly prominent. Chest: Shows rhonchi, wheezes, diminished breath sounds diffusely. Heart: Heart sounds are regular, rhythmic. There is a question of a third heart sound. I do not hear any significant murmur. Abdomen: Slightly distended. Bowel sounds are diminished. Extremities: Extremities showed decreased pulses. He has chronic venous stasis dermatitis changes. He has a blister on the right foot on the second toe. His pulses are markedly diminished bilaterally. Neurological exam: Follows commands. Moves 4 extremities. He is slightly confused. IMPRESSION AND PLAN: 1. Patient presented with increasing dyspnea, weakness, hypotension. He could have acute volume depletion on top of chronic systolic heart failure, functional class 3 to 4. 2. Ischemic cardiomyopathy. Previous myocardial infarction. Severe three- vessel coronary artery disease. 3. The patient has acute renal failure. His creatinine has gone up to 5.5 this morning. 4. Possibly a case of lactic acidosis. The patient had been taking metformin. His lactic acid is elevated. 5. Diabetes mellitus type 2. 6. History of hypertension. 7. Hyperlipidemia. 8. Severe peripheral occlusive vascular disease. RECOMMENDATION: At this point in time, we will keep him on dopamine to maintain renal perfusion. We will consult with Nephrology. The overall prognosis of this patient is very guarded. If this patient continues to progress into total kidney failure, I believe his prognosis will be extremely grim, and perhaps we should consider with family to shift goals of care to comfort measures. I do not think that from the cardiac viewpoint we can offer any additional interventional options. The patient is not a candidate for any assist device. We will discuss with . cc: Jose Arias MD [facility]
[2019-06-10] MEDS: SOLU-MEDROL IV SCH ×2 (15:04→21:08)
[2019-06-10] MEDS ORDERED: NS 2,000 ML MISC PRN (15:54)
[2019-06-10] MEDS: LOVENOX SUBQ SCH (17:36)
[2019-06-10] MEDS: PROTONIX IV SCH (21:07)
--- NOTE | 2019-06-10 23:14 | NEPHROLOGY CONSULTATION ---
DATE: 06/10/2019 REASON FOR CONSULTATION: Renal failure and volume overload. HISTORY OF PRESENT ILLNESS: Mr. Crum is a 64-year-old, white male, who was recently hospitalized at this facility for a COPD exacerbation. Discharged on 05/27/2019. After going home, he was okay for about 1 week, and then started feeling worse with worsening weakness, falls, shortness of breath, wheezing, anorexia. His anorexia has been prominent. Because of his worsening symptoms and repeated falls, he came to the emergency room. His initial evaluation was yesterday. At which time, blood pressure was 86/40, with a heart rate of 70, respirations of 24. He had clinical volume overload and hypotension. He was admitted to the hospital and treated with supplemental oxygen as well as inotropic support. Despite this treatment, his urine output has been very low. Only 200 mL until this morning. No improvement in his symptoms. PAST MEDICAL HISTORY: As above. He has known coronary disease requiring PCI in the past. COPD. Systolic heart failure with LVEF 25 to 30 percent. History of DVT. HOME MEDICATIONS: Include atorvastatin, glipizide, trazodone, albuterol, apixaban, Symbicort, pantoprazole, metformin, ropinirole, pregabalin, hydralazine, isosorbide, furosemide, ondansetron, Daliresp, amiodarone. ALLERGIES: Gabapentin. SOCIAL HISTORY: He is and lives with his who is his primary caregiver. Otherwise noncontributory. FAMILY HISTORY/REVIEW OF SYSTEMS: Otherwise noncontributory. PHYSICAL EXAMINATION: Blood pressure 115/52, heart rate 84, respirations 25, afebrile. On dopamine. General: Chronically-ill man with acute respiratory distress. Skin: Warm and dry with bruising and hyperpigmentation. Pupils are equal and round. Oropharynx is dry. Neck: Supple. Neck veins are distended with hepatojugular reflux. Gallop is present. Lungs: Diffuse wheezes and a few crackles. Abdomen: Distended, soft. Diminished bowel sounds. No palpable organomegaly. No masses. Extremities: Edema 1 to 2+. No clubbing or cyanosis. Several dry abrasions on the feet. Neurologic: Grossly nonfocal, except that he is disoriented. IMPRESSION/PLAN: Acute kidney injury. Creatinine 5.5 today, 4.8 yesterday. Oliguric. He did not respond to 200 mg IV Lasix. I counseled the patient and family regarding the severity of his pulmonary congestion and its relationship to his renal failure. Given no response to diuretics, I offered hemodialysis. They are familiar with this intervention because of the healthcare of family members in the past. I described vascular access placement and bedside hemodialysis. They understand and are willing to proceed. cc: Kian Calderón MD
--- NOTE | 2019-06-10 23:42 | OPERATIVE NOTE ---
PROCEDURE DATE: 06/10/2019 PROCEDURE: Left femoral vein Vas-Cath placements with ultrasound guidance. SURGEON: Con Garcia MD. PREOPERATIVE DIAGNOSIS: Congestive heart failure and chronic kidney disease 4 with acute exacerbation. POSTOPERATIVE DIAGNOSIS: Congestive heart failure and chronic kidney disease 4 with acute exacerbation. INDICATION: Informed consent was obtained. I was asked to place the Vas-Cath by Dr. Calderón for today because of his respiratory failure and kidney failure. FINDINGS: The ultrasound showed the left femoral vein to be patent and compressible, and no clot was seen. DESCRIPTION OF PROCEDURE: Satisfactory left groin prep and drape was accomplished. We imaged the left common femoral vein. We anesthetized the skin with 1% lidocaine. We made a stab incision and accessed the left femoral vein under ultrasound guidance. We then passed the guidewire without difficulty. We then dilated the track sequentially, then passed the Trialysis catheter into the femoral vein. Blood came back in each lumen spontaneously. We then flushed each lumen with saline. We secured the flange to the skin with nylon contained within the tray. New ChloraPrep was placed on the exit site and a sterile OpSite dressing was applied. He tolerated it well. cc: Con Garcia MD
[2019-06-11] MEDS: LIPITOR PO SCH ×2 (00:01→21:17)
[2019-06-11] MEDS: LYRICA PO SCH (00:02)
[2019-06-11] MEDS: REQUIP PO SCH ×2 (00:02→21:18)
[2019-06-11] MEDS: DOPAMINE 400 MG/D5W 400 MG/500 ML IV.SOLN IV SCH (00:13)
[2019-06-11] MEDS: MORPHINE IV PRN ×5 (01:04→23:47)
[2019-06-11] MEDS: ZOSYN 2.25 GM in NS 50 ML IV SCH ×3 (01:04→20:07)
[2019-06-11] MEDS: DUONEB (A & A) INH SCH ×6 (03:30→23:29)
--- NOTE | 2019-06-11 04:00 | CONSULTATION ---
DATE OF CONSULTATION: 06/10/2019 REQUESTING PROVIDER: Dr. Sam Rehman. REASON FOR CONSULTATION: COPD exacerbation, hypoxic respiratory failure. HISTORY OF PRESENT ILLNESS: This is a 64-year-old male with a medical history of COPD with tobacco abuse, coronary artery disease, diabetes nephropathy, peripheral vascular disease, recent thrombosis, hypertension, gastroesophageal reflux disease. He was recently admitted from 05/16/2019 to 05/27/2019 with acute COPD exacerbation, acute congestive heart failure exacerbation, and pneumonia. Per his family, after discharge in the 1st several days he did very well, but later he progressively became weaker with nausea, vomiting, poor appetite, and frequent falls. He was brought to the ER yesterday afternoon by his family. Apparently, his reported that she and the home nurse tried many times to persuade him to go to the ER to seek medical attention, but patient just refused. Initial workup revealed suspected acute congestive heart failure exacerbation and shock. He has been admitted to the ICU for further evaluation and management. He, apparently, became very agitated over time, so he was given Lyrica. Currently, he is lying in bed with eyes closed. He is on nasal cannula at 6 L. He did show some mild respiratory distress with respiratory rate up to high 20s. He appears very weak. He denies any pain at this time. PAST MEDICAL AND SURGICAL HISTORY: 1. COPD with tobacco abuse, on home oxygen since early this year, on Symbicort and albuterol at home. 2. Coronary artery disease status post stenting. 3. Diabetic neuropathy. 4. Peripheral vascular disease. 5. Recent right femoral-popliteal thrombosis, status post open thrombectomy, right femoral- popliteal graft with opened balloon angioplasty of the right popliteal artery by Dr. Garcia on 04/27/2019. 6. Hypertension. 7. Gastroesophageal reflux disease. 8. Chronic ongoing right lower extremity diabetic foot ulcer for 2 years. 9. Cataract surgery. 10. Coronary artery stent placement. SOCIAL HISTORY: Patient lives at home with his . He is a daily smoker, he smokes about 1-1/2 pack per day before last admission. Currently, he still smokes when he feels well. He has no history of alcohol or illicit drug use. FAMILY HISTORY: Positive for heart disease and lung cancer. ALLERGIES: Gabapentin. REVIEW OF SYSTEMS: Generalized weakness, shortness of breath, nausea, vomiting, poor appetite, intermittent chest pain, but no fever, chills. Unknown about weight change. PHYSICAL EXAMINATION: Vital Signs: Temperature 97.7, blood pressure 112/48, pulse 84, respiratory rate 23, oxygen saturation 96% on nasal cannula at 2 L. General: The patient is lying in bed with eyes close, arousable, some mild respiratory distress noted. The patient's , [id number], [id number] are at the bedside. HEENT: Normocephalic, atraumatic. Trachea midline. Mucosa pink and slightly dry. Respiratory: Tachypnea. No accessory muscle use ,with some mildly increased work of breathing. Symmetrical excursion. Auscultation revealed prolonged expiratory phase, expiratory wheezing bilaterally, early inspiratory crackles bibasilarly, and diminished breathing sounds bilaterally. Cardiovascular: Regular rate and rhythm. Gastrointestinal: Soft, distended, nontender. Bowel sounds normoactive in all 4 quadrants. Extremities: Bilateral lower extremity pitting edema. Chest pitting edema extending to the thigh level. Neurologic: Alert and oriented to person and place. Able to follow commands. LAB DATA: White blood cells 7.38, hemoglobin 7.9, hematocrit 28.8, platelets 307,000. Sodium 134, potassium 4.9, chloride 93, carbon dioxide 18, BUN 57, creatinine 5.5. Glucose 225. Plasma lactate 3.3. IMAGING DATA: Chest x-ray showed worsening pulmonary edema plus/minus pneumonia. ASSESSMENT: This is a 64-year-old male with a medical history of chronic obstructive pulmonary disease with tobacco abuse, coronary artery disease, diabetic neuropathy, peripheral vascular disease, recent thrombosis, hypertension, gastroesophageal reflux disease, chronic ongoing right lower extremity diabetic foot ulcer. He has been admitted to the ICU since yesterday with suspected acute congestive heart failure exacerbation and shock. 1. Acute on chronic hypoxic respiratory failure. 2. Acute pulmonary edema with proBNP 18,502 yesterday. 3. Chronic obstructive pulmonary disease exacerbation. 4. Shock, likely cardiorenal syndrome. 5. Tobacco abuse. PLAN: 1. Continue supplemental oxygen. Continue BiPAP at bedtime and as needed. 2. Continue antibiotics, steroid, bronchodilators. 3. The nurse orthopaedic, Dr. Arias, and the patternmaker, Dr. Calderón, are on board. 4. Follow up with ABG, CBC, BMP, blood cultures, sputum culture, and chest x- ray. 5. Continue GI and DVT prophylaxis. 6. Continue daily smoking cessation education if appropriate. 7. Further recommendations pending hospital course. Thank you for the courtesy of this consult. Dictated by SANTOSH Stern for Avelina Curran MD cc: SANTOSH Stern MD [facility]
[2019-06-11 04:53] LABS: BLOOD TYPE ARTERIAL; SAMPLE BLOOD
[2019-06-11 04:54] LABS: ALLEN TEST YES; BE -2.8 mmoll (-3.0-3.0); HCO3-(ACT) 22.8 mmoll (20.0-26.0); METHB 0.8 % (0.0-1.5); MODALITY PRB; O2(CT) 11.9 mL/dL (15.0-23.0); O2HB 97.4 % (95.0-99.0); PCO2(98.6) 48 mmHg (35-45); PO2(98.6) 183 mmHg (60-100); SAO2 100.5 % (95.0-100.0); THB 8.4 g/dL (11.5-17.4)
[2019-06-11] MEDS: SOLU-MEDROL IV SCH ×3 (06:14→23:11)
[2019-06-11] MEDS: HUMULIN R SUBQ SCH ×4 (06:15→21:17)
[2019-06-11] MEDS ORDERED: NS 2,000 ML MISC PRN (07:52)
[2019-06-11 08:34] LABS: ALBUMIN 3.6 g/dL (3.5-5.0); CALCIUM 7.8 mg/dL (8.8-10.2); CREATININE 4.2 mg/dL (0.7-1.2); MAGNESIUM 2.2 mg/dL (1.5-2.7); PHOSPHORUS 5.9 mg/dL (2.7-4.5); POTASSIUM 5.1 mmol/L (3.5-5.1)
[2019-06-11] MEDS: PULMICORT INH SCH ×2 (08:35→19:29)
--- NOTE | 2019-06-11 08:42 | Diag Imaging Result Doc PS360 ---
EXAM: CHEST-1 VIEW INDICATION: SOB TECHNIQUE: One view COMPARISON: 06/10/2019 FINDINGS: The patient is rotated toward the right. There are persistent bilateral infiltrates throughout both lungs likely representing pulmonary edema +/- pneumonia. It is stable on the left. It appears more dense on the right. However, this is probably a result of the patient's rotation. No new consolidation is identified, otherwise. Cardiac silhouette is stable. IMPRESSION: Bilateral infiltrates most compatible with pulmonary edema with increasing opacity on the right, but this may be technical. Electronically signed by John Tao 06/11/2019 8:39 AM
--- NOTE | 2019-06-11 09:12 | PROGRESS NOTE ---
DATE: 06/11/2019 INTERVAL HISTORY: He did not respond to IV Lasix yesterday, so Nephrology team had recommended surgery and he got left-sided femoral dialysis catheter and 2.7 L of dialysis. He is about to be started on dialysis again today. SUBJECTIVE: He is drowsy. Denies any complaints. He is in shortness of breath right now. VITALS: Currently temperature of 97.8 degrees, pulse 82, respiratory 25, blood pressure 125/48. He is saturating 98% on 100% non-rebreather mask. PHYSICAL EXAMINATION: He is in mild distress because of shortness of breath, drowsy. Lungs: He has significantly decreased air entry on right hemithorax with inspiratory crackles and bilateral hemithorax. He also has bilateral end-expiratory wheezes. Cardiac: S1, S2 normal. No murmur, rub or gallop. Abdomen: Distended, obese, soft, nontender. Extremities: Bilateral lower extremity edema extending up to knee level. He has a wound on the 2nd right toe. Dorsalis pedis pulses are intact. LABS: No CBC or BMP yet .his acidosis has improved and lactic acidosis has resolved. ASSESSMENT AND PLAN: 1. Acute hypoxic hypercapnic respiratory failure due to acute pulmonary edema due to acute systolic congestive heart failure and acute chronic obstructive pulmonary disease exacerbation. The patient is refusing to wear BiPAP. Continue oxygenation through non- rebreather mask. Follow up serial ABGs. Continue albuterol ipratropium nebulization and intravenous steroids for acute chronic obstructive pulmonary disease exacerbation. I will also continue his home Roflumilast. 2. Cardiogenic shock and likely acute onset cardiorenal syndrome. Continue intravenous dopamine as per Cardiology recommendation. He is not a candidate for intervention as per Cardiology team. He is not responding to IV diuresis and he is currently on dialysis for fluid balance for his pulmonary edema. 3. History of coronary artery disease with requiring stent in the past and chronic systolic congestive heart failure with ejection fraction of 25% in April 2019. Continue him atorvastatin, amiodarone and aspirin. 4. History of peripheral artery disease and right femoral femoropopliteal graft thrombosis in March 2019. He was on Eliquis at home. Currently, his left-sided groin dialysis catheter had started bleeding, so I am holding the dose of enoxaparin for now. Will appreciate Surgery recommendation if it could be held for a brief period considering his bleeding around his catheter. 5. Lactic acidosis and respiratory acidosis, likely because of poor organ perfusion due to cardiogenic shock and chronic obstructive pulmonary disease exacerbation, now improving. I will continue intravenous Zosyn until final blood culture results comes back. His urinalysis was unremarkable. 6. Disposition. Patient's condition is critical. More than 30 minutes of critical care time was spent taking care of this patient. I discussed plan of care with the nursing team. Later on I would update the family. I had an extensive discussion about his critical condition with his multiple family members yesterday. cc: Sam Rehman MD
[2019-06-11] MEDS: ASPIRIN PO SCH (09:17)
[2019-06-11] MEDS: DALIRESP PO SCH (09:17)
[2019-06-11] MEDS: CORDARONE PO SCH (09:17)
--- NOTE | 2019-06-11 15:44 | NEPHROLOGY PROGRESS NOTE ---
DATE: 06/11/2019 SUBJECTIVE: He is resting comfortably on a closed face mask. No chest pain. Hemodynamically stable overnight. OBJECTIVE: Vital Signs: Blood pressure 125/48, heart rate 82, respirations 25, intake 700 mL, output 2.8 L with only 130 mL urine output. Skin: Warm and dry. Conjunctivae are pink. Neck: Neck veins are not appreciated. Heart: Regular. Lungs: Have equal breath sounds. Increased work of breathing. Less wheezing. No crackles. Abdomen: Soft, nontender. Bowel sounds present. Extremities: Minimal edema. No clubbing or cyanosis. IMPRESSION: Acute kidney injury. Presumably cardiorenal syndrome. His chest x-ray is probably unchanged, though he does have more density on the right today. Still with pulmonary edema. We will continue hemodialysis today for 8 hours. The goal is at least 6 L ultrafiltration, 4K bath. He is having some bleeding at his exit site. He was receiving Lovenox for management of peripheral artery graft thrombus. Lovenox has been discontinued as has his aspirin. Given this recent event, I will not give DDAVP. cc: Kian Calderón MD
[2019-06-11] MEDS ORDERED: HALDOL IM PRN (19:31)
[2019-06-11 20:18] LABS: HEMOGLOBIN 8.2 g/dL (14.0-18.0)
[2019-06-11] MEDS: PROTONIX IV SCH (20:44)
[2019-06-12] MEDS ORDERED: MORPHINE IV ONE (00:26)
[2019-06-12] MEDS: ATIVAN IV PRN ×5 (00:52→20:25)
[2019-06-12] MEDS: ZOSYN 2.25 GM in NS 50 ML IV SCH ×3 (03:00→17:19)
[2019-06-12] MEDS: DOPAMINE 400 MG/D5W 400 MG/500 ML IV.SOLN IV SCH (03:00)
[2019-06-12] MEDS: DUONEB (A & A) INH SCH ×6 (03:30→23:30)
[2019-06-12 04:24] LABS: ALLEN TEST YES; BE -5.6 mmoll (-3.0-3.0); BLOOD TYPE ARTERIAL; HCO3-(ACT) 20.6 mmoll (20.0-26.0); METHB 1.2 % (0.0-1.5); O2(CT) 9.7 mL/dL (15.0-23.0); O2HB 95.6 % (95.0-99.0); PCO2(98.6) 47 mmHg (35-45); PO2(98.6) 95 mmHg (60-100); SAMPLE BLOOD; SAO2 98.5 % (95.0-100.0); SRATE 2 BPM; THB 7.1 g/dL (11.5-17.4); pH(98.6) 7.26 (7.35-7.45)
[2019-06-12 04:26] LABS: MODALITY BI PAP
[2019-06-12] MEDS: HUMULIN R SUBQ SCH ×4 (06:24→20:27)
[2019-06-12] MEDS: SOLU-MEDROL IV SCH ×2 (06:25→17:19)
[2019-06-12 06:31] LABS: ALBUMIN 3.7 g/dL (3.5-5.0); CREATININE 3.3 mg/dL (0.7-1.2); PHOSPHORUS 4.5 mg/dL (2.7-4.5); POTASSIUM 5.7 mmol/L (3.5-5.1)
[2019-06-12 06:43] LABS: HEMATOCRIT 26.9 % (42.0-52.0); HEMOGLOBIN 7.5 g/dL (14.0-18.0); IMM GRAN# 0.02 X1000 (0.0-0.04); IMM GRAN% 0.1 % (0.0-0.5); LYMPH% 2.1 % (20.5-51.1); MCH 20.5 PG (27-31); MCHC 27.9 g/dL (33-37); MCV 73.5 FL (81-99); MONO# 0.23 X1000 (0.11-0.59); MONO% 1.6 % (1.7-9.3); MPV 11.5 FL (7.4-10.4); NEUT# 13.83 X1000 (1.4-6.5); NEUT% 96.2 % (42.2-75.2); PLT 303 X1000 (130-400); RBC 3.66 XMIL (4.7-6.1); RDW 17.7 % (11.5-14.5); WBC 14.38 X1000 (4.8-10.8)
[2019-06-12 07:40] LABS: ANISOCYTOSIS 1+; BANDS 2 % (0-1); HYPOCHROM 1+; LYMPHS 2 % (21-51); POIKILOCYTOSIS 1+; SEGS 96 % (42-75)
[2019-06-12 07:41] LABS: MICROCYTOSIS 2+
[2019-06-12] MEDS: PULMICORT INH SCH ×2 (08:16→19:30)
--- NOTE | 2019-06-12 08:16 | PROGRESS NOTE ---
DATE: 06/12/2019 INTERVAL HISTORY: No acute events overnight. He was started on BiPAP and he was not tolerating it that well. However, the family was at bedside and they were able to help him keep BiPAP on. Yesterday, his code status was changed to Do Not Resuscitate level 1 as per expression by his . He also received almost 7 L off during dialysis in the ICU. I had updated extensively to multiple family members and his at bedside about his critical condition. Currently, he is drowsy and confused, not answering any questions. VITALS: His temperature is 97.6 degrees, his pulse is 103, respiratory rate 30, his blood pressure is 114/57 on dopamine. He is saturating 100% on BiPAP. PHYSICAL EXAMINATION: General: He is in mild discomfort because of not tolerating BiPAP that well. Pupils are bilaterally equal, reacting to light. He has improved air entry. Right hemithorax with inspiratory crackles. However, air entry is still decreased on the right as compared to left. His end-expiratory wheezes have improved. S1, S2 normal. No murmur, rub, or gallop. Abdomen: Soft, nontender. No hepatosplenomegaly. He does not have any lower extremity edema. He has a urine catheter. Input and output, Dorsey catheter is only draining 30 mL of urine. LABS: Suggestive of leukocytosis, microcytic anemia, normal platelet count. He continues to have combined respiratory and metabolic acidosis. He has hyperkalemia today. His BUN and creatinine appear better as compared to before. No new microbiological data. IMAGING: Chest x-ray suggests improvement in right-sided infiltrate as compared to before. ASSESSMENT AND PLAN: 1. Acute hypoxic, hypercapnic respiratory failure due to acute pulmonary edema due to acute systolic congestive heart failure exacerbation and acute chronic obstructive pulmonary disease exacerbation. Continue to cycle BiPAP and Ventimask as tolerated, and follow up serial arterial blood gases. Continue albuterol ipratropium nebulization and decrease the intravenous steroids frequency. Continue home roflumilast. 2. Acute cardiorenal syndrome due to worsening systolic congestive heart failure. I will try to wean off intravenous dopamine. He is not a candidate for intervention as per cardiology team considering his previous history of coronary artery disease requiring stent in the past and 2007 coronary angiography showing diffuse left anterior descending and right coronary artery stenosis. His ejection fraction was 25% in April 2019. I will continue him on atorvastatin and amiodarone, and I am holding his aspirin. 3. Acute kidney injury due to cardiorenal syndrome, which he did not respond to intravenous Lasix. Continue dialysis through left groin dialysis catheter. The groin site is bleeding less. I am continuing to hold enoxaparin and aspirin for now. 4. History of peripheral artery disease and right femoropopliteal graft thrombosis in March 2019. He was on Eliquis at home. I am holding enoxaparin at the moment, considering he is dialysis dependent and he has the dialysis catheter site bleeding. Surgical team is on board. 5. Respiratory and metabolic acidosis because of pulmonary edema and kidney failure. Continue to monitor arterial blood gases. Nephrology and pulmonology on board. 6. Disposition. The patient's condition is critical. More than 30 minutes of critical care time were spent in taking care of this patient. Plan of care will be discussed with the patient's family later today. ADDENDUM: I went to the bedside and informed the family members including his about his poor progonosis, critical condition and answered all of her questions. cc: Sam Rehman MD MTDElizabeth
--- NOTE | 2019-06-12 08:45 | Diag Imaging Result Doc PS360 ---
EXAM: CHEST-1 VIEW INDICATION: SOB TECHNIQUE: One view COMPARISON: 06/11/2019 FINDINGS: Consolidation throughout the right lung and milder consolidation on the left appears stable to marginally improved. No new consolidation is identified. Cardiac silhouette is stable. IMPRESSION: Stable to marginal improvement. Electronically signed by John Tao 06/12/2019 8:43 AM
[2019-06-12] MEDS: ASPIRIN PO SCH (09:54)
[2019-06-12] MEDS: CORDARONE PO SCH (09:54)
[2019-06-12] MEDS: DALIRESP PO SCH (09:55)
[2019-06-12 12:07] LABS: HEPATITIS PROFILE ACUTE SEE COMMENTS
[2019-06-12] MEDS ORDERED: BLISTEX MEDICATED BERRY LIP BALM TOP PRN (15:40)
[2019-06-12] MEDS: PROTONIX IV SCH (20:25)
[2019-06-12] MEDS: LIPITOR PO SCH (20:26)
[2019-06-12] MEDS: REQUIP PO SCH (20:27)
[2019-06-13] MEDS: ZOSYN 2.25 GM in NS 50 ML IV SCH (03:02)
[2019-06-13] MEDS: DUONEB (A & A) INH SCH (03:30)
[2019-06-13 04:31] LABS: ALLEN TEST YES; BE -3.2 mmoll (-3.0-3.0); BLOOD TYPE ARTERIAL; HCO3-(ACT) 22.4 mmoll (20.0-26.0); METHB 1.5 % (0.0-1.5); O2(CT) 13.5 mL/dL (15.0-23.0); O2HB 95.7 % (95.0-99.0); PCO2(98.6) 34 mmHg (35-45); PO2(98.6) 146 mmHg (60-100); SAMPLE BLOOD; SAO2 99.5 % (95.0-100.0); THB 9.8 g/dL (11.5-17.4)
[2019-06-13 04:33] LABS: MODALITY NRB
[2019-06-13 05:07] VITALS: BP 127/43
[2019-06-13] MEDS ORDERED: NS 2,000 ML MISC PRN (06:33)
[2019-06-13 06:40] LABS: HEMATOCRIT 27.1 % (42.0-52.0); HEMOGLOBIN 7.6 g/dL (14.0-18.0); MCH 20.5 PG (27-31); MCV 73.2 FL (81-99); MPV 11.3 FL (7.4-10.4); PLT 294 X1000 (130-400); RDW 17.9 % (11.5-14.5); WBC 17.28 X1000 (4.8-10.8)
[2019-06-13 06:41] LABS: BASO# 0.01 X1000 (0.0-0.2); BASO% 0.1 % (0.0-0.8); IMM GRAN# 0.03 X1000 (0.0-0.04); IMM GRAN% 0.2 % (0.0-0.5); LYMPH# 0.54 X1000 (1.2-3.4); LYMPH% 3.1 % (20.5-51.1); MONO# 0.58 X1000 (0.11-0.59); MONO% 3.4 % (1.7-9.3); NEUT# 16.12 X1000 (1.4-6.5); NEUT% 93.2 % (42.2-75.2)
[2019-06-13 06:50] LABS: ALBUMIN 3.8 g/dL (3.5-5.0); CALCIUM 8.4 mg/dL (8.8-10.2); CREATININE 4.9 mg/dL (0.7-1.2); MAGNESIUM 2.3 mg/dL (1.5-2.7)
[2019-06-13] MEDS: SOLU-MEDROL IV SCH (07:10)
[2019-06-13] MEDS: HUMULIN R SUBQ SCH (07:10)
[2019-06-13 07:26] LABS: POTASSIUM 6.5 mmol/L (3.5-5.1)
[2019-06-13 07:58] LABS: LYMPHS 4 % (21-51); MONO 4 % (1-9); SEGS 90 % (42-75)
[2019-06-13 07:59] LABS: ANISOCYTOSIS 1+; HYPOCHROM 1+; POIKILOCYTOSIS 1+
[2019-06-13] MEDS ORDERED: HEPARIN SUBQ SCH (13:00)
--- NOTE | 2019-06-14 08:42 | DISCHARGE SUMMARY ---
ADMISSION DATE: 06/09/2019 DISCHARGE DATE: 06/13/2019 DATE OF : 06/13/2019. TIME OF : Around 6 a.m. CAUSE OF : 1. Cardiogenic shock. 2. Congestive heart failure. 3. Cardiorenal syndrome. CONTRIBUTING CAUSE: 1. Chronic congestive heart failure. 2. Coronary artery disease. 3. Chronic obstructive pulmonary disease. HOSPITAL COURSE SUMMARY: Mr. Demetrius Crum is a 64-year-old man who had presented on 06/09/2019 with chief complaints of weakness, nausea, vomiting, not feeling well, and shortness of breath. He was admitted for cardiogenic shock, [id number] systolic congestive heart failure exacerbation, cardiorenal syndrome, acute COPD exacerbation, and acute kidney injury. He was initially started on antibiotics but the concern for infection was low and it was later on discontinued. He did not respond to IV diuresis, so, he was started on dialysis, intravenous dopamine, and respiratory treatment. Cardiology team had evaluated the patient and he was deemed not a candidate for any intervention. His poor prognosis was explained to the family, considering his COPD, renal failure, and heart failure and patient was made a Do Not Resuscitate Level 1 on the day of . According to report given to me by the nursing team, he went into ventricular tachycardia with episodes of ventricular fibrillation and then pulseless electrical activity. cc: Sam eRhman MD
== END 2019-06-13 06:11 | disposition expired | DRG 291 ==
LOC: ED 10:36 → EDIPHOLD 16:10 → ICU 22:10
PROVIDERS: ATTEND Internal Medicine